=== PATIENT | female | born 1945 | race African-American/Black ===

== ENCOUNTER 2017-06-17 14:48 | Inpatient (IN) | payer MEDICARE, MEDICAID ==
[2017-06-17] VITALS (8 sets, daily range): BP systolic 71–127; BP diastolic 34–54
[~2017-06-17] VITALS: Ht 162.6 cm; Wt 93.9 kg
[2017-06-17] MEDS ORDERED: Cefepime HCl 1 GM in NS 55 ML IV STA (14:53)
[2017-06-17] MEDS ORDERED: Vancomycin 1 GM in NS 275 ML IV ONE (15:00)
[2017-06-17] MEDS ORDERED: Acetaminophen 650 MG SUPP RECTAL ONE (15:00)
--- NOTE | 2017-06-17 15:04 | Emergency Room Report ---
History of Present Illness General Chief Complaint: General Complaint Source: Patient, EMS Present Illness HPI The patient presents with altered level of consciousness and hypotension. Also paramedics felt that her skin was hot. Her blood pressure was 66 systolic in the field and they gave her 250 NS in the field and then a second to bolus at my request here. Her mentation started to improve with the fluids. The patient states that she's very thirsty. History is limited. According to the history in the computer she has muscle wasting, cancer the colon and some obstructive uropathy. Colostomy. She is on Eliquis. She has a h/o DVT. 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 Nursing Documentation: PMH: Agreed; PSxH: Agreed Nursing Documentation-PMH Hx Cerebrovascular Accident: Yes Review of Systems All Other Systems: limited Physical Exam Vital Signs Date Time Temp Pulse Resp B/P (MAP) Pulse Ox O2 Delivery O2 Flow Rate FiO2 06/17/17 14:45 101.3 105 24 70/43 97 Room Air 101.3 Sp02 EP Interpretation: reviewed, normal General Appearance: alert, mild distress, lethargic - but answering questions slowly, obese, Chronically Ill Head: normocephalic Eyes: bilateral eye normal inspection, bilateral eye PERRL ENT: dry mucus membranes Neck: full range of motion Respiratory: lungs clear, normal breath sounds Cardiovascular #1: tachycardia Cardiovascular #2: 2+ radial (R) Gastrointestinal: non-distended, no guarding, no rebound, tenderness - minimal around colostomy site, other - colostomy, no tender Rectal: other - colostomy stool is brown Musculoskeletal: back normal, gait/station normal, normal range of motion Neurologic: alert, motor weakness - bilat LE but moves both, oriented - x2 Psychiatric: depressed affect Skin: normal color, other - hot, abrasion R knee Procedures Critical Care Time Critical Care Time Total Critical Care Time: 90 min bedside evaluation and treatment excludes procedures (EKG, CVP). Reason for critical care: severe sepsis, fluid resuscitation, anemia Possible complications: hypotension, hypertension, DE, shock, arrhythmias, metabolic acidosis, end organ damage, respiratory failure. Interventions: fluid resuscitation, antibiotics, pressors, blood, discussion with admitting MDs Course: Patient presented with fever and hypotension. Immediate fluid resuscitation initiated. Patient improved however still hypotensive. CVP begun. Levophed started. Discussed with daughter and patient. Discussed with admitting MD. Anemia significant, blood transfusion ordered. I discussed this with the patient and she was in agreement. Consultations: nursing staff, EMS, family, admitting MD Performed by: Dr. Cruz Tolerated well condition = critical, but improving Central Line Central Line : Consent: Verbal Central Line Lumen: triple Maximal Sterile Barrier Tech: yes cap, yes mask, yes sterile gown, yes sterile gloves, yes large sterile sheet, yes hand hygiene, yes chlorhexidine prep Central Line Postion: internal jugular (R), femoral (R) Anesthesia: Lidocaine cc's of anesthesia: 10 Complications: none Central Line Post Position: sutured, good blood return, position confirmed w / CXR Attempts: Other - 2 Patient Tolerated: Well Complications: None Progress Unable to get good blood return R femoral. R low IJ with ultrasound. EBL 7 ml. Medical Decision Making Diagnostic Impression: Primary Impression: Severe sepsis Additional Impressions: UTI (urinary tract infection) Qualified Codes: N39.0 - Urinary tract infection, site not specified Colon cancer Qualified Codes: C18.9 - Malignant neoplasm of colon, unspecified Renal insufficiency Anemia Qualified Codes: D64.89 - Other specified anemias Anticoagulation on Eliquis H/O deep venous thrombosis ER Course Patient presents with fever-with hypotension. The patient is septic. The differential of the source includes pneumonia, intra-abdominal source, urinary tract infection amongst others. There is no evidence of infection skin or meningitis. The patient will be evaluated with EKG, chest x-ray, and labs including lactate and blood cultures. A Cheung catheter will be placed. She'll be given initial fluid bolus and reassessed after that. If she still hypotensive we need to start a central line and started on pressors. She's very dry at this time and therefore of aggressive fluid hydration is the first step. She'll be given Tylenol and initial broad-spectrum antibiotics covering urine and abdominal sources have been ordered. Patient clinically improved with fluids. Still hypotensive. EKG without injury. CXR no infiltrate. Labs with leukocytosis, anemia, elevated lactate, mild renal insufficiency. Marked pyuria. Sepsis re-evaluation after repeat bolus given. Still hypotensive but more alert , skin warm with fair perfusion, no still tachycardic, no dyspnea. CVP started and levaquin started. BP responding. (When asked about the abrasion on her R knee, she states she fell a few days ago.) Giving morphine for abdominal pain. Still not surgical exam. With + urine, I doubt abdomen/cancer is source of sepsis. Discussed with Dr. Orozco and Dr. Lee. H/H low. BP much better on levophed. I had discussed transfusing blood with the patient and she understands. Transfusions ordered. Laboratory Tests Test 06/17/17 14:30 06/17/17 15:00 Urine Color Lanie Urine Appearance Slightly cloudy Urine pH 8 (4.5-8.0) Urine Specific [place] 1.010 (1.005-1.035) Urine Protein 3+ (NEGATIVE) H Urine Glucose (UA) Negative (NEGATIVE) Urine Ketones Negative (NEGATIVE) Urine Occult Blood 4+ (NEGATIVE) H Urine Nitrite Negative (NEGATIVE) Urine Bilirubin Negative (NEGATIVE) Urine Ictotest Negative Urine Urobilinogen Normal MG/DL (0.0-1.0) Urine Leukocyte Esterase 3+ (NEGATIVE) H Urine RBC 10-15 /HPF (0 - 2) H Urine WBC Tntc /HPF (0 - 2) H Urine Squamous Epithelial Cells Moderate /LPF (NONE/OCC) H Urine Amorphous Sediment Many /LPF (NONE) H Urine Bacteria Many /HPF (NONE) H White Blood Count 32.8 K/UL (4.8-10.8) *H Red Blood Count 2.63 M/UL (4.20-5.40) L Hemoglobin 6.7 G/DL (12.0-16.0) *L Hematocrit 21.8 % (37.0-47.0) L Mean Corpuscular Volume 83 FL (80-99) Mean Corpuscular Hemoglobin 25.5 PG (27.0-31.0) L Mean Corpuscular Hemoglobin Concent 30.8 G/DL (32.0-36.0) L Red Cell Distribution Width 15.9 % (11.6-14.8) H Platelet Count 553 K/UL (150-450) H Mean Platelet Volume 4.9 FL (6.5-10.1) L Neutrophils (%) (Auto) % (45.0-75.0) Lymphocytes (%) (Auto) % (20.0-45.0) Monocytes (%) (Auto) % (1.0-10.0) Eosinophils (%) (Auto) % (0.0-3.0) Basophils (%) (Auto) % (0.0-2.0) Differential Total Cells Counted 100 Neutrophils % (Manual) 90 % (45-75) H Lymphocytes % (Manual) 3 % (20-45) L Monocytes % (Manual) 2 % (1-10) Eosinophils % (Manual) 0 % (0-3) Basophils % (Manual) 0 % (0-2) Band Neutrophils 5 % (0-8) Platelet Estimate Increased H Platelet Morphology Giant Platelets Occasional Hypochromasia 2+ Anisocytosis 1+ Prothrombin Time 13.9 SEC (9.30-11.50) H Prothrombin Time INR 1.3 (0.9-1.1) H PTT 39 SEC (23-33) H Sodium Level 139 MMOL/L (136-145) Potassium Level 3.9 MMOL/L (3.5-5.1) Chloride Level 105 MMOL/L (98-107) Carbon Dioxide Level 20 MMOL/L (21-32) L Anion Gap 14 mmol/L (5-15) Blood Urea Nitrogen 26 mg/dL (7-18) H Creatinine 1.9 MG/DL (0.55-1.30) H Estimate Glomerular Filtration Rate mL/min (>60) Glucose Level 86 MG/DL (74-106) Lactic Acid Level 5.00 mmol/L (0.66-2.22) H Calcium Level 8.3 MG/DL (8.5-10.1) L Magnesium Level 1.5 MG/DL (1.5-2.4) Total Bilirubin 0.4 MG/DL (0.2-1.0) Aspartate Amino Transferase (AST) 28 U/L (15-37) Alanine Aminotransferase (ALT) 14 U/L (12-78) Alkaline Phosphatase 122 U/L (46-116) H Total Creatine Kinase 110 U/L (26-308) Troponin I 0.014 ng/mL (0.000-0.056) Pro-B-Type Natriuretic Peptide 54396 pg/mL (0-125) H Total Protein 5.9 G/DL (6.4-8.2) L Albumin 1.4 G/DL (3.4-5.0) L Globulin 4.5 g/dL Albumin/Globulin Ratio 0.3 (1.0-2.7) L Lipase 31 U/L (73-393) L EKG Diagnostic Results Rate: tachycardiac Rhythm: other ST Segments: no acute changes Rhythm Strip Diag. Results EP Interpretation: yes Rhythm: no PVC's, no ectopy, other - ST 101 Chest X-Ray Diagnostic Results Chest X-Ray Diagnostic Results #1: Chest X-Ray Ordered: Yes # of Views/Limited/Complete: 1 View Indication: Other EP Interpretation: Yes Interpretation: no pneumothorax, other - effusion L and pacer Impression: Other Electronically Signed by: Electronically signed by Jean-Claude Cruz MD Chest X-Ray Diagnostic Results #2: Chest X-Ray Ordered: Yes # of Views/Limited/Complete: 1 View Indication: Other EP Interpretation: Yes Interpretation: no consolidation, no pneumothorax, other - CVP IVC Impression: Other Electronically Signed by: Electronically signed by Jean-Claude Cruz MD Last Vital Signs Date Time Temp Pulse Resp B/P (MAP) Pulse Ox O2 Delivery O2 Flow Rate FiO2 06/17/17 23:45 126/53 06/17/17 23:15 98.3 91 22 100 Room Air 98.3 Status: improved Disposition: ADMITTED INPATIENT Condition: Critical Jean-Claude Cruz M.D. Jun 17, 2017 15:04
[2017-06-17 15:16] LABS: HEMATOCRIT 21.8 % (37.0-47.0); MEAN CORPUSCULAR VOLUME 83 FL (80-99); PLATELET COUNT 553 K/UL (150-450); RED BLOOD COUNT 2.63 M/UL (4.20-5.40); RED CELL DISTRIBUTION WIDTH 15.9 % (11.6-14.8)
[2017-06-17 15:32] LABS: INR 1.3 (0.9-1.1)
[2017-06-17 15:35] LABS: ANION GAP 14 mmol/L (5-15); BLOOD UREA NITROGEN 26 mg/dL (7-18); CALCIUM 8.3 MG/DL (8.5-10.1); CARBON DIOXIDE 20 MMOL/L (21-32); CHLORIDE 105 MMOL/L (98-107); CREATININE 1.9 MG/DL (0.55-1.30); POTASSIUM 3.9 MMOL/L (3.5-5.1); SODIUM 139 MMOL/L (136-145)
[2017-06-17 15:36] LABS: HEMOGLOBIN 6.7 G/DL (12.0-16.0); WHITE BLOOD COUNT 32.8 K/UL (4.8-10.8)
[2017-06-17] MEDS ORDERED: MULTIVITAMINS1 EAC8 ORAL (15:43)
[2017-06-17] MEDS ORDERED: VESICARE10 MG ORAL (15:43)
[2017-06-17] MEDS ORDERED: LIDODERM700 M1 TOPIC (15:43)
[2017-06-17] MEDS ORDERED: OMEPRAZOLE20 M2 ORAL (15:43)
[2017-06-17] MEDS ORDERED: GABAPENTIN300 MG ORAL (15:43)
[2017-06-17] MEDS ORDERED: SENNA8.6 M2 PO (15:43)
[2017-06-17] MEDS ORDERED: NAPROXEN500 M2 ORAL ×2 (15:43→18:34)
[2017-06-17] MEDS ORDERED: ELIQUIS2.5 MG PO (15:43)
[2017-06-17] MEDS ORDERED: METHADONE HCL5 MG PO (15:43)
[2017-06-17] MEDS ORDERED: MEGACE40 MG PO (15:43)
[2017-06-17] MEDS ORDERED: SERTRALINE HCL50 MG ORAL (15:43)
[2017-06-17] MEDS ORDERED: DILAUDID2 MG ORAL ×2 (15:43→18:31)
[2017-06-17] MEDS ORDERED: LACTULOSE10 GM/154 PO (15:43)
[2017-06-17] MEDS ORDERED: ACETAMINOPHEN325 M1 ORAL (15:43)
[2017-06-17 15:45] LABS: ALANINE AMINOTRANSFERASE 14 U/L (12-78); ALBUMIN 1.4 G/DL (3.4-5.0); ALBUMIN/GLOBULIN RATIO 0.3 (1.0-2.7); ALKALINE PHOSPHATASE 122 U/L (46-116); ASPARTATE AMINO TRANSFERASE 28 U/L (15-37); BILIRUBIN,TOTAL 0.4 MG/DL (0.2-1.0); CREATINE KINASE 110 U/L (26-308)
[2017-06-17 15:51] LABS: APPEARANCE,URINE SLIGHTLY CLOUDY; BILIRUBIN, URINE NEGATIVE (NEGATIVE); COLOR,URINE AMBER; GLUCOSE, URINE (UA) NEGATIVE (NEGATIVE); KETONES,URINE NEGATIVE (NEGATIVE); LEUKOCYTE ESTERASE ,URINE 3+ (NEGATIVE); NITRITE,URINE NEGATIVE (NEGATIVE); PH,URINE 8 (4.5-8.0); PROTEIN,URINE 3+ (NEGATIVE); UROBILINOGEN,URINE NORMAL MG/DL (0.0-1.0)
[2017-06-17] MEDS ORDERED: Lidocaine 1% Plain 30 ml INJ ONE (17:30)
[2017-06-17] MEDS ORDERED: Morphine Sulfate 2mg/ml Inj IVP ONE (20:15)
[2017-06-17] MEDS ORDERED: Morphine Sulfate 4mg/ml Inj IVP ONE (20:30)
[2017-06-18] VITALS (35 sets, daily range): BP systolic 93–131; BP diastolic 40–99
[2017-06-18 02:19] LABS: HEMATOCRIT 20.7 % (37.0-47.0); MEAN CORPUSCULAR VOLUME 83 FL (80-99); PLATELET COUNT 538 K/UL (150-450); RED BLOOD COUNT 2.49 M/UL (4.20-5.40); RED CELL DISTRIBUTION WIDTH 16.2 % (11.6-14.8)
[2017-06-18 02:23] LABS: HEMOGLOBIN 6.6 G/DL (12.0-16.0); WHITE BLOOD COUNT 34.5 K/UL (4.8-10.8)
--- NOTE | 2017-06-18 10:40 | Consultation ---
History of Present Illness General Date patient seen: Jun 18, 2017 Chief Complaint: General Complaint Reason for Consultation: shock Present Illness HPI 72 year old female with hx of colon cancer, s/p resection and colostomy with recurrent cancer, DVT, on Eliquis, in [place] [facility]. was brought in by paramedics with CC of ALOC and hypotension. Pt had systolic BP of 60's in ER and was severely anemic. He as admitted to ICU. Pt is currently more awake and comfortable and doesn't have any acute complains. Allergies: Coded Allergies: PENICILLINS (Verified Allergy, Unknown, 06/17/17) Medication History Scheduled Apixaban (Eliquis), 2.5 MG PO BID, (Reported) Gabapentin* (Gabapentin*), 300 MG ORAL BEDTIME, (Reported) Lidocaine (Lidoderm), 1 PATCH TOPIC DAILY, (Reported) Megestrol Acetate (Megestrol Acetate), 800 MG PO DAILY, (Reported) Methadone Hcl* (Methadone*), 5 MG PO DAILY, (Reported) Multivitamin With Minerals (Multivitamins With Minerals*), 1 TAB ORAL DAILY, ( Reported) Omeprazole (Omeprazole), 20 MG ORAL DAILY, (Reported) Sennosides (Senna), 8.6 MG PO BEDTIME, (Reported) Sertraline Hcl* (Zoloft*), 50 MG ORAL DAILY, (Reported) Solifenacin Succinate (Vesicare*), 10 MG ORAL DAILY, (Reported) Scheduled PRN Acetaminophen* (Acetaminophen 325MG Tablet*), 650 MG ORAL Q4H PRN for Fever/ Headache/Mild Pain, (Reported) Hydromorphone HCl (Dilaudid), 6 MG ORAL Q6HR PRN for For Pain, (Reported) Lactulose (Lactulose), 20 GM PO DAILY PRN for Constipation, (Reported) Naproxen* (Naproxen*), 500 MG ORAL TWICE A DAY PRN for Hip Pain, (Reported) Patient History Healthcare decision maker Resuscitation status Advanced Directive on File Past Medical/Surgical History Past Medical/Surgical History: (1) Colon cancer (2) H/O deep venous thrombosis Review of Systems Constitutional: Reports: malaise, weakness Physical Exam General Appearance: WD/WN Lines, tubes and drains: peripheral, central line HEENT: normocephalic Neck: non-tender, normal alignment Respiratory/Chest: chest wall non-tender, lungs clear Cardiovascular/Chest: normal peripheral pulses, regular rhythm Abdomen: normal bowel sounds, non tender Genitourinary/Rectal: normal genital exam Extremities: normal range of motion, non-tender Last 24 Hour Vital Signs Date Time Temp Pulse Resp B/P (MAP) Pulse Ox O2 Delivery O2 Flow Rate FiO2 06/18/17 08:39 98.2 92 18 98.2 06/18/17 08:00 97.8 90 20 120/44 99 Room Air 97.8 06/18/17 07:45 97.8 90 20 118/62 99 Room Air 97.8 06/18/17 07:30 97.8 90 20 120/48 99 Room Air 97.8 06/18/17 07:19 97.8 90 20 121/50 99 Room Air 97.8 06/18/17 07:00 129/52 06/18/17 06:30 119/38 06/18/17 06:00 97.8 90 20 109/79 99 Room Air 97.8 06/18/17 06:00 109/79 06/18/17 05:30 122/45 06/18/17 05:00 98.2 95 12 119/49 99 Room Air 98.2 06/18/17 05:00 119/49 06/18/17 04:55 116/45 06/18/17 04:50 117/48 06/18/17 04:45 124/47 06/18/17 04:30 123/48 06/18/17 04:00 98.2 95 12 121/45 98 Room Air 98.2 06/18/17 04:00 121/45 06/18/17 03:30 114/49 06/18/17 03:00 98.2 94 12 94/99 98 Room Air 98.2 06/18/17 03:00 94/99 06/18/17 02:32 113/45 06/18/17 02:15 98.2 95 12 102/51 100 Room Air 98.2 06/18/17 02:15 102/51 06/18/17 01:45 104/38 06/18/17 01:15 98.2 93 12 111/40 100 Room Air 98.2 06/18/17 01:15 111/40 06/18/17 00:45 112/40 06/18/17 00:15 114/42 06/18/17 00:15 98.3 91 22 114/42 100 Room Air 98.3 06/17/17 23:45 126/53 06/17/17 23:15 98.3 91 22 127/54 100 Room Air 98.3 06/17/17 23:15 127/54 06/17/17 22:45 123/52 06/17/17 22:15 98.3 92 22 116/43 100 Room Air 98.3 06/17/17 22:15 116/43 06/17/17 21:45 110/43 06/17/17 21:15 100/39 06/17/17 21:15 98.3 95 26 100/39 100 Room Air 98.3 06/17/17 20:45 107/55 06/17/17 20:40 103/54 06/17/17 20:35 83/53 06/17/17 20:23 98.3 06/17/17 20:20 99/39 06/17/17 20:20 98.3 94 26 99/39 100 Room Air 98.3 06/17/17 19:50 94/47 06/17/17 19:20 95/39 06/17/17 19:15 96/40 06/17/17 19:10 98.3 96 26 92/37 100 Room Air 98.3 06/17/17 19:10 92/37 06/17/17 19:05 77/36 06/17/17 19:00 77/37 06/17/17 18:55 69/40 06/17/17 18:00 92 21 78/34 100 Room Air 06/17/17 17:00 90 21 80/34 98 Room Air 06/17/17 15:41 100.2 06/17/17 15:26 100.2 105 21 71/37 100 Room Air 100.2 06/17/17 14:45 101.3 105 24 70/43 97 Room Air 101.3 Intake and Output 06/17/17 06/18/17 19:00 07:00 Intake Total 1055 ml 1275 ml Output Total 500 ml Balance 1055 ml 775 ml Intake IV Total 1055 ml 1275 ml Output Urine Total 500 ml Laboratory Tests Test 06/17/17 14:30 06/17/17 15:00 06/18/17 01:22 06/18/17 04:00 Urine Color Lanie Urine Appearance Slightly cloudy Urine pH 8 (4.5-8.0) Urine Specific [place] 1.010 (1.005-1.035) Urine Protein 3+ (NEGATIVE) H Urine Glucose (UA) Negative (NEGATIVE) Urine Ketones Negative (NEGATIVE) Urine Occult Blood 4+ (NEGATIVE) H Urine Nitrite Negative (NEGATIVE) Urine Bilirubin Negative (NEGATIVE) Urine Ictotest Negative Urine Urobilinogen Normal MG/DL (0.0-1.0) Urine Leukocyte Esterase 3+ (NEGATIVE) H Urine RBC 10-15 /HPF (0 - 2) H Urine WBC Tntc /HPF (0 - 2) H Urine Squamous Epithelial Cells Moderate /LPF (NONE/OCC) H Urine Amorphous Sediment Many /LPF (NONE) H Urine Bacteria Many /HPF (NONE) H White Blood Count 32.8 K/UL (4.8-10.8) *H 34.5 K/UL (4.8-10.8) *H Red Blood Count 2.63 M/UL (4.20-5.40) L 2.49 M/UL (4.20-5.40) L Hemoglobin 6.7 G/DL (12.0-16.0) *L 6.6 G/DL (12.0-16.0) *L Hematocrit 21.8 % (37.0-47.0) L 20.7 % (37.0-47.0) L Mean Corpuscular Volume 83 FL (80-99) 83 FL (80-99) Mean Corpuscular Hemoglobin 25.5 PG (27.0-31.0) L 26.3 PG (27.0-31.0) L Mean Corpuscular Hemoglobin Concent 30.8 G/DL (32.0-36.0) L 31.7 G/DL (32.0-36.0) L Red Cell Distribution Width 15.9 % (11.6-14.8) H 16.2 % (11.6-14.8) H Platelet Count 553 K/UL (150-450) H 538 K/UL (150-450) H Mean Platelet Volume 4.9 FL (6.5-10.1) L 4.8 FL (6.5-10.1) L Neutrophils (%) (Auto) % (45.0-75.0) % (45.0-75.0) Lymphocytes (%) (Auto) % (20.0-45.0) % (20.0-45.0) Monocytes (%) (Auto) % (1.0-10.0) % (1.0-10.0) Eosinophils (%) (Auto) % (0.0-3.0) % (0.0-3.0) Basophils (%) (Auto) % (0.0-2.0) % (0.0-2.0) Differential Total Cells Counted 100 Neutrophils % (Manual) 90 % (45-75) H Lymphocytes % (Manual) 3 % (20-45) L Monocytes % (Manual) 2 % (1-10) Eosinophils % (Manual) 0 % (0-3) Basophils % (Manual) 0 % (0-2) Band Neutrophils 5 % (0-8) Platelet Estimate Increased H Platelet Morphology Giant Platelets Occasional Hypochromasia 2+ Anisocytosis 1+ Prothrombin Time 13.9 SEC (9.30-11.50) H Prothromb Time International Ratio 1.3 (0.9-1.1) H Activated Partial Thromboplast Time 39 SEC (23-33) H Sodium Level 139 MMOL/L (136-145) Potassium Level 3.9 MMOL/L (3.5-5.1) Chloride Level 105 MMOL/L (98-107) Carbon Dioxide Level 20 MMOL/L (21-32) L Anion Gap 14 mmol/L (5-15) Blood Urea Nitrogen 26 mg/dL (7-18) H Creatinine 1.9 MG/DL (0.55-1.30) H Estimat Glomerular Filtration Rate mL/min (>60) Glucose Level 86 MG/DL (74-106) Lactic Acid Level 5.00 mmol/L (0.66-2.22) H 1.00 mmol/L (0.66-2.22) Calcium Level 8.3 MG/DL (8.5-10.1) L Magnesium Level 1.5 MG/DL (1.5-2.4) Total Bilirubin 0.4 MG/DL (0.2-1.0) Aspartate Amino Transf (AST/SGOT) 28 U/L (15-37) Alanine Aminotransferase (ALT/SGPT) 14 U/L (12-78) Alkaline Phosphatase 122 U/L (46-116) H Total Creatine Kinase 110 U/L (26-308) Troponin I 0.014 ng/mL (0.000-0.056) Pro-B-Type Natriuretic Peptide 00453 pg/mL (0-125) H Total Protein 5.9 G/DL (6.4-8.2) L Albumin 1.4 G/DL (3.4-5.0) L Globulin 4.5 g/dL Albumin/Globulin Ratio 0.3 (1.0-2.7) L Lipase 31 U/L (73-393) L Test 06/18/17 09:30 Sodium Level Pending Potassium Level Pending Chloride Level Pending Carbon Dioxide Level Pending Blood Urea Nitrogen Pending Creatinine Pending Estimat Glomerular Filtration Rate Pending Glucose Level Pending Calcium Level Pending Phosphorus Level Pending Magnesium Level Pending Total Bilirubin Pending Aspartate Amino Transf (AST/SGOT) Pending Alanine Aminotransferase (ALT/SGPT) Pending Alkaline Phosphatase Pending Total Protein Pending Albumin Pending Globulin Pending Microbiology Date/Time Source Procedure Growth Status 06/17/17 14:30 Urine,Clean Catch Urine Culture - Preliminary NO GROWTH Resulted Height (Feet): 5 Height (Inches): 4.00 Weight (Pounds): 200 Medications Current Medications Medications (Trade) Dose Ordered Sig/Naman Route PRN Reason Start Time Stop Time Status Last Admin Dose Admin Norepinephrine Bitartrate 4 mg/ Dextrose 250 ml @ 0 mls/hr Q24H IV 06/18/17 10:00 07/17/17 09:59 Sodium Chloride 1,000 ml @ 300 mls/hr Q3H20M IV 06/18/17 09:30 07/17/17 14:59 06/18/17 09:43 Assessment/Plan Problem List: (1) Severe sepsis ICD Codes: A41.9 - Sepsis, unspecified organism; R65.20 - Severe sepsis without septic shock SNOMED: 81953924 (2) Acute encephalopathy ICD Codes: G93.40 - Encephalopathy, unspecified SNOMED: 23660423, 002386259 (3) Anemia ICD Codes: D64.9 - Anemia, unspecified SNOMED: 673341477 Qualifiers: Qualified Codes: D64.89 - Other specified anemias (4) H/O deep venous thrombosis ICD Codes: Z86.718 - Personal history of other venous thrombosis and embolism SNOMED: 542866183 (5) Colon cancer ICD Codes: C18.9 - Malignant neoplasm of colon, unspecified SNOMED: 771085836 Qualifiers: Qualified Codes: C18.9 - Malignant neoplasm of colon, unspecified (6) Colostomy in place ICD Codes: Z93.3 - Colostomy status SNOMED: 276260976, 810498383 Assessment/Plan iv fluids iv levophed to keep mbp at 60 PRBC prn check electroltyes venous doppler of legs Blood cultures broad spectrum antibiotics ID evaluation f/u electroltyes get records from [facility] Andres Reynolds MD Jun 18, 2017 10:40
[2017-06-18 10:41] LABS: ALANINE AMINOTRANSFERASE 15 U/L (12-78); ALBUMIN 1.3 G/DL (3.4-5.0); ALBUMIN/GLOBULIN RATIO 0.3 (1.0-2.7); ALKALINE PHOSPHATASE 145 U/L (46-116); ANION GAP 13 mmol/L (5-15); ASPARTATE AMINO TRANSFERASE 50 U/L (15-37); BILIRUBIN,TOTAL 0.5 MG/DL (0.2-1.0); BLOOD UREA NITROGEN 25 mg/dL (7-18); CALCIUM 7.5 MG/DL (8.5-10.1); CARBON DIOXIDE 18 MMOL/L (21-32); CHLORIDE 109 MMOL/L (98-107); CREATININE 1.1 MG/DL (0.55-1.30); PHOSPHORUS 3.3 MG/DL (2.5-4.9); POTASSIUM 3.2 MMOL/L (3.5-5.1); SODIUM 140 MMOL/L (136-145)
[2017-06-18] MEDS ORDERED: Miralax 17gm pkt ORAL PRN (10:45)
[2017-06-18] MEDS ORDERED: Morphine Sulfate 4mg/ml Inj IVP PRN ×2 (10:45→11:30)
[2017-06-18] MEDS ORDERED: Albuterol/Ipratropium 3ml neb HHN PRN (10:45)
[2017-06-18] MEDS ORDERED: Amikacin Rx to dose MISC PRN (11:15)
--- NOTE | 2017-06-18 11:15 | Diagnostic Imaging Report ---
Indication: Central line placement consolidation Technique: XRAY Chest 1v Comparison: 06/08/2018, 16:07 Findings/impression: Interval placement of a right transjugular central venous catheter. Catheter tip in the region of the right atrium. Slight retraction recommended. There is no definite pneumothorax. Additional findings unchanged. This corresponds with the interpretation of the treating ER clinician, as documented in the electronic medical record.
--- NOTE | 2017-06-18 11:17 | Diagnostic Imaging Report ---
Indication: Chest pain Technique: XRAY Chest 1v Comparison: None Findings: Patient rotated to the left. The heart is enlarged. Atherosclerotic calcifications noted in the aortic arch. There is mild central pulmonary vascular congestion. There is a patchy retrocardiac opacity. No pleural effusion. No pneumothorax. There are degenerative changes of the spine and shoulders. No acute osseous abnormality seen. Impression: Cardiomegaly and pulmonary vascular congestion. Patchy retrocardiac opacity. Pneumonia not excluded. Clinical correlation and follow-up exam recommended.
--- NOTE | 2017-06-18 11:25 | GI Initial Consult Note ---
[place] Edwin [place] 06/18/17 1125: History of Present Illness General Date patient seen: Jun 18, 2017 Time patient seen: 11:20 Reason for Hospitalization: General Complaint Referring physician: CARISSA SALGUERO Reason for Consultation: ANEMIA Present Illness HPI The patient presents with altered level of consciousness and hypotension. Also paramedics felt that her skin was hot. Her blood pressure was 66 systolic in the field and they gave her 250 NS in the field and then a second to bolus at my request here. Her mentation started to improve with the fluids. The patient states that she's very thirsty. History is limited. According to the history in the computer she has muscle wasting, cancer the colon and some obstructive uropathy. Colostomy. She is on Eliquis. She has a h/o DVT. GI consulted for anemia. Pt seen, awake A&Ox 4 NAD feeling weak at this time. Hx of colon CA with resection s/p colostomy. Presents today with severe anemia requiring blood transfusion, leukocytosis, electrolyte imbalance, hypoalbuminemia and severe hypotension. Unknown endoscopy history at this time. Home Meds Reported Medications Naproxen* (NAPROXEN*) 500 Mg Tablet, 500 MG ORAL TWICE A DAY PRN for Hip Pain 06/17/17 Hydromorphone HCl (Dilaudid) 2 Mg Tablet, 6 MG ORAL Q6HR PRN for For Pain 06/17/17 Solifenacin Succinate (VESICARE*) 10 Mg Tablet, 10 MG ORAL DAILY, TAB 06/17/17 Sertraline Hcl* (ZOLOFT*) 50 Mg Tablet, 50 MG ORAL DAILY, TAB 06/17/17 Sennosides (SENNA) 8.6 Mg Tablet, 8.6 MG PO BEDTIME, TAB 06/17/17 Omeprazole (OMEPRAZOLE) 20 Mg Capsule.dr, 20 MG ORAL DAILY, CAP 06/17/17 Multivitamin With Minerals (MULTIVITAMINS WITH MINERALS*) 1 Each Tablet, 1 TAB ORAL DAILY, TAB 06/17/17 Methadone Hcl* (METHADONE*) 5 Mg Tablet, 5 MG PO DAILY, #10 TAB 0 Refills 06/17/17 Megestrol Acetate (Megestrol Acetate) 40 Mg Tablet, 800 MG PO DAILY, #10 TAB 0 Refills 06/17/17 Lidocaine (Lidoderm) 1 Each Adh..patch, 1 PATCH TOPIC DAILY, #7 PATCH 0 Refills Patch(es) may remain in place for up to 12 hours in any 24-hour period. 06/17/17 Lactulose (LACTULOSE) 10 Gm/15 Ml Solution, 20 GM PO DAILY PRN for Constipation 06/17/17 Gabapentin* (GABAPENTIN*) 300 Mg Capsule, 300 MG ORAL BEDTIME, CAP 06/17/17 Apixaban (ELIQUIS) 2.5 Mg Tablet, 2.5 MG PO BID, TAB 06/17/17 Acetaminophen* (ACETAMINOPHEN 325MG TABLET*) 325 Mg Tablet, 650 MG ORAL Q4H PRN for Fever/Headache/Mild Pain, TAB 06/17/17 Med list reviewed/reconciled: Yes Allergies: Coded Allergies: PENICILLINS (Verified Allergy, Unknown, 06/18/17) Swelling Patient History History Provided By: Patient, Medical Record PMH Narrative Limited by: medical condition Past Medical History: see triage record, old chart reviewed Past Surgical History: pacemaker, other - colostomy Social History: Denies: smoking, alcohol use 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 Nursing Documentation: PMH: Agreed; PSxH: Agreed Nursing Documentation-PMH Hx Cerebrovascular Accident: Yes Social History: Denies: smoking, alcohol use, drug use, other Review of Systems All Other Systems: negative except mentioned in HPI Physical Exam Vital Signs Date Time Temp Pulse Resp B/P (MAP) Pulse Ox O2 Delivery O2 Flow Rate FiO2 06/17/17 14:45 101.3 105 24 70/43 97 Room Air 101.3 Sp02 EP Interpretation: reviewed, normal Labs Laboratory Tests Test 06/17/17 14:30 06/17/17 15:00 06/18/17 01:22 06/18/17 04:00 Urine Color Lanie Urine Appearance Slightly cloudy Urine pH 8 (4.5-8.0) Urine Specific [place] 1.010 (1.005-1.035) Urine Protein 3+ (NEGATIVE) H Urine Glucose (UA) Negative (NEGATIVE) Urine Ketones Negative (NEGATIVE) Urine Occult Blood 4+ (NEGATIVE) H Urine Nitrite Negative (NEGATIVE) Urine Bilirubin Negative (NEGATIVE) Urine Ictotest Negative Urine Urobilinogen Normal MG/DL (0.0-1.0) Urine Leukocyte Esterase 3+ (NEGATIVE) H Urine RBC 10-15 /HPF (0 - 2) H Urine WBC Tntc /HPF (0 - 2) H Urine Squamous Epithelial Cells Moderate /LPF (NONE/OCC) H Urine Amorphous Sediment Many /LPF (NONE) H Urine Bacteria Many /HPF (NONE) H White Blood Count 32.8 K/UL (4.8-10.8) *H 34.5 K/UL (4.8-10.8) *H Red Blood Count 2.63 M/UL (4.20-5.40) L 2.49 M/UL (4.20-5.40) L Hemoglobin 6.7 G/DL (12.0-16.0) *L 6.6 G/DL (12.0-16.0) *L Hematocrit 21.8 % (37.0-47.0) L 20.7 % (37.0-47.0) L Mean Corpuscular Volume 83 FL (80-99) 83 FL (80-99) Mean Corpuscular Hemoglobin 25.5 PG (27.0-31.0) L 26.3 PG (27.0-31.0) L Mean Corpuscular Hemoglobin Concent 30.8 G/DL (32.0-36.0) L 31.7 G/DL (32.0-36.0) L Red Cell Distribution Width 15.9 % (11.6-14.8) H 16.2 % (11.6-14.8) H Platelet Count 553 K/UL (150-450) H 538 K/UL (150-450) H Mean Platelet Volume 4.9 FL (6.5-10.1) L 4.8 FL (6.5-10.1) L Neutrophils (%) (Auto) % (45.0-75.0) % (45.0-75.0) Lymphocytes (%) (Auto) % (20.0-45.0) % (20.0-45.0) Monocytes (%) (Auto) % (1.0-10.0) % (1.0-10.0) Eosinophils (%) (Auto) % (0.0-3.0) % (0.0-3.0) Basophils (%) (Auto) % (0.0-2.0) % (0.0-2.0) Differential Total Cells Counted 100 Neutrophils % (Manual) 90 % (45-75) H Lymphocytes % (Manual) 3 % (20-45) L Monocytes % (Manual) 2 % (1-10) Eosinophils % (Manual) 0 % (0-3) Basophils % (Manual) 0 % (0-2) Band Neutrophils 5 % (0-8) Platelet Estimate Increased H Platelet Morphology Giant Platelets Occasional Hypochromasia 2+ Anisocytosis 1+ Prothrombin Time 13.9 SEC (9.30-11.50) H Prothromb Time International Ratio 1.3 (0.9-1.1) H Activated Partial Thromboplast Time 39 SEC (23-33) H Sodium Level 139 MMOL/L (136-145) Potassium Level 3.9 MMOL/L (3.5-5.1) Chloride Level 105 MMOL/L (98-107) Carbon Dioxide Level 20 MMOL/L (21-32) L Anion Gap 14 mmol/L (5-15) Blood Urea Nitrogen 26 mg/dL (7-18) H Creatinine 1.9 MG/DL (0.55-1.30) H Estimat Glomerular Filtration Rate mL/min (>60) Glucose Level 86 MG/DL (74-106) Lactic Acid Level 5.00 mmol/L (0.66-2.22) H 1.00 mmol/L (0.66-2.22) Calcium Level 8.3 MG/DL (8.5-10.1) L Magnesium Level 1.5 MG/DL (1.5-2.4) Total Bilirubin 0.4 MG/DL (0.2-1.0) Aspartate Amino Transf (AST/SGOT) 28 U/L (15-37) Alanine Aminotransferase (ALT/SGPT) 14 U/L (12-78) Alkaline Phosphatase 122 U/L (46-116) H Total Creatine Kinase 110 U/L (26-308) Troponin I 0.014 ng/mL (0.000-0.056) Pro-B-Type Natriuretic Peptide 95701 pg/mL (0-125) H Total Protein 5.9 G/DL (6.4-8.2) L Albumin 1.4 G/DL (3.4-5.0) L Globulin 4.5 g/dL Albumin/Globulin Ratio 0.3 (1.0-2.7) L Lipase 31 U/L (73-393) L Test 4/30/18 09:30 Sodium Level 140 MMOL/L (136-145) Potassium Level 3.2 MMOL/L (3.5-5.1) L Chloride Level 109 MMOL/L (98-107) H Carbon Dioxide Level 18 MMOL/L (21-32) L Anion Gap 13 mmol/L (5-15) Blood Urea Nitrogen 25 mg/dL (7-18) H Creatinine 1.1 MG/DL (0.55-1.30) Estimat Glomerular Filtration Rate mL/min (>60) Glucose Level 121 MG/DL (74-106) H Calcium Level 7.5 MG/DL (8.5-10.1) L Phosphorus Level 3.3 MG/DL (2.5-4.9) Magnesium Level 1.4 MG/DL (1.8-2.4) L Total Bilirubin 0.5 MG/DL (0.2-1.0) Aspartate Amino Transf (AST/SGOT) 50 U/L (15-37) H Alanine Aminotransferase (ALT/SGPT) 15 U/L (12-78) Alkaline Phosphatase 145 U/L (46-116) H Total Protein 6.1 G/DL (6.4-8.2) L Albumin 1.3 G/DL (3.4-5.0) L Globulin 4.8 g/dL Albumin/Globulin Ratio 0.3 (1.0-2.7) L Random Vancomycin Level 7.2 ug/mL General Appearance: well appearing, no apparent distress, alert Head: normocephalic EENT: PERRL/EOMI, normal ENT inspection Neck: supple Respiratory: normal breath sounds, no respiratory distress Cardiovascular: normal rate Gastrointestinal: normal inspection, non tender, soft, normal bowel sounds, non -distended, other - colostomy Rectal: deferred Genitourinary: no CVA tenderness Musculoskeletal: normal inspection, back normal Neurologic: alert, responsive Psychiatric: normal inspection, judgement/insight normal, memory normal Skin: normal inspection, normal color, no rash, warm/dry, palpation normal, well hydrated Lymphatic: normal inspection, no adenopathy Current Medications Current Medications Medications (Trade) Dose Ordered Sig/Naman Route PRN Reason Start Time Stop Time Status Last Admin Dose Admin Acetaminophen (Tylenol) 650 mg Q4H PRN ORAL fever 06/18/17 10:45 07/18/17 10:44 Albuterol/ Ipratropium (Albuterol/ Ipratropium) 3 ml EVERY 4 HOURS PRN HHN Shortness of Breath 06/18/17 10:45 06/23/17 10:44 Amikacin Protocol (Amikacin pharmacy to dose) 1 ea DAILY PRN MISC RX TO DOSE 06/18/17 11:15 07/18/17 11:14 Amikacin Sulfate / Sodium Chloride 110 ml @ 110 mls/hr Q24H IV 06/18/17 23:45 06/25/17 23:44 UNV Heparin Sodium (Porcine) (Heparin 5000 units/ml) 5,000 units EVERY 12 HOURS SUBQ 06/18/17 21:00 07/18/17 20:59 Magnesium Sulfate 100 ml @ 100 mls/hr Q1H IVPB 06/18/17 11:00 06/18/17 12:59 Morphine Sulfate (Morphine Sulfate) 2 mg EVERY 4 HOURS PRN IVP Severe Pain (Pain Scale 7-10) 06/18/17 10:45 06/25/17 10:44 Norepinephrine Bitartrate 4 mg/ Dextrose 254 ml @ 0 mls/hr Q24H IV 06/18/17 10:45 07/18/17 10:44 06/18/17 10:46 Ondansetron HCl (Zofran) 4 mg Q6H PRN IVP Nausea & Vomiting 06/18/17 10:45 07/18/17 10:44 Pantoprazole (Protonix) 40 mg DAILY IVP 06/19/17 09:00 07/19/17 08:59 Polyethylene Glycol (Miralax) 17 gm DAILYPRN PRN ORAL Constipation 06/18/17 10:45 07/18/17 10:44 Sodium Chloride 1,000 ml @ 100 mls/hr Q10H IVLG 06/18/17 10:33 07/18/17 10:32 06/18/17 10:42 Vancomycin HCl (Vanco rx to dose) 1 ea DAILY PRN MISC RX TO DOSE 06/18/17 11:00 07/18/17 10:59 Vancomycin HCl 1 gm/Dextrose 275 ml @ 183.3 mls/ hr Q24H IV 06/18/17 23:45 06/23/17 23:44 UNV GI: Plan Problems: (1) Anemia (2) Colostomy in place (3) Dehydration (4) Electrolyte imbalance (5) Severe sepsis (6) Acute encephalopathy (7) Colon cancer Plan defer GI procedures at this time, will consider endoscopy when stable >> fu on cardiology recs anemia work up OB stool r/o GI bleed monitor H&H, prn transfusions bowel regime ppi electrolyte replacement fu labs patient on Plavix Discussed with Dr. Rosa. Thank you for this patient referral, we will follow. ARLENE ROSA 06/19/17 0659: History of Present Illness General Reason for Hospitalization: General Complaint Present Illness Home Meds Reported Medications Naproxen* (NAPROXEN*) 500 Mg Tablet, 500 MG ORAL TWICE A DAY PRN for Hip Pain 06/17/17 Hydromorphone HCl (Dilaudid) 2 Mg Tablet, 6 MG ORAL Q6HR PRN for For Pain 06/17/17 Solifenacin Succinate (VESICARE*) 10 Mg Tablet, 10 MG ORAL DAILY, TAB 06/17/17 Sertraline Hcl* (ZOLOFT*) 50 Mg Tablet, 50 MG ORAL DAILY, TAB 06/17/17 Sennosides (SENNA) 8.6 Mg Tablet, 8.6 MG PO BEDTIME, TAB 06/17/17 Omeprazole (OMEPRAZOLE) 20 Mg Capsule.dr, 20 MG ORAL DAILY, CAP 06/17/17 Multivitamin With Minerals (MULTIVITAMINS WITH MINERALS*) 1 Each Tablet, 1 TAB ORAL DAILY, TAB 06/17/17 Methadone Hcl* (METHADONE*) 5 Mg Tablet, 5 MG PO DAILY, #10 TAB 0 Refills 06/17/17 Megestrol Acetate (Megestrol Acetate) 40 Mg Tablet, 800 MG PO DAILY, #10 TAB 0 Refills 06/17/17 Lidocaine (Lidoderm) 1 Each Adh..patch, 1 PATCH TOPIC DAILY, #7 PATCH 0 Refills Patch(es) may remain in place for up to 12 hours in any 24-hour period. 06/17/17 Lactulose (LACTULOSE) 10 Gm/15 Ml Solution, 20 GM PO DAILY PRN for Constipation 06/17/17 Gabapentin* (GABAPENTIN*) 300 Mg Capsule, 300 MG ORAL BEDTIME, CAP 06/17/17 Apixaban (ELIQUIS) 2.5 Mg Tablet, 2.5 MG PO BID, TAB 06/17/17 Acetaminophen* (ACETAMINOPHEN 325MG TABLET*) 325 Mg Tablet, 650 MG ORAL Q4H PRN for Fever/Headache/Mild Pain, TAB 06/17/17 Allergies: Coded Allergies: PENICILLINS (Verified Allergy, Unknown, 06/18/17) Swelling GI: Plan Plan The patient was seen and examined at bedside and all new and available data was reviewed in the patients chart. I agree with the above findings, impression and plan. (Patient seen earlier today. Signature stamp does not reflect patient encounter time.). - MD Valentina Osborne Anh Edwin Blanton Jun 18, 2017 11:25 ARLENE ROSA June 19, 2017 06:59
[2017-06-18] MEDS ORDERED: Vancomycin 1250mg/D5W 250ml IVPB SCH (13:00)
[2017-06-18] MEDS ORDERED: Potassium Phosphate 30 MM in NS 275 ML IV SCH (13:00)
--- NOTE | 2017-06-18 13:02 | History & Physical ---
History and Physical History & Physicial Dictated for Int Med-Dr Orozco no. [id number]. HOMER RICO Jun 18, 2017 13:02
[2017-06-18] MEDS ORDERED: Amikacin 1,000 MG in NS 275 ML IV SCH (14:00)
--- NOTE | 2017-06-18 15:01 | Consultation ---
History of Present Illness General Date patient seen: Jun 18, 2017 Time patient seen: 14:44 Chief Complaint: General Complaint Referring physician: CARISSA SALGUERO Reason for Consultation: ANEMIA Present Illness HPI 72 y/o F with hx of Colon CA s/p resection and colostomy w/ recurrent Cancer, obstructive uropathy, s/p PPM, DVT on Eliquis, [facility] resident presents to ED on 06/17 with ALOC and hypotension (SBP 60s). Admitted to ICU and started on pressors. Tm 100.2,a febrile in ~14hrs. High WBC 30s. At RA. CARLOS. no dysuria but urinary frequency, urgency and lower abd pain, also vomitng and nausea Allergies: Coded Allergies: PENICILLINS (Verified Allergy, Unknown, 06/17/17) Medication History Scheduled Apixaban (Eliquis), 2.5 MG PO BID, (Reported) Gabapentin* (Gabapentin*), 300 MG ORAL BEDTIME, (Reported) Lidocaine (Lidoderm), 1 PATCH TOPIC DAILY, (Reported) Megestrol Acetate (Megestrol Acetate), 800 MG PO DAILY, (Reported) Methadone Hcl* (Methadone*), 5 MG PO DAILY, (Reported) Multivitamin With Minerals (Multivitamins With Minerals*), 1 TAB ORAL DAILY, ( Reported) Omeprazole (Omeprazole), 20 MG ORAL DAILY, (Reported) Sennosides (Senna), 8.6 MG PO BEDTIME, (Reported) Sertraline Hcl* (Zoloft*), 50 MG ORAL DAILY, (Reported) Solifenacin Succinate (Vesicare*), 10 MG ORAL DAILY, (Reported) Scheduled PRN Acetaminophen* (Acetaminophen 325MG Tablet*), 650 MG ORAL Q4H PRN for Fever/ Headache/Mild Pain, (Reported) Hydromorphone HCl (Dilaudid), 6 MG ORAL Q6HR PRN for For Pain, (Reported) Lactulose (Lactulose), 20 GM PO DAILY PRN for Constipation, (Reported) Naproxen* (Naproxen*), 500 MG ORAL TWICE A DAY PRN for Hip Pain, (Reported) Patient History Healthcare decision maker Resuscitation status Full Code Advanced Directive on File Patient History Narrative Pmhx: as above Shx:Denies: smoking, alcohol use, drug use, other Fhx: non contributory Review of Systems All Other Systems: negative except mentioned in HPI Physical Exam Physical Exam Narrative General Appearance: well appearing, no apparent distress, alert Head: normocephalic EENT: PERRL/EOMI, normal ENT inspection Neck: supple Respiratory: normal breath sounds, no respiratory distress Cardiovascular: normal rate Gastrointestinal: normal inspection, non tender, soft, normal bowel sounds, non -distended Rectal: deferred Genitourinary: no CVA tenderness Musculoskeletal: normal inspection, back normal Neurologic: normal inspection, alert, oriented x3, responsive Psychiatric: normal inspection, judgement/insight normal, memory normal Skin: normal inspection, normal color, no rash, warm/dry, palpation normal, well hydrated Lymphatic: normal inspection, no adenopathy Last 24 Hour Vital Signs Date Time Temp Pulse Resp B/P (MAP) Pulse Ox O2 Delivery O2 Flow Rate FiO2 06/18/17 14:30 94 18 106/51 100 Room Air 06/18/17 14:00 89 19 101/50 98 Room Air 06/18/17 13:30 93 19 100/49 98 Room Air 06/18/17 13:00 93 20 97/50 98 Room Air 06/18/17 12:30 92 20 106/54 100 Room Air 06/18/17 12:00 89 06/18/17 12:00 98.2 90 18 114/54 99 Room Air 98.2 06/18/17 11:30 88 23 113/50 100 Room Air 06/18/17 11:00 88 23 104/48 100 Room Air 06/18/17 10:46 109/53 06/18/17 10:30 87 23 107/48 100 Room Air 06/18/17 10:00 109/48 06/18/17 10:00 85 22 106/45 100 Room Air 06/18/17 09:30 87 18 116/47 100 Room Air 06/18/17 09:00 98.3 90 20 131/49 100 Room Air 98.3 06/18/17 08:39 98.2 92 18 98.2 06/18/17 08:00 97.8 90 20 120/44 99 Room Air 97.8 06/18/17 07:45 97.8 90 20 118/62 99 Room Air 97.8 06/18/17 07:30 97.8 90 20 120/48 99 Room Air 97.8 06/18/17 07:19 97.8 90 20 121/50 99 Room Air 97.8 06/18/17 07:00 129/52 06/18/17 06:30 119/38 06/18/17 06:00 97.8 90 20 109/79 99 Room Air 97.8 06/18/17 06:00 109/79 06/18/17 05:30 122/45 06/18/17 05:00 98.2 95 12 119/49 99 Room Air 98.2 06/18/17 05:00 119/49 06/18/17 04:55 116/45 06/18/17 04:50 117/48 06/18/17 04:45 124/47 06/18/17 04:30 123/48 06/18/17 04:00 98.2 95 12 121/45 98 Room Air 98.2 06/18/17 04:00 121/45 06/18/17 03:30 114/49 06/18/17 03:00 98.2 94 12 94/99 98 Room Air 98.2 06/18/17 03:00 94/99 06/18/17 02:32 113/45 06/18/17 02:15 98.2 95 12 102/51 100 Room Air 98.2 06/18/17 02:15 102/51 06/18/17 01:45 104/38 06/18/17 01:15 98.2 93 12 111/40 100 Room Air 98.2 06/18/17 01:15 111/40 06/18/17 00:45 112/40 06/18/17 00:15 114/42 06/18/17 00:15 98.3 91 22 114/42 100 Room Air 98.3 06/17/17 23:45 126/53 06/17/17 23:15 98.3 91 22 127/54 100 Room Air 98.3 06/17/17 23:15 127/54 06/17/17 22:45 123/52 06/17/17 22:15 98.3 92 22 116/43 100 Room Air 98.3 06/17/17 22:15 116/43 06/17/17 21:45 110/43 06/17/17 21:15 100/39 06/17/17 21:15 98.3 95 26 100/39 100 Room Air 98.3 06/17/17 20:45 107/55 06/17/17 20:40 103/54 06/17/17 20:35 83/53 06/17/17 20:23 98.3 06/17/17 20:20 99/39 06/17/17 20:20 98.3 94 26 99/39 100 Room Air 98.3 06/17/17 19:50 94/47 06/17/17 19:20 95/39 06/17/17 19:15 96/40 06/17/17 19:10 98.3 96 26 92/37 100 Room Air 98.3 06/17/17 19:10 92/37 06/17/17 19:05 77/36 06/17/17 19:00 77/37 06/17/17 18:55 69/40 06/17/17 18:00 92 21 78/34 100 Room Air 06/17/17 17:00 90 21 80/34 98 Room Air 06/17/17 15:41 100.2 06/17/17 15:26 100.2 105 21 71/37 100 Room Air 100.2 06/17/17 14:45 101.3 105 24 70/43 97 Room Air 101.3 Intake and Output 06/17/17 06/18/17 19:00 07:00 Intake Total 1055 ml 1275 ml Output Total 500 ml Balance 1055 ml 775 ml IV Total 1055 ml 1275 ml Output Urine Total 500 ml Laboratory Tests Test 06/17/17 15:00 06/18/17 01:22 06/18/17 04:00 06/18/17 09:30 White Blood Count 32.8 K/UL (4.8-10.8) *H 34.5 K/UL (4.8-10.8) *H Red Blood Count 2.63 M/UL (4.20-5.40) L 2.49 M/UL (4.20-5.40) L Hemoglobin 6.7 G/DL (12.0-16.0) *L 6.6 G/DL (12.0-16.0) *L Hematocrit 21.8 % (37.0-47.0) L 20.7 % (37.0-47.0) L Mean Corpuscular Volume 83 FL (80-99) 83 FL (80-99) Mean Corpuscular Hemoglobin 25.5 PG (27.0-31.0) L 26.3 PG (27.0-31.0) L Mean Corpuscular Hemoglobin Concent 30.8 G/DL (32.0-36.0) L 31.7 G/DL (32.0-36.0) L Red Cell Distribution Width 15.9 % (11.6-14.8) H 16.2 % (11.6-14.8) H Platelet Count 553 K/UL (150-450) H 538 K/UL (150-450) H Mean Platelet Volume 4.9 FL (6.5-10.1) L 4.8 FL (6.5-10.1) L Neutrophils (%) (Auto) % (45.0-75.0) % (45.0-75.0) Lymphocytes (%) (Auto) % (20.0-45.0) % (20.0-45.0) Monocytes (%) (Auto) % (1.0-10.0) % (1.0-10.0) Eosinophils (%) (Auto) % (0.0-3.0) % (0.0-3.0) Basophils (%) (Auto) % (0.0-2.0) % (0.0-2.0) Differential Total Cells Counted 100 Neutrophils % (Manual) 90 % (45-75) H Lymphocytes % (Manual) 3 % (20-45) L Monocytes % (Manual) 2 % (1-10) Eosinophils % (Manual) 0 % (0-3) Basophils % (Manual) 0 % (0-2) Band Neutrophils 5 % (0-8) Platelet Estimate Increased H Platelet Morphology Giant Platelets Occasional Hypochromasia 2+ Anisocytosis 1+ Prothrombin Time 13.9 SEC (9.30-11.50) H Prothromb Time International Ratio 1.3 (0.9-1.1) H Activated Partial Thromboplast Time 39 SEC (23-33) H Sodium Level 139 MMOL/L (136-145) 140 MMOL/L (136-145) Potassium Level 3.9 MMOL/L (3.5-5.1) 3.2 MMOL/L (3.5-5.1) L Chloride Level 105 MMOL/L (98-107) 109 MMOL/L (98-107) H Carbon Dioxide Level 20 MMOL/L (21-32) L 18 MMOL/L (21-32) L Anion Gap 14 mmol/L (5-15) 13 mmol/L (5-15) Blood Urea Nitrogen 26 mg/dL (7-18) H 25 mg/dL (7-18) H Creatinine 1.9 MG/DL (0.55-1.30) H 1.1 MG/DL (0.55-1.30) Estimat Glomerular Filtration Rate mL/min (>60) mL/min (>60) Glucose Level 86 MG/DL (74-106) 121 MG/DL (74-106) H Lactic Acid Level 5.00 mmol/L (0.66-2.22) H 1.00 mmol/L (0.66-2.22) Calcium Level 8.3 MG/DL (8.5-10.1) L 7.5 MG/DL (8.5-10.1) L Magnesium Level 1.5 MG/DL (1.5-2.4) 1.4 MG/DL (1.8-2.4) L Total Bilirubin 0.4 MG/DL (0.2-1.0) 0.5 MG/DL (0.2-1.0) Aspartate Amino Transf (AST/SGOT) 28 U/L (15-37) 50 U/L (15-37) H Alanine Aminotransferase (ALT/SGPT) 14 U/L (12-78) 15 U/L (12-78) Alkaline Phosphatase 122 U/L (46-116) H 145 U/L (46-116) H Total Creatine Kinase 110 U/L (26-308) Troponin I 0.014 ng/mL (0.000-0.056) Pro-B-Type Natriuretic Peptide 78456 pg/mL (0-125) H Total Protein 5.9 G/DL (6.4-8.2) L 6.1 G/DL (6.4-8.2) L Albumin 1.4 G/DL (3.4-5.0) L 1.3 G/DL (3.4-5.0) L Globulin 4.5 g/dL 4.8 g/dL Albumin/Globulin Ratio 0.3 (1.0-2.7) L 0.3 (1.0-2.7) L Lipase 31 U/L (73-393) L Phosphorus Level 3.3 MG/DL (2.5-4.9) Random Vancomycin Level 7.2 ug/mL Height (Feet): 5 Height (Inches): 4.00 Weight (Pounds): 200 Medications Current Medications Medications (Trade) Dose Ordered Sig/Naman Route PRN Reason Start Time Stop Time Status Last Admin Dose Admin Acetaminophen (Tylenol) 650 mg Q4H PRN ORAL fever 06/18/17 10:45 07/18/17 10:44 Albuterol/ Ipratropium (Albuterol/ Ipratropium) 3 ml EVERY 4 HOURS PRN HHN Shortness of Breath 06/18/17 10:45 06/23/17 10:44 Amikacin Protocol (Amikacin pharmacy to dose) 1 ea DAILY PRN MISC RX TO DOSE 06/18/17 11:15 07/18/17 11:14 Amikacin Sulfate 1000 mg/Sodium Chloride 279 ml @ 279 mls/hr Q36H IV 06/18/17 14:00 06/25/17 23:59 Heparin Sodium (Porcine) (Heparin 5000 units/ml) 5,000 units EVERY 12 HOURS SUBQ 06/18/17 21:00 07/18/17 20:59 Morphine Sulfate (Morphine Sulfate) 1 mg Q4H PRN IVP for Pain 3-6 06/18/17 11:30 06/25/17 11:29 06/18/17 12:48 Morphine Sulfate (Morphine Sulfate) 2 mg EVERY 4 HOURS PRN IVP Severe Pain (Pain Scale 7-10) 06/18/17 10:45 06/25/17 10:44 Norepinephrine Bitartrate 4 mg/ Dextrose 254 ml @ 0 mls/hr Q24H IV 06/18/17 10:45 07/18/17 10:44 06/18/17 10:46 Ondansetron HCl (Zofran) 4 mg Q6H PRN IVP Nausea & Vomiting 06/18/17 10:45 07/18/17 10:44 Pantoprazole (Protonix) 40 mg DAILY IVP 06/19/17 09:00 07/19/17 08:59 Polyethylene Glycol (Miralax) 17 gm DAILYPRN PRN ORAL Constipation 06/18/17 10:45 07/18/17 10:44 Potassium Phosphate 30 mm/ Sodium Chloride 285 ml @ 47.5 mls/hr ONCE@1300 IV 06/18/17 13:00 06/18/17 23:59 06/18/17 13:46 Sodium Chloride 1,000 ml @ 100 mls/hr Q10H IVLG 06/18/17 10:33 07/18/17 10:32 06/18/17 10:42 Vancomycin HCl (Vanco rx to dose) 1 ea DAILY PRN MISC RX TO DOSE 06/18/17 11:00 07/18/17 10:59 Vancomycin HCl/ Dextrose 250 ml @ 166.667 mls/hr Q24H IVPB 06/18/17 13:00 06/23/17 23:59 Assessment/Plan Assessment/Plan Abx: Ertapenem x1 06/18 Amikacin 06/18- IV Vancomycin 06/18- Cefepime x1 06/17 Flagyl x1 06/17 Assessment: Septic Shock- suspect 2ry to UTI/pyelo (+frequency/urgency, n/v, lower abd pain ) r/o bacteremia, r.o intrabdominal -CXR: Cardiomegaly and pulmonary vascular congestion. Patchy retrocardiac opacity. Pneumonia not excluded. Clinical correlation and follow-up exam recommended; doubt PNA- no cough -u/a wbc tntc, nit neg, leuk +3, sq cells moderate; ucx NTD -Bcx p Fever, leukocytosis Lactic acidosis, resolved Anemia CARLOS, improving Colon CA s/p resection and colostomy w/ recurrent Cancer obstructive uropathy s/p PPM DVT on [facility] resident PNC allergy Plan: -Continue empiric IV Vancomycin #1 pending cultures -Switch Amikacin and Ertapenem to Meropenem -low threshold for CT abd/p if persistent/worsening fevers, leukocytosis -f/u cx -Monitor CBC/BMP, temperatures -Cdiff if diarrhea -If T>100.4, repeat 2 sets of Bcx -aspiration precautions Thank you for this consultation. Will continue to follow along with you. Discussed with Cheryl Cesar M.D. Jun 18, 2017 15:01
[2017-06-18] MEDS: Meropenem 1 GM in NS 55 ML IVPB SCH (16:23)
[2017-06-18 17:18] LABS: HEMATOCRIT 27.8 % (37.0-47.0); HEMOGLOBIN 9.4 G/DL (12.0-16.0); MEAN CORPUSCULAR VOLUME 84 FL (80-99); PLATELET COUNT 369 K/UL (150-450); RED BLOOD COUNT 3.32 M/UL (4.20-5.40); RED CELL DISTRIBUTION WIDTH 14.5 % (11.6-14.8)
[2017-06-18 17:24] LABS: WHITE BLOOD COUNT 26.6 K/UL (4.8-10.8)
[2017-06-18 17:34] LABS: ALANINE AMINOTRANSFERASE 16 U/L (12-78); ALBUMIN 1.3 G/DL (3.4-5.0); ALBUMIN/GLOBULIN RATIO 0.3 (1.0-2.7); ALKALINE PHOSPHATASE 139 U/L (46-116); ANION GAP 13 mmol/L (5-15); ASPARTATE AMINO TRANSFERASE 41 U/L (15-37); BILIRUBIN,TOTAL 1.7 MG/DL (0.2-1.0); BLOOD UREA NITROGEN 26 mg/dL (7-18); CALCIUM 7.3 MG/DL (8.5-10.1); CARBON DIOXIDE 18 MMOL/L (21-32); CHLORIDE 110 MMOL/L (98-107); POTASSIUM 3.4 MMOL/L (3.5-5.1); SODIUM 141 MMOL/L (136-145)
[2017-06-18 17:35] LABS: BILIRUBIN,DIRECT 0.4 MG/DL (0.0-0.3)
--- NOTE | 2017-06-18 18:30 | History and Physical Report ---
DATE OF ADMISSION: 06/17/2017 CHIEF COMPLAINT: The patient is a 72-year-old -Chinese female, who presents with chief complaint of altered mental status and generalized weakness. HISTORY OF PRESENT ILLNESS: The patient has a history of colon cancer. The patient is status post colectomy and colostomy placement. The patient is a resident of [facility]. According to staff, the patient began to experience abdominal ache for the past week. The patient has also been falling. The patient has generalized weakness. EMS was called yesterday, 06/17/2017. The patient was found to be hypotensive. The patient was transferred to [facility]. The patient was admitted for anemia to rule out gastrointestinal hemorrhage. REVIEW OF SYSTEMS: CONSTITUTIONAL: The patient denies weight loss or weight gain. The patient denies fever or chills. HEENT: The patient denies ear or throat pain. The patient denies headache. CARDIOVASCULAR: The patient denies palpitations or chest pain. CHEST: The patient denies wheeze or shortness of breath. ABDOMEN: The patient complains of bilateral lower quadrant abdominal pain. The patient denies nausea, vomiting, diarrhea, or constipation. GENITOURINARY: The patient denies dysuria or increased frequency of urination. NEUROMUSCULAR: The patient denies seizures. The patient has generalized weakness as above. PAST MEDICAL HISTORY: Significant for colon cancer, status post resection in January 2014. PAST SURGICAL HISTORY: Significant for colectomy/colostomy in January 2014 and total abdominal hysterectomy. CURRENT MEDICATIONS: 1. Tylenol 650 mg one tablet p.o. q.4 hours p.r.n. 2. Apixaban 2.5 mg p.o. twice daily. 3. Dilaudid 2 mg p.o. 3 tablets p.o. q.6 hours p.r.n. 4. Gabapentin 300 mg p.o. at bedtime. 5. Lactulose 30 mL p.o. daily. 6. Lidoderm patch p.r.n. 7. Megace 800 mg p.o. daily. 8. Methadone 5 mg p.o. daily. 9. Multivitamin p.o. daily. 10. Naprosyn 500 mg p.o. twice daily. 11. Omeprazole 20 mg p.o. daily. 12. Zoloft 50 mg p.o. daily. ALLERGIES: Penicillin. SOCIAL HISTORY: The patient is single. The patient admits to tobacco use. The patient states she occasionally smokes now, however, smoked heavily in the past. The patient denies alcohol use. PHYSICAL EXAMINATION: VITAL SIGNS: Temperature 98.2 degrees, respirations 18, pulse 90, blood pressure 114/54. GENERAL: The patient is well developed and well nourished, slightly obese, -Chinese female, in no apparent distress. HEENT: Pupils are equal and responsive to light and accommodation. Extraocular movements are intact. NECK: Supple without lymphadenopathy. CHEST: Lungs are clear to auscultation bilaterally without wheezes or rales. CARDIOVASCULAR: Regular rhythm and rate. S1 and S2 normal without murmurs, rubs, or gallops. ABDOMEN: Soft, nontender, and nondistended with positive bowel sounds. No evidence of hepatosplenomegaly. Currently, . There is a colostomy bag in place. RECTAL/GENITAL: Refused. NEUROLOGICAL: Cranial nerves II through XII are grossly intact without focal deficits. Motor strength is 5/5 bilaterally. Deep tendon reflexes are 2+ plantar. LABORATORY STUDIES: WBC 32.8, hemoglobin 6.7, hematocrit 21.8, platelets 553,000. Sodium 140, potassium 3.2, chloride 109, CO2 18, BUN 25, creatinine 1.1, glucose 121. Liver function tests were mildly elevated with alkaline phosphatase of 145 and AST of 50. ASSESSMENT: This is a 72-year-old -Chinese female: 1. Anemia. 2. Altered mental status. 3. Hypotension. 4. History of colon cancer. 5. Deep venous thrombosis. 6. Cerebrovascular disease. 7. Obstructive uropathy. TREATMENT: 1. Altered mental status/hypotension/anemia. This is probably secondary to gastrointestinal hemorrhage secondary to colon cancer as above. A Gastroenterology consultation has been obtained with Dr. Yung Fonseca. The patient may require repeat colonoscopy to rule out recurrence of colon cancer. 2. Deep venous thrombosis. Apixaban will be held until gastrointestinal bleeding can be ruled out. 3. Cerebrovascular disease. 4. Obstructive uropathy. Jonathan Reza M.D. DR: HERBERT JOB#: [id number] CC:
[2017-06-18] MEDS ORDERED: Potassium Phosphate 20 MM in NS 275 ML IV ONE (19:30)
[2017-06-18 20:40] LABS: APPEARANCE,URINE CLOUDY; BILIRUBIN, URINE NEGATIVE (NEGATIVE); GLUCOSE, URINE (UA) NEGATIVE (NEGATIVE); KETONES,URINE NEGATIVE (NEGATIVE); LEUKOCYTE ESTERASE ,URINE 3+ (NEGATIVE); NITRITE,URINE NEGATIVE (NEGATIVE); PH,URINE 6 (4.5-8.0); PROTEIN,URINE 3+ (NEGATIVE); UROBILINOGEN,URINE NORMAL MG/DL (0.0-1.0)
[2017-06-18 20:42] LABS: COLOR,URINE YELLOW
[2017-06-18] MEDS: Heparin 5000 units/ml inj SUBQ SCH (21:03)
[2017-06-18] MEDS ORDERED: Vancomycin 1 GM in D5W 275 ML IV SCH (23:45)
[2017-06-18] MEDS ORDERED: Ertapenem 1 GM in NS 55 ML IV SCH (23:45)
[2017-06-18] MEDS ORDERED: Amikacin 0 MG in NS 110 ML IV SCH (23:45)
[2017-06-19] VITALS (17 sets, daily range): BP systolic 101–146; BP diastolic 53–89
[2017-06-19] MEDS: Meropenem 1 GM in NS 55 ML IVPB SCH ×3 (00:30→16:24)
[2017-06-19 05:23] LABS: HEMATOCRIT 27.8 % (37.0-47.0); HEMOGLOBIN 9.5 G/DL (12.0-16.0); MEAN CORPUSCULAR VOLUME 84 FL (80-99); PLATELET COUNT 287 K/UL (150-450); RED BLOOD COUNT 3.31 M/UL (4.20-5.40); RED CELL DISTRIBUTION WIDTH 14.9 % (11.6-14.8)
[2017-06-19 05:30] LABS: INR 1.1 (0.9-1.1)
[2017-06-19 05:33] LABS: % IRON SATURATION 27 % (15-50); IRON 13 ug/dL (50-175); TOTAL IRON BINDING CAPACITY 48 ug/dL (250-450)
[2017-06-19 05:43] LABS: WHITE BLOOD COUNT 22.4 K/UL (4.8-10.8)
[2017-06-19 06:00] LABS: ALANINE AMINOTRANSFERASE 17 U/L (12-78); ALBUMIN 1.4 G/DL (3.4-5.0); ALKALINE PHOSPHATASE 140 U/L (46-116); ASPARTATE AMINO TRANSFERASE 38 U/L (15-37); BILIRUBIN,DIRECT 0.2 MG/DL (0.0-0.3); BILIRUBIN,TOTAL 0.7 MG/DL (0.2-1.0); FERRITIN > 2000 NG/ML (8-388)
[2017-06-19 06:56] LABS: ALANINE AMINOTRANSFERASE 18 U/L (12-78); ALBUMIN 1.4 G/DL (3.4-5.0); ALBUMIN/GLOBULIN RATIO 0.3 (1.0-2.7); ALKALINE PHOSPHATASE 145 U/L (46-116); ANION GAP 15 mmol/L (5-15); ASPARTATE AMINO TRANSFERASE 43 U/L (15-37); BILIRUBIN,TOTAL 0.6 MG/DL (0.2-1.0); BLOOD UREA NITROGEN 25 mg/dL (7-18); CALCIUM 7.7 MG/DL (8.5-10.1); CARBON DIOXIDE 15 MMOL/L (21-32); CHLORIDE 111 MMOL/L (98-107); PHOSPHORUS 3.3 MG/DL (2.5-4.9); POTASSIUM 3.5 MMOL/L (3.5-5.1); SODIUM 141 MMOL/L (136-145)
[2017-06-19] MEDS: Heparin 5000 units/ml inj SUBQ SCH ×2 (08:54→21:15)
[2017-06-19] MEDS ORDERED: Pantoprazole Inj IVP SCH (09:00)
--- NOTE | 2017-06-19 09:28 | Cardiology Report ---
APPROVED REPORT EXAM: Two-dimensional and M-mode echocardiogram with Doppler and color Doppler. INDICATION LV FUNCTION M-Mode DIMENSIONS IVSd1.2 (0.7-1.1cm)Left Atrium (MM)4.0 (1.6-4.0cm) LVDd4.6 (3.5-5.6cm)Aortic Root3.8 (2.0-3.7cm) PWd1.2 (0.7-1.1cm)Aortic Cusp Exc.1.9 (1.5-2.0cm) IVSs1.7 cm LVDs2.8 (2.5-4.0cm) PWs1.9 cm Normal left ventricular chamber size, systolic function and wall motion . Left ventricular ejection fraction estimated to be 60-65%. No evidence of left ventricular hypertrophy . Trace posterior pericardial effusion. Mild left atrial enlargements . Right cardiac chamber sizes are within normal limits. Focal aortic valve sclerosis with adequate cusp excursion. Mildly Thickened mitral valve leaflets with normal excursion. Mildly Mitral annulus and aortic root calcification. Normal pulmonic valve structure. Normal tricuspid valve structure. IVC at normal size with physiologic collapse. A color flow and spectral Doppler study was performed and revealed: Mild aortic regurgitation. Trace mitral regurgitation. Mitral diastolic velocities suggest reduced left ventricular relaxation c/w mild LV diastolic dysfunction (Grade I ). Mild tricuspid regurgitation. Tricuspid systolic velocities suggests peak right ventricular systolic pressure of mmHg consistent with mild, moderate, severe pulmonary hypertension. No Pulmonic regurgitation present.
--- NOTE | 2017-06-19 09:54 | Pulmonolgy Critical Care Note ---
Critical Care - Asmt/Plan Problems: (1) Severe sepsis (2) Acute encephalopathy (3) Colostomy in place (4) Anemia Respiratory: monitor respiratory rate, adjust FIO2 Cardiac: continue to monitor HR/BP Renal: F/U I&O, decrease IV fluid, check electrolytes Infectious Disease: check cultures, continue antibiotics Gastrointestinal: continue feedings/current rate Hematologic: monitor H/H Neurologic: PRN Ativan Affect: PRN ativan Prophylaxis: Heparin Time Spent (Minutes): 40 Notes Reviewed: terminal operator, ID Critical Care - Objective Last 24 Hour Vital Signs Date Time Temp Pulse Resp B/P (MAP) Pulse Ox O2 Delivery O2 Flow Rate FiO2 06/19/17 09:00 89 25 120/59 99 Room Air 06/19/17 08:00 98.3 88 22 117/56 100 Room Air 98.3 06/19/17 07:00 93 18 135/65 99 Room Air 06/19/17 06:00 90 21 125/57 99 Room Air 06/19/17 05:00 89 21 138/73 99 Room Air 06/19/17 04:09 94 06/19/17 04:04 98.8 94 23 127/63 99 Room Air 98.8 06/19/17 03:00 88 16 131/63 100 Room Air 06/19/17 02:00 93 16 125/66 99 Room Air 06/19/17 01:00 93 16 101/53 98 Room Air 06/19/17 00:00 94 06/19/17 00:00 99.0 93 18 117/53 99 Room Air 99.0 06/18/17 23:00 96 16 110/48 99 Room Air 06/18/17 22:00 98 19 114/51 100 Room Air 06/18/17 21:00 99 19 115/54 100 Room Air 06/18/17 20:00 96 06/18/17 20:00 98.4 94 16 101/56 98 Room Air 98.4 06/18/17 19:00 91 19 105/52 100 Room Air 06/18/17 18:00 90 19 105/50 100 Room Air 06/18/17 17:30 92 19 93/45 100 Room Air 06/18/17 17:00 91 19 106/48 100 Room Air 06/18/17 16:30 98.6 90 20 104/53 100 Room Air 98.6 06/18/17 16:00 94 06/18/17 16:00 92 19 105/52 100 Room Air 06/18/17 15:30 94 18 101/50 100 Room Air 06/18/17 15:00 92 18 103/49 100 Room Air 06/18/17 14:30 94 18 106/51 100 Room Air 06/18/17 14:00 89 19 101/50 98 Room Air 06/18/17 13:30 93 19 100/49 98 Room Air 06/18/17 13:00 93 20 97/50 98 Room Air 06/18/17 12:30 92 20 106/54 100 Room Air 06/18/17 12:00 89 06/18/17 12:00 98.2 90 18 114/54 99 Room Air 98.2 06/18/17 11:30 88 23 113/50 100 Room Air 06/18/17 11:00 88 23 104/48 100 Room Air 06/18/17 10:46 109/53 06/18/17 10:30 87 23 107/48 100 Room Air 06/18/17 10:00 109/48 06/18/17 10:00 85 22 106/45 100 Room Air Status: awake Condition: critical, improving HEENT: atraumatic Neck: full ROM Lungs: chest wall tender Heart: HR/BP stable, regular Abdomen: soft, non-tender Extremities: no C/C/E, edema Decubiti: location Micro: Microbiology Date/Time Source Procedure Growth Status 06/17/17 15:00 Blood Blood Culture - Preliminary NO GROWTH AFTER 24 HOURS Resulted 06/17/17 14:50 Blood Blood Culture - Preliminary NO GROWTH AFTER 24 HOURS Resulted 06/18/17 19:00 Urine,Clean Catch Urine Culture - Preliminary NO GROWTH Resulted 06/17/17 14:30 Urine,Clean Catch Urine Culture - Preliminary Mixed Gram Positive Organism Resulted Critical Care - Subjective ROS Limited/Unobtainable: No ICU Day: 2 Condition: critical, improving Fluids: NS 100 cc/hour Drips: off levophed I&O: Intake and Output 06/18/17 06/19/17 19:00 07:00 Intake Total 1634.554 ml 1350.0 ml Output Total 350 ml 620 ml Balance 1284.554 ml 730.0 ml Intake Oral 0 ml 0 ml IV Total 1634.554 ml 1350.0 ml Output Urine Total 350 ml 620 ml # Bowel Movements 2 CXR: clear Labs: Laboratory Tests Test 06/18/17 15:30 06/18/17 19:00 06/18/17 19:14 06/19/17 04:30 White Blood Count 26.6 K/UL (4.8-10.8) *H 22.4 K/UL (4.8-10.8) *H Red Blood Count 3.32 M/UL (4.20-5.40) L 3.31 M/UL (4.20-5.40) L Hemoglobin 9.4 G/DL (12.0-16.0) #L 9.5 G/DL (12.0-16.0) L Hematocrit 27.8 % (37.0-47.0) #L 27.8 % (37.0-47.0) L Mean Corpuscular Volume 84 FL (80-99) 84 FL (80-99) Mean Corpuscular Hemoglobin 28.3 PG (27.0-31.0) 28.7 PG (27.0-31.0) Mean Corpuscular Hemoglobin Concent 33.8 G/DL (32.0-36.0) 34.2 G/DL (32.0-36.0) Red Cell Distribution Width 14.5 % (11.6-14.8) 14.9 % (11.6-14.8) H Platelet Count 369 K/UL (150-450) 287 K/UL (150-450) Mean Platelet Volume 4.9 FL (6.5-10.1) L 5.4 FL (6.5-10.1) L Neutrophils (%) (Auto) % (45.0-75.0) % (45.0-75.0) Lymphocytes (%) (Auto) % (20.0-45.0) % (20.0-45.0) Monocytes (%) (Auto) % (1.0-10.0) % (1.0-10.0) Eosinophils (%) (Auto) % (0.0-3.0) % (0.0-3.0) Basophils (%) (Auto) % (0.0-2.0) % (0.0-2.0) Differential Total Cells Counted 100 100 Neutrophils % (Manual) 91 % (45-75) H 97 % (45-75) H Lymphocytes % (Manual) 3 % (20-45) L 2 % (20-45) L Monocytes % (Manual) 2 % (1-10) 1 % (1-10) Eosinophils % (Manual) 0 % (0-3) 0 % (0-3) Basophils % (Manual) 0 % (0-2) 0 % (0-2) Band Neutrophils 4 % (0-8) 0 % (0-8) Platelet Estimate Adequate Adequate Platelet Morphology Normal Normal Hypochromasia 2+ 1+ Anisocytosis 2+ 1+ Sodium Level 141 MMOL/L (136-145) 141 MMOL/L (136-145) Potassium Level 3.4 MMOL/L (3.5-5.1) L 3.5 MMOL/L (3.5-5.1) Chloride Level 110 MMOL/L (98-107) H 111 MMOL/L (98-107) H Carbon Dioxide Level 18 MMOL/L (21-32) L 15 MMOL/L (21-32) L Anion Gap 13 mmol/L (5-15) 15 mmol/L (5-15) Blood Urea Nitrogen 26 mg/dL (7-18) H 25 mg/dL (7-18) H Creatinine 1.0 MG/DL (0.55-1.30) 1.0 MG/DL (0.55-1.30) Estimat Glomerular Filtration Rate mL/min (>60) mL/min (>60) Glucose Level 133 MG/DL (74-106) H 93 MG/DL (74-106) Calcium Level 7.3 MG/DL (8.5-10.1) L 7.7 MG/DL (8.5-10.1) L Total Bilirubin 1.7 MG/DL (0.2-1.0) H 0.7 MG/DL (0.2-1.0) Direct Bilirubin 0.4 MG/DL (0.0-0.3) H 0.2 MG/DL (0.0-0.3) Aspartate Amino Transf (AST/SGOT) 41 U/L (15-37) H 38 U/L (15-37) H Alanine Aminotransferase (ALT/SGPT) 16 U/L (12-78) 17 U/L (12-78) Alkaline Phosphatase 139 U/L (46-116) H 140 U/L (46-116) H Total Protein 5.9 G/DL (6.4-8.2) L 6.1 G/DL (6.4-8.2) L Albumin 1.3 G/DL (3.4-5.0) L 1.4 G/DL (3.4-5.0) L Globulin 4.6 g/dL 4.9 g/dL Albumin/Globulin Ratio 0.3 (1.0-2.7) L 0.3 (1.0-2.7) L Urine Color Yellow Urine Appearance Cloudy Urine pH 6 (4.5-8.0) Urine Specific [place] 1.020 (1.005-1.035) Urine Protein 3+ (NEGATIVE) H Urine Glucose (UA) Negative (NEGATIVE) Urine Ketones Negative (NEGATIVE) Urine Occult Blood 4+ (NEGATIVE) H Urine Nitrite Negative (NEGATIVE) Urine Bilirubin Negative (NEGATIVE) Urine Urobilinogen Normal MG/DL (0.0-1.0) Urine Leukocyte Esterase 3+ (NEGATIVE) H Urine RBC 15-20 /HPF (0 - 2) H Urine WBC 40-60 /HPF (0 - 2) H Urine Squamous Epithelial Cells Few /LPF (NONE/OCC) Urine Amorphous Sediment Few /LPF (NONE) H Urine Bacteria Many /HPF (NONE) H Stool Occult Blood Pending Erythrocyte Sedimentation Rate 112 MM/HR (0-30) H Reticulocyte Count 0.7 % (0.0-2.0) Prothrombin Time 11.6 SEC (9.30-11.50) H Prothromb Time International Ratio 1.1 (0.9-1.1) Activated Partial Thromboplast Time 39 SEC (23-33) H Phosphorus Level 3.3 MG/DL (2.5-4.9) Magnesium Level 1.9 MG/DL (1.8-2.4) Iron Level 13 ug/dL (50-175) L Total Iron Binding Capacity 48 ug/dL (250-450) L Percent Iron Saturation 27 % (15-50) Unsaturated Iron Binding 35 ug/dL (112-346) L Ferritin > 2000 NG/ML (8-388) H C-Reactive Protein, Quantitative 36.8 mg/dL (0.00-0.90) H Vitamin B12 Level 405 PG/ML (193-986) Folate 1.4 NG/ML (8.6-58.9) L Thyroid Stimulating Hormone (TSH) 0.947 uiU/mL (0.358-3.740) Free Thyroxine 1.44 NG/DL (0.76-1.46) Andres Reynolds MD June 19, 2017 09:54
--- NOTE | 2017-06-19 12:14 | Infectious Diseases Prog Note ---
Assessment/Plan Assessment/Plan Assessment: Septic Shock- suspect 2ry to UTI/pyelo (+frequency/urgency, n/v, lower abd pain ) r/o bacteremia, r.o intrabdominal -CXR: Cardiomegaly and pulmonary vascular congestion. Patchy retrocardiac opacity. Pneumonia not excluded. Clinical correlation and follow-up exam recommended; doubt PNA- no cough -u/a wbc tntc, nit neg, leuk +3, sq cells moderate; ucx 20-30k mixed gram positive growth; repeat u/a WBC 40-60,nit neg, leuk +2, sq cells few; ucx NTD -Bcx NTD Fever, leukocytosis- improving Lactic acidosis, resolved Anemia CARLOS, improving Colon CA s/p resection and colostomy w/ recurrent Cancer obstructive uropathy s/p PPM DVT on [facility] resident PNC allergy Plan: -d/c empiric IV Vancomycin #2 -Continue Meropenem #2 for now pending cultures -06/17 CEfepime and Flagyl x1 -low threshold for CT abd/p if persistent/worsening fevers, leukocytosis -f/u cx -Monitor CBC/BMP, temperatures -Cdiff if diarrhea -If T>100.4, repeat 2 sets of Bcx -aspiration precautions Thank you for this consultation. Will continue to follow along with you. Discussed with RN Subjective Allergies: Coded Allergies: PENICILLINS (Verified Allergy, Unknown, 06/18/17) Swelling Subjective afebrile in 36hrs leukocytosis improving Bcx NTD off pressors since yesterday Objective Vital Signs Last 24 Hour Vital Signs Date Time Temp Pulse Resp B/P (MAP) Pulse Ox O2 Delivery O2 Flow Rate FiO2 06/19/17 10:00 89 23 121/57 100 Room Air 06/19/17 09:00 89 25 120/59 99 Room Air 06/19/17 08:00 92 06/19/17 08:00 98.3 88 22 117/56 100 Room Air 98.3 06/19/17 07:00 93 18 135/65 99 Room Air 06/19/17 06:00 90 21 125/57 99 Room Air 06/19/17 05:00 89 21 138/73 99 Room Air 06/19/17 04:09 94 06/19/17 04:04 98.8 94 23 127/63 99 Room Air 98.8 06/19/17 03:00 88 16 131/63 100 Room Air 06/19/17 02:00 93 16 125/66 99 Room Air 06/19/17 01:00 93 16 101/53 98 Room Air 06/19/17 00:00 94 06/19/17 00:00 99.0 93 18 117/53 99 Room Air 99.0 06/18/17 23:00 96 16 110/48 99 Room Air 06/18/17 22:00 98 19 114/51 100 Room Air 06/18/17 21:00 99 19 115/54 100 Room Air 06/18/17 20:00 96 06/18/17 20:00 98.4 94 16 101/56 98 Room Air 98.4 06/18/17 19:00 91 19 105/52 100 Room Air 06/18/17 18:00 90 19 105/50 100 Room Air 06/18/17 17:30 92 19 93/45 100 Room Air 06/18/17 17:00 91 19 106/48 100 Room Air 06/18/17 16:30 98.6 90 20 104/53 100 Room Air 98.6 06/18/17 16:00 94 06/18/17 16:00 92 19 105/52 100 Room Air 06/18/17 15:30 94 18 101/50 100 Room Air 06/18/17 15:00 92 18 103/49 100 Room Air 06/18/17 14:30 94 18 106/51 100 Room Air 06/18/17 14:00 89 19 101/50 98 Room Air 06/18/17 13:30 93 19 100/49 98 Room Air 06/18/17 13:00 93 20 97/50 98 Room Air 06/18/17 12:30 92 20 106/54 100 Room Air Height (Feet): 5 Height (Inches): 4.00 Weight (Pounds): 171 Objective General Appearance: well appearing, no apparent distress, alert Head: normocephalic EENT: PERRL/EOMI, normal ENT inspection Neck: supple Respiratory: normal breath sounds, no respiratory distress Cardiovascular: normal rate Gastrointestinal: normal inspection, non tender, soft, normal bowel sounds, non -distended Genitourinary: no CVA tenderness Musculoskeletal: normal inspection, back normal Skin: normal inspection, normal color, no rash, warm/dry, palpation normal, well hydrated Microbiology Date/Time Source Procedure Growth Status 06/17/17 15:00 Blood Blood Culture - Preliminary NO GROWTH AFTER 24 HOURS Resulted 06/17/17 14:50 Blood Blood Culture - Preliminary NO GROWTH AFTER 24 HOURS Resulted 06/18/17 19:00 Urine,Clean Catch Urine Culture - Preliminary NO GROWTH Resulted 06/17/17 14:30 Urine,Clean Catch Urine Culture - Preliminary Mixed Gram Positive Organism Resulted Laboratory Tests Test 06/18/17 15:30 06/18/17 19:00 06/18/17 19:14 06/19/17 04:30 White Blood Count 26.6 K/UL (4.8-10.8) *H 22.4 K/UL (4.8-10.8) *H Red Blood Count 3.32 M/UL (4.20-5.40) L 3.31 M/UL (4.20-5.40) L Hemoglobin 9.4 G/DL (12.0-16.0) #L 9.5 G/DL (12.0-16.0) L Hematocrit 27.8 % (37.0-47.0) #L 27.8 % (37.0-47.0) L Mean Corpuscular Volume 84 FL (80-99) 84 FL (80-99) Mean Corpuscular Hemoglobin 28.3 PG (27.0-31.0) 28.7 PG (27.0-31.0) Mean Corpuscular Hemoglobin Concent 33.8 G/DL (32.0-36.0) 34.2 G/DL (32.0-36.0) Red Cell Distribution Width 14.5 % (11.6-14.8) 14.9 % (11.6-14.8) H Platelet Count 369 K/UL (150-450) 287 K/UL (150-450) Mean Platelet Volume 4.9 FL (6.5-10.1) L 5.4 FL (6.5-10.1) L Neutrophils (%) (Auto) % (45.0-75.0) % (45.0-75.0) Lymphocytes (%) (Auto) % (20.0-45.0) % (20.0-45.0) Monocytes (%) (Auto) % (1.0-10.0) % (1.0-10.0) Eosinophils (%) (Auto) % (0.0-3.0) % (0.0-3.0) Basophils (%) (Auto) % (0.0-2.0) % (0.0-2.0) Differential Total Cells Counted 100 100 Neutrophils % (Manual) 91 % (45-75) H 97 % (45-75) H Lymphocytes % (Manual) 3 % (20-45) L 2 % (20-45) L Monocytes % (Manual) 2 % (1-10) 1 % (1-10) Eosinophils % (Manual) 0 % (0-3) 0 % (0-3) Basophils % (Manual) 0 % (0-2) 0 % (0-2) Band Neutrophils 4 % (0-8) 0 % (0-8) Platelet Estimate Adequate Adequate Platelet Morphology Normal Normal Hypochromasia 2+ 1+ Anisocytosis 2+ 1+ Sodium Level 141 MMOL/L (136-145) 141 MMOL/L (136-145) Potassium Level 3.4 MMOL/L (3.5-5.1) L 3.5 MMOL/L (3.5-5.1) Chloride Level 110 MMOL/L (98-107) H 111 MMOL/L (98-107) H Carbon Dioxide Level 18 MMOL/L (21-32) L 15 MMOL/L (21-32) L Anion Gap 13 mmol/L (5-15) 15 mmol/L (5-15) Blood Urea Nitrogen 26 mg/dL (7-18) H 25 mg/dL (7-18) H Creatinine 1.0 MG/DL (0.55-1.30) 1.0 MG/DL (0.55-1.30) Estimat Glomerular Filtration Rate mL/min (>60) mL/min (>60) Glucose Level 133 MG/DL (74-106) H 93 MG/DL (74-106) Calcium Level 7.3 MG/DL (8.5-10.1) L 7.7 MG/DL (8.5-10.1) L Total Bilirubin 1.7 MG/DL (0.2-1.0) H 0.7 MG/DL (0.2-1.0) Direct Bilirubin 0.4 MG/DL (0.0-0.3) H 0.2 MG/DL (0.0-0.3) Aspartate Amino Transf (AST/SGOT) 41 U/L (15-37) H 38 U/L (15-37) H Alanine Aminotransferase (ALT/SGPT) 16 U/L (12-78) 17 U/L (12-78) Alkaline Phosphatase 139 U/L (46-116) H 140 U/L (46-116) H Total Protein 5.9 G/DL (6.4-8.2) L 6.1 G/DL (6.4-8.2) L Albumin 1.3 G/DL (3.4-5.0) L 1.4 G/DL (3.4-5.0) L Globulin 4.6 g/dL 4.9 g/dL Albumin/Globulin Ratio 0.3 (1.0-2.7) L 0.3 (1.0-2.7) L Urine Color Yellow Urine Appearance Cloudy Urine pH 6 (4.5-8.0) Urine Specific [place] 1.020 (1.005-1.035) Urine Protein 3+ (NEGATIVE) H Urine Glucose (UA) Negative (NEGATIVE) Urine Ketones Negative (NEGATIVE) Urine Occult Blood 4+ (NEGATIVE) H Urine Nitrite Negative (NEGATIVE) Urine Bilirubin Negative (NEGATIVE) Urine Urobilinogen Normal MG/DL (0.0-1.0) Urine Leukocyte Esterase 3+ (NEGATIVE) H Urine RBC 15-20 /HPF (0 - 2) H Urine WBC 40-60 /HPF (0 - 2) H Urine Squamous Epithelial Cells Few /LPF (NONE/OCC) Urine Amorphous Sediment Few /LPF (NONE) H Urine Bacteria Many /HPF (NONE) H Stool Occult Blood Negative (NEGATIVE) Erythrocyte Sedimentation Rate 112 MM/HR (0-30) H Reticulocyte Count 0.7 % (0.0-2.0) Prothrombin Time 11.6 SEC (9.30-11.50) H Prothromb Time International Ratio 1.1 (0.9-1.1) Activated Partial Thromboplast Time 39 SEC (23-33) H Phosphorus Level 3.3 MG/DL (2.5-4.9) Magnesium Level 1.9 MG/DL (1.8-2.4) Iron Level 13 ug/dL (50-175) L Total Iron Binding Capacity 48 ug/dL (250-450) L Percent Iron Saturation 27 % (15-50) Unsaturated Iron Binding 35 ug/dL (112-346) L Ferritin > 2000 NG/ML (8-388) H C-Reactive Protein, Quantitative 36.8 mg/dL (0.00-0.90) H Vitamin B12 Level 405 PG/ML (193-986) Folate 1.4 NG/ML (8.6-58.9) L Thyroid Stimulating Hormone (TSH) 0.947 uiU/mL (0.358-3.740) Free Thyroxine 1.44 NG/DL (0.76-1.46) Current Medications Medications (Trade) Dose Ordered Sig/Naman Route PRN Reason Start Time Stop Time Status Last Admin Dose Admin Acetaminophen (Tylenol) 650 mg Q4H PRN ORAL fever 06/18/17 10:45 07/18/17 10:44 Albuterol/ Ipratropium (Albuterol/ Ipratropium) 3 ml EVERY 4 HOURS PRN HHN Shortness of Breath 06/18/17 10:45 06/23/17 10:44 Chlorhexidine Gluconate (Tawanna-Hex 2%) 1 applic DAILY@2000 TOPIC 06/19/17 20:00 07/19/17 19:59 Folic Acid (Folate) 1 mg DAILY ORAL 06/20/17 09:00 07/20/17 08:59 Heparin Sodium (Porcine) (Heparin 5000 units/ml) 5,000 units EVERY 12 HOURS SUBQ 06/18/17 21:00 07/18/17 20:59 06/19/17 08:54 Iron Sucrose 100 mg/Sodium Chloride 60 ml @ 240 mls/hr BEDTIME IV 06/19/17 21:00 06/23/17 21:14 Meropenem 1 gm/ Sodium Chloride 55 ml @ 110 mls/hr Q8HR@0000,0800,1600 IVPB 06/18/17 16:00 06/23/17 15:59 06/19/17 08:07 Morphine Sulfate (Morphine Sulfate) 1 mg Q4H PRN IVP for Pain 3-6 06/18/17 11:30 06/25/17 11:29 06/18/17 12:48 Morphine Sulfate (Morphine Sulfate) 2 mg EVERY 4 HOURS PRN IVP Severe Pain (Pain Scale 7-10) 06/18/17 10:45 06/25/17 10:44 Norepinephrine Bitartrate 4 mg/ Dextrose 254 ml @ 0 mls/hr Q24H IV 06/18/17 10:45 07/18/17 10:44 06/18/17 10:46 Ondansetron HCl (Zofran) 4 mg Q6H PRN IVP Nausea & Vomiting 06/18/17 10:45 07/18/17 10:44 Pantoprazole (Protonix) 40 mg DAILY IVP 06/19/17 09:00 07/19/17 08:59 06/19/17 08:52 Polyethylene Glycol (Miralax) 17 gm DAILYPRN PRN ORAL Constipation 06/18/17 10:45 07/18/17 10:44 Sodium Chloride 1,000 ml @ 50 mls/hr Q20H IVLG 06/19/17 10:33 07/18/17 10:32 06/19/17 10:56 Vancomycin HCl (Vanco rx to dose) 1 ea DAILY PRN MISC RX TO DOSE 06/18/17 11:00 07/18/17 10:59 Vancomycin HCl/ Dextrose 250 ml @ 166.667 mls/hr Q24H IVPB 06/18/17 13:00 06/23/17 23:59 06/18/17 14:48 Cheryl Ramos M.D. June 19, 2017 12:14
[2017-06-19] MEDS ORDERED: Morphine Sulfate 4mg/ml Inj IVP PRN (14:23)
[2017-06-19] MEDS ORDERED: Miralax 17gm pkt ORAL PRN (14:24)
--- NOTE | 2017-06-19 15:30 | GI Progress Note ---
Assessment/Plan Problems: (1) Severe sepsis ICD Codes: A41.9 - Sepsis, unspecified organism; R65.20 - Severe sepsis without septic shock SNOMED: 61273608 (2) Electrolyte imbalance ICD Codes: E87.8 - Other disorders of electrolyte and fluid balance, not elsewhere classified SNOMED: 851715037 (3) Dehydration ICD Codes: E86.0 - Dehydration SNOMED: 07213822 (4) Colostomy in place ICD Codes: Z93.3 - Colostomy status SNOMED: 951335619, 147660663 (5) Colon cancer ICD Codes: C18.9 - Malignant neoplasm of colon, unspecified SNOMED: 604353589 Qualifiers: Qualified Codes: C18.9 - Malignant neoplasm of colon, unspecified (6) Anemia ICD Codes: D64.9 - Anemia, unspecified SNOMED: 554410806 Qualifiers: Qualified Codes: D64.89 - Other specified anemias Status: stable Status Narrative Discussed with Dr. Fonseca. Assessment/Plan defer GI procedures at this time, will consider endoscopy when stable >> fu on cardiology recs anemia work up reviewed >> folate deficiency OB stool r/o GI bleed >> negative monitor H&H, prn transfusions bowel regime ppi electrolyte replacement fu labs patient on Plavix The patient was seen and examined at bedside and all new and available data was reviewed in the patients chart. I agree with the above findings, impression and plan. (Patient seen earlier today. Signature stamp does not reflect patient encounter time.). - Dimple Fonseca MD Subjective Gastrointestinal/Abdominal: Reports: no symptoms Objective Last 24 Hour Vital Signs Date Time Temp Pulse Resp B/P (MAP) Pulse Ox O2 Delivery O2 Flow Rate FiO2 06/19/17 13:23 98.4 92 20 112/61 100 Room Air 98.4 06/19/17 12:00 98.4 88 22 120/57 97 Room Air 98.4 06/19/17 11:00 89 20 128/89 100 Room Air 06/19/17 10:00 89 23 121/57 100 Room Air 06/19/17 09:00 89 25 120/59 99 Room Air 06/19/17 08:00 92 06/19/17 08:00 98.3 88 22 117/56 100 Room Air 98.3 06/19/17 07:00 93 18 135/65 99 Room Air 06/19/17 06:00 90 21 125/57 99 Room Air 06/19/17 05:00 89 21 138/73 99 Room Air 06/19/17 04:09 94 06/19/17 04:04 98.8 94 23 127/63 99 Room Air 98.8 06/19/17 03:00 88 16 131/63 100 Room Air 06/19/17 02:00 93 16 125/66 99 Room Air 06/19/17 01:00 93 16 101/53 98 Room Air 06/19/17 00:00 94 06/19/17 00:00 99.0 93 18 117/53 99 Room Air 99.0 06/18/17 23:00 96 16 110/48 99 Room Air 06/18/17 22:00 98 19 114/51 100 Room Air 06/18/17 21:00 99 19 115/54 100 Room Air 06/18/17 20:00 96 06/18/17 20:00 98.4 94 16 101/56 98 Room Air 98.4 06/18/17 19:00 91 19 105/52 100 Room Air 06/18/17 18:00 90 19 105/50 100 Room Air 06/18/17 17:30 92 19 93/45 100 Room Air 06/18/17 17:00 91 19 106/48 100 Room Air 06/18/17 16:30 98.6 90 20 104/53 100 Room Air 98.6 06/18/17 16:00 94 06/18/17 16:00 92 19 105/52 100 Room Air 06/18/17 15:30 94 18 101/50 100 Room Air Intake and Output 06/18/17 06/19/17 19:00 07:00 Intake Total 1634.554 ml 1350.0 ml Output Total 350 ml 620 ml Balance 1284.554 ml 730.0 ml Intake Oral 0 ml 0 ml IV Total 1634.554 ml 1350.0 ml Output Urine Total 350 ml 620 ml # Bowel Movements 2 Laboratory Tests Test 06/18/17 15:30 06/18/17 19:00 06/18/17 19:14 06/19/17 04:30 White Blood Count 26.6 K/UL (4.8-10.8) *H 22.4 K/UL (4.8-10.8) *H Red Blood Count 3.32 M/UL (4.20-5.40) L 3.31 M/UL (4.20-5.40) L Hemoglobin 9.4 G/DL (12.0-16.0) #L 9.5 G/DL (12.0-16.0) L Hematocrit 27.8 % (37.0-47.0) #L 27.8 % (37.0-47.0) L Mean Corpuscular Volume 84 FL (80-99) 84 FL (80-99) Mean Corpuscular Hemoglobin 28.3 PG (27.0-31.0) 28.7 PG (27.0-31.0) Mean Corpuscular Hemoglobin Concent 33.8 G/DL (32.0-36.0) 34.2 G/DL (32.0-36.0) Red Cell Distribution Width 14.5 % (11.6-14.8) 14.9 % (11.6-14.8) H Platelet Count 369 K/UL (150-450) 287 K/UL (150-450) Mean Platelet Volume 4.9 FL (6.5-10.1) L 5.4 FL (6.5-10.1) L Neutrophils (%) (Auto) % (45.0-75.0) % (45.0-75.0) Lymphocytes (%) (Auto) % (20.0-45.0) % (20.0-45.0) Monocytes (%) (Auto) % (1.0-10.0) % (1.0-10.0) Eosinophils (%) (Auto) % (0.0-3.0) % (0.0-3.0) Basophils (%) (Auto) % (0.0-2.0) % (0.0-2.0) Differential Total Cells Counted 100 100 Neutrophils % (Manual) 91 % (45-75) H 97 % (45-75) H Lymphocytes % (Manual) 3 % (20-45) L 2 % (20-45) L Monocytes % (Manual) 2 % (1-10) 1 % (1-10) Eosinophils % (Manual) 0 % (0-3) 0 % (0-3) Basophils % (Manual) 0 % (0-2) 0 % (0-2) Band Neutrophils 4 % (0-8) 0 % (0-8) Platelet Estimate Adequate Adequate Platelet Morphology Normal Normal Hypochromasia 2+ 1+ Anisocytosis 2+ 1+ Sodium Level 141 MMOL/L (136-145) 141 MMOL/L (136-145) Potassium Level 3.4 MMOL/L (3.5-5.1) L 3.5 MMOL/L (3.5-5.1) Chloride Level 110 MMOL/L (98-107) H 111 MMOL/L (98-107) H Carbon Dioxide Level 18 MMOL/L (21-32) L 15 MMOL/L (21-32) L Anion Gap 13 mmol/L (5-15) 15 mmol/L (5-15) Blood Urea Nitrogen 26 mg/dL (7-18) H 25 mg/dL (7-18) H Creatinine 1.0 MG/DL (0.55-1.30) 1.0 MG/DL (0.55-1.30) Estimat Glomerular Filtration Rate mL/min (>60) mL/min (>60) Glucose Level 133 MG/DL (74-106) H 93 MG/DL (74-106) Calcium Level 7.3 MG/DL (8.5-10.1) L 7.7 MG/DL (8.5-10.1) L Total Bilirubin 1.7 MG/DL (0.2-1.0) H 0.7 MG/DL (0.2-1.0) Direct Bilirubin 0.4 MG/DL (0.0-0.3) H 0.2 MG/DL (0.0-0.3) Aspartate Amino Transf (AST/SGOT) 41 U/L (15-37) H 38 U/L (15-37) H Alanine Aminotransferase (ALT/SGPT) 16 U/L (12-78) 17 U/L (12-78) Alkaline Phosphatase 139 U/L (46-116) H 140 U/L (46-116) H Total Protein 5.9 G/DL (6.4-8.2) L 6.1 G/DL (6.4-8.2) L Albumin 1.3 G/DL (3.4-5.0) L 1.4 G/DL (3.4-5.0) L Globulin 4.6 g/dL 4.9 g/dL Albumin/Globulin Ratio 0.3 (1.0-2.7) L 0.3 (1.0-2.7) L Urine Color Yellow Urine Appearance Cloudy Urine pH 6 (4.5-8.0) Urine Specific [place] 1.020 (1.005-1.035) Urine Protein 3+ (NEGATIVE) H Urine Glucose (UA) Negative (NEGATIVE) Urine Ketones Negative (NEGATIVE) Urine Occult Blood 4+ (NEGATIVE) H Urine Nitrite Negative (NEGATIVE) Urine Bilirubin Negative (NEGATIVE) Urine Urobilinogen Normal MG/DL (0.0-1.0) Urine Leukocyte Esterase 3+ (NEGATIVE) H Urine RBC 15-20 /HPF (0 - 2) H Urine WBC 40-60 /HPF (0 - 2) H Urine Squamous Epithelial Cells Few /LPF (NONE/OCC) Urine Amorphous Sediment Few /LPF (NONE) H Urine Bacteria Many /HPF (NONE) H Stool Occult Blood Negative (NEGATIVE) Erythrocyte Sedimentation Rate 112 MM/HR (0-30) H Reticulocyte Count 0.7 % (0.0-2.0) Prothrombin Time 11.6 SEC (9.30-11.50) H Prothromb Time International Ratio 1.1 (0.9-1.1) Activated Partial Thromboplast Time 39 SEC (23-33) H Phosphorus Level 3.3 MG/DL (2.5-4.9) Magnesium Level 1.9 MG/DL (1.8-2.4) Iron Level 13 ug/dL (50-175) L Total Iron Binding Capacity 48 ug/dL (250-450) L Percent Iron Saturation 27 % (15-50) Unsaturated Iron Binding 35 ug/dL (112-346) L Ferritin > 2000 NG/ML (8-388) H C-Reactive Protein, Quantitative 36.8 mg/dL (0.00-0.90) H Vitamin B12 Level 405 PG/ML (193-986) Folate 1.4 NG/ML (8.6-58.9) L Thyroid Stimulating Hormone (TSH) 0.947 uiU/mL (0.358-3.740) Free Thyroxine 1.44 NG/DL (0.76-1.46) Microbiology Date/Time Source Procedure Growth Status 06/18/17 19:00 Urine,Clean Catch Urine Culture - Preliminary NO GROWTH Resulted Height (Feet): 5 Height (Inches): 4.00 Weight (Pounds): 171 General Appearance: WD/WN, no apparent distress, alert Cardiovascular: normal rate Respiratory/Chest: normal breath sounds, no respiratory distress Abdominal Exam: normal bowel sounds, non tender, soft, other - colostomy Extremities: non-tender Sharon Montgomery N.P. June 19, 2017 15:30 ARLENE FONSECA June 22, 2017 07:36
[2017-06-19] MEDS ORDERED: Albuterol/Ipratropium 3ml neb HHN PRN (17:00)
--- NOTE | 2017-06-19 17:00 | Internal Med Progress Note ---
Subjective Date of Service: June 19, 2017 Physician Name Homer Rico Attending Physician Bharat Orozco MD Current Medications Medications (Trade) Dose Ordered Sig/Naman Route PRN Reason Start Time Stop Time Status Last Admin Dose Admin Acetaminophen (Tylenol) 650 mg Q4H PRN ORAL fever 06/19/17 14:45 07/18/17 10:44 Albuterol/ Ipratropium (Albuterol/ Ipratropium) 3 ml EVERY 4 HOURS PRN HHN Shortness of Breath 06/19/17 17:00 06/23/17 10:44 Chlorhexidine Gluconate (Tawanna-Hex 2%) 1 applic DAILY@2000 TOPIC 06/19/17 20:00 07/19/17 19:59 Folic Acid (Folate) 1 mg DAILY ORAL 06/20/17 09:00 07/20/17 08:59 Folic Acid (Folate) 1 mg DAILY ORAL 06/20/17 09:00 07/20/17 08:59 Heparin Sodium (Porcine) (Heparin 5000 units/ml) 5,000 units EVERY 12 HOURS SUBQ 06/19/17 21:00 07/18/17 20:59 Iron Sucrose 100 mg/Sodium Chloride 60 ml @ 240 mls/hr BEDTIME IV 06/19/17 21:00 06/23/17 21:14 Meropenem 1 gm/ Sodium Chloride 55 ml @ 110 mls/hr Q8HR@0000,0800,1600 IVPB 06/19/17 16:00 06/23/17 23:59 06/19/17 16:24 Morphine Sulfate (Morphine Sulfate) 1 mg Q4H PRN IVP for Pain 3-6 06/19/17 14:23 06/25/17 14:22 Morphine Sulfate (Morphine Sulfate) 2 mg EVERY 4 HOURS PRN IVP Severe Pain (Pain Scale 7-10) 06/19/17 14:23 06/25/17 14:22 Ondansetron HCl (Zofran) 4 mg Q6H PRN IVP Nausea & Vomiting 06/19/17 14:24 07/18/17 14:23 Pantoprazole (Protonix) 40 mg DAILY IVP 06/20/17 09:00 07/19/17 08:59 Polyethylene Glycol (Miralax) 17 gm DAILYPRN PRN ORAL Constipation 06/19/17 14:24 07/19/17 14:23 Sodium Chloride 1,000 ml @ 50 mls/hr Q20H IVLG 06/19/17 14:30 07/18/17 10:32 06/19/17 16:24 Allergies: Coded Allergies: PENICILLINS (Verified Allergy, Unknown, 06/18/17) Swelling ROS Limited/Unobtainable: No Constitutional: Reports: no symptoms HEENT: Reports: no symptoms Cardiovascular: Reports: no symptoms Respiratory: Reports: no symptoms Gastrointestinal/Abdominal: Reports: no symptoms Genitourinary: Reports: no symptoms Neurologic/Psychiatric: Reports: no symptoms Subjective 72 YO F admitted with hypotension and anemia. Now GI bleed. Cover for Int Sourav- Dr Orozco Objective Last Vital Signs Date Time Temp Pulse Resp B/P (MAP) Pulse Ox O2 Delivery O2 Flow Rate FiO2 06/19/17 16:00 98.2 88 20 130/68 99 Room Air 98.2 General Appearance: WD/WN, no apparent distress, alert EENT: PERRL/EOMI, normal ENT inspection Neck: non-tender, normal alignment, supple Cardiovascular: normal peripheral pulses, normal rate, regular rhythm, no gallop/murmur, no JVD Respiratory/Chest: chest wall non-tender, lungs clear, normal breath sounds, no respiratory distress, no accessory muscle use Abdomen: normal bowel sounds, non tender, soft, no organomegaly, no mass Extremities: normal inspection 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 II-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 grossly normal, no motor/sensory deficits Skin: normal pigmentation, warm/dry Laboratory Tests Test 06/18/17 19:00 06/18/17 19:14 06/19/17 04:30 Urine Color Yellow Urine Appearance Cloudy Urine pH 6 (4.5-8.0) Urine Specific [place] 1.020 (1.005-1.035) Urine Protein 3+ (NEGATIVE) H Urine Glucose (UA) Negative (NEGATIVE) Urine Ketones Negative (NEGATIVE) Urine Occult Blood 4+ (NEGATIVE) H Urine Nitrite Negative (NEGATIVE) Urine Bilirubin Negative (NEGATIVE) Urine Urobilinogen Normal MG/DL (0.0-1.0) Urine Leukocyte Esterase 3+ (NEGATIVE) H Urine RBC 15-20 /HPF (0 - 2) H Urine WBC 40-60 /HPF (0 - 2) H Urine Squamous Epithelial Cells Few /LPF (NONE/OCC) Urine Amorphous Sediment Few /LPF (NONE) H Urine Bacteria Many /HPF (NONE) H Stool Occult Blood Negative (NEGATIVE) White Blood Count 22.4 K/UL (4.8-10.8) *H Red Blood Count 3.31 M/UL (4.20-5.40) L Hemoglobin 9.5 G/DL (12.0-16.0) L Hematocrit 27.8 % (37.0-47.0) L Mean Corpuscular Volume 84 FL (80-99) Mean Corpuscular Hemoglobin 28.7 PG (27.0-31.0) Mean Corpuscular Hemoglobin Concent 34.2 G/DL (32.0-36.0) Red Cell Distribution Width 14.9 % (11.6-14.8) H Platelet Count 287 K/UL (150-450) Mean Platelet Volume 5.4 FL (6.5-10.1) L Neutrophils (%) (Auto) % (45.0-75.0) Lymphocytes (%) (Auto) % (20.0-45.0) Monocytes (%) (Auto) % (1.0-10.0) Eosinophils (%) (Auto) % (0.0-3.0) Basophils (%) (Auto) % (0.0-2.0) Differential Total Cells Counted 100 Neutrophils % (Manual) 97 % (45-75) H Lymphocytes % (Manual) 2 % (20-45) L Monocytes % (Manual) 1 % (1-10) Eosinophils % (Manual) 0 % (0-3) Basophils % (Manual) 0 % (0-2) Band Neutrophils 0 % (0-8) Platelet Estimate Adequate Platelet Morphology Normal Hypochromasia 1+ Anisocytosis 1+ Erythrocyte Sedimentation Rate 112 MM/HR (0-30) H Reticulocyte Count 0.7 % (0.0-2.0) Prothrombin Time 11.6 SEC (9.30-11.50) H Prothromb Time International Ratio 1.1 (0.9-1.1) Activated Partial Thromboplast Time 39 SEC (23-33) H Sodium Level 141 MMOL/L (136-145) Potassium Level 3.5 MMOL/L (3.5-5.1) Chloride Level 111 MMOL/L (98-107) H Carbon Dioxide Level 15 MMOL/L (21-32) L Anion Gap 15 mmol/L (5-15) Blood Urea Nitrogen 25 mg/dL (7-18) H Creatinine 1.0 MG/DL (0.55-1.30) Estimat Glomerular Filtration Rate mL/min (>60) Glucose Level 93 MG/DL (74-106) Calcium Level 7.7 MG/DL (8.5-10.1) L Phosphorus Level 3.3 MG/DL (2.5-4.9) Magnesium Level 1.9 MG/DL (1.8-2.4) Iron Level 13 ug/dL (50-175) L Total Iron Binding Capacity 48 ug/dL (250-450) L Percent Iron Saturation 27 % (15-50) Unsaturated Iron Binding 35 ug/dL (112-346) L Ferritin > 2000 NG/ML (8-388) H Total Bilirubin 0.7 MG/DL (0.2-1.0) Direct Bilirubin 0.2 MG/DL (0.0-0.3) Aspartate Amino Transf (AST/SGOT) 38 U/L (15-37) H Alanine Aminotransferase (ALT/SGPT) 17 U/L (12-78) Alkaline Phosphatase 140 U/L (46-116) H C-Reactive Protein, Quantitative 36.8 mg/dL (0.00-0.90) H Total Protein 6.1 G/DL (6.4-8.2) L Albumin 1.4 G/DL (3.4-5.0) L Globulin 4.9 g/dL Albumin/Globulin Ratio 0.3 (1.0-2.7) L Vitamin B12 Level 405 PG/ML (193-986) Folate 1.4 NG/ML (8.6-58.9) L Thyroid Stimulating Hormone (TSH) 0.947 uiU/mL (0.358-3.740) Free Thyroxine 1.44 NG/DL (0.76-1.46) Microbiology Date/Time Source Procedure Growth Status 06/17/17 15:00 Blood Blood Culture - Preliminary NO GROWTH AFTER 24 HOURS Resulted 06/17/17 14:50 Blood Blood Culture - Preliminary NO GROWTH AFTER 24 HOURS Resulted 06/18/17 19:00 Urine,Clean Catch Urine Culture - Preliminary NO GROWTH Resulted 06/17/17 14:30 Urine,Clean Catch Urine Culture - Preliminary Mixed Gram Positive Organism Resulted Intake and Output 06/18/17 06/19/17 19:00 07:00 Intake Total 1634.554 ml 1350.0 ml Output Total 350 ml 620 ml Balance 1284.554 ml 730.0 ml Intake Oral 0 ml 0 ml IV Total 1634.554 ml 1350.0 ml Output Urine Total 350 ml 620 ml # Bowel Movements 2 Assessment/Plan Problem List: (1) Cerebral vascular disease (2) Obstructive uropathy (3) Deep venous thrombosis of left femoral vein Assessment & Plan: Acute. Previously on eliquis. Questionable GI bleed-Await heme consult (4) Altered mental status (5) Hypotension (6) Colon cancer (7) Anemia Assessment & Plan: S/P transfusion 2 units PRBC on 06/18/17. Hemoglobin stable. GI procedures on hold-see GI note. Status: unchanged HOMER RICO June 19, 2017 17:00
[2017-06-19] MEDS ORDERED: Dyna-Hex 2% Top Sol 2oz TOPIC SCH (20:00)
[2017-06-19] MEDS ORDERED: Iron Sucrose 100 MG in NS 55 ML IV SCH (21:00)
[2017-06-19] MEDS: Dyna-Hex 2% Top Sol 2oz TOPIC SCH (21:07)
[2017-06-19] MEDS: Iron Sucrose 100 MG in NS 55 ML IV SCH (21:07)
[2017-06-20] VITALS: BP 145/84
[2017-06-20 04:00] VITALS: BP 131/67
[2017-06-20 06:51] LABS: HEMATOCRIT 29.4 % (37.0-47.0); HEMOGLOBIN 10.1 G/DL (12.0-16.0); MEAN CORPUSCULAR VOLUME 83 FL (80-99); PLATELET COUNT 211 K/UL (150-450); RED BLOOD COUNT 3.55 M/UL (4.20-5.40); RED CELL DISTRIBUTION WIDTH 14.8 % (11.6-14.8)
[2017-06-20 07:11] LABS: ALANINE AMINOTRANSFERASE 17 U/L (12-78); ALBUMIN 1.4 G/DL (3.4-5.0); ALBUMIN/GLOBULIN RATIO 0.3 (1.0-2.7); ALKALINE PHOSPHATASE 132 U/L (46-116); ANION GAP 13 mmol/L (5-15); ASPARTATE AMINO TRANSFERASE 26 U/L (15-37); BILIRUBIN,TOTAL 0.7 MG/DL (0.2-1.0); BLOOD UREA NITROGEN 20 mg/dL (7-18); CALCIUM 8.1 MG/DL (8.5-10.1); CARBON DIOXIDE 19 MMOL/L (21-32); CHLORIDE 111 MMOL/L (98-107); CREATININE 0.8 MG/DL (0.55-1.30); POTASSIUM 2.8 MMOL/L (3.5-5.1); SODIUM 142 MMOL/L (136-145)
[2017-06-20 08:00] VITALS: BP 137/50
[2017-06-20] MEDS: Meropenem 1 GM in NS 55 ML IVPB SCH ×5 (10:17→23:39)
[2017-06-20] MEDS: Pantoprazole Inj IVP SCH (10:21)
[2017-06-20] MEDS: Heparin 5000 units/ml inj SUBQ SCH (10:26)
[2017-06-20] MEDS ORDERED: Potassium Phosphate 30 MM in NS 275 ML IV ONE (11:00)
--- NOTE | 2017-06-20 11:04 | Internal Med Progress Note ---
Subjective Date of Service: June 20, 2017 Physician Name Homer Rico Attending Physician Bharat Orozco MD Current Medications Medications (Trade) Dose Ordered Sig/Naman Route PRN Reason Start Time Stop Time Status Last Admin Dose Admin Acetaminophen (Tylenol) 650 mg Q4H PRN ORAL fever 06/19/17 14:45 07/18/17 10:44 Albuterol/ Ipratropium (Albuterol/ Ipratropium) 3 ml EVERY 4 HOURS PRN HHN Shortness of Breath 06/19/17 17:00 06/23/17 10:44 Chlorhexidine Gluconate (Tawanna-Hex 2%) 1 applic DAILY@2000 TOPIC 06/19/17 20:00 07/19/17 19:59 06/19/17 21:07 Folic Acid (Folate) 1 mg DAILY ORAL 06/20/17 09:00 07/20/17 08:59 06/20/17 10:22 Folic Acid (Folate) 1 mg DAILY ORAL 06/20/17 09:00 07/20/17 08:59 Heparin Sodium (Porcine) (Heparin 5000 units/ml) 5,000 units EVERY 12 HOURS SUBQ 06/19/17 21:00 07/18/17 20:59 06/20/17 10:26 Iron Sucrose 100 mg/Sodium Chloride 60 ml @ 240 mls/hr BEDTIME IV 06/19/17 21:00 06/23/17 21:14 06/19/17 21:07 Magnesium Sulfate 100 ml @ 100 mls/hr Q1H IVPB 06/20/17 09:30 06/20/17 11:29 06/20/17 10:22 Meropenem 1 gm/ Sodium Chloride 55 ml @ 110 mls/hr Q8HR@0000,0800,1600 IVPB 06/19/17 16:00 06/23/17 23:59 06/20/17 10:17 Morphine Sulfate (Morphine Sulfate) 1 mg Q4H PRN IVP for Pain 3-6 06/19/17 14:23 06/25/17 14:22 Morphine Sulfate (Morphine Sulfate) 2 mg EVERY 4 HOURS PRN IVP Severe Pain (Pain Scale 7-10) 06/19/17 14:23 06/25/17 14:22 Ondansetron HCl (Zofran) 4 mg Q6H PRN IVP Nausea & Vomiting 06/19/17 14:24 07/18/17 14:23 Pantoprazole (Protonix) 40 mg DAILY IVP 06/20/17 09:00 07/19/17 08:59 06/20/17 10:21 Polyethylene Glycol (Miralax) 17 gm DAILYPRN PRN ORAL Constipation 06/19/17 14:24 07/19/17 14:23 Potassium Phosphate 30 mm/ Sodium Chloride 285 ml @ 47.5 mls/hr ONCE ONCE IV 06/20/17 11:00 06/20/17 16:59 Sodium Chloride 1,000 ml @ 50 mls/hr Q20H IVLG 06/19/17 14:30 07/18/17 10:32 06/19/17 22:59 Allergies: Coded Allergies: PENICILLINS (Verified Allergy, Unknown, 06/18/17) Swelling ROS Limited/Unobtainable: Yes Subjective 72 YO F admitted with hypotension and anemia. Now GI bleed. Cover for Int Sourav- Dr Orozco Objective Last Vital Signs Date Time Temp Pulse Resp B/P (MAP) Pulse Ox O2 Delivery O2 Flow Rate FiO2 06/20/17 08:10 76 16 Room Air 21 06/20/17 08:00 98.3 137/50 99 98.3 Laboratory Tests Test 06/20/17 06:10 White Blood Count 23.0 K/UL (4.8-10.8) *H Red Blood Count 3.55 M/UL (4.20-5.40) L Hemoglobin 10.1 G/DL (12.0-16.0) L Hematocrit 29.4 % (37.0-47.0) L Mean Corpuscular Volume 83 FL (80-99) Mean Corpuscular Hemoglobin 28.6 PG (27.0-31.0) Mean Corpuscular Hemoglobin Concent 34.4 G/DL (32.0-36.0) Red Cell Distribution Width 14.8 % (11.6-14.8) Platelet Count 211 K/UL (150-450) Mean Platelet Volume 5.9 FL (6.5-10.1) L Neutrophils (%) (Auto) % (45.0-75.0) Lymphocytes (%) (Auto) % (20.0-45.0) Monocytes (%) (Auto) % (1.0-10.0) Eosinophils (%) (Auto) % (0.0-3.0) Basophils (%) (Auto) % (0.0-2.0) Neutrophils % (Manual) Pending Lymphocytes % (Manual) Pending Platelet Estimate Pending Platelet Morphology Pending Sodium Level 142 MMOL/L (136-145) Potassium Level 2.8 MMOL/L (3.5-5.1) L Chloride Level 111 MMOL/L (98-107) H Carbon Dioxide Level 19 MMOL/L (21-32) L Anion Gap 13 mmol/L (5-15) Blood Urea Nitrogen 20 mg/dL (7-18) H Creatinine 0.8 MG/DL (0.55-1.30) Estimat Glomerular Filtration Rate mL/min (>60) Glucose Level 101 MG/DL (74-106) Calcium Level 8.1 MG/DL (8.5-10.1) L Phosphorus Level 2.0 MG/DL (2.5-4.9) L Magnesium Level 1.7 MG/DL (1.8-2.4) L Total Bilirubin 0.7 MG/DL (0.2-1.0) Aspartate Amino Transf (AST/SGOT) 26 U/L (15-37) Alanine Aminotransferase (ALT/SGPT) 17 U/L (12-78) Alkaline Phosphatase 132 U/L (46-116) H Total Protein 6.0 G/DL (6.4-8.2) L Albumin 1.4 G/DL (3.4-5.0) L Globulin 4.6 g/dL Albumin/Globulin Ratio 0.3 (1.0-2.7) L Microbiology Date/Time Source Procedure Growth Status 06/18/17 15:30 Blood Blood Culture - Preliminary NO GROWTH AFTER 24 HOURS Resulted 06/18/17 15:30 Blood Blood Culture - Preliminary NO GROWTH AFTER 24 HOURS Resulted 06/17/17 15:00 Blood Blood Culture - Preliminary Resulted 06/17/17 14:50 Blood Blood Culture - Preliminary NO GROWTH AFTER 48 HOURS Resulted 06/17/17 15:19 Nasal Nares MRSA Culture - Final Staphylococcus Aureus - Mrsa Complete 06/18/17 19:00 Urine,Clean Catch Urine Culture - Preliminary NO GROWTH AFTER 24 HOURS Resulted 06/17/17 14:30 Urine,Clean Catch Urine Culture - Preliminary Mixed Gram Positive Organism Resulted 06/17/17 15:19 Rectum VRE Culture - Final NO VANCOMYCIN RESISTANT ENTEROCOCCUS ... Complete Intake and Output 06/19/17 06/20/17 19:00 07:00 Intake Total 395 ml 1060 ml Output Total 420 ml 400 ml Balance -25 ml 660 ml Intake Oral 240 ml 220 ml IV Total 155 ml 840 ml Output Urine Total 420 ml 400 ml Objective General Appearance: WD/WN, no apparent distress, alert EENT: PERRL/EOMI, normal ENT inspection Neck: non-tender, normal alignment, supple Cardiovascular: normal peripheral pulses, normal rate, regular rhythm, no gallop/murmur, no JVD Respiratory/Chest: chest wall non-tender, lungs clear, normal breath sounds, no respiratory distress, no accessory muscle use Abdomen: normal bowel sounds, non tender, soft, no organomegaly, no mass Extremities: normal inspection Neurologic: medical laboratory technicians II-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 Previously on eliquis. Questionable GI bleed-Await heme consult. GI procedures on hold (4) Altered mental status (5) Hypotension (6) Colon cancer (7) Anemia Assessment & Plan: S/P transfusion 2 units PRBC on 06/18/17. Hemoglobin stable. GI procedures on hold-see GI note. (8) Hypokalemia Assessment & Plan: replace K+ (9) Hypomagnesemia Assessment & Plan: replace magnesium Status: not improved HOMER RICO June 20, 2017 11:04
--- NOTE | 2017-06-20 11:46 | GI Progress Note ---
Assessment/Plan Problems: (1) Severe sepsis ICD Codes: A41.9 - Sepsis, unspecified organism; R65.20 - Severe sepsis without septic shock SNOMED: 88163267 (2) Electrolyte imbalance ICD Codes: E87.8 - Other disorders of electrolyte and fluid balance, not elsewhere classified SNOMED: 189747632 (3) Dehydration ICD Codes: E86.0 - Dehydration SNOMED: 74879801 (4) Colostomy in place ICD Codes: Z93.3 - Colostomy status SNOMED: 153123799, 454295823 (5) Colon cancer ICD Codes: C18.9 - Malignant neoplasm of colon, unspecified SNOMED: 010727469 Qualifiers: Qualified Codes: C18.9 - Malignant neoplasm of colon, unspecified (6) Anemia ICD Codes: D64.9 - Anemia, unspecified SNOMED: 261097922 Qualifiers: Qualified Codes: D64.89 - Other specified anemias Status: progressing Status Narrative Discussed with Dr. Fonseca. Assessment/Plan defer GI procedures at this time >> fu on cardiology recs anemia work up reviewed >> folate deficiency OB stool r/o GI bleed >> negative monitor H&H, prn transfusions bowel regime ppi electrolyte replacement fu labs patient on Plavix outpatient GI procedures Subjective Subjective denies abdominal pain Objective Last 24 Hour Vital Signs Date Time Temp Pulse Resp B/P (MAP) Pulse Ox O2 Delivery O2 Flow Rate FiO2 06/20/17 08:10 76 16 Room Air 21 06/20/17 08:00 98.3 98 18 137/50 99 98.3 06/20/17 04:00 97.6 103 19 131/67 100 97.6 06/20/17 00:00 97.9 98 20 145/84 98 97.9 06/19/17 20:00 97.4 90 19 146/81 98 97.4 06/19/17 16:00 98.2 88 20 130/68 99 Room Air 98.2 06/19/17 13:23 98.4 92 20 112/61 100 Room Air 98.4 06/19/17 12:00 98.4 88 22 120/57 97 Room Air 98.4 Intake and Output 06/19/17 06/20/17 19:00 07:00 Intake Total 395 ml 1060 ml Output Total 420 ml 400 ml Balance -25 ml 660 ml Intake Oral 240 ml 220 ml IV Total 155 ml 840 ml Output Urine Total 420 ml 400 ml Laboratory Tests Test 06/20/17 06:10 White Blood Count 23.0 K/UL (4.8-10.8) *H Red Blood Count 3.55 M/UL (4.20-5.40) L Hemoglobin 10.1 G/DL (12.0-16.0) L Hematocrit 29.4 % (37.0-47.0) L Mean Corpuscular Volume 83 FL (80-99) Mean Corpuscular Hemoglobin 28.6 PG (27.0-31.0) Mean Corpuscular Hemoglobin Concent 34.4 G/DL (32.0-36.0) Red Cell Distribution Width 14.8 % (11.6-14.8) Platelet Count 211 K/UL (150-450) Mean Platelet Volume 5.9 FL (6.5-10.1) L Neutrophils (%) (Auto) % (45.0-75.0) Lymphocytes (%) (Auto) % (20.0-45.0) Monocytes (%) (Auto) % (1.0-10.0) Eosinophils (%) (Auto) % (0.0-3.0) Basophils (%) (Auto) % (0.0-2.0) Differential Total Cells Counted 100 Neutrophils % (Manual) 95 % (45-75) H Lymphocytes % (Manual) 3 % (20-45) L Monocytes % (Manual) 0 % (1-10) L Eosinophils % (Manual) 0 % (0-3) Basophils % (Manual) 0 % (0-2) Band Neutrophils 2 % (0-8) Platelet Estimate Adequate Platelet Morphology Normal Sodium Level 142 MMOL/L (136-145) Potassium Level 2.8 MMOL/L (3.5-5.1) L Chloride Level 111 MMOL/L (98-107) H Carbon Dioxide Level 19 MMOL/L (21-32) L Anion Gap 13 mmol/L (5-15) Blood Urea Nitrogen 20 mg/dL (7-18) H Creatinine 0.8 MG/DL (0.55-1.30) Estimat Glomerular Filtration Rate mL/min (>60) Glucose Level 101 MG/DL (74-106) Calcium Level 8.1 MG/DL (8.5-10.1) L Phosphorus Level 2.0 MG/DL (2.5-4.9) L Magnesium Level 1.7 MG/DL (1.8-2.4) L Total Bilirubin 0.7 MG/DL (0.2-1.0) Aspartate Amino Transf (AST/SGOT) 26 U/L (15-37) Alanine Aminotransferase (ALT/SGPT) 17 U/L (12-78) Alkaline Phosphatase 132 U/L (46-116) H Total Protein 6.0 G/DL (6.4-8.2) L Albumin 1.4 G/DL (3.4-5.0) L Globulin 4.6 g/dL Albumin/Globulin Ratio 0.3 (1.0-2.7) L Height (Feet): 5 Height (Inches): 4.00 Weight (Pounds): 191 General Appearance: WD/WN, no apparent distress, alert Cardiovascular: normal rate Respiratory/Chest: normal breath sounds, no respiratory distress Abdominal Exam: normal bowel sounds, non tender, soft, other - colostomy Extremities: normal range of motion, non-tender Sharon Montgomery N.P. June 20, 2017 11:46
[2017-06-20 12:00] VITALS: BP 131/57
--- NOTE | 2017-06-20 13:28 | General Progress Note ---
Assessment/Plan Assessment/Plan # DVT of the left leg - given stable h/h and no e/o gi bleed, restart eliquis # Anemia of chornic disease, evaluate with gi --> hgb goal is above 7 --> anemia w/u has been reviewed --> appreciate gi recs, does not need gi procedure given ob negative # Anemia of folic acid deficiency --> started on FA 1mg daily # Hypokalemia - repleted with K # Hypomagnesemia - repleted with mag # Weakness and fatigue is likely related to anemia Subjective Constitutional: Denies: no symptoms, chills, diaphoresis, fever, malaise, weakness, other HEENT: Denies: no symptoms, eye pain, blurred vision, tearing, double vision, ear pain, ear discharge, nose pain, nose congestion, throat pain, throat swelling, mouth pain, mouth swelling, other Cardiovascular: Denies: no symptoms, chest pain, edema, irregular heart rate, lightheadedness, palpitations, syncope, other Respiratory: Denies: no symptoms, cough, orthopnea, shortness of breath, SOB with excertion, SOB at rest, sputum, stridor, wheezing, other Gastrointestinal/Abdominal: Denies: no symptoms, abdomen distended, abdominal pain, black stools, tarry stools, blood in stool, constipated, diarrhea, difficulty swallowing, nausea, poor appetite, poor fluid intake, rectal bleeding , vomiting, other Genitourinary: Denies: no symptoms, burning, discharge, frequency, flank pain, hematuria, incontinence, pain, urgency, other Neurologic/Psychiatric: Denies: no symptoms, anxiety, depressed, emotional problems, headache, numbness, paresthesia, pre-existing deficit, seizure, tingling, tremors, weakness, other Endocrine: Denies: no symptoms, excessive sweating, flushing, intolerance to cold, intolerance to heat, increased hunger, increased thirst, increased urine, unexplained weight gain, unexplained weight loss, other Hematologic/Lymphatic: Denies: no symptoms, anemia, easy bleeding, easy bruising, other Allergies: Coded Allergies: PENICILLINS (Verified Allergy, Unknown, 06/18/17) Swelling Subjective no fevers, chills, night sweats Objective Last 24 Hour Vital Signs Date Time Temp Pulse Resp B/P (MAP) Pulse Ox O2 Delivery O2 Flow Rate FiO2 06/20/17 12:00 98.3 98 18 131/57 94 98.3 06/20/17 08:10 76 16 Room Air 21 06/20/17 08:00 98.3 98 18 137/50 99 98.3 06/20/17 04:00 97.6 103 19 131/67 100 97.6 06/20/17 00:00 97.9 98 20 145/84 98 97.9 06/19/17 20:00 97.4 90 19 146/81 98 97.4 06/19/17 16:00 98.2 88 20 130/68 99 Room Air 98.2 Intake and Output 06/19/17 06/20/17 19:00 07:00 Intake Total 395 ml 1060 ml Output Total 420 ml 400 ml Balance -25 ml 660 ml Intake Oral 240 ml 220 ml IV Total 155 ml 840 ml Output Urine Total 420 ml 400 ml Laboratory Tests 06/20/17 06:10: White Blood Count 23.0*H, Red Blood Count 3.55L, Hemoglobin 10.1L, Hematocrit 29.4L, Mean Corpuscular Volume 83, Mean Corpuscular Hemoglobin 28.6, Mean Corpuscular Hemoglobin Concent 34.4, Red Cell Distribution Width 14.8, Platelet Count 211, Mean Platelet Volume 5.9L, Neutrophils (%) (Auto) , Lymphocytes (%) ( Auto) , Monocytes (%) (Auto) , Eosinophils (%) (Auto) , Basophils (%) (Auto) , Differential Total Cells Counted 100, Neutrophils % (Manual) 95H, Lymphocytes % (Manual) 3L, Monocytes % (Manual) 0L, Eosinophils % (Manual) 0, Basophils % ( Manual) 0, Band Neutrophils 2, Platelet Estimate Adequate, Platelet Morphology Normal, Sodium Level 142, Potassium Level 2.8L, Chloride Level 111H, Carbon Dioxide Level 19L, Anion Gap 13, Blood Urea Nitrogen 20H, Creatinine 0.8, Estimat Glomerular Filtration Rate , Glucose Level 101, Calcium Level 8.1L, Phosphorus Level 2.0L, Magnesium Level 1.7L, Total Bilirubin 0.7, Aspartate Amino Transf (AST/SGOT) 26, Alanine Aminotransferase (ALT/SGPT) 17, Alkaline Phosphatase 132H, Total Protein 6.0L, Albumin 1.4L, Globulin 4.6, Albumin/ Globulin Ratio 0.3L Height (Feet): 5 Height (Inches): 4.00 Weight (Pounds): 191 General Appearance: no apparent distress EENT: normal ENT inspection Neck: supple Cardiovascular: regular rhythm Respiratory/Chest: chest wall non-tender Abdomen: normal bowel sounds Extremities: non-tender Edema: no edema noted Leg (L), no edema noted Leg (R) Neurologic: alert Skin: warm/dry Chay Ross MD June 20, 2017 13:28
[2017-06-20] MEDS: Morphine Sulfate 4mg/ml Inj IVP PRN (13:55)
[2017-06-20] MEDS: Eliquis 2.5mg tablet ORAL SCH ×2 (14:15→21:01)
--- NOTE | 2017-06-20 14:26 | Pulmonology Progress Note ---
Assessment/Plan Problems: (1) Severe sepsis (2) Acute encephalopathy (3) Anemia (4) H/O deep venous thrombosis (5) Colon cancer (6) Colostomy in place Assessment/Plan BC showing Gram variable Rods, continue abx check sensitivity anemia w/u check electrolytes Subjective ROS Limited/Unobtainable: No Constitutional: Reports: no symptoms HEENT: Repors: no symptoms Respiratory: Reports: no symptoms Allergies: Coded Allergies: PENICILLINS (Verified Allergy, Unknown, 06/18/17) Swelling Objective Last 24 Hour Vital Signs Date Time Temp Pulse Resp B/P (MAP) Pulse Ox O2 Delivery O2 Flow Rate FiO2 06/20/17 12:00 98.3 98 18 131/57 94 98.3 06/20/17 08:10 76 16 Room Air 21 06/20/17 08:00 98.3 98 18 137/50 99 98.3 06/20/17 04:00 97.6 103 19 131/67 100 97.6 06/20/17 00:00 97.9 98 20 145/84 98 97.9 06/19/17 20:00 97.4 90 19 146/81 98 97.4 06/19/17 16:00 98.2 88 20 130/68 99 Room Air 98.2 Intake and Output 06/19/17 06/20/17 19:00 07:00 Intake Total 395 ml 1060 ml Output Total 420 ml 400 ml Balance -25 ml 660 ml Intake Oral 240 ml 220 ml IV Total 155 ml 840 ml Output Urine Total 420 ml 400 ml General Appearance: WD/WN HEENT: normocephalic, atraumatic Respiratory/Chest: chest wall non-tender, lungs clear Cardiovascular: normal peripheral pulses, normal rate Abdomen: normal bowel sounds, soft, non tender Genitourinary: normal external genitalia Extremities: no cyanosis Skin: no rash 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 Microbiology Date/Time Source Procedure Growth Status 06/18/17 15:30 Blood Blood Culture - Preliminary NO GROWTH AFTER 24 HOURS Resulted 06/18/17 15:30 Blood Blood Culture - Preliminary Resulted 06/17/17 15:00 Blood Blood Culture - Preliminary Resulted 06/17/17 14:50 Blood Blood Culture - Preliminary NO GROWTH AFTER 48 HOURS Resulted 06/17/17 15:19 Nasal Nares MRSA Culture - Final Staphylococcus Aureus - Mrsa Complete 06/18/17 19:00 Urine,Clean Catch Urine Culture - Preliminary NO GROWTH AFTER 24 HOURS Resulted 06/17/17 14:30 Urine,Clean Catch Urine Culture - Preliminary Mixed Gram Positive Organism Resulted 06/17/17 15:19 Rectum VRE Culture - Final NO VANCOMYCIN RESISTANT ENTEROCOCCUS ... Complete Laboratory Tests 06/20/17 06:10: White Blood Count 23.0*H, Red Blood Count 3.55L, Hemoglobin 10.1L, Hematocrit 29.4L, Mean Corpuscular Volume 83, Mean Corpuscular Hemoglobin 28.6, Mean Corpuscular Hemoglobin Concent 34.4, Red Cell Distribution Width 14.8, Platelet Count 211, Mean Platelet Volume 5.9L, Neutrophils (%) (Auto) , Lymphocytes (%) ( Auto) , Monocytes (%) (Auto) , Eosinophils (%) (Auto) , Basophils (%) (Auto) , Differential Total Cells Counted 100, Neutrophils % (Manual) 95H, Lymphocytes % (Manual) 3L, Monocytes % (Manual) 0L, Eosinophils % (Manual) 0, Basophils % ( Manual) 0, Band Neutrophils 2, Platelet Estimate Adequate, Platelet Morphology Normal, Sodium Level 142, Potassium Level 2.8L, Chloride Level 111H, Carbon Dioxide Level 19L, Anion Gap 13, Blood Urea Nitrogen 20H, Creatinine 0.8, Estimat Glomerular Filtration Rate , Glucose Level 101, Calcium Level 8.1L, Phosphorus Level 2.0L, Magnesium Level 1.7L, Total Bilirubin 0.7, Aspartate Amino Transf (AST/SGOT) 26, Alanine Aminotransferase (ALT/SGPT) 17, Alkaline Phosphatase 132H, Total Protein 6.0L, Albumin 1.4L, Globulin 4.6, Albumin/ Globulin Ratio 0.3L Current Medications Medications (Trade) Dose Ordered Sig/Naman Route PRN Reason Start Time Stop Time Status Last Admin Dose Admin Acetaminophen (Tylenol) 650 mg Q4H PRN ORAL fever 06/19/17 14:45 07/18/17 10:44 Albuterol/ Ipratropium (Albuterol/ Ipratropium) 3 ml EVERY 4 HOURS PRN HHN Shortness of Breath 06/19/17 17:00 06/23/17 10:44 Apixaban (Eliquis) 5 mg BID ORAL 06/20/17 14:00 07/20/17 13:59 06/20/17 14:15 Chlorhexidine Gluconate (Tawanna-Hex 2%) 1 applic DAILY@2000 TOPIC 06/19/17 20:00 07/19/17 19:59 06/19/17 21:07 Folic Acid (Folate) 1 mg DAILY ORAL 06/20/17 09:00 07/20/17 08:59 06/20/17 10:22 Iron Sucrose 100 mg/Sodium Chloride 60 ml @ 240 mls/hr BEDTIME IV 06/19/17 21:00 06/23/17 21:14 06/19/17 21:07 Meropenem 1 gm/ Sodium Chloride 55 ml @ 110 mls/hr Q8HR@0000,0800,1600 IVPB 06/19/17 16:00 06/23/17 23:59 06/20/17 10:17 Morphine Sulfate (Morphine Sulfate) 1 mg Q4H PRN IVP for Pain 3-6 06/19/17 14:23 06/25/17 14:22 06/20/17 13:55 Morphine Sulfate (Morphine Sulfate) 2 mg EVERY 4 HOURS PRN IVP Severe Pain (Pain Scale 7-10) 06/19/17 14:23 06/25/17 14:22 Ondansetron HCl (Zofran) 4 mg Q6H PRN IVP Nausea & Vomiting 06/19/17 14:24 07/18/17 14:23 Pantoprazole (Protonix) 40 mg DAILY IVP 06/20/17 09:00 07/19/17 08:59 06/20/17 10:21 Polyethylene Glycol (Miralax) 17 gm DAILYPRN PRN ORAL Constipation 06/19/17 14:24 07/19/17 14:23 Potassium Phosphate 30 mm/ Sodium Chloride 285 ml @ 47.5 mls/hr ONCE ONCE IV 06/20/17 11:00 06/20/17 16:59 06/20/17 12:05 Sodium Chloride 1,000 ml @ 50 mls/hr Q20H IVLG 06/19/17 14:30 07/18/17 10:32 06/19/17 22:59 Andres Reynolds MD June 20, 2017 14:25
[2017-06-20 16:00] VITALS: BP 140/70
[2017-06-20] MEDS ORDERED: Isovue-300 100ml vial INJ PRN (16:00)
[2017-06-20] MEDS ORDERED: Gastrograffin 30ml ORAL PRN (16:00)
--- NOTE | 2017-06-20 16:00 | Infectious Diseases Prog Note ---
Assessment/Plan Assessment/Plan Assessment: Septic Shock, SP - Possibly multifactorial- originally suspected UTI but Ucx with no significant growth (she did had UTI and pyelo symptoms: +frequency/ urgency, n/v, lower abd pain). No is bacteremic- r/o intrabdominal source -CXR: Cardiomegaly and pulmonary vascular congestion. Patchy retrocardiac opacity. Pneumonia not excluded. Clinical correlation and follow-up exam recommended; doubt PNA- no cough -u/a wbc tntc, nit neg, leuk +3, sq cells moderate; ucx 20-30k mixed gram positive growth; repeat u/a WBC 40-60,nit neg, leuk +2, sq cells few; ucx NTD -Bcx 06/17 NTD; 06/18 1/4 gram variable rods Fever, leukocytosis- fever resolved, leukocytosis improvbed but persistent int he mid 20s Lactic acidosis, resolved L DVT Anemia CARLOS, resolved Colon CA s/p resection and colostomy w/ recurrent Cancer obstructive uropathy s/p PPM DVT on [facility] resident PNC allergy Plan: -Continue Meropenem #3 for now pending ID and sensi Bcx -06/19 SP IV Vancomycin #2 -06/17 CEfepime and Flagyl x1 -CT abd/p w/ IV and PO contras to evaluate for intraabdominal source of infection -repeat 2 sets of Bcx -f/u cx -Monitor CBC/BMP, temperatures -check cdiff -aspiration precautions Thank you for this consultation. Will continue to follow along with you. Discussed with RN Subjective Allergies: Coded Allergies: PENICILLINS (Verified Allergy, Unknown, 06/18/17) Swelling Subjective afebrile in 72 hrs leukocytosis persistent but overall improved Bactermic 1/4 gram variable rods Objective Vital Signs Last 24 Hour Vital Signs Date Time Temp Pulse Resp B/P (MAP) Pulse Ox O2 Delivery O2 Flow Rate FiO2 06/20/17 12:00 98.3 98 18 131/57 94 98.3 06/20/17 08:10 76 16 Room Air 21 06/20/17 08:00 98.3 98 18 137/50 99 98.3 06/20/17 04:00 97.6 103 19 131/67 100 97.6 06/20/17 00:00 97.9 98 20 145/84 98 97.9 06/19/17 20:00 97.4 90 19 146/81 98 97.4 06/19/17 16:00 98.2 88 20 130/68 99 Room Air 98.2 Height (Feet): 5 Height (Inches): 4.00 Weight (Pounds): 191 Objective General Appearance: well appearing, no apparent distress, alert Head: normocephalic EENT: PERRL/EOMI, normal ENT inspection Neck: supple Respiratory: normal breath sounds, no respiratory distress Cardiovascular: normal rate Gastrointestinal: normal inspection, non tender, soft, normal bowel sounds, non -distended Genitourinary: no CVA tenderness Musculoskeletal: normal inspection, back normal Skin: normal inspection, normal color, no rash, warm/dry, palpation normal, well hydrated Microbiology Date/Time Source Procedure Growth Status 06/18/17 15:30 Blood Blood Culture - Preliminary NO GROWTH AFTER 24 HOURS Resulted 06/18/17 15:30 Blood Blood Culture - Preliminary Resulted 06/18/17 19:00 Urine,Clean Catch Urine Culture - Preliminary NO GROWTH AFTER 24 HOURS Resulted Laboratory Tests Test 06/20/17 06:10 White Blood Count 23.0 K/UL (4.8-10.8) *H Red Blood Count 3.55 M/UL (4.20-5.40) L Hemoglobin 10.1 G/DL (12.0-16.0) L Hematocrit 29.4 % (37.0-47.0) L Mean Corpuscular Volume 83 FL (80-99) Mean Corpuscular Hemoglobin 28.6 PG (27.0-31.0) Mean Corpuscular Hemoglobin Concent 34.4 G/DL (32.0-36.0) Red Cell Distribution Width 14.8 % (11.6-14.8) Platelet Count 211 K/UL (150-450) Mean Platelet Volume 5.9 FL (6.5-10.1) L Neutrophils (%) (Auto) % (45.0-75.0) Lymphocytes (%) (Auto) % (20.0-45.0) Monocytes (%) (Auto) % (1.0-10.0) Eosinophils (%) (Auto) % (0.0-3.0) Basophils (%) (Auto) % (0.0-2.0) Differential Total Cells Counted 100 Neutrophils % (Manual) 95 % (45-75) H Lymphocytes % (Manual) 3 % (20-45) L Monocytes % (Manual) 0 % (1-10) L Eosinophils % (Manual) 0 % (0-3) Basophils % (Manual) 0 % (0-2) Band Neutrophils 2 % (0-8) Platelet Estimate Adequate Platelet Morphology Normal Sodium Level 142 MMOL/L (136-145) Potassium Level 2.8 MMOL/L (3.5-5.1) L Chloride Level 111 MMOL/L (98-107) H Carbon Dioxide Level 19 MMOL/L (21-32) L Anion Gap 13 mmol/L (5-15) Blood Urea Nitrogen 20 mg/dL (7-18) H Creatinine 0.8 MG/DL (0.55-1.30) Estimat Glomerular Filtration Rate mL/min (>60) Glucose Level 101 MG/DL (74-106) Calcium Level 8.1 MG/DL (8.5-10.1) L Phosphorus Level 2.0 MG/DL (2.5-4.9) L Magnesium Level 1.7 MG/DL (1.8-2.4) L Total Bilirubin 0.7 MG/DL (0.2-1.0) Aspartate Amino Transf (AST/SGOT) 26 U/L (15-37) Alanine Aminotransferase (ALT/SGPT) 17 U/L (12-78) Alkaline Phosphatase 132 U/L (46-116) H Total Protein 6.0 G/DL (6.4-8.2) L Albumin 1.4 G/DL (3.4-5.0) L Globulin 4.6 g/dL Albumin/Globulin Ratio 0.3 (1.0-2.7) L Current Medications Medications (Trade) Dose Ordered Sig/Naman Route PRN Reason Start Time Stop Time Status Last Admin Dose Admin Acetaminophen (Tylenol) 650 mg Q4H PRN ORAL fever 06/19/17 14:45 07/18/17 10:44 Albuterol/ Ipratropium (Albuterol/ Ipratropium) 3 ml EVERY 4 HOURS PRN HHN Shortness of Breath 06/19/17 17:00 06/23/17 10:44 Apixaban (Eliquis) 5 mg BID ORAL 06/20/17 14:00 6/1/18 13:59 06/20/17 14:15 Chlorhexidine Gluconate (Tawanna-Hex 2%) 1 applic DAILY@2000 TOPIC 06/19/17 20:00 07/19/17 19:59 06/19/17 21:07 Folic Acid (Folate) 1 mg DAILY ORAL 06/20/17 09:00 07/20/17 08:59 06/20/17 10:22 Iron Sucrose 100 mg/Sodium Chloride 60 ml @ 240 mls/hr BEDTIME IV 06/19/17 21:00 06/23/17 21:14 06/19/17 21:07 Meropenem 1 gm/ Sodium Chloride 55 ml @ 110 mls/hr Q8HR@0000,0800,1600 IVPB 06/19/17 16:00 06/23/17 23:59 06/20/17 10:17 Morphine Sulfate (Morphine Sulfate) 1 mg Q4H PRN IVP for Pain 3-6 06/19/17 14:23 06/25/17 14:22 06/20/17 13:55 Morphine Sulfate (Morphine Sulfate) 2 mg EVERY 4 HOURS PRN IVP Severe Pain (Pain Scale 7-10) 06/19/17 14:23 06/25/17 14:22 Ondansetron HCl (Zofran) 4 mg Q6H PRN IVP Nausea & Vomiting 06/19/17 14:24 07/18/17 14:23 Pantoprazole (Protonix) 40 mg DAILY IVP 06/20/17 09:00 07/19/17 08:59 06/20/17 10:21 Polyethylene Glycol (Miralax) 17 gm DAILYPRN PRN ORAL Constipation 06/19/17 14:24 07/19/17 14:23 Potassium Phosphate 30 mm/ Sodium Chloride 285 ml @ 47.5 mls/hr ONCE ONCE IV 06/20/17 11:00 06/20/17 16:59 06/20/17 12:05 Sodium Chloride 1,000 ml @ 50 mls/hr Q20H IVLG 06/19/17 14:30 07/18/17 10:32 06/19/17 22:59 Cheryl Ramos M.D. June 20, 2017 16:00
[2017-06-20 20:13] VITALS: BP 136/69
[2017-06-20] MEDS: Iron Sucrose 100 MG in NS 55 ML IV SCH (21:00)
[2017-06-20] MEDS: Dyna-Hex 2% Top Sol 2oz TOPIC SCH (21:00)
[2017-06-21] VITALS: BP 129/70
[2017-06-21 06:49] LABS: HEMATOCRIT 30.1 % (37.0-47.0); HEMOGLOBIN 10.3 G/DL (12.0-16.0); MEAN CORPUSCULAR VOLUME 83 FL (80-99); PLATELET COUNT 153 K/UL (150-450); RED BLOOD COUNT 3.64 M/UL (4.20-5.40); RED CELL DISTRIBUTION WIDTH 15.6 % (11.6-14.8)
[2017-06-21 07:35] LABS: WHITE BLOOD COUNT 24.5 K/UL (4.8-10.8)
[2017-06-21 07:44] LABS: ALANINE AMINOTRANSFERASE 15 U/L (12-78); ALBUMIN 1.3 G/DL (3.4-5.0); ALBUMIN/GLOBULIN RATIO 0.3 (1.0-2.7); ALKALINE PHOSPHATASE 123 U/L (46-116); ANION GAP 11 mmol/L (5-15); ASPARTATE AMINO TRANSFERASE 18 U/L (15-37); BILIRUBIN,TOTAL 0.8 MG/DL (0.2-1.0); BLOOD UREA NITROGEN 19 mg/dL (7-18); CALCIUM 8.2 MG/DL (8.5-10.1); CARBON DIOXIDE 19 MMOL/L (21-32); CHLORIDE 113 MMOL/L (98-107); CREATININE 0.7 MG/DL (0.55-1.30); POTASSIUM 3.7 MMOL/L (3.5-5.1); SODIUM 143 MMOL/L (136-145)
[2017-06-21 08:00] VITALS: BP 141/84
[2017-06-21] MEDS: Meropenem 1 GM in NS 55 ML IVPB SCH ×2 (08:01→15:54)
[2017-06-21] MEDS: Eliquis 2.5mg tablet ORAL SCH ×2 (08:40→17:59)
[2017-06-21] MEDS: Pantoprazole Inj IVP SCH (08:40)
--- NOTE | 2017-06-21 08:45 | Consultation ---
DATE OF CONSULTATION: 06/19/2017 NOTE: POOR AUDIO HEMATOLOGY/ONCOLOGY CONSULTATION CONSULTING PHYSICIAN: Chay Ross M.D. REQUESTING PHYSICIAN: Jonathan Reza M.D. REASON FOR CONSULTATION: Evaluation of anemia, history of colon cancer, and history of DVT as well. IDENTIFYING DATA: Dear Dr. Reza, The patient is a pleasant 72-year-old female with past medical history significant for DVT, history of colon cancer, history of anemia, at this time presents with altered mental status from [facility]. Per the staff, the patient had increased abdominal pain and experiencing abdominal ache over the past several weeks, has been falling, generalized weakness. Hematology and Oncology Services consulted for further evaluation and treatment. Admitted for anemia with GI bleed. At this time, apixaban is being held and GI Service to evaluate the patient further. PAST MEDICAL HISTORY: History of DVT, history of , history of anemia. MEDICATIONS: Dilaudid, , multivitamin, Megace, lidocaine, lactulose, Neurontin, . PAST SURGICAL HISTORY: None noted. ALLERGIES: No known drug allergies. REVIEW OF SYSTEMS: CONSTITUTIONAL: No fever, chills, or night sweats. SKIN: No rashes, bumps, or itching. HEENT: No headache, hearing or vision changes. BREASTS: No lumps, pain, or discharge. PULMONARY: No cough, sputum, or shortness of breath. GASTROINTESTINAL: No nausea, vomiting, or diarrhea. GENITOURINARY: No dysuria, frequency, or urgency. MUSCULOSKELETAL: No joint swelling, muscle pain, or trauma. PHYSICAL EXAMINATION: VITAL SIGNS: Reviewed. GENERAL: No distress. PULMONARY: Decreased breath sounds. CARDIOVASCULAR: Regular rate. No S3 or S4. ABDOMEN: Soft, nontender, and nondistended. EXTREMITIES: No cyanosis, swelling, or edema. LABORATORY DATA: WBC 22,000, hemoglobin 9.5, hematocrit 28, and platelet count 187,000. INR 1.1, improved. Ferritin of greater than 2000, percent saturation 27, vitamin B12 245, and folic acid of 1.4. Medications currently have been reviewed, heparin subcutaneous, albuterol, and Zofran. ASSESSMENT AND RECOMMENDATIONS: 1. Deep venous thrombosis history. The patient has had a duplex of lower extremities, which has been ordered including the right lower extremity as well as the left lower extremity for evaluation of blood clot. Eliquis will be held. 2. Anemia due to underlying chronic disease. Continue to closely monitor for improvement. 3. Thrombocytopenia, probably secondary to possible anemia. 4. Leukocytosis with elevated neutrophil count 91%. Continue to closely for improvement. 5. Coagulopathy with INR of 1.3. 6. secondary to decreased p.o. intake. Monitor for improvement. 7. Anemia due to folic acid deficiency. Continue to close monitor. Begin the patient on 1 mg of folic acid. I appreciate the consultation from Dr. Reza. Chay Ross M.D. DR: ARNIE JOB#: [id number] CC:
--- NOTE | 2017-06-21 11:01 | Diagnostic Imaging Report ---
Indication: Abdominal pain. History of colon CA. Altered mental status Technique: Continuous helical transaxial imaging of the abdomen and pelvis was obtained from the lung bases to the pubic symphysis during intravenous contrast administration. Coronal 2-D reformats were also obtained. Study obtained in a Siemens sensation [address] Automatic Exposure Control was utilized. Total Dose length Product (DLP): 953.[address] Dose Index Volume (CTDIvol): 18.6 mGy Comparison: None Findings: The visualized part of the lung bases show multiple pulmonary nodules within the right lung suspicious for metastatic disease. There is a small left pleural effusion and a trace right pleural effusion. There is left posterior basal atelectasis and volume loss. Large partially enhancing centrally low attenuation mass demonstrated within the area of the rectum measuring about 6 to 7 cm suspicious for recurrent malignant neoplasm. There is also evidence of tumor in the left iliac fossa measuring 6 to 7 cm. There is bulky lymphadenopathy within the retroperitoneum with large area of tumor in the left side measuring area of about 6 x 8 cm indicative of metastatic lymphadenopathy. Other smaller retroperitoneal and pelvic nodes are present. The bulky tumor and adenopathy are associated with obstruction of the left kidney as there is mild to moderate hydronephrosis and delayed enhancement of the left kidney. There is a left lower quadrant colostomy noted. The rectum and sigmoid are not visualized and presumably have been resected or may be collapsed on this study. The liver and spleen are unremarkable. Cholecystectomy is noted. Adrenal glands are unremarkable. There is breathing motion limits limits evaluation. The aorta is moderately calcified. There is a Cheung catheter within the urinary bladder. Diffuse expansion and soft tissue stranding of the subcutaneous fat consistent with anasarca. The L5 vertebra and the left aspect of the sacrum show lytic abnormalities consistent metastatic disease. These are adjacent to the aforementioned bulky tumor within the pelvis. IMPRESSION: Evidence of recurrent colon carcinoma with extensive bulky tumor and adenopathy within the pelvis and retroperitoneum. This results in mild to moderate left hydronephrosis. Localized adjacent lytic destruction of the anterior L5 vertebra and part of the upper sacrum. Evidence of more remote metastatic neoplasm with multiple pulmonary nodules. The CT scanner at [facility] is accredited by the [employer] and the scans are performed using dose optimization techniques as appropriate to a performed exam including Automatic Exposure control.
[2017-06-21 12:00] VITALS: BP 132/72
--- NOTE | 2017-06-21 12:38 | GI Progress Note ---
Assessment/Plan Problems: (1) Severe sepsis ICD Codes: A41.9 - Sepsis, unspecified organism; R65.20 - Severe sepsis without septic shock SNOMED: 26930059 (2) Electrolyte imbalance ICD Codes: E87.8 - Other disorders of electrolyte and fluid balance, not elsewhere classified SNOMED: 337832277 (3) Dehydration ICD Codes: E86.0 - Dehydration SNOMED: 95706799 (4) Colostomy in place ICD Codes: Z93.3 - Colostomy status SNOMED: 213236696, 322844129 (5) Colon cancer ICD Codes: C18.9 - Malignant neoplasm of colon, unspecified SNOMED: 080102553 Qualifiers: Qualified Codes: C18.9 - Malignant neoplasm of colon, unspecified (6) Anemia ICD Codes: D64.9 - Anemia, unspecified SNOMED: 822917714 Qualifiers: Qualified Codes: D64.89 - Other specified anemias Status: unchanged Status Narrative Discussed with Dr. Fonseca. Assessment/Plan defer GI procedures at this time anemia work up reviewed >> folate deficiency OB stool r/o GI bleed >> negative CT AP reviewed >> fu oncology recs monitor H&H, prn transfusions bowel regime ppi electrolyte replacement fu labs patient on Plavix Subjective Subjective denies abdominal pain Objective Last 24 Hour Vital Signs Date Time Temp Pulse Resp B/P (MAP) Pulse Ox O2 Delivery O2 Flow Rate FiO2 06/21/17 12:00 98.8 96 17 132/72 96 98.8 06/21/17 08:00 97.9 93 18 141/84 100 97.9 06/21/17 00:00 98.0 99 18 129/70 98.0 06/20/17 20:13 98.4 101 18 136/69 96 98.4 06/20/17 20:00 97 18 Room Air 21 06/20/17 16:00 98.0 98 19 140/70 99 98.0 Intake and Output 06/20/17 06/21/17 19:00 07:00 Intake Total 1052.5 ml 1020 ml Output Total 350 ml Balance 1052.5 ml 670 ml IV Total 1052.5 ml 820 ml Other 200 ml Output Urine Total 350 ml # Voids 4 # Bowel Movements 2 Laboratory Tests Test 06/21/17 06:20 White Blood Count 24.5 K/UL (4.8-10.8) *H Red Blood Count 3.64 M/UL (4.20-5.40) L Hemoglobin 10.3 G/DL (12.0-16.0) L Hematocrit 30.1 % (37.0-47.0) L Mean Corpuscular Volume 83 FL (80-99) Mean Corpuscular Hemoglobin 28.3 PG (27.0-31.0) Mean Corpuscular Hemoglobin Concent 34.3 G/DL (32.0-36.0) Red Cell Distribution Width 15.6 % (11.6-14.8) H Platelet Count 153 K/UL (150-450) Mean Platelet Volume 6.5 FL (6.5-10.1) Neutrophils (%) (Auto) % (45.0-75.0) Lymphocytes (%) (Auto) % (20.0-45.0) Monocytes (%) (Auto) % (1.0-10.0) Eosinophils (%) (Auto) % (0.0-3.0) Basophils (%) (Auto) % (0.0-2.0) Differential Total Cells Counted 100 Neutrophils % (Manual) 95 % (45-75) H Lymphocytes % (Manual) 3 % (20-45) L Monocytes % (Manual) 2 % (1-10) Eosinophils % (Manual) 0 % (0-3) Basophils % (Manual) 0 % (0-2) Band Neutrophils 0 % (0-8) Platelet Estimate Adequate Platelet Morphology Normal Hypochromasia 1+ Anisocytosis 1+ Sodium Level 143 MMOL/L (136-145) Potassium Level 3.7 MMOL/L (3.5-5.1) Chloride Level 113 MMOL/L (98-107) H Carbon Dioxide Level 19 MMOL/L (21-32) L Anion Gap 11 mmol/L (5-15) Blood Urea Nitrogen 19 mg/dL (7-18) H Creatinine 0.7 MG/DL (0.55-1.30) Estimat Glomerular Filtration Rate mL/min (>60) Glucose Level 95 MG/DL (74-106) Calcium Level 8.2 MG/DL (8.5-10.1) L Total Bilirubin 0.8 MG/DL (0.2-1.0) Aspartate Amino Transf (AST/SGOT) 18 U/L (15-37) Alanine Aminotransferase (ALT/SGPT) 15 U/L (12-78) Alkaline Phosphatase 123 U/L (46-116) H Total Protein 5.8 G/DL (6.4-8.2) L Albumin 1.3 G/DL (3.4-5.0) L Globulin 4.5 g/dL Albumin/Globulin Ratio 0.3 (1.0-2.7) L Height (Feet): 5 Height (Inches): 4.00 Weight (Pounds): 192 Sharon Montgomery N.P. June 21, 2017 12:38
--- NOTE | 2017-06-21 14:34 | Pulmonology Progress Note ---
Assessment/Plan Problems: (1) Severe sepsis (2) Acute encephalopathy (3) Anemia (4) H/O deep venous thrombosis (5) Colon cancer (6) Colostomy in place Assessment/Plan CT abdomen reviewed, extensive metastasis BC showing Gram variable Rods, continue abx, on Meropenem check sensitivity anemia w/u check electrolytes Subjective ROS Limited/Unobtainable: No Interval Events: no new complains, looks comfortable Constitutional: Reports: no symptoms HEENT: Repors: no symptoms Allergies: Coded Allergies: PENICILLINS (Verified Allergy, Unknown, 06/18/17) Swelling Objective Last 24 Hour Vital Signs Date Time Temp Pulse Resp B/P (MAP) Pulse Ox O2 Delivery O2 Flow Rate FiO2 06/21/17 12:00 98.8 96 17 132/72 96 98.8 06/21/17 08:00 97.9 93 18 141/84 100 97.9 06/21/17 00:00 98.0 99 18 129/70 98.0 06/20/17 20:13 98.4 101 18 136/69 96 98.4 06/20/17 20:00 97 18 Room Air 21 06/20/17 16:00 98.0 98 19 140/70 99 98.0 Intake and Output 06/20/17 06/21/17 19:00 07:00 Intake Total 1052.5 ml 1020 ml Output Total 350 ml Balance 1052.5 ml 670 ml IV Total 1052.5 ml 820 ml Other 200 ml Output Urine Total 350 ml # Voids 4 # Bowel Movements 2 General Appearance: WD/WN HEENT: normocephalic, atraumatic Respiratory/Chest: chest wall non-tender, lungs clear Breasts: no masses Cardiovascular: normal peripheral pulses Abdomen: normal bowel sounds, soft, non tender Genitourinary: normal external genitalia Extremities: no cyanosis Skin: no rash Lymphatic: no neck adenopathy Microbiology Date/Time Source Procedure Growth Status 06/18/17 15:30 Blood Blood Culture - Preliminary NO GROWTH AFTER 48 HOURS Resulted 06/18/17 15:30 Blood Blood Culture - Preliminary Resulted 06/18/17 19:00 Urine,Clean Catch Urine Culture - Final NO GROWTH AFTER 48 HOURS Complete Laboratory Tests 06/21/17 06:20: White Blood Count 24.5*H, Red Blood Count 3.64L, Hemoglobin 10.3L, Hematocrit 30.1L, Mean Corpuscular Volume 83, Mean Corpuscular Hemoglobin 28.3, Mean Corpuscular Hemoglobin Concent 34.3, Red Cell Distribution Width 15.6H, Platelet Count 153, Mean Platelet Volume 6.5, Neutrophils (%) (Auto) , Lymphocytes (%) (Auto) , Monocytes (%) (Auto) , Eosinophils (%) (Auto) , Basophils (%) (Auto) , Differential Total Cells Counted 100, Neutrophils % ( Manual) 95H, Lymphocytes % (Manual) 3L, Monocytes % (Manual) 2, Eosinophils % ( Manual) 0, Basophils % (Manual) 0, Band Neutrophils 0, Platelet Estimate Adequate, Platelet Morphology Normal, Hypochromasia 1+, Anisocytosis 1+, Sodium Level 143, Potassium Level 3.7, Chloride Level 113H, Carbon Dioxide Level 19L, Anion Gap 11, Blood Urea Nitrogen 19H, Creatinine 0.7, Estimat Glomerular Filtration Rate , Glucose Level 95, Calcium Level 8.2L, Total Bilirubin 0.8, Aspartate Amino Transf (AST/SGOT) 18, Alanine Aminotransferase (ALT/SGPT) 15, Alkaline Phosphatase 123H, Total Protein 5.8L, Albumin 1.3L, Globulin 4.5, Albumin/Globulin Ratio 0.3L Current Medications Medications (Trade) Dose Ordered Sig/Naman Route PRN Reason Start Time Stop Time Status Last Admin Dose Admin Acetaminophen (Tylenol) 650 mg Q4H PRN ORAL fever 06/19/17 14:45 07/18/17 10:44 Albuterol/ Ipratropium (Albuterol/ Ipratropium) 3 ml EVERY 4 HOURS PRN HHN Shortness of Breath 06/19/17 17:00 06/23/17 10:44 Apixaban (Eliquis) 5 mg BID ORAL 06/20/17 14:00 07/20/17 13:59 06/21/17 08:40 Chlorhexidine Gluconate (Tawanna-Hex 2%) 1 applic DAILY@1999 TOPIC 06/19/17 20:00 07/19/17 19:59 06/20/17 21:00 Diatrizoate Meglum/ Diatrizoate Sod (Gastrografin) 30 ml NOW PRN ORAL Radiology Procedure 06/20/17 16:00 06/21/17 23:59 Folic Acid (Folate) 1 mg DAILY ORAL 06/20/17 09:00 07/20/17 08:59 06/21/17 08:40 Iopamidol (Isovue-300 100ml) 100 ml NOW PRN INJ Radiology Procedure 06/20/17 16:00 06/21/17 23:59 Iron Sucrose 100 mg/Sodium Chloride 60 ml @ 240 mls/hr BEDTIME IV 06/19/17 21:00 06/23/17 21:14 06/20/17 21:00 Meropenem 1 gm/ Sodium Chloride 55 ml @ 110 mls/hr Q8HR@0000,0800,1600 IVPB 06/19/17 16:00 06/23/17 23:59 06/21/17 08:01 Morphine Sulfate (Morphine Sulfate) 1 mg Q4H PRN IVP for Pain 3-6 06/19/17 14:23 06/25/17 14:22 06/20/17 13:55 Morphine Sulfate (Morphine Sulfate) 2 mg EVERY 4 HOURS PRN IVP Severe Pain (Pain Scale 7-10) 06/19/17 14:23 06/25/17 14:22 Ondansetron HCl (Zofran) 4 mg Q6H PRN IVP Nausea & Vomiting 06/19/17 14:24 07/18/17 14:23 Pantoprazole (Protonix) 40 mg DAILY IVP 06/20/17 09:00 07/19/17 08:59 06/21/17 08:40 Polyethylene Glycol (Miralax) 17 gm DAILYPRN PRN ORAL Constipation 06/19/17 14:24 07/19/17 14:23 Sodium Chloride 1,000 ml @ 50 mls/hr Q20H IVLG 06/19/17 14:30 07/18/17 10:32 06/20/17 18:00 Andres Reynolds MD June 21, 2017 14:34
--- NOTE | 2017-06-21 15:15 | Infectious Diseases Prog Note ---
Assessment/Plan Assessment/Plan Assessment: Septic Shock, SP - Possibly multifactorial- originally suspected UTI but Ucx with no significant growth (she did had UTI and pyelo symptoms: +frequency/ urgency, n/v, lower abd pain). No is bacteremic- r/o intrabdominal source -CXR: Cardiomegaly and pulmonary vascular congestion. Patchy retrocardiac opacity. Pneumonia not excluded. Clinical correlation and follow-up exam recommended; doubt PNA- no cough -u/a wbc tntc, nit neg, leuk +3, sq cells moderate; ucx 20-30k mixed gram positive growth; repeat u/a WBC 40-60,nit neg, leuk +2, sq cells few; ucx NTD -Bcx 06/17 1/4 gram variable rods; 06/18 1/4 gram variable rods; 06/20 Bcx p Fever, leukocytosis- fever resolved, leukocytosis improvbed but persistent int he mid 20s- ? due to metastatic diseaase, r/o Cdiff -CT abd/p w/: Evidence of recurrent colon carcinoma with extensive bulky tumor and adenopathy within the pelvis and retroperitoneum. This results in mild to moderate left hydronephrosis. Localized adjacent lytic destruction of the anterior L5 vertebra and part of the upper sacrum. Evidence of more remote metastatic neoplasm with multiple pulmonary nodules. Lactic acidosis, resolved L DVT Anemia CARLOS, resolved Colon CA s/p resection and colostomy w/ recurrent Cancer obstructive uropathy s/p PPM DVT on [facility] resident PNC allergy Plan: -Continue Meropenem #4 for now pending ID and sensi Bcx -06/19 SP IV Vancomycin #2 -06/17 CEfepime and Flagyl x1 -f/u repeat 2 sets of Bcx, cdiff -f/u cx -Monitor CBC/BMP, temperatures -aspiration precautions -heme onc f/u -wound care/prevention per hospital protocol Thank you for this consultation. Will continue to follow along with you. Discussed with RN Subjective Allergies: Coded Allergies: PENICILLINS (Verified Allergy, Unknown, 06/18/17) Swelling Subjective afebrile wbc [address] abd/p w/ extensive metastasis Objective Vital Signs Last 24 Hour Vital Signs Date Time Temp Pulse Resp B/P (MAP) Pulse Ox O2 Delivery O2 Flow Rate FiO2 06/21/17 12:00 98.8 96 17 132/72 96 98.8 06/21/17 08:00 97.9 93 18 141/84 100 97.9 06/21/17 00:00 98.0 99 18 129/70 98.0 06/20/17 20:13 98.4 101 18 136/69 96 98.4 06/20/17 20:00 97 18 Room Air 21 06/20/17 16:00 98.0 98 19 140/70 99 98.0 Height (Feet): 5 Height (Inches): 4.00 Weight (Pounds): 192 Objective General Appearance: well appearing, no apparent distress, alert Head: normocephalic EENT: PERRL/EOMI, normal ENT inspection Neck: supple Respiratory: normal breath sounds, no respiratory distress Cardiovascular: normal rate Gastrointestinal: normal inspection, non tender, soft, normal bowel sounds, non -distended Genitourinary: no CVA tenderness Musculoskeletal: normal inspection, back normal Skin: normal inspection, normal color, no rash, warm/dry, palpation normal, well hydrated Microbiology Date/Time Source Procedure Growth Status 06/18/17 15:30 Blood Blood Culture - Preliminary NO GROWTH AFTER 48 HOURS Resulted 06/18/17 15:30 Blood Blood Culture - Preliminary Resulted 06/18/17 19:00 Urine,Clean Catch Urine Culture - Final NO GROWTH AFTER 48 HOURS Complete Laboratory Tests Test 06/21/17 06:20 White Blood Count 24.5 K/UL (4.8-10.8) *H Red Blood Count 3.64 M/UL (4.20-5.40) L Hemoglobin 10.3 G/DL (12.0-16.0) L Hematocrit 30.1 % (37.0-47.0) L Mean Corpuscular Volume 83 FL (80-99) Mean Corpuscular Hemoglobin 28.3 PG (27.0-31.0) Mean Corpuscular Hemoglobin Concent 34.3 G/DL (32.0-36.0) Red Cell Distribution Width 15.6 % (11.6-14.8) H Platelet Count 153 K/UL (150-450) Mean Platelet Volume 6.5 FL (6.5-10.1) Neutrophils (%) (Auto) % (45.0-75.0) Lymphocytes (%) (Auto) % (20.0-45.0) Monocytes (%) (Auto) % (1.0-10.0) Eosinophils (%) (Auto) % (0.0-3.0) Basophils (%) (Auto) % (0.0-2.0) Differential Total Cells Counted 100 Neutrophils % (Manual) 95 % (45-75) H Lymphocytes % (Manual) 3 % (20-45) L Monocytes % (Manual) 2 % (1-10) Eosinophils % (Manual) 0 % (0-3) Basophils % (Manual) 0 % (0-2) Band Neutrophils 0 % (0-8) Platelet Estimate Adequate Platelet Morphology Normal Hypochromasia 1+ Anisocytosis 1+ Sodium Level 143 MMOL/L (136-145) Potassium Level 3.7 MMOL/L (3.5-5.1) Chloride Level 113 MMOL/L (98-107) H Carbon Dioxide Level 19 MMOL/L (21-32) L Anion Gap 11 mmol/L (5-15) Blood Urea Nitrogen 19 mg/dL (7-18) H Creatinine 0.7 MG/DL (0.55-1.30) Estimat Glomerular Filtration Rate mL/min (>60) Glucose Level 95 MG/DL (74-106) Calcium Level 8.2 MG/DL (8.5-10.1) L Total Bilirubin 0.8 MG/DL (0.2-1.0) Aspartate Amino Transf (AST/SGOT) 18 U/L (15-37) Alanine Aminotransferase (ALT/SGPT) 15 U/L (12-78) Alkaline Phosphatase 123 U/L (46-116) H Total Protein 5.8 G/DL (6.4-8.2) L Albumin 1.3 G/DL (3.4-5.0) L Globulin 4.5 g/dL Albumin/Globulin Ratio 0.3 (1.0-2.7) L Current Medications Medications (Trade) Dose Ordered Sig/Naman Route PRN Reason Start Time Stop Time Status Last Admin Dose Admin Acetaminophen (Tylenol) 650 mg Q4H PRN ORAL fever 06/19/17 14:45 07/18/17 10:44 Albuterol/ Ipratropium (Albuterol/ Ipratropium) 3 ml EVERY 4 HOURS PRN HHN Shortness of Breath 06/19/17 17:00 06/23/17 10:44 Apixaban (Eliquis) 5 mg BID ORAL 06/20/17 14:00 07/20/17 13:59 06/21/17 08:40 Chlorhexidine Gluconate (Tawanna-Hex 2%) 1 applic DAILY@2000 TOPIC 06/19/17 20:00 07/19/17 19:59 06/20/17 21:00 Diatrizoate Meglum/ Diatrizoate Sod (Gastrografin) 30 ml NOW PRN ORAL Radiology Procedure 06/20/17 16:00 06/21/17 23:59 Folic Acid (Folate) 1 mg DAILY ORAL 06/20/17 09:00 07/20/17 08:59 06/21/17 08:40 Iopamidol (Isovue-300 100ml) 100 ml NOW PRN INJ Radiology Procedure 06/20/17 16:00 06/21/17 23:59 Iron Sucrose 100 mg/Sodium Chloride 60 ml @ 240 mls/hr BEDTIME IV 06/19/17 21:00 06/23/17 21:14 06/20/17 21:00 Meropenem 1 gm/ Sodium Chloride 55 ml @ 110 mls/hr Q8HR@0000,0800,1600 IVPB 06/19/17 16:00 06/23/17 23:59 06/21/17 08:01 Morphine Sulfate (Morphine Sulfate) 1 mg Q4H PRN IVP for Pain 3-6 06/19/17 14:23 06/25/17 14:22 06/20/17 13:55 Morphine Sulfate (Morphine Sulfate) 2 mg EVERY 4 HOURS PRN IVP Severe Pain (Pain Scale 7-10) 06/19/17 14:23 06/25/17 14:22 Ondansetron HCl (Zofran) 4 mg Q6H PRN IVP Nausea & Vomiting 06/19/17 14:24 07/18/17 14:23 Pantoprazole (Protonix) 40 mg DAILY IVP 06/20/17 09:00 07/19/17 08:59 06/21/17 08:40 Polyethylene Glycol (Miralax) 17 gm DAILYPRN PRN ORAL Constipation 06/19/17 14:24 07/19/17 14:23 Sodium Chloride 1,000 ml @ 50 mls/hr Q20H IVLG 06/19/17 14:30 07/18/17 10:32 06/20/17 18:00 Cheryl Ramos M.D. June 21, 2017 15:15
[2017-06-21 16:00] VITALS: BP 156/79
--- NOTE | 2017-06-21 16:59 | GI Progress Note ---
Assessment/Plan Problems: (1) Severe sepsis ICD Codes: A41.9 - Sepsis, unspecified organism; R65.20 - Severe sepsis without septic shock SNOMED: 03857987 (2) Electrolyte imbalance ICD Codes: E87.8 - Other disorders of electrolyte and fluid balance, not elsewhere classified SNOMED: 670887679 (3) Dehydration ICD Codes: E86.0 - Dehydration SNOMED: 19383087 (4) Colostomy in place ICD Codes: Z93.3 - Colostomy status SNOMED: 635216777, 507033111 (5) Colon cancer ICD Codes: C18.9 - Malignant neoplasm of colon, unspecified SNOMED: 519502517 Qualifiers: Qualified Codes: C18.9 - Malignant neoplasm of colon, unspecified (6) Anemia ICD Codes: D64.9 - Anemia, unspecified SNOMED: 598047487 Qualifiers: Qualified Codes: D64.89 - Other specified anemias Status: stable Status Narrative Discussed with Dr. Fonseca. Assessment/Plan may need colonoscopy for staging, possible sunday anemia work up reviewed >> folate deficiency OB stool r/o GI bleed >> negative CT AP reviewed >> fu oncology recs monitor H&H, prn transfusions bowel regime ppi electrolyte replacement fu labs patient on Plavix The patient was seen and examined at bedside and all new and available data was reviewed in the patients chart. I agree with the above findings, impression and plan. (Patient seen earlier today. Signature stamp does not reflect patient encounter time.). - Dimple Fonseca MD Subjective Subjective denies abdominal pain Objective Last 24 Hour Vital Signs Date Time Temp Pulse Resp B/P (MAP) Pulse Ox O2 Delivery O2 Flow Rate FiO2 06/21/17 16:00 97.1 97 22 156/79 97 97.1 06/21/17 12:00 98.8 96 17 132/72 96 98.8 06/21/17 08:00 97.9 93 18 141/84 100 97.9 06/21/17 00:00 98.0 99 18 129/70 98.0 06/20/17 20:13 98.4 101 18 136/69 96 98.4 06/20/17 20:00 97 18 Room Air 21 Intake and Output 06/20/17 06/21/17 19:00 07:00 Intake Total 1052.5 ml 1020 ml Output Total 350 ml Balance 1052.5 ml 670 ml IV Total 1052.5 ml 820 ml Other 200 ml Output Urine Total 350 ml # Voids 4 # Bowel Movements 2 Laboratory Tests Test 06/21/17 06:20 White Blood Count 24.5 K/UL (4.8-10.8) *H Red Blood Count 3.64 M/UL (4.20-5.40) L Hemoglobin 10.3 G/DL (12.0-16.0) L Hematocrit 30.1 % (37.0-47.0) L Mean Corpuscular Volume 83 FL (80-99) Mean Corpuscular Hemoglobin 28.3 PG (27.0-31.0) Mean Corpuscular Hemoglobin Concent 34.3 G/DL (32.0-36.0) Red Cell Distribution Width 15.6 % (11.6-14.8) H Platelet Count 153 K/UL (150-450) Mean Platelet Volume 6.5 FL (6.5-10.1) Neutrophils (%) (Auto) % (45.0-75.0) Lymphocytes (%) (Auto) % (20.0-45.0) Monocytes (%) (Auto) % (1.0-10.0) Eosinophils (%) (Auto) % (0.0-3.0) Basophils (%) (Auto) % (0.0-2.0) Differential Total Cells Counted 100 Neutrophils % (Manual) 95 % (45-75) H Lymphocytes % (Manual) 3 % (20-45) L Monocytes % (Manual) 2 % (1-10) Eosinophils % (Manual) 0 % (0-3) Basophils % (Manual) 0 % (0-2) Band Neutrophils 0 % (0-8) Platelet Estimate Adequate Platelet Morphology Normal Hypochromasia 1+ Anisocytosis 1+ Sodium Level 143 MMOL/L (136-145) Potassium Level 3.7 MMOL/L (3.5-5.1) Chloride Level 113 MMOL/L (98-107) H Carbon Dioxide Level 19 MMOL/L (21-32) L Anion Gap 11 mmol/L (5-15) Blood Urea Nitrogen 19 mg/dL (7-18) H Creatinine 0.7 MG/DL (0.55-1.30) Estimat Glomerular Filtration Rate mL/min (>60) Glucose Level 95 MG/DL (74-106) Calcium Level 8.2 MG/DL (8.5-10.1) L Total Bilirubin 0.8 MG/DL (0.2-1.0) Aspartate Amino Transf (AST/SGOT) 18 U/L (15-37) Alanine Aminotransferase (ALT/SGPT) 15 U/L (12-78) Alkaline Phosphatase 123 U/L (46-116) H Total Protein 5.8 G/DL (6.4-8.2) L Albumin 1.3 G/DL (3.4-5.0) L Globulin 4.5 g/dL Albumin/Globulin Ratio 0.3 (1.0-2.7) L Height (Feet): 5 Height (Inches): 4.00 Weight (Pounds): 192 General Appearance: WD/WN, no apparent distress, alert Cardiovascular: normal rate Respiratory/Chest: normal breath sounds, no respiratory distress Abdominal Exam: normal bowel sounds, non tender, soft, other - colostomy Extremities: normal range of motion, non-tender Sharon Montgomery N.PDallas June 21, 2017 16:59 ARLENE FONSECA June 26, 2017 12:57
--- NOTE | 2017-06-21 17:42 | Internal Med Progress Note ---
Subjective Date of Service: June 21, 2017 Physician Name Homer Rico Attending Physician Bharat Orozco MD Current Medications Medications (Trade) Dose Ordered Sig/Naman Route PRN Reason Start Time Stop Time Status Last Admin Dose Admin Acetaminophen (Tylenol) 650 mg Q4H PRN ORAL fever 06/19/17 14:45 07/18/17 10:44 Albuterol/ Ipratropium (Albuterol/ Ipratropium) 3 ml EVERY 4 HOURS PRN HHN Shortness of Breath 06/19/17 17:00 06/23/17 10:44 Apixaban (Eliquis) 5 mg BID ORAL 06/20/17 14:00 07/20/17 13:59 06/21/17 08:40 Chlorhexidine Gluconate (Tawanna-Hex 2%) 1 applic DAILY@2000 TOPIC 06/19/17 20:00 07/19/17 19:59 06/20/17 21:00 Diatrizoate Meglum/ Diatrizoate Sod (Gastrografin) 30 ml NOW PRN ORAL Radiology Procedure 06/20/17 16:00 06/21/17 23:59 Folic Acid (Folate) 1 mg DAILY ORAL 06/20/17 09:00 07/20/17 08:59 06/21/17 08:40 Iopamidol (Isovue-300 100ml) 100 ml NOW PRN INJ Radiology Procedure 06/20/17 16:00 06/21/17 23:59 Iron Sucrose 100 mg/Sodium Chloride 60 ml @ 240 mls/hr BEDTIME IV 06/19/17 21:00 06/23/17 21:14 06/20/17 21:00 Meropenem 1 gm/ Sodium Chloride 55 ml @ 110 mls/hr Q8HR@0000,0800,1600 IVPB 06/19/17 16:00 06/23/17 23:59 06/21/17 15:54 Morphine Sulfate (Morphine Sulfate) 1 mg Q4H PRN IVP for Pain 3-6 06/19/17 14:23 06/25/17 14:22 06/20/17 13:55 Morphine Sulfate (Morphine Sulfate) 2 mg EVERY 4 HOURS PRN IVP Severe Pain (Pain Scale 7-10) 06/19/17 14:23 06/25/17 14:22 Ondansetron HCl (Zofran) 4 mg Q6H PRN IVP Nausea & Vomiting 06/19/17 14:24 07/18/17 14:23 Pantoprazole (Protonix) 40 mg DAILY IVP 06/20/17 09:00 07/19/17 08:59 06/21/17 08:40 Polyethylene Glycol (Miralax) 17 gm DAILYPRN PRN ORAL Constipation 06/19/17 14:24 07/19/17 14:23 Sodium Chloride 1,000 ml @ 50 mls/hr Q20H IVLG 06/19/17 14:30 07/18/17 10:32 06/21/17 15:54 Allergies: Coded Allergies: PENICILLINS (Verified Allergy, Unknown, 06/18/17) Swelling ROS Limited/Unobtainable: No Constitutional: Reports: no symptoms HEENT: Reports: no symptoms Cardiovascular: Reports: no symptoms Respiratory: Reports: no symptoms Gastrointestinal/Abdominal: Reports: no symptoms Genitourinary: Reports: no symptoms Neurologic/Psychiatric: Reports: no symptoms Subjective 72 YO F admitted with hypotension and anemia. Now GI bleed. Cover for Int Med- Dr Orozco Objective Last Vital Signs Date Time Temp Pulse Resp B/P (MAP) Pulse Ox O2 Delivery O2 Flow Rate FiO2 06/21/17 16:00 97.1 97 22 156/79 97 97.1 06/20/17 20:00 Room Air 21 Laboratory Tests Test 06/21/17 06:20 White Blood Count 24.5 K/UL (4.8-10.8) *H Red Blood Count 3.64 M/UL (4.20-5.40) L Hemoglobin 10.3 G/DL (12.0-16.0) L Hematocrit 30.1 % (37.0-47.0) L Mean Corpuscular Volume 83 FL (80-99) Mean Corpuscular Hemoglobin 28.3 PG (27.0-31.0) Mean Corpuscular Hemoglobin Concent 34.3 G/DL (32.0-36.0) Red Cell Distribution Width 15.6 % (11.6-14.8) H Platelet Count 153 K/UL (150-450) Mean Platelet Volume 6.5 FL (6.5-10.1) Neutrophils (%) (Auto) % (45.0-75.0) Lymphocytes (%) (Auto) % (20.0-45.0) Monocytes (%) (Auto) % (1.0-10.0) Eosinophils (%) (Auto) % (0.0-3.0) Basophils (%) (Auto) % (0.0-2.0) Differential Total Cells Counted 100 Neutrophils % (Manual) 95 % (45-75) H Lymphocytes % (Manual) 3 % (20-45) L Monocytes % (Manual) 2 % (1-10) Eosinophils % (Manual) 0 % (0-3) Basophils % (Manual) 0 % (0-2) Band Neutrophils 0 % (0-8) Platelet Estimate Adequate Platelet Morphology Normal Hypochromasia 1+ Anisocytosis 1+ Sodium Level 143 MMOL/L (136-145) Potassium Level 3.7 MMOL/L (3.5-5.1) Chloride Level 113 MMOL/L (98-107) H Carbon Dioxide Level 19 MMOL/L (21-32) L Anion Gap 11 mmol/L (5-15) Blood Urea Nitrogen 19 mg/dL (7-18) H Creatinine 0.7 MG/DL (0.55-1.30) Estimat Glomerular Filtration Rate mL/min (>60) Glucose Level 95 MG/DL (74-106) Calcium Level 8.2 MG/DL (8.5-10.1) L Total Bilirubin 0.8 MG/DL (0.2-1.0) Aspartate Amino Transf (AST/SGOT) 18 U/L (15-37) Alanine Aminotransferase (ALT/SGPT) 15 U/L (12-78) Alkaline Phosphatase 123 U/L (46-116) H Total Protein 5.8 G/DL (6.4-8.2) L Albumin 1.3 G/DL (3.4-5.0) L Globulin 4.5 g/dL Albumin/Globulin Ratio 0.3 (1.0-2.7) L Microbiology Date/Time Source Procedure Growth Status 06/18/17 19:00 Urine,Clean Catch Urine Culture - Final NO GROWTH AFTER 48 HOURS Complete Intake and Output 06/20/17 06/21/17 19:00 07:00 Intake Total 1052.5 ml 1020 ml Output Total 350 ml Balance 1052.5 ml 670 ml IV Total 1052.5 ml 820 ml Other 200 ml Output Urine Total 350 ml # Voids 4 # Bowel Movements 2 Objective General Appearance: WD/WN, no apparent distress, alert EENT: PERRL/EOMI, normal ENT inspection Neck: non-tender, normal alignment, supple Cardiovascular: normal peripheral pulses, normal rate, regular rhythm, no gallop/murmur, no JVD Respiratory/Chest: chest wall non-tender, lungs clear, normal breath sounds, no respiratory distress, no accessory muscle use Abdomen: normal bowel sounds, non tender, soft, no organomegaly, no mass Extremities: normal inspection 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 Previously on eliquis. Questionable GI bleed-Await heme consult. GI procedures on hold (4) Altered mental status (5) Hypotension (6) Colon cancer Assessment & Plan: Recurrence - see onc note. (7) Anemia Assessment & Plan: S/P transfusion 2 units PRBC on 06/18/17. Hemoglobin stable. GI procedures on hold-see GI note. (8) Hypokalemia Assessment & Plan: replace K+ (9) Hypomagnesemia Assessment & Plan: replace magnesium Status: not improved HOMER RICO June 21, 2017 17:42
--- NOTE | 2017-06-21 18:05 | General Progress Note ---
Assessment/Plan Assessment/Plan # Recurrent colon carcinoma with extensive bulky tumor and adenopathy within the pelvis and retroperitoneum. This results in mild to moderate left hydronephrosis. Localized adjacent lytic destruction of the anterior L5 vertebra and part of the upper sacrum. Evidence of more remote metastatic neoplasm with multiple pulmonary nodules. --> given poor performance status, appear patient is bed-bound and recommend hospice care evaluation # DVT of the left leg - given stable h/h and no e/o gi bleed --> continue eliquis x 3 months total # Anemia of chornic disease, evaluate with gi --> hgb goal is above 7 --> anemia w/u has been reviewed --> appreciate gi recs, does not need gi procedure given ob negative # Anemia of folic acid deficiency --> started on FA 1mg daily # Hypokalemia - repleted with K # Hypomagnesemia - repleted with mag # Weakness and fatigue is likely related to anemia Subjective Constitutional: Denies: no symptoms, chills, diaphoresis, fever, malaise, weakness, other HEENT: Denies: no symptoms, eye pain, blurred vision, tearing, double vision, ear pain, ear discharge, nose pain, nose congestion, throat pain, throat swelling, mouth pain, mouth swelling, other Cardiovascular: Denies: no symptoms, chest pain, edema, irregular heart rate, lightheadedness, palpitations, syncope, other Respiratory: Denies: no symptoms, cough, orthopnea, shortness of breath, SOB with excertion, SOB at rest, sputum, stridor, wheezing, other Genitourinary: Denies: no symptoms, burning, discharge, frequency, flank pain, hematuria, incontinence, pain, urgency, other Neurologic/Psychiatric: Denies: no symptoms, anxiety, depressed, emotional problems, headache, numbness, paresthesia, pre-existing deficit, seizure, tingling, tremors, weakness, other Endocrine: Denies: no symptoms, excessive sweating, flushing, intolerance to cold, intolerance to heat, increased hunger, increased thirst, increased urine, unexplained weight gain, unexplained weight loss, other Hematologic/Lymphatic: Denies: no symptoms, anemia, easy bleeding, easy bruising, other Allergies: Coded Allergies: PENICILLINS (Verified Allergy, Unknown, 06/18/17) Swelling Subjective no fevers, chills, night sweats, extensive mets noted on ct today Objective Last 24 Hour Vital Signs Date Time Temp Pulse Resp B/P (MAP) Pulse Ox O2 Delivery O2 Flow Rate FiO2 06/21/17 16:00 97.1 97 22 156/79 97 97.1 06/21/17 12:00 98.8 96 17 132/72 96 98.8 06/21/17 08:00 97.9 93 18 141/84 100 97.9 06/21/17 00:00 98.0 99 18 129/70 98.0 06/20/17 20:13 98.4 101 18 136/69 96 98.4 06/20/17 20:00 97 18 Room Air 21 Intake and Output 06/20/17 06/21/17 19:00 07:00 Intake Total 1052.5 ml 1020 ml Output Total 350 ml Balance 1052.5 ml 670 ml IV Total 1052.5 ml 820 ml Other 200 ml Output Urine Total 350 ml # Voids 4 # Bowel Movements 2 Laboratory Tests 06/21/17 06:20: White Blood Count 24.5*H, Red Blood Count 3.64L, Hemoglobin 10.3L, Hematocrit 30.1L, Mean Corpuscular Volume 83, Mean Corpuscular Hemoglobin 28.3, Mean Corpuscular Hemoglobin Concent 34.3, Red Cell Distribution Width 15.6H, Platelet Count 153, Mean Platelet Volume 6.5, Neutrophils (%) (Auto) , Lymphocytes (%) (Auto) , Monocytes (%) (Auto) , Eosinophils (%) (Auto) , Basophils (%) (Auto) , Differential Total Cells Counted 100, Neutrophils % ( Manual) 95H, Lymphocytes % (Manual) 3L, Monocytes % (Manual) 2, Eosinophils % ( Manual) 0, Basophils % (Manual) 0, Band Neutrophils 0, Platelet Estimate Adequate, Platelet Morphology Normal, Hypochromasia 1+, Anisocytosis 1+, Sodium Level 143, Potassium Level 3.7, Chloride Level 113H, Carbon Dioxide Level 19L, Anion Gap 11, Blood Urea Nitrogen 19H, Creatinine 0.7, Estimat Glomerular Filtration Rate , Glucose Level 95, Calcium Level 8.2L, Total Bilirubin 0.8, Aspartate Amino Transf (AST/SGOT) 18, Alanine Aminotransferase (ALT/SGPT) 15, Alkaline Phosphatase 123H, Total Protein 5.8L, Albumin 1.3L, Globulin 4.5, Albumin/Globulin Ratio 0.3L Height (Feet): 5 Height (Inches): 4.00 Weight (Pounds): 192 General Appearance: no apparent distress EENT: normal ENT inspection Neck: supple Cardiovascular: normal rate Respiratory/Chest: lungs clear Abdomen: non tender Extremities: normal inspection Neurologic: alert Skin: warm/dry Chay Ross MD June 21, 2017 18:05
[2017-06-21 20:00] VITALS: BP 155/77
[2017-06-21] MEDS: Dyna-Hex 2% Top Sol 2oz TOPIC SCH (21:53)
[2017-06-21] MEDS: Iron Sucrose 100 MG in NS 55 ML IV SCH (21:53)
[2017-06-22] VITALS: BP 135/79
[2017-06-22 04:00] VITALS: BP 144/75
[2017-06-22 07:09] LABS: ALANINE AMINOTRANSFERASE 14 U/L (12-78); ALBUMIN 1.3 G/DL (3.4-5.0); ALBUMIN/GLOBULIN RATIO 0.3 (1.0-2.7); ALKALINE PHOSPHATASE 111 U/L (46-116); ANION GAP 12 mmol/L (5-15); ASPARTATE AMINO TRANSFERASE 17 U/L (15-37); BILIRUBIN,TOTAL 0.9 MG/DL (0.2-1.0); BLOOD UREA NITROGEN 16 mg/dL (7-18); CALCIUM 8.5 MG/DL (8.5-10.1); CARBON DIOXIDE 18 MMOL/L (21-32); CHLORIDE 110 MMOL/L (98-107); CREATININE 0.6 MG/DL (0.55-1.30); PHOSPHORUS 2.6 MG/DL (2.5-4.9); POTASSIUM 3.3 MMOL/L (3.5-5.1); SODIUM 140 MMOL/L (136-145)
[2017-06-22 07:16] LABS: HEMATOCRIT 28.6 % (37.0-47.0); HEMOGLOBIN 9.6 G/DL (12.0-16.0); MEAN CORPUSCULAR VOLUME 84 FL (80-99); PLATELET COUNT 141 K/UL (150-450); RED BLOOD COUNT 3.41 M/UL (4.20-5.40); RED CELL DISTRIBUTION WIDTH 15.7 % (11.6-14.8); WHITE BLOOD COUNT 19.2 K/UL (4.8-10.8)
[2017-06-22 07:32] LABS: INR 1.1 (0.9-1.1)
[2017-06-22 08:00] VITALS: BP 134/71
[2017-06-22] MEDS: Meropenem 1 GM in NS 55 ML IVPB SCH ×5 (09:05→23:30)
[2017-06-22] MEDS: Eliquis 2.5mg tablet ORAL SCH ×2 (09:05→17:40)
[2017-06-22] MEDS: Pantoprazole Inj IVP SCH (09:05)
--- NOTE | 2017-06-22 10:39 | GI Progress Note ---
Assessment/Plan Problems: (1) Severe sepsis ICD Codes: A41.9 - Sepsis, unspecified organism; R65.20 - Severe sepsis without septic shock SNOMED: 07978206 (2) Electrolyte imbalance ICD Codes: E87.8 - Other disorders of electrolyte and fluid balance, not elsewhere classified SNOMED: 802051631 (3) Dehydration ICD Codes: E86.0 - Dehydration SNOMED: 89961976 (4) Colostomy in place ICD Codes: Z93.3 - Colostomy status SNOMED: 472180806, 902458597 (5) Colon cancer ICD Codes: C18.9 - Malignant neoplasm of colon, unspecified SNOMED: 791329509 Qualifiers: Qualified Codes: C18.9 - Malignant neoplasm of colon, unspecified (6) Anemia ICD Codes: D64.9 - Anemia, unspecified SNOMED: 532484257 Qualifiers: Qualified Codes: D64.89 - Other specified anemias Status: progressing Status Narrative Discussed with Dr. Fonseca. Assessment/Plan may need colonoscopy for staging, pending CEA results >> will defer if elevated anemia work up reviewed >> folate deficiency OB stool r/o GI bleed >> negative CT AP reviewed >> fu oncology recs monitor H&H, prn transfusions bowel regime ppi electrolyte replacement fu labs patient on Plavix Subjective Subjective denies abdominal pain Objective Last 24 Hour Vital Signs Date Time Temp Pulse Resp B/P (MAP) Pulse Ox O2 Delivery O2 Flow Rate FiO2 06/22/17 08:00 98.1 97 22 134/71 96 98.1 06/22/17 04:00 97.9 107 22 144/75 96 97.9 06/22/17 00:00 98.1 100 20 135/79 100 98.1 06/21/17 20:45 101 18 Room Air 21 06/21/17 20:00 98.6 101 23 155/77 99 98.6 06/21/17 16:00 97.1 97 22 156/79 97 97.1 06/21/17 12:00 98.8 96 17 132/72 96 98.8 Intake and Output 06/21/17 06/22/17 19:00 07:00 Intake Total 1560 ml 890 ml Output Total 700 ml 400 ml Balance 860 ml 490 ml Intake Oral 240 ml IV Total 720 ml 890 ml Other 600 ml Output Urine Total 700 ml 400 ml Laboratory Tests Test 06/22/17 06:10 White Blood Count 19.2 K/UL (4.8-10.8) H Red Blood Count 3.41 M/UL (4.20-5.40) L Hemoglobin 9.6 G/DL (12.0-16.0) L Hematocrit 28.6 % (37.0-47.0) L Mean Corpuscular Volume 84 FL (80-99) Mean Corpuscular Hemoglobin 28.2 PG (27.0-31.0) Mean Corpuscular Hemoglobin Concent 33.7 G/DL (32.0-36.0) Red Cell Distribution Width 15.7 % (11.6-14.8) H Platelet Count 141 K/UL (150-450) L Mean Platelet Volume 7.8 FL (6.5-10.1) Neutrophils (%) (Auto) % (45.0-75.0) Lymphocytes (%) (Auto) % (20.0-45.0) Monocytes (%) (Auto) % (1.0-10.0) Eosinophils (%) (Auto) % (0.0-3.0) Basophils (%) (Auto) % (0.0-2.0) Differential Total Cells Counted 100 Neutrophils % (Manual) 91 % (45-75) H Lymphocytes % (Manual) 6 % (20-45) L Monocytes % (Manual) 2 % (1-10) Eosinophils % (Manual) 1 % (0-3) Basophils % (Manual) 0 % (0-2) Band Neutrophils 0 % (0-8) Platelet Estimate Adequate Platelet Morphology Normal Hypochromasia 1+ Anisocytosis 1+ Prothrombin Time 11.5 SEC (9.30-11.50) Prothromb Time International Ratio 1.1 (0.9-1.1) Activated Partial Thromboplast Time 42 SEC (23-33) H Sodium Level 140 MMOL/L (136-145) Potassium Level 3.3 MMOL/L (3.5-5.1) L Chloride Level 110 MMOL/L (98-107) H Carbon Dioxide Level 18 MMOL/L (21-32) L Anion Gap 12 mmol/L (5-15) Blood Urea Nitrogen 16 mg/dL (7-18) Creatinine 0.6 MG/DL (0.55-1.30) Estimat Glomerular Filtration Rate mL/min (>60) Glucose Level 75 MG/DL (74-106) Calcium Level 8.5 MG/DL (8.5-10.1) Phosphorus Level 2.6 MG/DL (2.5-4.9) Magnesium Level 1.8 MG/DL (1.8-2.4) Total Bilirubin 0.9 MG/DL (0.2-1.0) Aspartate Amino Transf (AST/SGOT) 17 U/L (15-37) Alanine Aminotransferase (ALT/SGPT) 14 U/L (12-78) Alkaline Phosphatase 111 U/L (46-116) Total Protein 5.7 G/DL (6.4-8.2) L Albumin 1.3 G/DL (3.4-5.0) L Globulin 4.4 g/dL Albumin/Globulin Ratio 0.3 (1.0-2.7) L Microbiology Date/Time Source Procedure Growth Status 06/21/17 14:00 Stool Clostridium difficile Toxin Assay - Final Complete Height (Feet): 5 Height (Inches): 4.00 Weight (Pounds): 197 General Appearance: WD/WN, no apparent distress, alert, obese Cardiovascular: normal rate Respiratory/Chest: normal breath sounds, no respiratory distress Abdominal Exam: normal bowel sounds, non tender, soft, other - colostomy working Extremities: non-tender Sharon Montgomery N.P. June 22, 2017 10:39
--- NOTE | 2017-06-22 14:56 | Infectious Diseases Prog Note ---
Assessment/Plan Assessment/Plan Assessment: Septic Shock, SP - Possibly multifactorial- originally suspected UTI but Ucx with no significant growth (she did had UTI and pyelo symptoms: +frequency/ urgency, n/v, lower abd pain). Now is bacteremic, likely GI translocation for either bleeding or cancer burden -CXR: Cardiomegaly and pulmonary vascular congestion. Patchy retrocardiac opacity. Pneumonia not excluded. Clinical correlation and follow-up exam recommended; doubt PNA- no cough -u/a wbc tntc, nit neg, leuk +3, sq cells moderate; ucx 20-30k mixed gram positive growth; repeat u/a WBC 40-60,nit neg, leuk +2, sq cells few; ucx Neg -Bcx 06/17 03/25 gram variable rods; 06/18 1 B. fragilis; 06/20 Bcx NTD x4 Fever, leukocytosis- fever resolved, leukocytosis improving- ? due to metastatic diseaase and bacteremia -CT abd/p w/: Evidence of recurrent colon carcinoma with extensive bulky tumor and adenopathy within the pelvis and retroperitoneum. This results in mild to moderate left hydronephrosis. Localized adjacent lytic destruction of the anterior L5 vertebra and part of the upper sacrum. Evidence of more remote metastatic neoplasm with multiple pulmonary nodules. -CDiff Lactic acidosis, resolved L DVT Anemia CARLOS, resolved Colon CA s/p resection and colostomy w/ recurrent Cancer obstructive uropathy s/p PPM DVT on Eliquis retirement resident PNC allergy Plan: -Continue Meropenem #07/02 for now pending ID and sensi Bcx 06/17- may switch to Ceftriaxone and Flagyl if only isolation is B.fragilis -06/19 SP IV Vancomycin #2 -06/17 CEfepime and Flagyl x1 -f/u repeat 2 sets of Bcx -f/u cx -Monitor CBC/BMP, temperatures -aspiration precautions -heme onc f/u -wound care/prevention per hospital protocol Thank you for this consultation. Will continue to follow along with you. Discussed with RN Subjective Allergies: Coded Allergies: PENICILLINS (Verified Allergy, Unknown, 06/18/17) Swelling Subjective afebrile leukocytosis improving repeat Bcx NTD Objective Vital Signs Last 24 Hour Vital Signs Date Time Temp Pulse Resp B/P (MAP) Pulse Ox O2 Delivery O2 Flow Rate FiO2 06/22/17 08:22 56 16 Room Air 21 06/22/17 08:00 98.1 97 22 134/71 96 98.1 06/22/17 04:00 97.9 107 22 144/75 96 97.9 06/22/17 00:00 98.1 100 20 135/79 100 98.1 06/21/17 20:45 101 18 Room Air 21 06/21/17 20:00 98.6 101 23 155/77 99 98.6 06/21/17 16:00 97.1 97 22 156/79 97 97.1 Height (Feet): 5 Height (Inches): 4.00 Weight (Pounds): 197 Objective General Appearance: well appearing, no apparent distress, alert Head: normocephalic EENT: PERRL/EOMI, normal ENT inspection Neck: supple Respiratory: normal breath sounds, no respiratory distress Cardiovascular: normal rate Gastrointestinal: normal inspection, non tender, soft, normal bowel sounds, non -distended Genitourinary: no CVA tenderness Musculoskeletal: normal inspection, back normal Skin: normal inspection, normal color, no rash, warm/dry, palpation normal, well hydrated Microbiology Date/Time Source Procedure Growth Status 06/20/17 13:50 Blood Blood Culture - Preliminary NO GROWTH AFTER 24 HOURS Resulted 06/20/17 13:45 Blood Blood Culture - Preliminary NO GROWTH AFTER 24 HOURS Resulted 06/21/17 14:00 Stool Clostridium difficile Toxin Assay - Final Complete Laboratory Tests Test 06/22/17 06:10 White Blood Count 19.2 K/UL (4.8-10.8) H Red Blood Count 3.41 M/UL (4.20-5.40) L Hemoglobin 9.6 G/DL (12.0-16.0) L Hematocrit 28.6 % (37.0-47.0) L Mean Corpuscular Volume 84 FL (80-99) Mean Corpuscular Hemoglobin 28.2 PG (27.0-31.0) Mean Corpuscular Hemoglobin Concent 33.7 G/DL (32.0-36.0) Red Cell Distribution Width 15.7 % (11.6-14.8) H Platelet Count 141 K/UL (150-450) L Mean Platelet Volume 7.8 FL (6.5-10.1) Neutrophils (%) (Auto) % (45.0-75.0) Lymphocytes (%) (Auto) % (20.0-45.0) Monocytes (%) (Auto) % (1.0-10.0) Eosinophils (%) (Auto) % (0.0-3.0) Basophils (%) (Auto) % (0.0-2.0) Differential Total Cells Counted 100 Neutrophils % (Manual) 91 % (45-75) H Lymphocytes % (Manual) 6 % (20-45) L Monocytes % (Manual) 2 % (1-10) Eosinophils % (Manual) 1 % (0-3) Basophils % (Manual) 0 % (0-2) Band Neutrophils 0 % (0-8) Platelet Estimate Adequate Platelet Morphology Normal Hypochromasia 1+ Anisocytosis 1+ Prothrombin Time 11.5 SEC (9.30-11.50) Prothromb Time International Ratio 1.1 (0.9-1.1) Activated Partial Thromboplast Time 42 SEC (23-33) H Sodium Level 140 MMOL/L (136-145) Potassium Level 3.3 MMOL/L (3.5-5.1) L Chloride Level 110 MMOL/L (98-107) H Carbon Dioxide Level 18 MMOL/L (21-32) L Anion Gap 12 mmol/L (5-15) Blood Urea Nitrogen 16 mg/dL (7-18) Creatinine 0.6 MG/DL (0.55-1.30) Estimat Glomerular Filtration Rate mL/min (>60) Glucose Level 75 MG/DL (74-106) Calcium Level 8.5 MG/DL (8.5-10.1) Phosphorus Level 2.6 MG/DL (2.5-4.9) Magnesium Level 1.8 MG/DL (1.8-2.4) Total Bilirubin 0.9 MG/DL (0.2-1.0) Aspartate Amino Transf (AST/SGOT) 17 U/L (15-37) Alanine Aminotransferase (ALT/SGPT) 14 U/L (12-78) Alkaline Phosphatase 111 U/L (46-116) Total Protein 5.7 G/DL (6.4-8.2) L Albumin 1.3 G/DL (3.4-5.0) L Globulin 4.4 g/dL Albumin/Globulin Ratio 0.3 (1.0-2.7) L Current Medications Medications (Trade) Dose Ordered Sig/Naman Route PRN Reason Start Time Stop Time Status Last Admin Dose Admin Acetaminophen (Tylenol) 650 mg Q4H PRN ORAL fever 06/19/17 14:45 07/18/17 10:44 Albuterol/ Ipratropium (Albuterol/ Ipratropium) 3 ml EVERY 4 HOURS PRN HHN Shortness of Breath 06/19/17 17:00 06/23/17 10:44 Apixaban (Eliquis) 5 mg BID ORAL 06/20/17 14:00 07/20/17 13:59 06/22/17 09:05 Chlorhexidine Gluconate (Tawanna-Hex 2%) 1 applic DAILY@2000 TOPIC 06/19/17 20:00 07/19/17 19:59 06/21/17 21:53 Folic Acid (Folate) 1 mg DAILY ORAL 06/20/17 09:00 07/20/17 08:59 06/22/17 09:05 Iron Sucrose 100 mg/Sodium Chloride 60 ml @ 240 mls/hr BEDTIME IV 06/19/17 21:00 06/23/17 21:14 06/21/17 21:53 Meropenem 1 gm/ Sodium Chloride 55 ml @ 110 mls/hr Q8HR@0000,0800,1600 IVPB 06/19/17 16:00 06/23/17 23:59 06/22/17 09:05 Morphine Sulfate (Morphine Sulfate) 1 mg Q4H PRN IVP for Pain 3-6 06/19/17 14:23 06/25/17 14:22 06/20/17 13:55 Morphine Sulfate (Morphine Sulfate) 2 mg EVERY 4 HOURS PRN IVP Severe Pain (Pain Scale 7-10) 06/19/17 14:23 06/25/17 14:22 Ondansetron HCl (Zofran) 4 mg Q6H PRN IVP Nausea & Vomiting 06/19/17 14:24 07/18/17 14:23 Pantoprazole (Protonix) 40 mg DAILY IVP 06/20/17 09:00 07/19/17 08:59 06/22/17 09:05 Polyethylene Glycol (Miralax) 17 gm DAILYPRN PRN ORAL Constipation 06/19/17 14:24 07/19/17 14:23 Sodium Chloride 1,000 ml @ 50 mls/hr Q20H IVLG 06/19/17 14:30 07/18/17 10:32 06/21/17 15:54 Cheryl Ramos M.D. June 22, 2017 14:56
--- NOTE | 2017-06-22 15:36 | Pulmonology Progress Note ---
Assessment/Plan Problems: (1) Severe sepsis (2) Acute encephalopathy (3) Anemia (4) H/O deep venous thrombosis (5) Colon cancer (6) Colostomy in place Assessment/Plan CT abdomen reviewed, extensive metastasis oncology note appreciated wbc lower BC showing Gram variable Rods, continue abx, on Meropenem check sensitivity anemia w/u check electrolytes Subjective ROS Limited/Unobtainable: No Constitutional: Reports: no symptoms HEENT: Repors: no symptoms Respiratory: Reports: no symptoms Allergies: Coded Allergies: PENICILLINS (Verified Allergy, Unknown, 06/18/17) Swelling Objective Last 24 Hour Vital Signs Date Time Temp Pulse Resp B/P (MAP) Pulse Ox O2 Delivery O2 Flow Rate FiO2 06/22/17 08:22 56 16 Room Air 21 06/22/17 08:00 98.1 97 22 134/71 96 98.1 06/22/17 04:00 97.9 107 22 144/75 96 97.9 06/22/17 00:00 98.1 100 20 135/79 100 98.1 06/21/17 20:45 101 18 Room Air 21 06/21/17 20:00 98.6 101 23 155/77 99 98.6 06/21/17 16:00 97.1 97 22 156/79 97 97.1 Intake and Output 06/21/17 06/22/17 19:00 07:00 Intake Total 1560 ml 890 ml Output Total 700 ml 400 ml Balance 860 ml 490 ml Intake Oral 240 ml IV Total 720 ml 890 ml Other 600 ml Output Urine Total 700 ml 400 ml General Appearance: cachetic HEENT: normocephalic, atraumatic Respiratory/Chest: chest wall non-tender, lungs clear, normal breath sounds Breasts: no masses Cardiovascular: normal peripheral pulses Abdomen: normal bowel sounds, soft, non tender 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 Microbiology Date/Time Source Procedure Growth Status 06/20/17 13:50 Blood Blood Culture - Preliminary NO GROWTH AFTER 24 HOURS Resulted 06/20/17 13:45 Blood Blood Culture - Preliminary NO GROWTH AFTER 24 HOURS Resulted 06/21/17 14:00 Stool Clostridium difficile Toxin Assay - Final Complete Laboratory Tests 06/22/17 06:10: White Blood Count 19.2H, Red Blood Count 3.41L, Hemoglobin 9.6L, Hematocrit 28.6L, Mean Corpuscular Volume 84, Mean Corpuscular Hemoglobin 28.2, Mean Corpuscular Hemoglobin Concent 33.7, Red Cell Distribution Width 15.7H, Platelet Count 141L, Mean Platelet Volume 7.8, Neutrophils (%) (Auto) , Lymphocytes (%) (Auto) , Monocytes (%) (Auto) , Eosinophils (%) (Auto) , Basophils (%) (Auto) , Differential Total Cells Counted 100, Neutrophils % ( Manual) 91H, Lymphocytes % (Manual) 6L, Monocytes % (Manual) 2, Eosinophils % ( Manual) 1, Basophils % (Manual) 0, Band Neutrophils 0, Platelet Estimate Adequate, Platelet Morphology Normal, Hypochromasia 1+, Anisocytosis 1+, Prothrombin Time 11.5, Prothromb Time International Ratio 1.1, Activated Partial Thromboplast Time 42H, Sodium Level 140, Potassium Level 3.3L, Chloride Level 110H, Carbon Dioxide Level 18L, Anion Gap 12, Blood Urea Nitrogen 16, Creatinine 0.6, Estimat Glomerular Filtration Rate , Glucose Level 75, Calcium Level 8.5, Phosphorus Level 2.6, Magnesium Level 1.8, Total Bilirubin 0.9, Aspartate Amino Transf (AST/SGOT) 17, Alanine Aminotransferase (ALT/SGPT) 14, Alkaline Phosphatase 111, Total Protein 5.7L, Albumin 1.3L, Globulin 4.4, Albumin/Globulin Ratio 0.3L Current Medications Medications (Trade) Dose Ordered Sig/Naman Route PRN Reason Start Time Stop Time Status Last Admin Dose Admin Acetaminophen (Tylenol) 650 mg Q4H PRN ORAL fever 06/19/17 14:45 07/18/17 10:44 Albuterol/ Ipratropium (Albuterol/ Ipratropium) 3 ml EVERY 4 HOURS PRN HHN Shortness of Breath 06/19/17 17:00 06/23/17 10:44 Apixaban (Eliquis) 5 mg BID ORAL 06/20/17 14:00 07/20/17 13:59 06/22/17 09:05 Chlorhexidine Gluconate (Tawanna-Hex 2%) 1 applic DAILY@2000 TOPIC 06/19/17 20:00 07/19/17 19:59 06/21/17 21:53 Folic Acid (Folate) 1 mg DAILY ORAL 06/20/17 09:00 07/20/17 08:59 06/22/17 09:05 Iron Sucrose 100 mg/Sodium Chloride 60 ml @ 240 mls/hr BEDTIME IV 06/19/17 21:00 06/23/17 21:14 06/21/17 21:53 Meropenem 1 gm/ Sodium Chloride 55 ml @ 110 mls/hr Q8HR@0000,0800,1600 IVPB 06/19/17 16:00 06/23/17 23:59 06/22/17 09:05 Morphine Sulfate (Morphine Sulfate) 1 mg Q4H PRN IVP for Pain 3-6 06/19/17 14:23 06/25/17 14:22 06/20/17 13:55 Morphine Sulfate (Morphine Sulfate) 2 mg EVERY 4 HOURS PRN IVP Severe Pain (Pain Scale 7-10) 06/19/17 14:23 06/25/17 14:22 Ondansetron HCl (Zofran) 4 mg Q6H PRN IVP Nausea & Vomiting 06/19/17 14:24 07/18/17 14:23 Pantoprazole (Protonix) 40 mg DAILY IVP 06/20/17 09:00 07/19/17 08:59 06/22/17 09:05 Polyethylene Glycol (Miralax) 17 gm DAILYPRN PRN ORAL Constipation 06/19/17 14:24 07/19/17 14:23 Sodium Chloride 1,000 ml @ 50 mls/hr Q20H IVLG 06/19/17 14:30 07/18/17 10:32 06/21/17 15:54 Andres Reynolds MD June 22, 2017 15:36
--- NOTE | 2017-06-22 15:47 | Internal Med Progress Note ---
Subjective Date of Service: June 22, 2017 Physician Name Homer Rico Attending Physician Bharat Orozco MD Current Medications Medications (Trade) Dose Ordered Sig/Naman Route PRN Reason Start Time Stop Time Status Last Admin Dose Admin Acetaminophen (Tylenol) 650 mg Q4H PRN ORAL fever 06/19/17 14:45 07/18/17 10:44 Albuterol/ Ipratropium (Albuterol/ Ipratropium) 3 ml EVERY 4 HOURS PRN HHN Shortness of Breath 06/19/17 17:00 06/23/17 10:44 Apixaban (Eliquis) 5 mg BID ORAL 06/20/17 14:00 07/20/17 13:59 06/22/17 09:05 Chlorhexidine Gluconate (Tawanna-Hex 2%) 1 applic DAILY@2000 TOPIC 06/19/17 20:00 07/19/17 19:59 06/21/17 21:53 Folic Acid (Folate) 1 mg DAILY ORAL 06/20/17 09:00 07/20/17 08:59 06/22/17 09:05 Iron Sucrose 100 mg/Sodium Chloride 60 ml @ 240 mls/hr BEDTIME IV 06/19/17 21:00 06/23/17 21:14 06/21/17 21:53 Meropenem 1 gm/ Sodium Chloride 55 ml @ 110 mls/hr Q8HR@0000,0800,1600 IVPB 06/19/17 16:00 06/23/17 23:59 06/22/17 09:05 Morphine Sulfate (Morphine Sulfate) 1 mg Q4H PRN IVP for Pain 3-6 06/19/17 14:23 06/25/17 14:22 06/20/17 13:55 Morphine Sulfate (Morphine Sulfate) 2 mg EVERY 4 HOURS PRN IVP Severe Pain (Pain Scale 7-10) 06/19/17 14:23 06/25/17 14:22 Ondansetron HCl (Zofran) 4 mg Q6H PRN IVP Nausea & Vomiting 06/19/17 14:24 07/18/17 14:23 Pantoprazole (Protonix) 40 mg DAILY IVP 06/20/17 09:00 07/19/17 08:59 06/22/17 09:05 Polyethylene Glycol (Miralax) 17 gm DAILYPRN PRN ORAL Constipation 06/19/17 14:24 07/19/17 14:23 Sodium Chloride 1,000 ml @ 50 mls/hr Q20H IVLG 06/19/17 14:30 07/18/17 10:32 06/21/17 15:54 Allergies: Coded Allergies: PENICILLINS (Verified Allergy, Unknown, 06/18/17) Swelling ROS Limited/Unobtainable: No Constitutional: Reports: no symptoms HEENT: Reports: no symptoms Cardiovascular: Reports: no symptoms Respiratory: Reports: no symptoms Gastrointestinal/Abdominal: Reports: no symptoms Genitourinary: Reports: no symptoms Neurologic/Psychiatric: Reports: no symptoms Subjective 72 YO F admitted with hypotension and anemia. Now GI bleed. Cover for Int Med- Dr Orozco Objective Last Vital Signs Date Time Temp Pulse Resp B/P (MAP) Pulse Ox O2 Delivery O2 Flow Rate FiO2 06/22/17 08:22 56 16 Room Air 21 06/22/17 08:00 98.1 134/71 96 98.1 Laboratory Tests Test 06/22/17 06:10 White Blood Count 19.2 K/UL (4.8-10.8) H Red Blood Count 3.41 M/UL (4.20-5.40) L Hemoglobin 9.6 G/DL (12.0-16.0) L Hematocrit 28.6 % (37.0-47.0) L Mean Corpuscular Volume 84 FL (80-99) Mean Corpuscular Hemoglobin 28.2 PG (27.0-31.0) Mean Corpuscular Hemoglobin Concent 33.7 G/DL (32.0-36.0) Red Cell Distribution Width 15.7 % (11.6-14.8) H Platelet Count 141 K/UL (150-450) L Mean Platelet Volume 7.8 FL (6.5-10.1) Neutrophils (%) (Auto) % (45.0-75.0) Lymphocytes (%) (Auto) % (20.0-45.0) Monocytes (%) (Auto) % (1.0-10.0) Eosinophils (%) (Auto) % (0.0-3.0) Basophils (%) (Auto) % (0.0-2.0) Differential Total Cells Counted 100 Neutrophils % (Manual) 91 % (45-75) H Lymphocytes % (Manual) 6 % (20-45) L Monocytes % (Manual) 2 % (1-10) Eosinophils % (Manual) 1 % (0-3) Basophils % (Manual) 0 % (0-2) Band Neutrophils 0 % (0-8) Platelet Estimate Adequate Platelet Morphology Normal Hypochromasia 1+ Anisocytosis 1+ Prothrombin Time 11.5 SEC (9.30-11.50) Prothromb Time International Ratio 1.1 (0.9-1.1) Activated Partial Thromboplast Time 42 SEC (23-33) H Sodium Level 140 MMOL/L (136-145) Potassium Level 3.3 MMOL/L (3.5-5.1) L Chloride Level 110 MMOL/L (98-107) H Carbon Dioxide Level 18 MMOL/L (21-32) L Anion Gap 12 mmol/L (5-15) Blood Urea Nitrogen 16 mg/dL (7-18) Creatinine 0.6 MG/DL (0.55-1.30) Estimat Glomerular Filtration Rate mL/min (>60) Glucose Level 75 MG/DL (74-106) Calcium Level 8.5 MG/DL (8.5-10.1) Phosphorus Level 2.6 MG/DL (2.5-4.9) Magnesium Level 1.8 MG/DL (1.8-2.4) Total Bilirubin 0.9 MG/DL (0.2-1.0) Aspartate Amino Transf (AST/SGOT) 17 U/L (15-37) Alanine Aminotransferase (ALT/SGPT) 14 U/L (12-78) Alkaline Phosphatase 111 U/L (46-116) Total Protein 5.7 G/DL (6.4-8.2) L Albumin 1.3 G/DL (3.4-5.0) L Globulin 4.4 g/dL Albumin/Globulin Ratio 0.3 (1.0-2.7) L Microbiology Date/Time Source Procedure Growth Status 06/20/17 13:50 Blood Blood Culture - Preliminary NO GROWTH AFTER 24 HOURS Resulted 06/20/17 13:45 Blood Blood Culture - Preliminary NO GROWTH AFTER 24 HOURS Resulted 06/21/17 14:00 Stool Clostridium difficile Toxin Assay - Final Complete Intake and Output 06/21/17 06/22/17 19:00 07:00 Intake Total 1560 ml 890 ml Output Total 700 ml 400 ml Balance 860 ml 490 ml Intake Oral 240 ml IV Total 720 ml 890 ml Other 600 ml Output Urine Total 700 ml 400 ml Objective General Appearance: WD/WN, no apparent distress, alert EENT: PERRL/EOMI, normal ENT inspection Neck: non-tender, normal alignment, supple Cardiovascular: normal peripheral pulses, normal rate, regular rhythm, no gallop/murmur, no JVD Respiratory/Chest: chest wall non-tender, lungs clear, normal breath sounds, no respiratory distress, no accessory muscle use Abdomen: normal bowel sounds, non tender, soft, no organomegaly, no mass Extremities: normal inspection 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 Previously on eliquis. Questionable GI bleed-Await heme consult. GI procedures on hold (4) Altered mental status (5) Hypotension (6) Colon cancer Assessment & Plan: Recurrence - see onc note. (7) Anemia Assessment & Plan: S/P transfusion 2 units PRBC on 06/18/17. Hemoglobin stable. GI procedures on hold-see GI note. (8) Hypokalemia Assessment & Plan: replace K+ (9) Hypomagnesemia Assessment & Plan: replace magnesium Status: stable HOMER RICO June 22, 2017 15:47
[2017-06-22 16:06] VITALS: BP 150/85
[2017-06-22 20:00] VITALS: BP 141/78
[2017-06-22] MEDS: Dyna-Hex 2% Top Sol 2oz TOPIC SCH (20:54)
[2017-06-22] MEDS: Iron Sucrose 100 MG in NS 55 ML IV SCH (20:55)
[2017-06-23] VITALS: BP 144/77
[2017-06-23 04:00] VITALS: BP 131/97
[2017-06-23 06:57] LABS: HEMATOCRIT 28.9 % (37.0-47.0); HEMOGLOBIN 9.9 G/DL (12.0-16.0); MEAN CORPUSCULAR VOLUME 83 FL (80-99); PLATELET COUNT 182 K/UL (150-450); RED BLOOD COUNT 3.48 M/UL (4.20-5.40); RED CELL DISTRIBUTION WIDTH 15.7 % (11.6-14.8); WHITE BLOOD COUNT 17.7 K/UL (4.8-10.8)
[2017-06-23 07:03] LABS: ANION GAP 10 mmol/L (5-15); BLOOD UREA NITROGEN 16 mg/dL (7-18); CALCIUM 8.8 MG/DL (8.5-10.1); CARBON DIOXIDE 18 MMOL/L (21-32); CHLORIDE 108 MMOL/L (98-107); CREATININE 0.6 MG/DL (0.55-1.30); POTASSIUM 3.3 MMOL/L (3.5-5.1); SODIUM 136 MMOL/L (136-145)
[2017-06-23 08:00] VITALS: BP 137/69
[2017-06-23] MEDS: Pantoprazole Inj IVP SCH (09:29)
[2017-06-23] MEDS: Eliquis 2.5mg tablet ORAL SCH ×2 (09:29→17:59)
[2017-06-23] MEDS: Meropenem 1 GM in NS 55 ML IVPB SCH (09:29)
[2017-06-23 12:00] VITALS: BP 146/73
--- NOTE | 2017-06-23 12:05 | Infectious Diseases Prog Note ---
Assessment/Plan Assessment/Plan Assessment: Septic Shock, SP - Possibly multifactorial- originally suspected UTI but Ucx with no significant growth (she did had UTI and pyelo symptoms: +frequency/ urgency, n/v, lower abd pain). Now is bacteremic, likely GI translocation for either bleeding or cancer burden -CXR: Cardiomegaly and pulmonary vascular congestion. Patchy retrocardiac opacity. Pneumonia not excluded. Clinical correlation and follow-up exam recommended; doubt PNA- no cough -u/a wbc tntc, nit neg, leuk +3, sq cells moderate; ucx 20-30k mixed gram positive growth; repeat u/a WBC 40-60,nit neg, leuk +2, sq cells few; ucx Neg -Bcx 06/17 03/25 B. fragilis; 06/18 1 B. fragilis; 06/20 Bcx NTD x4 Fever, leukocytosis- fever resolved, leukocytosis improving- ? due to metastatic diseaase and bacteremia -CT abd/p w/: Evidence of recurrent colon carcinoma with extensive bulky tumor and adenopathy within the pelvis and retroperitoneum. This results in mild to moderate left hydronephrosis. Localized adjacent lytic destruction of the anterior L5 vertebra and part of the upper sacrum. Evidence of more remote metastatic neoplasm with multiple pulmonary nodules. -CDiff Lactic acidosis, resolved L DVT Anemia CARLOS, resolved Colon CA s/p resection and colostomy w/ recurrent Cancer obstructive uropathy s/p PPM DVT on Eliquis group home resident PNC allergy Plan: -Switch Meropenem #08/02 to Ceftriaxone and Flagyl to complete course for B. fragilis bacteremic (also assuming possible translocation of other gram negative organisms) -06/19 SP IV Vancomycin #2 -06/17 CEfepime and Flagyl x1 -f/u repeat 2 sets of Bcx -f/u cx -Monitor CBC/BMP, temperatures -aspiration precautions -heme onc f/u -wound care/prevention per hospital protocol Thank you for this consultation. Will continue to follow along with you. Discussed with RN Subjective Allergies: Coded Allergies: PENICILLINS (Verified Allergy, Unknown, 06/18/17) Swelling Subjective afebrile leukocytosis improving repeat Bcx NTD Objective Vital Signs Last 24 Hour Vital Signs Date Time Temp Pulse Resp B/P (MAP) Pulse Ox O2 Delivery O2 Flow Rate FiO2 06/23/17 08:09 74 18 Room Air 21 06/23/17 08:00 97.7 101 20 137/69 98 Room Air 97.7 06/23/17 04:00 97.4 106 22 131/97 97 Room Air 97.4 06/23/17 00:00 98.3 102 22 144/77 99 Room Air 98.3 06/22/17 20:08 88 16 Room Air 21 06/22/17 20:00 97.6 100 22 141/78 100 Room Air 97.6 06/22/17 16:06 97.6 103 21 150/85 99 Room Air 97.6 Height (Feet): 5 Height (Inches): 4.00 Weight (Pounds): 202 Objective General Appearance: well appearing, no apparent distress, alert Head: normocephalic EENT: PERRL/EOMI, normal ENT inspection Neck: supple Respiratory: normal breath sounds, no respiratory distress Cardiovascular: normal rate Gastrointestinal: normal inspection, non tender, soft, normal bowel sounds, non -distended Genitourinary: no CVA tenderness Musculoskeletal: normal inspection, back normal Skin: normal inspection, normal color, no rash, warm/dry, palpation normal, well hydrated Microbiology Date/Time Source Procedure Growth Status 06/20/17 13:50 Blood Blood Culture - Preliminary NO GROWTH AFTER 48 HOURS Resulted 06/20/17 13:45 Blood Blood Culture - Preliminary NO GROWTH AFTER 48 HOURS Resulted 06/21/17 14:00 Stool Clostridium difficile Toxin Assay - Final Complete Laboratory Tests Test 06/23/17 06:20 White Blood Count 17.7 K/UL (4.8-10.8) H Red Blood Count 3.48 M/UL (4.20-5.40) L Hemoglobin 9.9 G/DL (12.0-16.0) L Hematocrit 28.9 % (37.0-47.0) L Mean Corpuscular Volume 83 FL (80-99) Mean Corpuscular Hemoglobin 28.3 PG (27.0-31.0) Mean Corpuscular Hemoglobin Concent 34.1 G/DL (32.0-36.0) Red Cell Distribution Width 15.7 % (11.6-14.8) H Platelet Count 182 K/UL (150-450) Mean Platelet Volume 7.6 FL (6.5-10.1) Neutrophils (%) (Auto) % (45.0-75.0) Lymphocytes (%) (Auto) % (20.0-45.0) Monocytes (%) (Auto) % (1.0-10.0) Eosinophils (%) (Auto) % (0.0-3.0) Basophils (%) (Auto) % (0.0-2.0) Differential Total Cells Counted 100 Neutrophils % (Manual) 87 % (45-75) H Lymphocytes % (Manual) 11 % (20-45) L Monocytes % (Manual) 2 % (1-10) Eosinophils % (Manual) 0 % (0-3) Basophils % (Manual) 0 % (0-2) Band Neutrophils 0 % (0-8) Platelet Estimate Adequate Platelet Morphology Normal Hypochromasia 1+ Anisocytosis 1+ Sodium Level 136 MMOL/L (136-145) Potassium Level 3.3 MMOL/L (3.5-5.1) L Chloride Level 108 MMOL/L (98-107) H Carbon Dioxide Level 18 MMOL/L (21-32) L Anion Gap 10 mmol/L (5-15) Blood Urea Nitrogen 16 mg/dL (7-18) Creatinine 0.6 MG/DL (0.55-1.30) Estimat Glomerular Filtration Rate mL/min (>60) Glucose Level 66 MG/DL (74-106) L Calcium Level 8.8 MG/DL (8.5-10.1) Current Medications Medications (Trade) Dose Ordered Sig/Naman Route PRN Reason Start Time Stop Time Status Last Admin Dose Admin Acetaminophen (Tylenol) 650 mg Q4H PRN ORAL fever 06/19/17 14:45 07/18/17 10:44 Apixaban (Eliquis) 5 mg BID ORAL 06/20/17 14:00 07/20/17 13:59 06/23/17 09:29 Chlorhexidine Gluconate (Tawanna-Hex 2%) 1 applic DAILY@2000 TOPIC 06/19/17 20:00 07/19/17 19:59 06/22/17 20:54 Folic Acid (Folate) 1 mg DAILY ORAL 06/20/17 09:00 07/20/17 08:59 06/23/17 09:29 Iron Sucrose 100 mg/Sodium Chloride 60 ml @ 240 mls/hr BEDTIME IV 06/19/17 21:00 06/23/17 21:14 06/22/17 20:55 Meropenem 1 gm/ Sodium Chloride 55 ml @ 110 mls/hr Q8HR@0000,0800,1600 IVPB 06/19/17 16:00 06/23/17 23:59 06/23/17 09:29 Morphine Sulfate (Morphine Sulfate) 1 mg Q4H PRN IVP for Pain 3-6 06/19/17 14:23 06/25/17 14:22 06/20/17 13:55 Morphine Sulfate (Morphine Sulfate) 2 mg EVERY 4 HOURS PRN IVP Severe Pain (Pain Scale 7-10) 06/19/17 14:23 06/25/17 14:22 Ondansetron HCl (Zofran) 4 mg Q6H PRN IVP Nausea & Vomiting 06/19/17 14:24 07/18/17 14:23 Pantoprazole (Protonix) 40 mg DAILY IVP 06/20/17 09:00 07/19/17 08:59 06/23/17 09:29 Polyethylene Glycol (Miralax) 17 gm DAILYPRN PRN ORAL Constipation 06/19/17 14:24 07/19/17 14:23 Sodium Chloride 1,000 ml @ 50 mls/hr Q20H IVLG 06/19/17 14:30 07/18/17 10:32 06/22/17 22:40 Cheryl Ramos M.D. June 23, 2017 12:05
--- NOTE | 2017-06-23 12:26 | Pulmonology Progress Note ---
Assessment/Plan Assessment/Plan ASSESSMENT septic shock, resolved, multifactorial Sepsis with bacteremia Acute encephalopathy- resolved Metastatic recurrent colon carcinoma with multiple pulmonary nodules( status post resection and colostomy, with recurrence) Moderate left hydronephrosis Acute DVT left lower extremity common femoral vein to superficial femoral vein Anemia of chronic disease Dehydration Folic acid deficiency Electrolyte imbalance( hypokalemia, hypomagnesemia) Colostomy Acute kidney injury, resolved Severe protein calorie malnutrition PLAN OF CARE Med Surg floor CT abdomen/pelvis with evidence of recurrent colon carcinoma with extensive bulky tumor and adenopathy within the pelvis and retroperitoneum, resulting in mild to moderate left hydronephrosis. Localized adjacent lytic destruction of the anterior L5 vertebra and part of the upper sacrum. Evidence of more remote metastatic neoplasm with multiple pulmonary nodules. antibiotic ID follows urine culture negative, blood culture initially positive for Bacteroides, repeated blood culture negative stool for C. 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 for total of 3 months Anemia workup consistent with anemia of chronic disease and folate deficiency started on folic acid monitor hemoglobin and hematocrit with goal to keep hemoglobin above 7 stool for occult blood negative GI follows; no need for GI procedure electrolytes closely monitored and replaced as needed IVF renal parameters down to normal acute kidney injury rewsolved supplemental oxygen and pulmonary toilet as needed GI prophylaxis bowel regimen nutritional recommendations implemented in plan of care pain management coleotomy care overall prognosis poor oncologist recommended hospice care case discussed and evaluated by supervising physician Subjective Allergies: Coded Allergies: PENICILLINS (Verified Allergy, Unknown, 06/18/17) Swelling Subjective denies abdominal pain, poor appetite leukocytosis trending down,afebrile Objective Last 24 Hour Vital Signs Date Time Temp Pulse Resp B/P (MAP) Pulse Ox O2 Delivery O2 Flow Rate FiO2 06/23/17 08:09 74 18 Room Air 21 06/23/17 08:00 97.7 101 20 137/69 98 Room Air 97.7 06/23/17 04:00 97.4 106 22 131/97 97 Room Air 97.4 06/23/17 00:00 98.3 102 22 144/77 99 Room Air 98.3 06/22/17 20:08 88 16 Room Air 21 06/22/17 20:00 97.6 100 22 141/78 100 Room Air 97.6 06/22/17 16:06 97.6 103 21 150/85 99 Room Air 97.6 Intake and Output 06/22/17 06/23/17 19:00 07:00 Intake Total 290 ml 960 ml Output Total 900 ml Balance 290 ml 60 ml Intake Oral 240 ml 60 ml IV Total 50 ml 900 ml Output Urine Total 900 ml General Appearance: no acute distress, other - obese AA female HEENT: normocephalic, atraumatic, anicteric Respiratory/Chest: lungs clear, no respiratory distress, no accessory muscle use Cardiovascular: normal peripheral pulses, normal rate, other - CL R jugular triple lumen, intact Abdomen: normal bowel sounds, soft, non tender, other - colostomy Extremities: no edema Neurologic/Psychiatric: alert, oriented x 3, responsive Musculoskeletal: normal muscle bulk Microbiology Date/Time Source Procedure Growth Status 06/20/17 13:50 Blood Blood Culture - Preliminary NO GROWTH AFTER 48 HOURS Resulted 06/20/17 13:45 Blood Blood Culture - Preliminary NO GROWTH AFTER 48 HOURS Resulted 06/21/17 14:00 Stool Clostridium difficile Toxin Assay - Final Complete Laboratory Tests 06/23/17 06:20: White Blood Count 17.7H, Red Blood Count 3.48L, Hemoglobin 9.9L, Hematocrit 28.9L, Mean Corpuscular Volume 83, Mean Corpuscular Hemoglobin 28.3, Mean Corpuscular Hemoglobin Concent 34.1, Red Cell Distribution Width 15.7H, Platelet Count 182, Mean Platelet Volume 7.6, Neutrophils (%) (Auto) , Lymphocytes (%) (Auto) , Monocytes (%) (Auto) , Eosinophils (%) (Auto) , Basophils (%) (Auto) , Differential Total Cells Counted 100, Neutrophils % ( Manual) 87H, Lymphocytes % (Manual) 11L, Monocytes % (Manual) 2, Eosinophils % ( Manual) 0, Basophils % (Manual) 0, Band Neutrophils 0, Platelet Estimate Adequate, Platelet Morphology Normal, Hypochromasia 1+, Anisocytosis 1+, Sodium Level 136, Potassium Level 3.3L, Chloride Level 108H, Carbon Dioxide Level 18L, Anion Gap 10, Blood Urea Nitrogen 16, Creatinine 0.6, Estimat Glomerular Filtration Rate , Glucose Level 66L, Calcium Level 8.8 Current Medications Medications (Trade) Dose Ordered Sig/Naman Route PRN Reason Start Time Stop Time Status Last Admin Dose Admin Acetaminophen (Tylenol) 650 mg Q4H PRN ORAL fever 06/19/17 14:45 07/18/17 10:44 Apixaban (Eliquis) 5 mg BID ORAL 06/20/17 14:00 07/20/17 13:59 06/23/17 09:29 Ceftriaxone Sodium (Rocephin) 2 gm DAILY IM 06/23/17 18:00 06/30/17 17:59 UNV Chlorhexidine Gluconate (Tawanna-Hex 2%) 1 applic DAILY@2000 TOPIC 06/19/17 20:00 07/19/17 19:59 06/22/17 20:54 Folic Acid (Folate) 1 mg DAILY ORAL 06/20/17 09:00 07/20/17 08:59 06/23/17 09:29 Iron Sucrose 100 mg/Sodium Chloride 60 ml @ 240 mls/hr BEDTIME IV 06/19/17 21:00 06/23/17 21:14 06/22/17 20:55 Metronidazole (Flagyl) 250 mg Q8HR ORAL 06/23/17 14:00 06/30/17 13:59 UNV Morphine Sulfate (Morphine Sulfate) 1 mg Q4H PRN IVP for Pain 3-6 06/19/17 14:23 06/25/17 14:22 06/20/17 13:55 Morphine Sulfate (Morphine Sulfate) 2 mg EVERY 4 HOURS PRN IVP Severe Pain (Pain Scale 7-10) 06/19/17 14:23 06/25/17 14:22 Ondansetron HCl (Zofran) 4 mg Q6H PRN IVP Nausea & Vomiting 06/19/17 14:24 07/18/17 14:23 Pantoprazole (Protonix) 40 mg DAILY IVP 06/20/17 09:00 07/19/17 08:59 06/23/17 09:29 Polyethylene Glycol (Miralax) 17 gm DAILYPRN PRN ORAL Constipation 06/19/17 14:24 07/19/17 14:23 Sodium Chloride 1,000 ml @ 50 mls/hr Q20H IVLG 06/19/17 14:30 07/18/17 10:32 06/22/17 22:40 Lawanda Hunt (Vanchtein) EYE SURGEON June 23, 2017 12:26
--- NOTE | 2017-06-23 13:44 | Internal Med Progress Note ---
Subjective Date of Service: June 23, 2017 Physician Name Rico,Homer Attending Physician Bharat Orozco MD Current Medications Medications (Trade) Dose Ordered Sig/Naman Route PRN Reason Start Time Stop Time Status Last Admin Dose Admin Acetaminophen (Tylenol) 650 mg Q4H PRN ORAL fever 06/19/17 14:45 07/18/17 10:44 Apixaban (Eliquis) 5 mg BID ORAL 06/20/17 14:00 07/20/17 13:59 06/23/17 09:29 Ceftriaxone Sodium 2 gm/ Dextrose 110 ml @ 220 mls/hr Q24H IVPB 06/23/17 15:00 06/30/17 14:59 Chlorhexidine Gluconate (Tawanna-Hex 2%) 1 applic DAILY@2000 TOPIC 06/19/17 20:00 07/19/17 19:59 06/22/17 20:54 Folic Acid (Folate) 1 mg DAILY ORAL 06/20/17 09:00 07/20/17 08:59 06/23/17 09:29 Iron Sucrose 100 mg/Sodium Chloride 60 ml @ 240 mls/hr BEDTIME IV 06/19/17 21:00 06/23/17 21:14 06/22/17 20:55 Metronidazole (Flagyl) 250 mg Q8HR ORAL 06/23/17 14:00 06/30/17 13:59 Morphine Sulfate (Morphine Sulfate) 1 mg Q4H PRN IVP for Pain 3-6 06/19/17 14:23 06/25/17 14:22 06/20/17 13:55 Morphine Sulfate (Morphine Sulfate) 2 mg EVERY 4 HOURS PRN IVP Severe Pain (Pain Scale 7-10) 06/19/17 14:23 06/25/17 14:22 Ondansetron HCl (Zofran) 4 mg Q6H PRN IVP Nausea & Vomiting 06/19/17 14:24 07/18/17 14:23 Pantoprazole (Protonix) 40 mg DAILY IVP 06/20/17 09:00 07/19/17 08:59 06/23/17 09:29 Polyethylene Glycol (Miralax) 17 gm DAILYPRN PRN ORAL Constipation 06/19/17 14:24 07/19/17 14:23 Potassium Chloride (K-Dur) 40 meq ONCE NG 06/23/17 13:30 06/23/17 15:30 Sodium Chloride 1,000 ml @ 50 mls/hr Q20H IVLG 06/19/17 14:30 07/18/17 10:32 06/22/17 22:40 Allergies: Coded Allergies: PENICILLINS (Verified Allergy, Unknown, 06/18/17) Swelling ROS Limited/Unobtainable: No Constitutional: Reports: no symptoms HEENT: Reports: no symptoms Cardiovascular: Reports: no symptoms Respiratory: Reports: no symptoms Gastrointestinal/Abdominal: Reports: no symptoms Genitourinary: Reports: no symptoms Neurologic/Psychiatric: Reports: no symptoms Subjective 72 YO F admitted with hypotension and anemia. Now GI bleed and bacteremia. Cover for Int Sourav-Dr Orozco Objective Last Vital Signs Date Time Temp Pulse Resp B/P (MAP) Pulse Ox O2 Delivery O2 Flow Rate FiO2 06/23/17 12:00 97.3 104 20 146/73 97 Room Air 97.3 06/23/17 08:09 21 Laboratory Tests Test 06/23/17 06:20 White Blood Count 17.7 K/UL (4.8-10.8) H Red Blood Count 3.48 M/UL (4.20-5.40) L Hemoglobin 9.9 G/DL (12.0-16.0) L Hematocrit 28.9 % (37.0-47.0) L Mean Corpuscular Volume 83 FL (80-99) Mean Corpuscular Hemoglobin 28.3 PG (27.0-31.0) Mean Corpuscular Hemoglobin Concent 34.1 G/DL (32.0-36.0) Red Cell Distribution Width 15.7 % (11.6-14.8) H Platelet Count 182 K/UL (150-450) Mean Platelet Volume 7.6 FL (6.5-10.1) Neutrophils (%) (Auto) % (45.0-75.0) Lymphocytes (%) (Auto) % (20.0-45.0) Monocytes (%) (Auto) % (1.0-10.0) Eosinophils (%) (Auto) % (0.0-3.0) Basophils (%) (Auto) % (0.0-2.0) Differential Total Cells Counted 100 Neutrophils % (Manual) 87 % (45-75) H Lymphocytes % (Manual) 11 % (20-45) L Monocytes % (Manual) 2 % (1-10) Eosinophils % (Manual) 0 % (0-3) Basophils % (Manual) 0 % (0-2) Band Neutrophils 0 % (0-8) Platelet Estimate Adequate Platelet Morphology Normal Hypochromasia 1+ Anisocytosis 1+ Sodium Level 136 MMOL/L (136-145) Potassium Level 3.3 MMOL/L (3.5-5.1) L Chloride Level 108 MMOL/L (98-107) H Carbon Dioxide Level 18 MMOL/L (21-32) L Anion Gap 10 mmol/L (5-15) Blood Urea Nitrogen 16 mg/dL (7-18) Creatinine 0.6 MG/DL (0.55-1.30) Estimat Glomerular Filtration Rate mL/min (>60) Glucose Level 66 MG/DL (74-106) L Calcium Level 8.8 MG/DL (8.5-10.1) Microbiology Date/Time Source Procedure Growth Status 06/20/17 13:50 Blood Blood Culture - Preliminary NO GROWTH AFTER 48 HOURS Resulted 06/20/17 13:45 Blood Blood Culture - Preliminary NO GROWTH AFTER 48 HOURS Resulted 06/21/17 14:00 Stool Clostridium difficile Toxin Assay - Final Complete Intake and Output 06/22/17 06/23/17 19:00 07:00 Intake Total 290 ml 960 ml Output Total 900 ml Balance 290 ml 60 ml Intake Oral 240 ml 60 ml IV Total 50 ml 900 ml Output Urine Total 900 ml Objective General Appearance: WD/WN, no apparent distress, alert EENT: PERRL/EOMI, normal ENT inspection Neck: non-tender, normal alignment, supple Cardiovascular: normal peripheral pulses, normal rate, regular rhythm, no gallop/murmur, no JVD Respiratory/Chest: chest wall non-tender, lungs clear, normal breath sounds, no respiratory distress, no accessory muscle use Abdomen: normal bowel sounds, non tender, soft, no organomegaly, no mass Extremities: normal inspection Neurologic: drier helper II-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 Previously on eliquis. Questionable GI bleed-see heme consult. GI procedures on hold (4) Altered mental status (5) Hypotension (6) Colon cancer Assessment & Plan: Recurrence - see onc note. (7) Anemia Assessment & Plan: S/P transfusion 2 units PRBC on 06/18/17. Hemoglobin stable. GI procedures on hold-see GI note. (8) Hypokalemia Assessment & Plan: resolved (9) Hypomagnesemia Assessment & Plan: replace magnesium (10) Severe sepsis Assessment & Plan: Bacteroides fragilis. Continue ceftriaxone and flagyl per ID Status: not improved HOMER RICO June 23, 2017 13:44
[2017-06-23] MEDS: metroNIDAZOLE 250mg tab ORAL SCH ×2 (14:16→21:39)
[2017-06-23] MEDS: Morphine Sulfate 4mg/ml Inj IVP PRN (14:24)
[2017-06-23 16:00] VITALS: BP_SYST 149; BP_DIAS 6; BP_DIAS 68
[2017-06-23] MEDS: cefTRIAXone 2 GM in D5W 110 ML IVPB SCH (16:20)
[2017-06-23 20:00] VITALS: BP 135/71
[2017-06-23] MEDS: Dyna-Hex 2% Top Sol 2oz TOPIC SCH (20:40)
[2017-06-23] MEDS: Iron Sucrose 100 MG in NS 55 ML IV SCH (20:40)
[2017-06-24] VITALS: BP 129/66
[2017-06-24 04:00] VITALS: BP 141/65
[2017-06-24] MEDS: metroNIDAZOLE 250mg tab ORAL SCH ×3 (05:32→21:52)
[2017-06-24 07:31] LABS: HEMATOCRIT 27.5 % (37.0-47.0); HEMOGLOBIN 9.2 G/DL (12.0-16.0); MEAN CORPUSCULAR VOLUME 84 FL (80-99); PLATELET COUNT 201 K/UL (150-450); RED BLOOD COUNT 3.27 M/UL (4.20-5.40); WHITE BLOOD COUNT 20.3 K/UL (4.8-10.8)
[2017-06-24 07:48] LABS: ANION GAP 13 mmol/L (5-15); BLOOD UREA NITROGEN 12 mg/dL (7-18); CALCIUM 8.8 MG/DL (8.5-10.1); CARBON DIOXIDE 18 MMOL/L (21-32); CHLORIDE 107 MMOL/L (98-107); CREATININE 0.6 MG/DL (0.55-1.30); POTASSIUM 3.5 MMOL/L (3.5-5.1); SODIUM 138 MMOL/L (136-145)
[2017-06-24 08:00] VITALS: BP 148/76
[2017-06-24] MEDS: Pantoprazole Inj IVP SCH (08:32)
[2017-06-24] MEDS: Eliquis 2.5mg tablet ORAL SCH ×2 (08:32→17:23)
[2017-06-24] MEDS ORDERED: Tubing IV Secondary IV ONE (09:19)
--- NOTE | 2017-06-24 09:39 | General Progress Note ---
Assessment/Plan Status: stable Assessment/Plan # Recurrent colon carcinoma with extensive bulky tumor and adenopathy within the pelvis and retroperitoneum. This results in mild to moderate left hydronephrosis. Localized adjacent lytic destruction of the anterior L5 vertebra and part of the upper sacrum. Evidence of more remote metastatic neoplasm with multiple pulmonary nodules. --> given poor performance status, appear patient is bed-bound and recommend hospice care evaluation # DVT of the left leg - given stable h/h and no e/o gi bleed --> continue eliquis x 3 months total # Anemia of chornic disease, evaluate with gi --> hgb goal is above 7 --> anemia w/u has been reviewed --> appreciate gi recs, does not need gi procedure given ob negative # Anemia of folic acid deficiency --> started on FA 1mg daily # Hypokalemia - repleted with K # Hypomagnesemia - repleted with mag # Weakness and fatigue is likely related to anemia Subjective Date patient seen: June 22, 2017 Allergies: Coded Allergies: PENICILLINS (Verified Allergy, Unknown, 06/18/17) Swelling Subjective Patient is awake and verbally responsive. Lying in bed with no SOB/resp. distress noted. Denies any pain. Objective Last 24 Hour Vital Signs Date Time Temp Pulse Resp B/P (MAP) Pulse Ox O2 Delivery O2 Flow Rate FiO2 06/24/17 08:00 97.7 99 20 148/76 100 97.7 06/24/17 04:00 97.6 98 19 141/65 100 97.6 06/24/17 00:00 97.7 107 20 129/66 98 97.7 06/23/17 20:24 105 21 Room Air 21 06/23/17 20:00 98.2 112 20 135/71 97 98.2 06/23/17 16:00 98.2 105 21 149/68 100 Room Air 98.2 06/23/17 12:00 97.3 104 20 146/73 97 Room Air 97.3 Intake and Output 06/23/17 06/24/17 19:00 07:00 Intake Total 885 ml 600 ml Output Total 700 ml 500 ml Balance 185 ml 100 ml Intake Oral 120 ml IV Total 765 ml 600 ml Output Urine Total 700 ml 500 ml Stool Total 0 ml Laboratory Tests 06/24/17 06:20: White Blood Count 20.3H, Red Blood Count 3.27L, Hemoglobin 9.2L, Hematocrit 27.5L, Mean Corpuscular Volume 84, Mean Corpuscular Hemoglobin 28.0, Mean Corpuscular Hemoglobin Concent 33.3, Red Cell Distribution Width 16.0H, Platelet Count 201, Mean Platelet Volume 6.6, Neutrophils (%) (Auto) , Lymphocytes (%) (Auto) , Monocytes (%) (Auto) , Eosinophils (%) (Auto) , Basophils (%) (Auto) , Differential Total Cells Counted 100, Neutrophils % ( Manual) 93H, Lymphocytes % (Manual) 5L, Monocytes % (Manual) 2, Eosinophils % ( Manual) 0, Basophils % (Manual) 0, Band Neutrophils 0, Platelet Estimate Adequate, Platelet Morphology Normal, Hypochromasia 1+, Anisocytosis 1+, Sodium Level 138, Potassium Level 3.5, Chloride Level 107, Carbon Dioxide Level 18L, Anion Gap 13, Blood Urea Nitrogen 12, Creatinine 0.6, Estimat Glomerular Filtration Rate , Glucose Level 69L, Calcium Level 8.8, Magnesium Level 1.9 Height (Feet): 5 Height (Inches): 4.00 Weight (Pounds): 199 Chay Ross MD June 24, 2017 09:39
--- NOTE | 2017-06-24 09:42 | General Progress Note ---
Assessment/Plan Assessment/Plan # Recurrent colon carcinoma with extensive bulky tumor and adenopathy within the pelvis and retroperitoneum. This results in mild to moderate left hydronephrosis. Localized adjacent lytic destruction of the anterior L5 vertebra and part of the upper sacrum. Evidence of more remote metastatic neoplasm with multiple pulmonary nodules. --> given poor performance status, appear patient is bed-bound and recommend hospice care evaluation # DVT of the left leg - given stable h/h and no e/o gi bleed --> continue eliquis x 3 months total # Anemia of chornic disease, evaluate with gi --> hgb goal is above 7 --> anemia w/u has been reviewed --> appreciate gi recs, does not need gi procedure given ob negative # Anemia of folic acid deficiency --> started on FA 1mg daily # Hypokalemia - repleted with K # Hypomagnesemia - repleted with mag # Weakness and fatigue is likely related to anemia Subjective Date patient seen: June 23, 2017 Allergies: Coded Allergies: PENICILLINS (Verified Allergy, Unknown, 06/18/17) Swelling Subjective Patient in no apparent distress. Alert and verbally responsive with confusion. Cheung draining well by gravity, yellow urine noted. Objective Last 24 Hour Vital Signs Date Time Temp Pulse Resp B/P (MAP) Pulse Ox O2 Delivery O2 Flow Rate FiO2 06/24/17 08:00 97.7 99 20 148/76 100 97.7 06/24/17 04:00 97.6 98 19 141/65 100 97.6 06/24/17 00:00 97.7 107 20 129/66 98 97.7 06/23/17 20:24 105 21 Room Air 21 06/23/17 20:00 98.2 112 20 135/71 97 98.2 06/23/17 16:00 98.2 105 21 149/68 100 Room Air 98.2 06/23/17 12:00 97.3 104 20 146/73 97 Room Air 97.3 Intake and Output 06/23/17 06/24/17 19:00 07:00 Intake Total 885 ml 600 ml Output Total 700 ml 500 ml Balance 185 ml 100 ml Intake Oral 120 ml IV Total 765 ml 600 ml Output Urine Total 700 ml 500 ml Stool Total 0 ml Laboratory Tests 06/24/17 06:20: White Blood Count 20.3H, Red Blood Count 3.27L, Hemoglobin 9.2L, Hematocrit 27.5L, Mean Corpuscular Volume 84, Mean Corpuscular Hemoglobin 28.0, Mean Corpuscular Hemoglobin Concent 33.3, Red Cell Distribution Width 16.0H, Platelet Count 201, Mean Platelet Volume 6.6, Neutrophils (%) (Auto) , Lymphocytes (%) (Auto) , Monocytes (%) (Auto) , Eosinophils (%) (Auto) , Basophils (%) (Auto) , Differential Total Cells Counted 100, Neutrophils % ( Manual) 93H, Lymphocytes % (Manual) 5L, Monocytes % (Manual) 2, Eosinophils % ( Manual) 0, Basophils % (Manual) 0, Band Neutrophils 0, Platelet Estimate Adequate, Platelet Morphology Normal, Hypochromasia 1+, Anisocytosis 1+, Sodium Level 138, Potassium Level 3.5, Chloride Level 107, Carbon Dioxide Level 18L, Anion Gap 13, Blood Urea Nitrogen 12, Creatinine 0.6, Estimat Glomerular Filtration Rate , Glucose Level 69L, Calcium Level 8.8, Magnesium Level 1.9 Height (Feet): 5 Height (Inches): 4.00 Weight (Pounds): 199 General Appearance: no apparent distress Extremities: normal capillary refill Skin: normal pigmentation Chay Ross MD June 24, 2017 09:42
--- NOTE | 2017-06-24 10:54 | Pulmonology Progress Note ---
Assessment/Plan Assessment/Plan ASSESSMENT septic shock, resolved, multifactorial Sepsis with bacteremia Acute encephalopathy- resolved Metastatic recurrent colon carcinoma with multiple pulmonary nodules( status post resection and colostomy, with recurrence) Moderate left hydronephrosis Acute DVT left lower extremity common femoral vein to superficial femoral vein Anemia of chronic disease Dehydration Folic acid deficiency Electrolyte imbalance( hypokalemia, hypomagnesemia) Colostomy Acute kidney injury, resolved Severe protein calorie malnutrition PLAN OF CARE Med Surg floor CT abdomen/pelvis with evidence of recurrent colon carcinoma with extensive bulky tumor and adenopathy within the pelvis and retroperitoneum, resulting in mild to moderate left hydronephrosis. Localized adjacent lytic destruction of the anterior L5 vertebra and part of the upper sacrum. Evidence of more remote metastatic neoplasm with multiple pulmonary nodules. antibiotic ID follows urine culture negative, blood culture initially positive for Bacteroides, repeated blood culture negative per ID likely GI translocation for either bleeding or cancer burden stool for C. 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 follows anticoagulation with Eliquis for total of 3 months Anemia workup consistent with anemia of chronic disease and folate deficiency started on folic acid monitor hemoglobin and hematocrit with goal to keep hemoglobin above 7 stool for occult blood negative GI follows; no need for GI procedure electrolytes closely monitored and replaced as needed IVF renal parameters down to normal acute kidney injury rewsolved supplemental oxygen and pulmonary toilet as needed GI prophylaxis bowel regimen nutritional recommendations implemented in plan of care pain management coleotomy care overall prognosis poor oncologist recommended hospice care case discussed and evaluated by supervising physician Subjective Allergies: Coded Allergies: PENICILLINS (Verified Allergy, Unknown, 06/18/17) Swelling Subjective denies abdominal pain, poor appetite leukocytosis trending up, afebrile Objective Last 24 Hour Vital Signs Date Time Temp Pulse Resp B/P (MAP) Pulse Ox O2 Delivery O2 Flow Rate FiO2 06/24/17 08:00 97.7 99 20 148/76 100 97.7 06/24/17 04:00 97.6 98 19 141/65 100 97.6 06/24/17 00:00 97.7 107 20 129/66 98 97.7 06/23/17 20:24 105 21 Room Air 21 06/23/17 20:00 98.2 112 20 135/71 97 98.2 5/5/18 16:00 98.2 105 21 149/68 100 Room Air 98.2 06/23/17 12:00 97.3 104 20 146/73 97 Room Air 97.3 Intake and Output 06/23/17 06/24/17 19:00 07:00 Intake Total 885 ml 600 ml Output Total 700 ml 500 ml Balance 185 ml 100 ml Intake Oral 120 ml IV Total 765 ml 600 ml Output Urine Total 700 ml 500 ml Stool Total 0 ml Objective General Appearance: no acute distress, obese AA female HEENT: normocephalic, atraumatic, anicteric Respiratory/Chest: lungs clear, no respiratory distress, no accessory muscle use Cardiovascular: normal peripheral pulses, normal rate, CL R jugular triple lumen, intact Abdomen: normal bowel sounds, soft, non tender, colostomy Extremities: no edema Neurologic/Psychiatric: alert, oriented x 3, responsive Musculoskeletal: normal muscle bulk Microbiology Date/Time Source Procedure Growth Status 06/21/17 14:00 Stool Clostridium difficile Toxin Assay - Final Complete Laboratory Tests 06/24/17 06:20: White Blood Count 20.3H, Red Blood Count 3.27L, Hemoglobin 9.2L, Hematocrit 27.5L, Mean Corpuscular Volume 84, Mean Corpuscular Hemoglobin 28.0, Mean Corpuscular Hemoglobin Concent 33.3, Red Cell Distribution Width 16.0H, Platelet Count 201, Mean Platelet Volume 6.6, Neutrophils (%) (Auto) , Lymphocytes (%) (Auto) , Monocytes (%) (Auto) , Eosinophils (%) (Auto) , Basophils (%) (Auto) , Differential Total Cells Counted 100, Neutrophils % ( Manual) 93H, Lymphocytes % (Manual) 5L, Monocytes % (Manual) 2, Eosinophils % ( Manual) 0, Basophils % (Manual) 0, Band Neutrophils 0, Platelet Estimate Adequate, Platelet Morphology Normal, Hypochromasia 1+, Anisocytosis 1+, Sodium Level 138, Potassium Level 3.5, Chloride Level 107, Carbon Dioxide Level 18L, Anion Gap 13, Blood Urea Nitrogen 12, Creatinine 0.6, Estimat Glomerular Filtration Rate , Glucose Level 69L, Calcium Level 8.8, Magnesium Level 1.9 Current Medications Medications (Trade) Dose Ordered Sig/Naman Route PRN Reason Start Time Stop Time Status Last Admin Dose Admin Acetaminophen (Tylenol) 650 mg Q4H PRN ORAL fever 06/19/17 14:45 07/18/17 10:44 Apixaban (Eliquis) 5 mg BID ORAL 06/20/17 14:00 07/20/17 13:59 06/24/17 08:32 Ceftriaxone Sodium 2 gm/ Dextrose 110 ml @ 220 mls/hr Q24H IVPB 06/23/17 15:00 06/30/17 14:59 06/23/17 16:20 Chlorhexidine Gluconate (Tawanna-Hex 2%) 1 applic DAILY@2000 TOPIC 06/19/17 20:00 07/19/17 19:59 06/23/17 20:40 Folic Acid (Folate) 1 mg DAILY ORAL 06/20/17 09:00 07/20/17 08:59 06/24/17 08:32 Metronidazole (Flagyl) 250 mg Q8HR ORAL 06/23/17 14:00 06/30/17 13:59 06/24/17 05:32 Morphine Sulfate (Morphine Sulfate) 1 mg Q4H PRN IVP for Pain 3-6 06/19/17 14:23 06/25/17 14:22 06/23/17 14:24 Morphine Sulfate (Morphine Sulfate) 2 mg EVERY 4 HOURS PRN IVP Severe Pain (Pain Scale 7-10) 06/19/17 14:23 06/25/17 14:22 Ondansetron HCl (Zofran) 4 mg Q6H PRN IVP Nausea & Vomiting 06/19/17 14:24 07/18/17 14:23 Pantoprazole (Protonix) 40 mg DAILY IVP 06/20/17 09:00 07/19/17 08:59 06/24/17 08:32 Polyethylene Glycol (Miralax) 17 gm DAILYPRN PRN ORAL Constipation 06/19/17 14:24 07/19/17 14:23 Sodium Chloride 1,000 ml @ 50 mls/hr Q20H IVLG 06/19/17 14:30 07/18/17 10:32 06/23/17 17:58 Gilbert FuentesLawanda sanders NP June 24, 2017 10:54
[2017-06-24] MEDS ORDERED: Morphine Sulfate 4mg/ml Inj IVP PRN (11:00)
--- NOTE | 2017-06-24 13:46 | Internal Med Progress Note ---
Subjective Date of Service: June 24, 2017 Physician Name Rico,Homer Attending Physician Bharat Orozco MD Current Medications Medications (Trade) Dose Ordered Sig/Naman Route PRN Reason Start Time Stop Time Status Last Admin Dose Admin Acetaminophen (Tylenol) 650 mg Q4H PRN ORAL fever 06/19/17 14:45 07/18/17 10:44 Apixaban (Eliquis) 5 mg BID ORAL 06/20/17 14:00 07/20/17 13:59 06/24/17 08:32 Ceftriaxone Sodium 2 gm/ Dextrose 110 ml @ 220 mls/hr Q24H IVPB 06/23/17 15:00 06/30/17 14:59 06/23/17 16:20 Chlorhexidine Gluconate (Tawanna-Hex 2%) 1 applic DAILY@2000 TOPIC 06/19/17 20:00 07/19/17 19:59 06/23/17 20:40 Folic Acid (Folate) 1 mg DAILY ORAL 06/20/17 09:00 07/20/17 08:59 06/24/17 08:32 Metronidazole (Flagyl) 250 mg Q8HR ORAL 06/23/17 14:00 06/30/17 13:59 06/24/17 13:36 Morphine Sulfate (Morphine Sulfate) 1 mg Q4H PRN IVP for Pain 3-6 06/24/17 11:00 07/01/17 10:59 Morphine Sulfate (Morphine Sulfate) 2 mg Q4H PRN IVP Severe Pain (Pain Scale 7-10) 06/24/17 11:00 07/01/17 10:59 Ondansetron HCl (Zofran) 4 mg Q6H PRN IVP Nausea & Vomiting 06/19/17 14:24 07/18/17 14:23 Pantoprazole (Protonix) 40 mg DAILY IVP 06/20/17 09:00 07/19/17 08:59 06/24/17 08:32 Polyethylene Glycol (Miralax) 17 gm DAILYPRN PRN ORAL Constipation 06/19/17 14:24 07/19/17 14:23 Sodium Chloride 1,000 ml @ 50 mls/hr Q20H IVLG 06/19/17 14:30 07/18/17 10:32 06/24/17 13:36 Allergies: Coded Allergies: PENICILLINS (Verified Allergy, Unknown, 06/18/17) Swelling ROS Limited/Unobtainable: No Constitutional: Reports: no symptoms HEENT: Reports: no symptoms Cardiovascular: Reports: no symptoms Respiratory: Reports: no symptoms Gastrointestinal/Abdominal: Reports: no symptoms Genitourinary: Reports: no symptoms Neurologic/Psychiatric: Reports: no symptoms Subjective 72 YO F admitted with hypotension and anemia. Now GI bleed and bacteremia. Cover for Int Sourav-Dr Orozco. Decreased appetite. Objective Last Vital Signs Date Time Temp Pulse Resp B/P (MAP) Pulse Ox O2 Delivery O2 Flow Rate FiO2 06/24/17 08:00 97.7 99 20 148/76 100 97.7 06/23/17 20:24 Room Air 21 Laboratory Tests Test 06/24/17 06:20 White Blood Count 20.3 K/UL (4.8-10.8) H Red Blood Count 3.27 M/UL (4.20-5.40) L Hemoglobin 9.2 G/DL (12.0-16.0) L Hematocrit 27.5 % (37.0-47.0) L Mean Corpuscular Volume 84 FL (80-99) Mean Corpuscular Hemoglobin 28.0 PG (27.0-31.0) Mean Corpuscular Hemoglobin Concent 33.3 G/DL (32.0-36.0) Red Cell Distribution Width 16.0 % (11.6-14.8) H Platelet Count 201 K/UL (150-450) Mean Platelet Volume 6.6 FL (6.5-10.1) Neutrophils (%) (Auto) % (45.0-75.0) Lymphocytes (%) (Auto) % (20.0-45.0) Monocytes (%) (Auto) % (1.0-10.0) Eosinophils (%) (Auto) % (0.0-3.0) Basophils (%) (Auto) % (0.0-2.0) Differential Total Cells Counted 100 Neutrophils % (Manual) 93 % (45-75) H Lymphocytes % (Manual) 5 % (20-45) L Monocytes % (Manual) 2 % (1-10) Eosinophils % (Manual) 0 % (0-3) Basophils % (Manual) 0 % (0-2) Band Neutrophils 0 % (0-8) Platelet Estimate Adequate Platelet Morphology Normal Hypochromasia 1+ Anisocytosis 1+ Sodium Level 138 MMOL/L (136-145) Potassium Level 3.5 MMOL/L (3.5-5.1) Chloride Level 107 MMOL/L (98-107) Carbon Dioxide Level 18 MMOL/L (21-32) L Anion Gap 13 mmol/L (5-15) Blood Urea Nitrogen 12 mg/dL (7-18) Creatinine 0.6 MG/DL (0.55-1.30) Estimat Glomerular Filtration Rate mL/min (>60) Glucose Level 69 MG/DL (74-106) L Calcium Level 8.8 MG/DL (8.5-10.1) Magnesium Level 1.9 MG/DL (1.8-2.4) Microbiology Date/Time Source Procedure Growth Status 06/21/17 14:00 Stool Clostridium difficile Toxin Assay - Final Complete Intake and Output 06/23/17 06/24/17 19:00 07:00 Intake Total 885 ml 600 ml Output Total 700 ml 500 ml Balance 185 ml 100 ml Intake Oral 120 ml IV Total 765 ml 600 ml Output Urine Total 700 ml 500 ml Stool Total 0 ml Objective General Appearance: WD/WN, no apparent distress, alert EENT: PERRL/EOMI, normal ENT inspection Neck: non-tender, normal alignment, supple Cardiovascular: normal peripheral pulses, normal rate, regular rhythm, no gallop/murmur, no JVD Respiratory/Chest: chest wall non-tender, lungs clear, normal breath sounds, no respiratory distress, no accessory muscle use Abdomen: normal bowel sounds, non tender, soft, no organomegaly, no mass Extremities: normal inspection Neurologic: human resources trainee II-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 Previously on eliquis. Questionable GI bleed-see heme consult. GI procedures on hold (4) Altered mental status (5) Hypotension (6) Colon cancer Assessment & Plan: Recurrence - see onc note. (7) Anemia Assessment & Plan: S/P transfusion 2 units PRBC on 06/18/17. Hemoglobin stable. GI procedures on hold-see GI note. (8) Hypokalemia Assessment & Plan: resolved (9) Hypomagnesemia Assessment & Plan: replace magnesium (10) Severe sepsis Assessment & Plan: Bacteroides fragilis. Continue ceftriaxone and flagyl per ID (11) Decrease in appetite Assessment & Plan: Calorie count. Megace Status: not improved HOMER RICO June 24, 2017 13:46
[2017-06-24] MEDS: cefTRIAXone 2 GM in D5W 110 ML IVPB SCH (14:39)
[2017-06-24] MEDS: Morphine Sulfate 4mg/ml Inj IVP PRN (15:15)
[2017-06-24 16:00] VITALS: BP 138/70
[2017-06-24] MEDS: Megace 400mg/10ml Susp ORAL SCH (17:23)
--- NOTE | 2017-06-24 19:06 | General Progress Note ---
Assessment/Plan Assessment/Plan #. Leukocytosis. --> worsened from yesterday. Monitor and trend cbc # Recurrent colon carcinoma with extensive bulky tumor and adenopathy within the pelvis and retroperitoneum. --> This results in mild to moderate left hydronephrosis. Localized adjacent lytic destruction of the anterior L5 vertebra and part of the upper sacrum. --> Evidence of more remote metastatic neoplasm with multiple pulmonary nodules. --> given poor performance status, appear patient is bed-bound and recommend hospice care evaluation # DVT of the left leg - given stable h/h and no e/o gi bleed --> continue eliquis x 3 months total # Anemia of chornic disease, evaluate with gi --> hgb goal is above 7 --> anemia w/u has been reviewed --> appreciate gi recs, does not need gi procedure given ob negative # Anemia of folic acid deficiency --> started on FA 1mg daily # Hypokalemia - repleted with K # Hypomagnesemia - repleted with mag # Weakness and fatigue is likely related to anemia Subjective Date patient seen: June 24, 2017 Constitutional: Denies: no symptoms, chills, diaphoresis, fever, malaise, weakness, other HEENT: Denies: no symptoms, eye pain, blurred vision, tearing, double vision, ear pain, ear discharge, nose pain, nose congestion, throat pain, throat swelling, mouth pain, mouth swelling, other Cardiovascular: Denies: no symptoms, chest pain, edema, irregular heart rate, lightheadedness, palpitations, syncope, other Respiratory: Denies: no symptoms, cough, orthopnea, shortness of breath, SOB with excertion, SOB at rest, sputum, stridor, wheezing, other Gastrointestinal/Abdominal: Denies: no symptoms, abdomen distended, abdominal pain, black stools, tarry stools, blood in stool, constipated, diarrhea, difficulty swallowing, nausea, poor appetite, poor fluid intake, rectal bleeding , vomiting, other Genitourinary: Denies: no symptoms, burning, discharge, frequency, flank pain, hematuria, incontinence, pain, urgency, other Neurologic/Psychiatric: Denies: no symptoms, anxiety, depressed, emotional problems, headache, numbness, paresthesia, pre-existing deficit, seizure, tingling, tremors, weakness, other Hematologic/Lymphatic: Reports: anemia Allergies: Coded Allergies: PENICILLINS (Verified Allergy, Unknown, 06/18/17) Swelling Subjective Patient in no apparent distress. Confused. Leukocytosis. Objective Last 24 Hour Vital Signs Date Time Temp Pulse Resp B/P (MAP) Pulse Ox O2 Delivery O2 Flow Rate FiO2 06/24/17 16:00 97.0 100 19 138/70 95 97.0 06/24/17 08:00 97.7 99 20 148/76 100 97.7 06/24/17 04:00 97.6 98 19 141/65 100 97.6 06/24/17 00:00 97.7 107 20 129/66 98 97.7 06/23/17 20:24 105 21 Room Air 21 06/23/17 20:00 98.2 112 20 135/71 97 98.2 Intake and Output 06/23/17 06/24/17 19:00 07:00 Intake Total 885 ml 600 ml Output Total 700 ml 500 ml Balance 185 ml 100 ml Intake Oral 120 ml IV Total 765 ml 600 ml Output Urine Total 700 ml 500 ml Stool Total 0 ml Laboratory Tests 06/24/17 06:20: White Blood Count 20.3H, Red Blood Count 3.27L, Hemoglobin 9.2L, Hematocrit 27.5L, Mean Corpuscular Volume 84, Mean Corpuscular Hemoglobin 28.0, Mean Corpuscular Hemoglobin Concent 33.3, Red Cell Distribution Width 16.0H, Platelet Count 201, Mean Platelet Volume 6.6, Neutrophils (%) (Auto) , Lymphocytes (%) (Auto) , Monocytes (%) (Auto) , Eosinophils (%) (Auto) , Basophils (%) (Auto) , Differential Total Cells Counted 100, Neutrophils % ( Manual) 93H, Lymphocytes % (Manual) 5L, Monocytes % (Manual) 2, Eosinophils % ( Manual) 0, Basophils % (Manual) 0, Band Neutrophils 0, Platelet Estimate Adequate, Platelet Morphology Normal, Hypochromasia 1+, Anisocytosis 1+, Sodium Level 138, Potassium Level 3.5, Chloride Level 107, Carbon Dioxide Level 18L, Anion Gap 13, Blood Urea Nitrogen 12, Creatinine 0.6, Estimat Glomerular Filtration Rate , Glucose Level 69L, Calcium Level 8.8, Magnesium Level 1.9 Height (Feet): 5 Height (Inches): 4.00 Weight (Pounds): 199 General Appearance: no apparent distress, obese Neck: normal alignment Cardiovascular: tachycardia Abdomen: normal bowel sounds, non tender Chay Ross MD June 24, 2017 19:06
[2017-06-24 19:58] VITALS: BP 142/80
[2017-06-24] MEDS: Dyna-Hex 2% Top Sol 2oz TOPIC SCH (20:28)
[2017-06-25] VITALS: BP 147/76
[2017-06-25 04:00] VITALS: BP 143/82
[2017-06-25] MEDS: metroNIDAZOLE 250mg tab ORAL SCH (05:31)
[2017-06-25 08:29] LABS: HEMATOCRIT 27.4 % (37.0-47.0); HEMOGLOBIN 9.3 G/DL (12.0-16.0); MEAN CORPUSCULAR VOLUME 84 FL (80-99); PLATELET COUNT 242 K/UL (150-450); RED BLOOD COUNT 3.25 M/UL (4.20-5.40); RED CELL DISTRIBUTION WIDTH 15.8 % (11.6-14.8)
[2017-06-25 08:46] LABS: ANION GAP 11 mmol/L (5-15); BLOOD UREA NITROGEN 10 mg/dL (7-18); CARBON DIOXIDE 21 MMOL/L (21-32); CHLORIDE 106 MMOL/L (98-107); CREATININE 0.5 MG/DL (0.55-1.30); POTASSIUM 3.1 MMOL/L (3.5-5.1); SODIUM 138 MMOL/L (136-145)
[2017-06-25 08:47] LABS: CALCIUM 8.8 MG/DL (8.5-10.1)
[2017-06-25 09:00] VITALS: BP_SYST 128; BP_SYST 149; BP_DIAS 58; BP_DIAS 71
[2017-06-25 09:25] LABS: WHITE BLOOD COUNT 23.4 K/UL (4.8-10.8)
[2017-06-25] MEDS: Pantoprazole Inj IVP SCH (09:28)
[2017-06-25] MEDS: Megace 400mg/10ml Susp ORAL SCH ×2 (09:28→18:23)
[2017-06-25] MEDS: Eliquis 2.5mg tablet ORAL SCH ×2 (09:28→18:24)
--- NOTE | 2017-06-25 10:10 | Diagnostic Imaging Report ---
APPROVED REPORT CPT Code: 78821 Present Symptoms Comments: R/O DVT RIGHT LEG: Venous imaging reveals a patent deep venous system. There is no evidence of thrombus within the femoral, popliteal or tibial segments. The greater saphenous vein is also within normal limits. Doppler indicates normal spontaneous flow within these segments. LEFT LEG: Venous imaging reveals acute thrombus in the common femoral to distal superficial femoral veins. Remainder of the deep venous system within normal limits. No evidence of thrombus in the popliteal vein and calf veins. Greater saphenous vein also within normal limits. MOOK amaya was notified of abnormal results at 1340 hours.
--- NOTE | 2017-06-25 10:45 | GI Progress Note ---
Assessment/Plan Problems: (1) Severe sepsis ICD Codes: A41.9 - Sepsis, unspecified organism; R65.20 - Severe sepsis without septic shock SNOMED: 62719904 (2) Electrolyte imbalance ICD Codes: E87.8 - Other disorders of electrolyte and fluid balance, not elsewhere classified SNOMED: 468027661 (3) Dehydration ICD Codes: E86.0 - Dehydration SNOMED: 24060500 (4) Colostomy in place ICD Codes: Z93.3 - Colostomy status SNOMED: 429029658, 723546106 (5) Colon cancer ICD Codes: C18.9 - Malignant neoplasm of colon, unspecified SNOMED: 055211446 Qualifiers: Qualified Codes: C18.9 - Malignant neoplasm of colon, unspecified (6) Anemia ICD Codes: D64.9 - Anemia, unspecified SNOMED: 246197955 Qualifiers: Qualified Codes: D64.89 - Other specified anemias Status: stable Status Narrative Discussed with Dr. Fonseca. Assessment/Plan may need colonoscopy for staging, pending CEA results >> will defer if elevated anemia work up reviewed >> folate deficiency OB stool r/o GI bleed >> negative cdiff negative CT AP reviewed >> fu oncology recs monitor H&H, prn transfusions bowel regime ppi electrolyte replacement fu labs patient on Plavix Subjective Subjective denies abdominal pain Objective Last 24 Hour Vital Signs Date Time Temp Pulse Resp B/P (MAP) Pulse Ox O2 Delivery O2 Flow Rate FiO2 06/25/17 09:00 97.8 98 23 149/71 99 97.8 06/25/17 04:00 98.0 98 19 143/82 100 98.0 06/25/17 00:00 97.9 97 19 147/76 98 97.9 06/24/17 19:58 97.9 105 20 142/80 98 97.9 06/24/17 16:00 97.0 100 19 138/70 95 97.0 Intake and Output 06/24/17 06/25/17 19:00 07:00 Intake Total 660 ml 600 ml Output Total 525 ml 450 ml Balance 135 ml 150 ml IV Total 660 ml 600 ml Output Urine Total 450 ml 450 ml Stool Total 75 ml Laboratory Tests Test 06/25/17 06:24 White Blood Count 23.4 K/UL (4.8-10.8) *H Red Blood Count 3.25 M/UL (4.20-5.40) L Hemoglobin 9.3 G/DL (12.0-16.0) L Hematocrit 27.4 % (37.0-47.0) L Mean Corpuscular Volume 84 FL (80-99) Mean Corpuscular Hemoglobin 28.5 PG (27.0-31.0) Mean Corpuscular Hemoglobin Concent 33.8 G/DL (32.0-36.0) Red Cell Distribution Width 15.8 % (11.6-14.8) H Platelet Count 242 K/UL (150-450) Mean Platelet Volume 6.5 FL (6.5-10.1) Neutrophils (%) (Auto) % (45.0-75.0) Lymphocytes (%) (Auto) % (20.0-45.0) Monocytes (%) (Auto) % (1.0-10.0) Eosinophils (%) (Auto) % (0.0-3.0) Basophils (%) (Auto) % (0.0-2.0) Differential Total Cells Counted 100 Neutrophils % (Manual) 96 % (45-75) H Lymphocytes % (Manual) 0 % (20-45) L Monocytes % (Manual) 4 % (1-10) Eosinophils % (Manual) 0 % (0-3) Basophils % (Manual) 0 % (0-2) Band Neutrophils 0 % (0-8) Platelet Estimate Adequate Platelet Morphology Normal Hypochromasia 1+ Target Cells 1+ Sodium Level 138 MMOL/L (136-145) Potassium Level 3.1 MMOL/L (3.5-5.1) L Chloride Level 106 MMOL/L (98-107) Carbon Dioxide Level 21 MMOL/L (21-32) Anion Gap 11 mmol/L (5-15) Blood Urea Nitrogen 10 mg/dL (7-18) Creatinine 0.5 MG/DL (0.55-1.30) L Estimat Glomerular Filtration Rate mL/min (>60) Glucose Level 80 MG/DL (74-106) Calcium Level 8.8 MG/DL (8.5-10.1) Height (Feet): 5 Height (Inches): 4.00 Weight (Pounds): 202 General Appearance: alert Cardiovascular: normal rate Respiratory/Chest: normal breath sounds, no respiratory distress Abdominal Exam: normal bowel sounds, non tender, soft Extremities: normal range of motion, non-tender, normal inspection Sharon Montgomery N.P. June 25, 2017 10:45
--- NOTE | 2017-06-25 11:43 | Internal Med Progress Note ---
Subjective Date of Service: June 25, 2017 Physician Name Rico,Homer Attending Physician Bharat Orozco MD Current Medications Medications (Trade) Dose Ordered Sig/Naman Route PRN Reason Start Time Stop Time Status Last Admin Dose Admin Acetaminophen (Tylenol) 650 mg Q4H PRN ORAL fever 06/19/17 14:45 07/18/17 10:44 Apixaban (Eliquis) 5 mg BID ORAL 06/20/17 14:00 07/20/17 13:59 06/25/17 09:28 Ceftriaxone Sodium 2 gm/ Dextrose 110 ml @ 220 mls/hr Q24H IVPB 06/23/17 15:00 06/30/17 14:59 06/24/17 14:39 Chlorhexidine Gluconate (Tawanna-Hex 2%) 1 applic DAILY@2000 TOPIC 06/19/17 20:00 07/19/17 19:59 06/24/17 20:28 Folic Acid (Folate) 1 mg DAILY ORAL 06/20/17 09:00 07/20/17 08:59 06/25/17 09:28 Megestrol Acetate (Megace) 400 mg TWICE A DAY ORAL 06/24/17 18:00 07/24/17 17:59 06/25/17 09:28 Metronidazole (Flagyl) 250 mg Q8HR ORAL 06/23/17 14:00 06/30/17 13:59 06/25/17 05:31 Morphine Sulfate (Morphine Sulfate) 1 mg Q4H PRN IVP for Pain 3-6 06/24/17 11:00 07/01/17 10:59 Morphine Sulfate (Morphine Sulfate) 2 mg Q4H PRN IVP Severe Pain (Pain Scale 7-10) 06/24/17 11:00 07/01/17 10:59 06/24/17 15:15 Ondansetron HCl (Zofran) 4 mg Q6H PRN IVP Nausea & Vomiting 06/19/17 14:24 07/18/17 14:23 Pantoprazole (Protonix) 40 mg DAILY IVP 06/20/17 09:00 07/19/17 08:59 06/25/17 09:28 Polyethylene Glycol (Miralax) 17 gm DAILYPRN PRN ORAL Constipation 06/19/17 14:24 07/19/17 14:23 Potassium Chloride (K-Dur) 40 meq ONCE ORAL 06/25/17 10:00 06/25/17 12:00 06/25/17 10:29 Sodium Chloride 1,000 ml @ 50 mls/hr Q20H IVLG 06/19/17 14:30 07/18/17 10:32 06/25/17 09:29 Allergies: Coded Allergies: PENICILLINS (Verified Allergy, Unknown, 06/18/17) Swelling ROS Limited/Unobtainable: No Constitutional: Reports: no symptoms HEENT: Reports: no symptoms Cardiovascular: Reports: no symptoms Respiratory: Reports: no symptoms Gastrointestinal/Abdominal: Reports: no symptoms Genitourinary: Reports: no symptoms Neurologic/Psychiatric: Reports: no symptoms Subjective 72 YO F admitted with hypotension and anemia. Now GI bleed and bacteremia. Cover for Int Med-Dr Orozco. Decreased appetite. Objective Last Vital Signs Date Time Temp Pulse Resp B/P (MAP) Pulse Ox O2 Delivery O2 Flow Rate FiO2 06/25/17 09:00 97.8 98 23 149/71 99 97.8 06/23/17 20:24 Room Air 21 Laboratory Tests Test 06/25/17 06:24 White Blood Count 23.4 K/UL (4.8-10.8) *H Red Blood Count 3.25 M/UL (4.20-5.40) L Hemoglobin 9.3 G/DL (12.0-16.0) L Hematocrit 27.4 % (37.0-47.0) L Mean Corpuscular Volume 84 FL (80-99) Mean Corpuscular Hemoglobin 28.5 PG (27.0-31.0) Mean Corpuscular Hemoglobin Concent 33.8 G/DL (32.0-36.0) Red Cell Distribution Width 15.8 % (11.6-14.8) H Platelet Count 242 K/UL (150-450) Mean Platelet Volume 6.5 FL (6.5-10.1) Neutrophils (%) (Auto) % (45.0-75.0) Lymphocytes (%) (Auto) % (20.0-45.0) Monocytes (%) (Auto) % (1.0-10.0) Eosinophils (%) (Auto) % (0.0-3.0) Basophils (%) (Auto) % (0.0-2.0) Differential Total Cells Counted 100 Neutrophils % (Manual) 96 % (45-75) H Lymphocytes % (Manual) 0 % (20-45) L Monocytes % (Manual) 4 % (1-10) Eosinophils % (Manual) 0 % (0-3) Basophils % (Manual) 0 % (0-2) Band Neutrophils 0 % (0-8) Platelet Estimate Adequate Platelet Morphology Normal Hypochromasia 1+ Target Cells 1+ Sodium Level 138 MMOL/L (136-145) Potassium Level 3.1 MMOL/L (3.5-5.1) L Chloride Level 106 MMOL/L (98-107) Carbon Dioxide Level 21 MMOL/L (21-32) Anion Gap 11 mmol/L (5-15) Blood Urea Nitrogen 10 mg/dL (7-18) Creatinine 0.5 MG/DL (0.55-1.30) L Estimat Glomerular Filtration Rate mL/min (>60) Glucose Level 80 MG/DL (74-106) Calcium Level 8.8 MG/DL (8.5-10.1) Intake and Output 06/24/17 06/25/17 19:00 07:00 Intake Total 660 ml 600 ml Output Total 525 ml 450 ml Balance 135 ml 150 ml IV Total 660 ml 600 ml Output Urine Total 450 ml 450 ml Stool Total 75 ml Objective General Appearance: WD/WN, no apparent distress, alert EENT: PERRL/EOMI, normal ENT inspection Neck: non-tender, normal alignment, supple Cardiovascular: normal peripheral pulses, normal rate, regular rhythm, no gallop/murmur, no JVD Respiratory/Chest: chest wall non-tender, lungs clear, normal breath sounds, no respiratory distress, no accessory muscle use Abdomen: normal bowel sounds, non tender, soft, no organomegaly, no mass Extremities: normal inspection 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 Previously on eliquis. Questionable GI bleed-see heme consult. GI procedures on hold (4) Altered mental status (5) Hypotension (6) Colon cancer Assessment & Plan: Recurrence - see onc note. (7) Anemia Assessment & Plan: S/P transfusion 2 units PRBC on 06/18/17. Hemoglobin stable. GI procedures on hold-see GI note. (8) Hypokalemia Assessment & Plan: replace K+ (9) Hypomagnesemia Assessment & Plan: resolved (10) Severe sepsis Assessment & Plan: Bacteroides fragilis. Continue ceftriaxone and flagyl per ID (11) Decrease in appetite Assessment & Plan: Calorie count. Megace Status: progressing Assessment/Plan Discharge planning HOMER RICO June 25, 2017 11:43
[2017-06-25 12:00] VITALS: BP 137/72
--- NOTE | 2017-06-25 12:06 | Infectious Diseases Prog Note ---
Assessment/Plan Assessment/Plan Assessment: Septic Shock, SP - Possibly multifactorial- originally suspected UTI but Ucx with no significant growth (she did had UTI and pyelo symptoms: +frequency/ urgency, n/v, lower abd pain). Now is bacteremic, likely GI translocation for either bleeding or cancer burden -CXR: Cardiomegaly and pulmonary vascular congestion. Patchy retrocardiac opacity. Pneumonia not excluded. Clinical correlation and follow-up exam recommended; doubt PNA- no cough -u/a wbc tntc, nit neg, leuk +3, sq cells moderate; ucx 20-30k mixed gram positive growth; repeat u/a WBC 40-60,nit neg, leuk +2, sq cells few; ucx Neg -Bcx 06/17 03/25 B. fragilis; 06/18 02/22 B. fragilis; 06/20 Bcx NTD x4 Fever, leukocytosis- fever resolved, leukocytosis improving- ? due to metastatic diseaase and bacteremia -CT abd/p w/: Evidence of recurrent colon carcinoma with extensive bulky tumor and adenopathy within the pelvis and retroperitoneum. This results in mild to moderate left hydronephrosis. Localized adjacent lytic destruction of the anterior L5 vertebra and part of the upper sacrum. Evidence of more remote metastatic neoplasm with multiple pulmonary nodules. -CDiff Lactic acidosis, resolved L DVT Anemia CARLOS, resolved Colon CA s/p resection and colostomy w/ recurrent Cancer obstructive uropathy s/p PPM DVT on [facility]NC allergy Plan: -Switch IV Ceftriaxone and PO Flagyl abx d#10/02 to IV Eratpenem given increased in WBC to complete course for B. fragilis bacteremic (also assuming possible translocation of other gram negative organisms) -06/23 SP Meropenem #6 -06/19 SP IV Vancomycin #2 -06/17 CEfepime and Flagyl x1 -f/u repeat 2 sets of Bcx -f/u cx -Monitor CBC/BMP, temperatures -aspiration precautions -heme onc f/u -wound care/prevention per hospital protocol Thank you for this consultation. Will continue to follow along with you. Discussed with RN Subjective Allergies: Coded Allergies: PENICILLINS (Verified Allergy, Unknown, 06/18/17) Swelling Subjective afebrile leukocytosis increasing repeat Bcx NTD Objective Vital Signs Last 24 Hour Vital Signs Date Time Temp Pulse Resp B/P (MAP) Pulse Ox O2 Delivery O2 Flow Rate FiO2 06/25/17 09:00 97.8 98 23 149/71 99 97.8 06/25/17 04:00 98.0 98 19 143/82 100 98.0 06/25/17 00:00 97.9 97 19 147/76 98 97.9 06/24/17 19:58 97.9 105 20 142/80 98 97.9 06/24/17 16:00 97.0 100 19 138/70 95 97.0 Height (Feet): 5 Height (Inches): 4.00 Weight (Pounds): 202 Objective General Appearance: well appearing, no apparent distress, alert Head: normocephalic EENT: PERRL/EOMI, normal ENT inspection Neck: supple Respiratory: normal breath sounds, no respiratory distress Cardiovascular: normal rate Gastrointestinal: normal inspection, non tender, soft, normal bowel sounds, non -distended Genitourinary: no CVA tenderness Musculoskeletal: normal inspection, back normal Skin: normal inspection, normal color, no rash, warm/dry, palpation normal, well hydrated Laboratory Tests Test 06/25/17 06:24 White Blood Count 23.4 K/UL (4.8-10.8) *H Red Blood Count 3.25 M/UL (4.20-5.40) L Hemoglobin 9.3 G/DL (12.0-16.0) L Hematocrit 27.4 % (37.0-47.0) L Mean Corpuscular Volume 84 FL (80-99) Mean Corpuscular Hemoglobin 28.5 PG (27.0-31.0) Mean Corpuscular Hemoglobin Concent 33.8 G/DL (32.0-36.0) Red Cell Distribution Width 15.8 % (11.6-14.8) H Platelet Count 242 K/UL (150-450) Mean Platelet Volume 6.5 FL (6.5-10.1) Neutrophils (%) (Auto) % (45.0-75.0) Lymphocytes (%) (Auto) % (20.0-45.0) Monocytes (%) (Auto) % (1.0-10.0) Eosinophils (%) (Auto) % (0.0-3.0) Basophils (%) (Auto) % (0.0-2.0) Differential Total Cells Counted 100 Neutrophils % (Manual) 96 % (45-75) H Lymphocytes % (Manual) 0 % (20-45) L Monocytes % (Manual) 4 % (1-10) Eosinophils % (Manual) 0 % (0-3) Basophils % (Manual) 0 % (0-2) Band Neutrophils 0 % (0-8) Platelet Estimate Adequate Platelet Morphology Normal Hypochromasia 1+ Target Cells 1+ Sodium Level 138 MMOL/L (136-145) Potassium Level 3.1 MMOL/L (3.5-5.1) L Chloride Level 106 MMOL/L (98-107) Carbon Dioxide Level 21 MMOL/L (21-32) Anion Gap 11 mmol/L (5-15) Blood Urea Nitrogen 10 mg/dL (7-18) Creatinine 0.5 MG/DL (0.55-1.30) L Estimat Glomerular Filtration Rate mL/min (>60) Glucose Level 80 MG/DL (74-106) Calcium Level 8.8 MG/DL (8.5-10.1) Current Medications Medications (Trade) Dose Ordered Sig/Naman Route PRN Reason Start Time Stop Time Status Last Admin Dose Admin Acetaminophen (Tylenol) 650 mg Q4H PRN ORAL fever 06/19/17 14:45 07/18/17 10:44 Apixaban (Eliquis) 5 mg BID ORAL 06/20/17 14:00 07/20/17 13:59 06/25/17 09:28 Ceftriaxone Sodium 2 gm/ Dextrose 110 ml @ 220 mls/hr Q24H IVPB 06/23/17 15:00 06/30/17 14:59 06/24/17 14:39 Chlorhexidine Gluconate (Tawanna-Hex 2%) 1 applic DAILY@2000 TOPIC 06/19/17 20:00 07/19/17 19:59 06/24/17 20:28 Folic Acid (Folate) 1 mg DAILY ORAL 06/20/17 09:00 07/20/17 08:59 06/25/17 09:28 Megestrol Acetate (Megace) 400 mg TWICE A DAY ORAL 06/24/17 18:00 07/24/17 17:59 06/25/17 09:28 Metronidazole (Flagyl) 250 mg Q8HR ORAL 06/23/17 14:00 06/30/17 13:59 06/25/17 05:31 Morphine Sulfate (Morphine Sulfate) 1 mg Q4H PRN IVP for Pain 3-6 06/24/17 11:00 07/01/17 10:59 Morphine Sulfate (Morphine Sulfate) 2 mg Q4H PRN IVP Severe Pain (Pain Scale 7-10) 06/24/17 11:00 07/01/17 10:59 06/24/17 15:15 Ondansetron HCl (Zofran) 4 mg Q6H PRN IVP Nausea & Vomiting 06/19/17 14:24 07/18/17 14:23 Pantoprazole (Protonix) 40 mg DAILY IVP 06/20/17 09:00 07/19/17 08:59 06/25/17 09:28 Polyethylene Glycol (Miralax) 17 gm DAILYPRN PRN ORAL Constipation 06/19/17 14:24 07/19/17 14:23 Sodium Chloride 1,000 ml @ 50 mls/hr Q20H IVLG 06/19/17 14:30 07/18/17 10:32 06/25/17 09:29 Cheryl Ramos M.D. June 25, 2017 12:06
[2017-06-25] MEDS: Ertapenem 1 GM in NS 55 ML IVPB SCH (14:29)
--- NOTE | 2017-06-25 15:13 | Pulmonology Progress Note ---
Assessment/Plan Problems: (1) Severe sepsis (2) Acute encephalopathy (3) Anemia (4) H/O deep venous thrombosis (5) Colon cancer (6) Colostomy in place Assessment/Plan CT abdomen reviewed, extensive metastasis oncology note appreciated wbc higher again, ABX were changed to Ertapenem BC showing B. fragilis anemia w/u check electrolytes leukocytosis might be secondary to Mets and never go down. Pt is a very good candidate for comfort and end of life care. Subjective ROS Limited/Unobtainable: No Constitutional: Reports: no symptoms HEENT: Repors: no symptoms Respiratory: Reports: no symptoms Allergies: Coded Allergies: PENICILLINS (Verified Allergy, Unknown, 06/18/17) Swelling Objective Last 24 Hour Vital Signs Date Time Temp Pulse Resp B/P (MAP) Pulse Ox O2 Delivery O2 Flow Rate FiO2 06/25/17 12:00 98.1 99 20 137/72 99 Room Air 98.1 06/25/17 09:00 97.8 98 23 149/71 99 97.8 06/25/17 04:00 98.0 98 19 143/82 100 98.0 06/25/17 00:00 97.9 97 19 147/76 98 97.9 06/24/17 19:58 97.9 105 20 142/80 98 97.9 06/24/17 16:00 97.0 100 19 138/70 95 97.0 Intake and Output 06/24/17 06/25/17 19:00 07:00 Intake Total 660 ml 600 ml Output Total 525 ml 450 ml Balance 135 ml 150 ml IV Total 660 ml 600 ml Output Urine Total 450 ml 450 ml Stool Total 75 ml General Appearance: WD/WN HEENT: normocephalic, atraumatic Respiratory/Chest: chest wall non-tender, lungs clear Breasts: no masses Cardiovascular: normal peripheral pulses Abdomen: normal bowel sounds, soft, non tender Extremities: no cyanosis Skin: no rash 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 Lymphatic: no neck adenopathy Laboratory Tests 06/25/17 06:24: White Blood Count 23.4*H, Red Blood Count 3.25L, Hemoglobin 9.3L, Hematocrit 27.4L, Mean Corpuscular Volume 84, Mean Corpuscular Hemoglobin 28.5, Mean Corpuscular Hemoglobin Concent 33.8, Red Cell Distribution Width 15.8H, Platelet Count 242, Mean Platelet Volume 6.5, Neutrophils (%) (Auto) , Lymphocytes (%) (Auto) , Monocytes (%) (Auto) , Eosinophils (%) (Auto) , Basophils (%) (Auto) , Differential Total Cells Counted 100, Neutrophils % ( Manual) 96H, Lymphocytes % (Manual) 0L, Monocytes % (Manual) 4, Eosinophils % ( Manual) 0, Basophils % (Manual) 0, Band Neutrophils 0, Platelet Estimate Adequate, Platelet Morphology Normal, Hypochromasia 1+, Target Cells 1+, Sodium Level 138, Potassium Level 3.1L, Chloride Level 106, Carbon Dioxide Level 21, Anion Gap 11, Blood Urea Nitrogen 10, Creatinine 0.5L, Estimat Glomerular Filtration Rate , Glucose Level 80, Calcium Level 8.8 Current Medications Medications (Trade) Dose Ordered Sig/Naman Route PRN Reason Start Time Stop Time Status Last Admin Dose Admin Acetaminophen (Tylenol) 650 mg Q4H PRN ORAL fever 06/19/17 14:45 07/18/17 10:44 Apixaban (Eliquis) 5 mg BID ORAL 06/20/17 14:00 07/20/17 13:59 06/25/17 09:28 Chlorhexidine Gluconate (Tawanna-Hex 2%) 1 applic DAILY@2000 TOPIC 06/19/17 20:00 07/19/17 19:59 06/24/17 20:28 Ertapenem 1 gm/ Sodium Chloride 55 ml @ 110 mls/hr Q24H IVPB 06/25/17 14:30 06/30/17 14:29 06/25/17 14:29 Folic Acid (Folate) 1 mg DAILY ORAL 06/20/17 09:00 07/20/17 08:59 06/25/17 09:28 Megestrol Acetate (Megace) 400 mg TWICE A DAY ORAL 06/24/17 18:00 07/24/17 17:59 06/25/17 09:28 Morphine Sulfate (Morphine Sulfate) 1 mg Q4H PRN IVP for Pain 3-6 06/24/17 11:00 07/01/17 10:59 Morphine Sulfate (Morphine Sulfate) 2 mg Q4H PRN IVP Severe Pain (Pain Scale 7-10) 06/24/17 11:00 07/01/17 10:59 06/24/17 15:15 Ondansetron HCl (Zofran) 4 mg Q6H PRN IVP Nausea & Vomiting 06/19/17 14:24 07/18/17 14:23 Pantoprazole (Protonix) 40 mg DAILY IVP 06/20/17 09:00 07/19/17 08:59 06/25/17 09:28 Polyethylene Glycol (Miralax) 17 gm DAILYPRN PRN ORAL Constipation 06/19/17 14:24 07/19/17 14:23 Sodium Chloride 1,000 ml @ 50 mls/hr Q20H IVLG 06/19/17 14:30 07/18/17 10:32 06/25/17 09:29 Andres Reynolds MD June 25, 2017 15:13
[2017-06-25 20:00] VITALS: BP 146/75
[2017-06-25] MEDS: Dyna-Hex 2% Top Sol 2oz TOPIC SCH (20:07)
[2017-06-26] VITALS: BP 146/78
[2017-06-26 04:00] VITALS: BP 143/71
[2017-06-26 08:00] VITALS: BP 130/69
[2017-06-26 08:15] LABS: HEMATOCRIT 26.6 % (37.0-47.0); HEMOGLOBIN 9.2 G/DL (12.0-16.0); MEAN CORPUSCULAR VOLUME 83 FL (80-99); PLATELET COUNT 239 K/UL (150-450); RED BLOOD COUNT 3.22 M/UL (4.20-5.40)
[2017-06-26 08:17] LABS: WHITE BLOOD COUNT 22.5 K/UL (4.8-10.8)
[2017-06-26 08:19] LABS: INR 1.2 (0.9-1.1)
[2017-06-26 08:51] LABS: ALANINE AMINOTRANSFERASE 10 U/L (12-78); ALBUMIN 1.3 G/DL (3.4-5.0); ALBUMIN/GLOBULIN RATIO 0.3 (1.0-2.7); ALKALINE PHOSPHATASE 95 U/L (46-116); ANION GAP 8 mmol/L (5-15); ASPARTATE AMINO TRANSFERASE 18 U/L (15-37); BILIRUBIN,TOTAL 0.5 MG/DL (0.2-1.0); BLOOD UREA NITROGEN 8 mg/dL (7-18); CALCIUM 8.5 MG/DL (8.5-10.1); CARBON DIOXIDE 22 MMOL/L (21-32); CHLORIDE 106 MMOL/L (98-107); CREATININE 0.5 MG/DL (0.55-1.30); PHOSPHORUS 2.4 MG/DL (2.5-4.9); POTASSIUM 3.4 MMOL/L (3.5-5.1); SODIUM 136 MMOL/L (136-145)
[2017-06-26] MEDS ORDERED: Potassium Phosphate 30 MM in NS 275 ML IV SCH (10:30)
[2017-06-26] MEDS: Pantoprazole Inj IVP SCH (10:38)
[2017-06-26] MEDS: Eliquis 2.5mg tablet ORAL SCH ×2 (10:39→17:25)
[2017-06-26] MEDS: Megace 400mg/10ml Susp ORAL SCH ×2 (10:39→17:25)
--- NOTE | 2017-06-26 10:55 | Infectious Diseases Prog Note ---
Assessment/Plan Assessment/Plan Assessment: Septic Shock, SP - Possibly multifactorial- originally suspected UTI but Ucx with no significant growth (she did had UTI and pyelo symptoms: +frequency/ urgency, n/v, lower abd pain). Now is bacteremic, likely GI translocation for either bleeding or cancer burden -CXR: Cardiomegaly and pulmonary vascular congestion. Patchy retrocardiac opacity. Pneumonia not excluded. Clinical correlation and follow-up exam recommended; doubt PNA- no cough -u/a wbc tntc, nit neg, leuk +3, sq cells moderate; ucx 20-30k mixed gram positive growth; repeat u/a WBC 40-60,nit neg, leuk +2, sq cells few; ucx Neg -Bcx 06/17 03/25 B. fragilis; 06/18 02/22 B. fragilis; 06/20 Bcx Neg x4 Fever, leukocytosis- fever resolved, leukocytosis improving- ? due to metastatic diseaase and bacteremia- r/o RIJ bacteremia- -CT abd/p w/: Evidence of recurrent colon carcinoma with extensive bulky tumor and adenopathy within the pelvis and retroperitoneum. This results in mild to moderate left hydronephrosis. Localized adjacent lytic destruction of the anterior L5 vertebra and part of the upper sacrum. Evidence of more remote metastatic neoplasm with multiple pulmonary nodules. -CDiff Lactic acidosis, resolved L DVT Anemia CARLOS, resolved Colon CA s/p resection and colostomy w/ recurrent Cancer obstructive uropathy s/p PPM DVT on [facility] resident PNC allergy Plan: -Continue IV Ertapenem abx d #11/02 given increased in WBC to complete course for B. fragilis bacteremic (also assuming possible translocation of other gram negative organisms) -06/25 SP Ceftriaxone and Flagyl #3 -06/23 SP Meropenem #6 -06/19 SP IV Vancomycin #2 -06/17 CEfepime and Flagyl x1 -Repeat 2 sets of Bcx (peripheral and from R IJ) -remove R IJ and replace with PICC line -f/u cx -Monitor CBC/BMP, temperatures -aspiration precautions -heme onc f/u -wound care/prevention per hospital protocol Thank you for this consultation. Will continue to follow along with you. Discussed with RN Subjective Allergies: Coded Allergies: PENICILLINS (Verified Allergy, Unknown, 06/18/17) Swelling Subjective afebrile leukocytosis increased, today stable to mildly decreased Bcx 06/20 neg Objective Vital Signs Last 24 Hour Vital Signs Date Time Temp Pulse Resp B/P (MAP) Pulse Ox O2 Delivery O2 Flow Rate FiO2 06/26/17 08:00 97.4 95 16 130/69 100 97.4 06/26/17 04:00 98.0 104 19 143/71 100 98.0 06/26/17 00:00 98.2 104 19 146/78 98 98.2 06/25/17 20:00 98.5 18 146/75 98 98.5 06/25/17 12:00 98.1 99 20 137/72 99 Room Air 98.1 Height (Feet): 5 Height (Inches): 4.00 Weight (Pounds): 202 Objective General Appearance: well appearing, no apparent distress, alert Head: normocephalic EENT: PERRL/EOMI, normal ENT inspection Neck: supple Respiratory: normal breath sounds, no respiratory distress Cardiovascular: normal rate Gastrointestinal: normal inspection, non tender, soft, normal bowel sounds, non -distended Genitourinary: no CVA tenderness Musculoskeletal: normal inspection, back normal Skin: normal inspection, normal color, no rash, warm/dry, palpation normal, well hydrated Laboratory Tests Test 06/26/17 07:50 White Blood Count 22.5 K/UL (4.8-10.8) *H Red Blood Count 3.22 M/UL (4.20-5.40) L Hemoglobin 9.2 G/DL (12.0-16.0) L Hematocrit 26.6 % (37.0-47.0) L Mean Corpuscular Volume 83 FL (80-99) Mean Corpuscular Hemoglobin 28.7 PG (27.0-31.0) Mean Corpuscular Hemoglobin Concent 34.7 G/DL (32.0-36.0) Red Cell Distribution Width 16.0 % (11.6-14.8) H Platelet Count 239 K/UL (150-450) Mean Platelet Volume 6.9 FL (6.5-10.1) Neutrophils (%) (Auto) % (45.0-75.0) Lymphocytes (%) (Auto) % (20.0-45.0) Monocytes (%) (Auto) % (1.0-10.0) Eosinophils (%) (Auto) % (0.0-3.0) Basophils (%) (Auto) % (0.0-2.0) Differential Total Cells Counted 100 Neutrophils % (Manual) 96 % (45-75) H Lymphocytes % (Manual) 2 % (20-45) L Monocytes % (Manual) 1 % (1-10) Eosinophils % (Manual) 0 % (0-3) Basophils % (Manual) 0 % (0-2) Band Neutrophils 1 % (0-8) Platelet Estimate Adequate Platelet Morphology Normal Hypochromasia 1+ Anisocytosis 1+ Prothrombin Time 12.8 SEC (9.30-11.50) H Prothromb Time International Ratio 1.2 (0.9-1.1) H Activated Partial Thromboplast Time 42 SEC (23-33) H Sodium Level 136 MMOL/L (136-145) Potassium Level 3.4 MMOL/L (3.5-5.1) L Chloride Level 106 MMOL/L (98-107) Carbon Dioxide Level 22 MMOL/L (21-32) Anion Gap 8 mmol/L (5-15) Blood Urea Nitrogen 8 mg/dL (7-18) Creatinine 0.5 MG/DL (0.55-1.30) L Estimat Glomerular Filtration Rate mL/min (>60) Glucose Level 100 MG/DL (74-106) Calcium Level 8.5 MG/DL (8.5-10.1) Phosphorus Level 2.4 MG/DL (2.5-4.9) L Magnesium Level 1.6 MG/DL (1.8-2.4) L Total Bilirubin 0.5 MG/DL (0.2-1.0) Aspartate Amino Transf (AST/SGOT) 18 U/L (15-37) Alanine Aminotransferase (ALT/SGPT) 10 U/L (12-78) L Alkaline Phosphatase 95 U/L (46-116) Total Protein 5.6 G/DL (6.4-8.2) L Albumin 1.3 G/DL (3.4-5.0) L Globulin 4.3 g/dL Albumin/Globulin Ratio 0.3 (1.0-2.7) L Current Medications Medications (Trade) Dose Ordered Sig/Naman Route PRN Reason Start Time Stop Time Status Last Admin Dose Admin Acetaminophen (Tylenol) 650 mg Q4H PRN ORAL fever 06/19/17 14:45 07/18/17 10:44 Apixaban (Eliquis) 5 mg BID ORAL 06/20/17 14:00 07/20/17 13:59 06/26/17 10:39 Chlorhexidine Gluconate (Tawanna-Hex 2%) 1 applic DAILY@2000 TOPIC 06/19/17 20:00 07/19/17 19:59 06/25/17 20:07 Ertapenem 1 gm/ Sodium Chloride 55 ml @ 110 mls/hr Q24H IVPB 06/25/17 14:30 06/30/17 14:29 06/25/17 14:29 Folic Acid (Folate) 1 mg DAILY ORAL 06/20/17 09:00 07/20/17 08:59 06/26/17 10:39 Magnesium Sulfate 100 ml @ 100 mls/hr Q1H IVPB 06/26/17 09:30 06/26/17 12:00 06/26/17 10:39 Megestrol Acetate (Megace) 400 mg TWICE A DAY ORAL 06/24/17 18:00 07/24/17 17:59 06/26/17 10:39 Morphine Sulfate (Morphine Sulfate) 1 mg Q4H PRN IVP for Pain 3-6 06/24/17 11:00 07/01/17 10:59 Morphine Sulfate (Morphine Sulfate) 2 mg Q4H PRN IVP Severe Pain (Pain Scale 7-10) 06/24/17 11:00 07/01/17 10:59 06/24/17 15:15 Ondansetron HCl (Zofran) 4 mg Q6H PRN IVP Nausea & Vomiting 06/19/17 14:24 07/18/17 14:23 Pantoprazole (Protonix) 40 mg DAILY IVP 06/20/17 09:00 07/19/17 08:59 06/26/17 10:38 Polyethylene Glycol (Miralax) 17 gm DAILYPRN PRN ORAL Constipation 06/19/17 14:24 07/19/17 14:23 Potassium Phosphate 30 mm/ Sodium Chloride 285 ml @ 47.5 mls/hr ONCE IV 06/26/17 10:30 06/26/17 11:30 06/26/17 10:38 Sodium Chloride 1,000 ml @ 50 mls/hr Q20H IVLG 06/19/17 14:30 07/18/17 10:32 06/26/17 06:00 Cheryl Ramos M.D. June 26, 2017 10:55
[2017-06-26 12:00] VITALS: BP 141/78
--- NOTE | 2017-06-26 12:49 | Pulmonology Progress Note ---
Assessment/Plan Problems: (1) Severe sepsis (2) Acute encephalopathy (3) Anemia (4) H/O deep venous thrombosis (5) Colon cancer (6) Colostomy in place Assessment/Plan CT abdomen reviewed, extensive metastasis oncology note appreciated wbc higher again, ABX were changed to Ertapenem BC showing B. fragilis anemia w/u check electrolytes leukocytosis might be secondary to Mets and never go down. Pt is a very good candidate for comfort and end of life care. Subjective ROS Limited/Unobtainable: No Interval Events: comfortable, depressed Allergies: Coded Allergies: PENICILLINS (Verified Allergy, Unknown, 06/18/17) Swelling Objective Last 24 Hour Vital Signs Date Time Temp Pulse Resp B/P (MAP) Pulse Ox O2 Delivery O2 Flow Rate FiO2 06/26/17 08:00 97.4 95 16 130/69 100 97.4 06/26/17 04:00 98.0 104 19 143/71 100 98.0 06/26/17 00:00 98.2 104 19 146/78 98 98.2 06/25/17 20:00 98.5 18 146/75 98 98.5 Intake and Output 06/25/17 06/26/17 18:59 06:59 Intake Total 660 ml 870 ml Output Total 550 ml Balance 660 ml 320 ml Intake Oral 360 ml 320 ml IV Total 300 ml 550 ml Output Urine Total 500 ml Stool Total 50 ml # Voids 2 General Appearance: WD/WN HEENT: normocephalic, atraumatic Respiratory/Chest: chest wall non-tender, lungs clear, normal breath sounds Cardiovascular: normal peripheral pulses, normal rate, no JVD Abdomen: normal bowel sounds, soft, non tender, no scars Extremities: no cyanosis Neurologic/Psychiatric: ecmo specialist II-XII grossly normal, no motor/sensory deficits Laboratory Tests 06/26/17 07:50: White Blood Count 22.5*H, Red Blood Count 3.22L, Hemoglobin 9.2L, Hematocrit 26.6L, Mean Corpuscular Volume 83, Mean Corpuscular Hemoglobin 28.7, Mean Corpuscular Hemoglobin Concent 34.7, Red Cell Distribution Width 16.0H, Platelet Count 239, Mean Platelet Volume 6.9, Neutrophils (%) (Auto) , Lymphocytes (%) (Auto) , Monocytes (%) (Auto) , Eosinophils (%) (Auto) , Basophils (%) (Auto) , Differential Total Cells Counted 100, Neutrophils % ( Manual) 96H, Lymphocytes % (Manual) 2L, Monocytes % (Manual) 1, Eosinophils % ( Manual) 0, Basophils % (Manual) 0, Band Neutrophils 1, Platelet Estimate Adequate, Platelet Morphology Normal, Hypochromasia 1+, Anisocytosis 1+, Prothrombin Time 12.8H, Prothromb Time International Ratio 1.2H, Activated Partial Thromboplast Time 42H, Sodium Level 136, Potassium Level 3.4L, Chloride Level 106, Carbon Dioxide Level 22, Anion Gap 8, Blood Urea Nitrogen 8, Creatinine 0.5L, Estimat Glomerular Filtration Rate , Glucose Level 100, Calcium Level 8.5, Phosphorus Level 2.4L, Magnesium Level 1.6L, Total Bilirubin 0.5, Aspartate Amino Transf (AST/SGOT) 18, Alanine Aminotransferase (ALT/SGPT) 10L, Alkaline Phosphatase 95, Total Protein 5.6L, Albumin 1.3L, Globulin 4.3, Albumin/Globulin Ratio 0.3L Current Medications Medications (Trade) Dose Ordered Sig/Naman Route PRN Reason Start Time Stop Time Status Last Admin Dose Admin Acetaminophen (Tylenol) 650 mg Q4H PRN ORAL fever 06/19/17 14:45 07/18/17 10:44 Apixaban (Eliquis) 5 mg BID ORAL 06/20/17 14:00 07/20/17 13:59 06/26/17 10:39 Chlorhexidine Gluconate (Tawanna-Hex 2%) 1 applic DAILY@1999 TOPIC 06/19/17 20:00 07/19/17 19:59 06/25/17 20:07 Chlorhexidine Gluconate (Tawanna-Hex 2%) 1 applic DAILY@1999 TOPIC 06/26/17 20:00 07/26/17 19:59 Ertapenem 1 gm/ Sodium Chloride 55 ml @ 110 mls/hr Q24H IVPB 06/25/17 14:30 06/30/17 14:29 06/25/17 14:29 Folic Acid (Folate) 1 mg DAILY ORAL 06/20/17 09:00 07/20/17 08:59 06/26/17 10:39 Megestrol Acetate (Megace) 400 mg TWICE A DAY ORAL 06/24/17 18:00 07/24/17 17:59 06/26/17 10:39 Morphine Sulfate (Morphine Sulfate) 1 mg Q4H PRN IVP for Pain 3-6 06/24/17 11:00 07/01/17 10:59 Morphine Sulfate (Morphine Sulfate) 2 mg Q4H PRN IVP Severe Pain (Pain Scale 7-10) 06/24/17 11:00 07/01/17 10:59 06/24/17 15:15 Ondansetron HCl (Zofran) 4 mg Q6H PRN IVP Nausea & Vomiting 06/19/17 14:24 07/18/17 14:23 Pantoprazole (Protonix) 40 mg DAILY IVP 06/20/17 09:00 07/19/17 08:59 06/26/17 10:38 Polyethylene Glycol (Miralax) 17 gm DAILYPRN PRN ORAL Constipation 06/19/17 14:24 07/19/17 14:23 Sodium Chloride 1,000 ml @ 50 mls/hr Q20H IVLG 06/19/17 14:30 07/18/17 10:32 06/26/17 06:00 Andres Reynolds MD June 26, 2017 12:49
[2017-06-26] MEDS ORDERED: Heparin 2000 units/Ns 1000ml INJ PRN (13:00)
[2017-06-26] MEDS ORDERED: Lidocaine 1% Plain 30 ml INJ PRN (13:00)
--- NOTE | 2017-06-26 13:25 | GI Progress Note ---
Assessment/Plan Problems: (1) Severe sepsis ICD Codes: A41.9 - Sepsis, unspecified organism; R65.20 - Severe sepsis without septic shock SNOMED: 26531160 (2) Electrolyte imbalance ICD Codes: E87.8 - Other disorders of electrolyte and fluid balance, not elsewhere classified SNOMED: 630994538 (3) Dehydration ICD Codes: E86.0 - Dehydration SNOMED: 58938005 (4) Colostomy in place ICD Codes: Z93.3 - Colostomy status SNOMED: 878138661, 554885548 (5) Colon cancer ICD Codes: C18.9 - Malignant neoplasm of colon, unspecified SNOMED: 522258895 Qualifiers: Qualified Codes: C18.9 - Malignant neoplasm of colon, unspecified (6) Anemia ICD Codes: D64.9 - Anemia, unspecified SNOMED: 456314553 Qualifiers: Qualified Codes: D64.89 - Other specified anemias Status: unchanged Status Narrative Discussed with Dr. Fonseca. Assessment/Plan may need colonoscopy for staging, pending CEA results >> will defer if elevated anemia work up reviewed >> folate deficiency OB stool r/o GI bleed >> negative cdiff negative CT AP reviewed >> fu oncology recs monitor H&H, prn transfusions bowel regime ppi electrolyte replacement fu labs patient on Plavix The patient was seen and examined at bedside and all new and available data was reviewed in the patients chart. I agree with the above findings, impression and plan. (Patient seen earlier today. Signature stamp does not reflect patient encounter time.). - Yung Fonseca MD Subjective Subjective denies abdominal pain Objective Last 24 Hour Vital Signs Date Time Temp Pulse Resp B/P (MAP) Pulse Ox O2 Delivery O2 Flow Rate FiO2 06/26/17 12:00 98.3 98 16 141/78 96 98.3 06/26/17 08:00 97.4 95 16 130/69 100 97.4 06/26/17 04:00 98.0 104 19 143/71 100 98.0 06/26/17 00:00 98.2 104 19 146/78 98 98.2 06/25/17 20:00 98.5 18 146/75 98 98.5 Intake and Output 06/25/17 06/26/17 19:00 07:00 Intake Total 660 ml 870 ml Output Total 550 ml Balance 660 ml 320 ml Intake Oral 360 ml 320 ml IV Total 300 ml 550 ml Output Urine Total 500 ml Stool Total 50 ml # Voids 2 Laboratory Tests Test 06/26/17 07:50 White Blood Count 22.5 K/UL (4.8-10.8) *H Red Blood Count 3.22 M/UL (4.20-5.40) L Hemoglobin 9.2 G/DL (12.0-16.0) L Hematocrit 26.6 % (37.0-47.0) L Mean Corpuscular Volume 83 FL (80-99) Mean Corpuscular Hemoglobin 28.7 PG (27.0-31.0) Mean Corpuscular Hemoglobin Concent 34.7 G/DL (32.0-36.0) Red Cell Distribution Width 16.0 % (11.6-14.8) H Platelet Count 239 K/UL (150-450) Mean Platelet Volume 6.9 FL (6.5-10.1) Neutrophils (%) (Auto) % (45.0-75.0) Lymphocytes (%) (Auto) % (20.0-45.0) Monocytes (%) (Auto) % (1.0-10.0) Eosinophils (%) (Auto) % (0.0-3.0) Basophils (%) (Auto) % (0.0-2.0) Differential Total Cells Counted 100 Neutrophils % (Manual) 96 % (45-75) H Lymphocytes % (Manual) 2 % (20-45) L Monocytes % (Manual) 1 % (1-10) Eosinophils % (Manual) 0 % (0-3) Basophils % (Manual) 0 % (0-2) Band Neutrophils 1 % (0-8) Platelet Estimate Adequate Platelet Morphology Normal Hypochromasia 1+ Anisocytosis 1+ Prothrombin Time 12.8 SEC (9.30-11.50) H Prothromb Time International Ratio 1.2 (0.9-1.1) H Activated Partial Thromboplast Time 42 SEC (23-33) H Sodium Level 136 MMOL/L (136-145) Potassium Level 3.4 MMOL/L (3.5-5.1) L Chloride Level 106 MMOL/L (98-107) Carbon Dioxide Level 22 MMOL/L (21-32) Anion Gap 8 mmol/L (5-15) Blood Urea Nitrogen 8 mg/dL (7-18) Creatinine 0.5 MG/DL (0.55-1.30) L Estimat Glomerular Filtration Rate mL/min (>60) Glucose Level 100 MG/DL (74-106) Calcium Level 8.5 MG/DL (8.5-10.1) Phosphorus Level 2.4 MG/DL (2.5-4.9) L Magnesium Level 1.6 MG/DL (1.8-2.4) L Total Bilirubin 0.5 MG/DL (0.2-1.0) Aspartate Amino Transf (AST/SGOT) 18 U/L (15-37) Alanine Aminotransferase (ALT/SGPT) 10 U/L (12-78) L Alkaline Phosphatase 95 U/L (46-116) Total Protein 5.6 G/DL (6.4-8.2) L Albumin 1.3 G/DL (3.4-5.0) L Globulin 4.3 g/dL Albumin/Globulin Ratio 0.3 (1.0-2.7) L Height (Feet): 5 Height (Inches): 4.00 Weight (Pounds): 202 General Appearance: WD/WN, no apparent distress, alert Cardiovascular: normal rate Respiratory/Chest: normal breath sounds, no respiratory distress Abdominal Exam: normal bowel sounds, non tender, soft, other - colostomy with noted output Extremities: normal range of motion, non-tender Sharon Montgomery N.P. June 26, 2017 13:25
[2017-06-26] MEDS: Morphine Sulfate 4mg/ml Inj IVP PRN (13:58)
--- NOTE | 2017-06-26 15:38 | Consultation ---
History of Present Illness General Date patient seen: June 25, 2017 Chief Complaint: General Complaint Referring physician: CARISSA SALGUERO Reason for Consultation: ANEMIA Present Illness HPI 72-year-old -[place] female, who presents with chief complaint of altered mental status and generalized weakness. the pt cont to be depressed Allergies: Coded Allergies: PENICILLINS (Verified Allergy, Unknown, 06/18/17) Swelling Medication History Scheduled Apixaban (Eliquis), 2.5 MG PO BID, (Reported) Gabapentin* (Gabapentin*), 300 MG ORAL BEDTIME, (Reported) Lidocaine (Lidoderm), 1 PATCH TOPIC DAILY, (Reported) Megestrol Acetate (Megestrol Acetate), 800 MG PO DAILY, (Reported) Methadone Hcl* (Methadone*), 5 MG PO DAILY, (Reported) Multivitamin With Minerals (Multivitamins With Minerals*), 1 TAB ORAL DAILY, ( Reported) Omeprazole (Omeprazole), 20 MG ORAL DAILY, (Reported) Sennosides (Senna), 8.6 MG PO BEDTIME, (Reported) Sertraline Hcl* (Zoloft*), 50 MG ORAL DAILY, (Reported) Solifenacin Succinate (Vesicare*), 10 MG ORAL DAILY, (Reported) Scheduled PRN Acetaminophen* (Acetaminophen 325MG Tablet*), 650 MG ORAL Q4H PRN for Fever/ Headache/Mild Pain, (Reported) Hydromorphone HCl (Dilaudid), 6 MG ORAL Q6HR PRN for For Pain, (Reported) Lactulose (Lactulose), 20 GM PO DAILY PRN for Constipation, (Reported) Naproxen* (Naproxen*), 500 MG ORAL TWICE A DAY PRN for Hip Pain, (Reported) Patient History History Provided By: Patient, Medical Record, PMD Healthcare decision maker Resuscitation status Full Code Advanced Directive on File Review of Systems Psychiatric: Reports: prior hx, anxiety, depressed feelings, emotional problems Physical Exam General Appearance: no apparent distress, alert Neurologic: oriented x 3, responsive, depressed affect Last 24 Hour Vital Signs Date Time Temp Pulse Resp B/P (MAP) Pulse Ox O2 Delivery O2 Flow Rate FiO2 06/26/17 12:00 98.3 98 16 141/78 96 98.3 06/26/17 08:00 97.4 95 16 130/69 100 97.4 06/26/17 04:00 98.0 104 19 143/71 100 98.0 06/26/17 00:00 98.2 104 19 146/78 98 98.2 06/25/17 20:00 98.5 18 146/75 98 98.5 Intake and Output 06/25/17 06/26/17 19:00 07:00 Intake Total 660 ml 870 ml Output Total 550 ml Balance 660 ml 320 ml Intake Oral 360 ml 320 ml IV Total 300 ml 550 ml Output Urine Total 500 ml Stool Total 50 ml # Voids 2 Laboratory Tests Test 06/26/17 07:50 White Blood Count 22.5 K/UL (4.8-10.8) *H Red Blood Count 3.22 M/UL (4.20-5.40) L Hemoglobin 9.2 G/DL (12.0-16.0) L Hematocrit 26.6 % (37.0-47.0) L Mean Corpuscular Volume 83 FL (80-99) Mean Corpuscular Hemoglobin 28.7 PG (27.0-31.0) Mean Corpuscular Hemoglobin Concent 34.7 G/DL (32.0-36.0) Red Cell Distribution Width 16.0 % (11.6-14.8) H Platelet Count 239 K/UL (150-450) Mean Platelet Volume 6.9 FL (6.5-10.1) Neutrophils (%) (Auto) % (45.0-75.0) Lymphocytes (%) (Auto) % (20.0-45.0) Monocytes (%) (Auto) % (1.0-10.0) Eosinophils (%) (Auto) % (0.0-3.0) Basophils (%) (Auto) % (0.0-2.0) Differential Total Cells Counted 100 Neutrophils % (Manual) 96 % (45-75) H Lymphocytes % (Manual) 2 % (20-45) L Monocytes % (Manual) 1 % (1-10) Eosinophils % (Manual) 0 % (0-3) Basophils % (Manual) 0 % (0-2) Band Neutrophils 1 % (0-8) Platelet Estimate Adequate Platelet Morphology Normal Hypochromasia 1+ Anisocytosis 1+ Prothrombin Time 12.8 SEC (9.30-11.50) H Prothromb Time International Ratio 1.2 (0.9-1.1) H Activated Partial Thromboplast Time 42 SEC (23-33) H Sodium Level 136 MMOL/L (136-145) Potassium Level 3.4 MMOL/L (3.5-5.1) L Chloride Level 106 MMOL/L (98-107) Carbon Dioxide Level 22 MMOL/L (21-32) Anion Gap 8 mmol/L (5-15) Blood Urea Nitrogen 8 mg/dL (7-18) Creatinine 0.5 MG/DL (0.55-1.30) L Estimat Glomerular Filtration Rate mL/min (>60) Glucose Level 100 MG/DL (74-106) Calcium Level 8.5 MG/DL (8.5-10.1) Phosphorus Level 2.4 MG/DL (2.5-4.9) L Magnesium Level 1.6 MG/DL (1.8-2.4) L Total Bilirubin 0.5 MG/DL (0.2-1.0) Aspartate Amino Transf (AST/SGOT) 18 U/L (15-37) Alanine Aminotransferase (ALT/SGPT) 10 U/L (12-78) L Alkaline Phosphatase 95 U/L (46-116) Total Protein 5.6 G/DL (6.4-8.2) L Albumin 1.3 G/DL (3.4-5.0) L Globulin 4.3 g/dL Albumin/Globulin Ratio 0.3 (1.0-2.7) L Height (Feet): 5 Height (Inches): 4.00 Weight (Pounds): 202 Medications Current Medications Medications (Trade) Dose Ordered Sig/Naman Route PRN Reason Start Time Stop Time Status Last Admin Dose Admin Acetaminophen (Tylenol) 650 mg Q4H PRN ORAL fever 06/19/17 14:45 07/18/17 10:44 Apixaban (Eliquis) 5 mg BID ORAL 06/20/17 14:00 07/20/17 13:59 06/26/17 10:39 Chlorhexidine Gluconate (Tawanna-Hex 2%) 1 applic DAILY@1999 TOPIC 06/19/17 20:00 07/19/17 19:59 06/25/17 20:07 Chlorhexidine Gluconate (Tawanna-Hex 2%) 1 applic DAILY@1999 TOPIC 06/26/17 20:00 07/26/17 19:59 Ertapenem 1 gm/ Sodium Chloride 55 ml @ 110 mls/hr Q24H IVPB 06/25/17 14:30 06/30/17 14:29 06/25/17 14:29 Folic Acid (Folate) 1 mg DAILY ORAL 06/20/17 09:00 07/20/17 08:59 06/26/17 10:39 Heparin Sodium/ Sodium Chloride (Heparin 2000 units/Ns 1000ml premix) 2,000 unit ONCE PRN INJ PICC PLACEMENT 06/26/17 13:00 06/27/17 23:59 Lidocaine HCl (Xylocaine 1% 30ml) 30 ml ONCE PRN INJ PICC PLACEMENT 06/26/17 13:00 06/27/17 23:59 Megestrol Acetate (Megace) 400 mg TWICE A DAY ORAL 06/24/17 18:00 07/24/17 17:59 06/26/17 10:39 Morphine Sulfate (Morphine Sulfate) 1 mg Q4H PRN IVP for Pain 3-6 06/24/17 11:00 07/01/17 10:59 Morphine Sulfate (Morphine Sulfate) 2 mg Q4H PRN IVP Severe Pain (Pain Scale 7-10) 06/24/17 11:00 07/01/17 10:59 06/26/17 13:58 Ondansetron HCl (Zofran) 4 mg Q6H PRN IVP Nausea & Vomiting 06/19/17 14:24 07/18/17 14:23 Pantoprazole (Protonix) 40 mg DAILY IVP 06/20/17 09:00 07/19/17 08:59 06/26/17 10:38 Polyethylene Glycol (Miralax) 17 gm DAILYPRN PRN ORAL Constipation 06/19/17 14:24 07/19/17 14:23 Sodium Chloride 1,000 ml @ 50 mls/hr Q20H IVLG 06/19/17 14:30 07/18/17 10:32 06/26/17 06:00 Assessment/Plan Status: stable, progressing Status Narrative MDD cognitive impairment -cont Maximilian Nolasco M.D. June 26, 2017 15:38
[2017-06-26 16:00] VITALS: BP 142/77
[2017-06-26] MEDS: Ertapenem 1 GM in NS 55 ML IVPB SCH (16:14)
--- NOTE | 2017-06-26 16:16 | General Progress Note ---
Assessment/Plan Assessment/Plan # Recurrent colon carcinoma with extensive bulky tumor and adenopathy within the pelvis and retroperitoneum. --> This results in mild to moderate left hydronephrosis. Localized adjacent lytic destruction of the anterior L5 vertebra and part of the upper sacrum. --> Evidence of more remote metastatic neoplasm with multiple pulmonary nodules. --> given poor performance status, appear patient is bed-bound and recommend hospice care evaluation # DVT of the left leg - given stable h/h and no e/o gi bleed --> continue eliquis x 3 months total #. Leukocytosis, secondary to Mets. --> worsening. Monitor and trend cbc # Anemia of chornic disease, evaluate with gi --> hgb goal is above 7 --> anemia w/u has been reviewed --> appreciate gi recs, does not need gi procedure given ob negative # Anemia of folic acid deficiency --> started on FA 1mg daily # Hypokalemia - repleted with K # Hypomagnesemia - repleted with mag # Weakness and fatigue is likely related to anemia Subjective Date patient seen: June 25, 2017 Constitutional: Denies: no symptoms, chills, diaphoresis, fever, malaise, weakness, other HEENT: Denies: no symptoms, eye pain, blurred vision, tearing, double vision, ear pain, ear discharge, nose pain, nose congestion, throat pain, throat swelling, mouth pain, mouth swelling, other Cardiovascular: Denies: no symptoms, chest pain, edema, irregular heart rate, lightheadedness, palpitations, syncope, other Respiratory: Denies: no symptoms, cough, orthopnea, shortness of breath, SOB with excertion, SOB at rest, sputum, stridor, wheezing, other Gastrointestinal/Abdominal: Denies: no symptoms, abdomen distended, abdominal pain, black stools, tarry stools, blood in stool, constipated, diarrhea, difficulty swallowing, nausea, poor appetite, poor fluid intake, rectal bleeding , vomiting, other Genitourinary: Denies: no symptoms, burning, discharge, frequency, flank pain, hematuria, incontinence, pain, urgency, other Neurologic/Psychiatric: Denies: no symptoms, anxiety, depressed, emotional problems, headache, numbness, paresthesia, pre-existing deficit, seizure, tingling, tremors, weakness, other Hematologic/Lymphatic: Reports: anemia Allergies: Coded Allergies: PENICILLINS (Verified Allergy, Unknown, 06/18/17) Swelling Subjective Leukocytosis worsening. Tachycardia. Poor prognosis. Objective Last 24 Hour Vital Signs Date Time Temp Pulse Resp B/P (MAP) Pulse Ox O2 Delivery O2 Flow Rate FiO2 06/26/17 12:00 98.3 98 16 141/78 96 98.3 06/26/17 08:00 97.4 95 16 130/69 100 97.4 06/26/17 04:00 98.0 104 19 143/71 100 98.0 06/26/17 00:00 98.2 104 19 146/78 98 98.2 06/25/17 20:00 98.5 18 146/75 98 98.5 Intake and Output 06/25/17 06/26/17 19:00 07:00 Intake Total 660 ml 870 ml Output Total 550 ml Balance 660 ml 320 ml Intake Oral 360 ml 320 ml IV Total 300 ml 550 ml Output Urine Total 500 ml Stool Total 50 ml # Voids 2 Laboratory Tests 06/26/17 07:50: White Blood Count 22.5*H, Red Blood Count 3.22L, Hemoglobin 9.2L, Hematocrit 26.6L, Mean Corpuscular Volume 83, Mean Corpuscular Hemoglobin 28.7, Mean Corpuscular Hemoglobin Concent 34.7, Red Cell Distribution Width 16.0H, Platelet Count 239, Mean Platelet Volume 6.9, Neutrophils (%) (Auto) , Lymphocytes (%) (Auto) , Monocytes (%) (Auto) , Eosinophils (%) (Auto) , Basophils (%) (Auto) , Differential Total Cells Counted 100, Neutrophils % ( Manual) 96H, Lymphocytes % (Manual) 2L, Monocytes % (Manual) 1, Eosinophils % ( Manual) 0, Basophils % (Manual) 0, Band Neutrophils 1, Platelet Estimate Adequate, Platelet Morphology Normal, Hypochromasia 1+, Anisocytosis 1+, Prothrombin Time 12.8H, Prothromb Time International Ratio 1.2H, Activated Partial Thromboplast Time 42H, Sodium Level 136, Potassium Level 3.4L, Chloride Level 106, Carbon Dioxide Level 22, Anion Gap 8, Blood Urea Nitrogen 8, Creatinine 0.5L, Estimat Glomerular Filtration Rate , Glucose Level 100, Calcium Level 8.5, Phosphorus Level 2.4L, Magnesium Level 1.6L, Total Bilirubin 0.5, Aspartate Amino Transf (AST/SGOT) 18, Alanine Aminotransferase (ALT/SGPT) 10L, Alkaline Phosphatase 95, Total Protein 5.6L, Albumin 1.3L, Globulin 4.3, Albumin/Globulin Ratio 0.3L Height (Feet): 5 Height (Inches): 4.00 Weight (Pounds): 202 General Appearance: mild distress Cardiovascular: tachycardia Respiratory/Chest: chest wall non-tender, lungs clear Abdomen: normal bowel sounds, non tender Chay Ross MD June 26, 2017 16:16
--- NOTE | 2017-06-26 16:21 | Internal Med Progress Note ---
Subjective Date of Service: June 26, 2017 Physician Name Homer Rico Attending Physician Bharat Orozco MD Current Medications Medications (Trade) Dose Ordered Sig/Naman Route PRN Reason Start Time Stop Time Status Last Admin Dose Admin Acetaminophen (Tylenol) 650 mg Q4H PRN ORAL fever 06/19/17 14:45 07/18/17 10:44 Apixaban (Eliquis) 5 mg BID ORAL 06/20/17 14:00 07/20/17 13:59 06/26/17 10:39 Chlorhexidine Gluconate (Tawanna-Hex 2%) 1 applic DAILY@1999 TOPIC 06/19/17 20:00 07/19/17 19:59 06/25/17 20:07 Chlorhexidine Gluconate (Tawanna-Hex 2%) 1 applic DAILY@1999 TOPIC 06/26/17 20:00 07/26/17 19:59 Ertapenem 1 gm/ Sodium Chloride 55 ml @ 110 mls/hr Q24H IVPB 06/25/17 14:30 06/30/17 14:29 06/26/17 16:14 Folic Acid (Folate) 1 mg DAILY ORAL 06/20/17 09:00 07/20/17 08:59 06/26/17 10:39 Heparin Sodium/ Sodium Chloride (Heparin 2000 units/Ns 1000ml premix) 2,000 unit ONCE PRN INJ PICC PLACEMENT 06/26/17 13:00 06/27/17 23:59 Lidocaine HCl (Xylocaine 1% 30ml) 30 ml ONCE PRN INJ PICC PLACEMENT 06/26/17 13:00 06/27/17 23:59 Megestrol Acetate (Megace) 400 mg TWICE A DAY ORAL 06/24/17 18:00 07/24/17 17:59 06/26/17 10:39 Morphine Sulfate (Morphine Sulfate) 1 mg Q4H PRN IVP for Pain 3-6 06/24/17 11:00 07/01/17 10:59 Morphine Sulfate (Morphine Sulfate) 2 mg Q4H PRN IVP Severe Pain (Pain Scale 7-10) 06/24/17 11:00 07/01/17 10:59 06/26/17 13:58 Ondansetron HCl (Zofran) 4 mg Q6H PRN IVP Nausea & Vomiting 06/19/17 14:24 07/18/17 14:23 Pantoprazole (Protonix) 40 mg DAILY IVP 06/20/17 09:00 07/19/17 08:59 06/26/17 10:38 Polyethylene Glycol (Miralax) 17 gm DAILYPRN PRN ORAL Constipation 06/19/17 14:24 07/19/17 14:23 Sodium Chloride 1,000 ml @ 50 mls/hr Q20H IVLG 06/19/17 14:30 07/18/17 10:32 06/26/17 06:00 Allergies: Coded Allergies: PENICILLINS (Verified Allergy, Unknown, 06/18/17) Swelling ROS Limited/Unobtainable: No Constitutional: Reports: no symptoms HEENT: Reports: no symptoms Cardiovascular: Reports: no symptoms Respiratory: Reports: no symptoms Gastrointestinal/Abdominal: Reports: no symptoms Genitourinary: Reports: no symptoms Neurologic/Psychiatric: Reports: no symptoms Subjective 72 YO F admitted with hypotension and anemia. Now GI bleed and bacteremia. Cover for Int Med-Dr Orozco. Decreased appetite. Objective Last Vital Signs Date Time Temp Pulse Resp B/P (MAP) Pulse Ox O2 Delivery O2 Flow Rate FiO2 06/26/17 12:00 98.3 98 16 141/78 96 98.3 06/25/17 12:00 Room Air 06/23/17 20:24 21 Laboratory Tests Test 06/26/17 07:50 White Blood Count 22.5 K/UL (4.8-10.8) *H Red Blood Count 3.22 M/UL (4.20-5.40) L Hemoglobin 9.2 G/DL (12.0-16.0) L Hematocrit 26.6 % (37.0-47.0) L Mean Corpuscular Volume 83 FL (80-99) Mean Corpuscular Hemoglobin 28.7 PG (27.0-31.0) Mean Corpuscular Hemoglobin Concent 34.7 G/DL (32.0-36.0) Red Cell Distribution Width 16.0 % (11.6-14.8) H Platelet Count 239 K/UL (150-450) Mean Platelet Volume 6.9 FL (6.5-10.1) Neutrophils (%) (Auto) % (45.0-75.0) Lymphocytes (%) (Auto) % (20.0-45.0) Monocytes (%) (Auto) % (1.0-10.0) Eosinophils (%) (Auto) % (0.0-3.0) Basophils (%) (Auto) % (0.0-2.0) Differential Total Cells Counted 100 Neutrophils % (Manual) 96 % (45-75) H Lymphocytes % (Manual) 2 % (20-45) L Monocytes % (Manual) 1 % (1-10) Eosinophils % (Manual) 0 % (0-3) Basophils % (Manual) 0 % (0-2) Band Neutrophils 1 % (0-8) Platelet Estimate Adequate Platelet Morphology Normal Hypochromasia 1+ Anisocytosis 1+ Prothrombin Time 12.8 SEC (9.30-11.50) H Prothromb Time International Ratio 1.2 (0.9-1.1) H Activated Partial Thromboplast Time 42 SEC (23-33) H Sodium Level 136 MMOL/L (136-145) Potassium Level 3.4 MMOL/L (3.5-5.1) L Chloride Level 106 MMOL/L (98-107) Carbon Dioxide Level 22 MMOL/L (21-32) Anion Gap 8 mmol/L (5-15) Blood Urea Nitrogen 8 mg/dL (7-18) Creatinine 0.5 MG/DL (0.55-1.30) L Estimat Glomerular Filtration Rate mL/min (>60) Glucose Level 100 MG/DL (74-106) Calcium Level 8.5 MG/DL (8.5-10.1) Phosphorus Level 2.4 MG/DL (2.5-4.9) L Magnesium Level 1.6 MG/DL (1.8-2.4) L Total Bilirubin 0.5 MG/DL (0.2-1.0) Aspartate Amino Transf (AST/SGOT) 18 U/L (15-37) Alanine Aminotransferase (ALT/SGPT) 10 U/L (12-78) L Alkaline Phosphatase 95 U/L (46-116) Total Protein 5.6 G/DL (6.4-8.2) L Albumin 1.3 G/DL (3.4-5.0) L Globulin 4.3 g/dL Albumin/Globulin Ratio 0.3 (1.0-2.7) L Intake and Output 5/7/18 5/8/18 19:00 07:00 Intake Total 660 ml 870 ml Output Total 550 ml Balance 660 ml 320 ml Intake Oral 360 ml 320 ml IV Total 300 ml 550 ml Output Urine Total 500 ml Stool Total 50 ml # Voids 2 Objective General Appearance: WD/WN, no apparent distress, alert EENT: PERRL/EOMI, normal ENT inspection Neck: non-tender, normal alignment, supple Cardiovascular: normal peripheral pulses, normal rate, regular rhythm, no gallop/murmur, no JVD Respiratory/Chest: chest wall non-tender, lungs clear, normal breath sounds, no respiratory distress, no accessory muscle use Abdomen: normal bowel sounds, non tender, soft, no organomegaly, no mass Extremities: normal inspection 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 Previously on eliquis. Questionable GI bleed-see heme consult. GI procedures on hold (4) Altered mental status (5) Hypotension (6) Colon cancer Assessment & Plan: Recurrence - see onc note. (7) Anemia Assessment & Plan: S/P transfusion 2 units PRBC on 06/18/17. Hemoglobin stable. GI procedures on hold-see GI note. (8) Hypokalemia Assessment & Plan: replace K+ (9) Hypomagnesemia Assessment & Plan: resolved (10) Severe sepsis Assessment & Plan: Bacteroides fragilis. Continue ceftriaxone and flagyl per ID (11) Decrease in appetite Assessment & Plan: Calorie count. Megace Status: progressing Assessment/Plan Discharge planning HOMER RICO June 26, 2017 16:21
--- NOTE | 2017-06-26 16:35 | Diagnostic Imaging Report ---
Indication: rn long term care venous access Findings: After the indications, procedure, risks, complications, and alternatives of the procedure were explained, written informed consent was obtained. The left upper extremity was prepped with alcohol. All elements of maximal sterile barrier technique were followed including usage of a cap, mask, sterile gown, sterile gloves, hand hygiene and a large sterile sheet. Sonographic evaluation of the upper extremity was performed demonstrating a patent and compressible basilic vein. Access was obtained under real-time ultrasound guidance (with utilization of sterile gel and sterile probe cover) and digital image was saved and archived. An .018 wire was introduced. Needle exchanged for a 5 Tamazight peel-away sheath. Measurements were obtained. A 5 Tamazight dual-lumen Power PICC line catheter was cut to 30 cm and introduced over the wire. Peel-away sheath and wire were removed.Catheter was secured to the skin using 2-0 Prolene suture. Both ports aspirate and flush easily. Fluoroscopic images show distal tip in the left axillary vein. Attempts at passing the catheter beyond this were not successful. Total fluoroscopic time one minute Impression: Successful placement of an upper extremity PICC line catheter. The catheter is cleared for peripheral use
[2017-06-26 20:00] VITALS: BP 147/75
[2017-06-26] MEDS: Dyna-Hex 2% Top Sol 2oz TOPIC SCH (20:00)
[2017-06-26] MEDS ORDERED: Dyna-Hex 2% Top Sol 2oz TOPIC SCH (20:00)
--- NOTE | 2017-06-26 23:51 | General Progress Note ---
Assessment/Plan Assessment/Plan # Recurrent colon carcinoma with extensive bulky tumor and adenopathy within the pelvis and retroperitoneum. --> This results in mild to moderate left hydronephrosis. Localized adjacent lytic destruction of the anterior L5 vertebra and part of the upper sacrum. --> Evidence of more remote metastatic neoplasm with multiple pulmonary nodules. --> given poor performance status, appear patient is bed-bound and recommend hospice care evaluation # DVT of the left leg - given stable h/h and no e/o gi bleed --> continue eliquis x 3 months total #. Leukocytosis. --> Improved slightly. --> Continue to monitor and trend cbc # Anemia of chronic disease, evaluate with GI --> hgb goal is above 7 --> anemia w/u has been reviewed --> appreciate gi recs, does not need gi procedure given ob negative # Anemia of folic acid deficiency --> started on FA 1mg daily # Hypokalemia - repleted with K # Hypomagnesemia - repleted with mag # Weakness and fatigue is likely related to anemia #. Comfort care. #. Tachycardia. Subjective Date patient seen: June 26, 2017 Constitutional: Denies: no symptoms, chills, diaphoresis, fever, malaise, weakness, other HEENT: Denies: no symptoms, eye pain, blurred vision, tearing, double vision, ear pain, ear discharge, nose pain, nose congestion, throat pain, throat swelling, mouth pain, mouth swelling, other Cardiovascular: Denies: no symptoms, chest pain, edema, irregular heart rate, lightheadedness, palpitations, syncope, other Respiratory: Denies: no symptoms, cough, orthopnea, shortness of breath, SOB with excertion, SOB at rest, sputum, stridor, wheezing, other Gastrointestinal/Abdominal: Denies: no symptoms, abdomen distended, abdominal pain, black stools, tarry stools, blood in stool, constipated, diarrhea, difficulty swallowing, nausea, poor appetite, poor fluid intake, rectal bleeding , vomiting, other Genitourinary: Denies: no symptoms, burning, discharge, frequency, flank pain, hematuria, incontinence, pain, urgency, other Neurologic/Psychiatric: Denies: no symptoms, anxiety, depressed, emotional problems, headache, numbness, paresthesia, pre-existing deficit, seizure, tingling, tremors, weakness, other Endocrine: Denies: no symptoms, excessive sweating, flushing, intolerance to cold, intolerance to heat, increased hunger, increased thirst, increased urine, unexplained weight gain, unexplained weight loss, other Hematologic/Lymphatic: Reports: anemia Allergies: Coded Allergies: PENICILLINS (Verified Allergy, Unknown, 06/18/17) Swelling Subjective Wbc count remains elevated. Tachycardia. Poor prognosis. Objective Last 24 Hour Vital Signs Date Time Temp Pulse Resp B/P (MAP) Pulse Ox O2 Delivery O2 Flow Rate FiO2 06/26/17 20:00 98.4 101 20 147/75 98 98.4 06/26/17 16:00 98.0 95 18 142/77 96 98.0 06/26/17 12:00 98.3 98 16 141/78 96 98.3 06/26/17 08:00 97.4 95 16 130/69 100 97.4 06/26/17 04:00 98.0 104 19 143/71 100 98.0 06/26/17 00:00 98.2 104 19 146/78 98 98.2 Intake and Output 06/25/17 06/26/17 19:00 07:00 Intake Total 660 ml 870 ml Output Total 550 ml Balance 660 ml 320 ml Intake Oral 360 ml 320 ml IV Total 300 ml 550 ml Output Urine Total 500 ml Stool Total 50 ml # Voids 2 Laboratory Tests 06/26/17 07:50: White Blood Count 22.5*H, Red Blood Count 3.22L, Hemoglobin 9.2L, Hematocrit 26.6L, Mean Corpuscular Volume 83, Mean Corpuscular Hemoglobin 28.7, Mean Corpuscular Hemoglobin Concent 34.7, Red Cell Distribution Width 16.0H, Platelet Count 239, Mean Platelet Volume 6.9, Neutrophils (%) (Auto) , Lymphocytes (%) (Auto) , Monocytes (%) (Auto) , Eosinophils (%) (Auto) , Basophils (%) (Auto) , Differential Total Cells Counted 100, Neutrophils % ( Manual) 96H, Lymphocytes % (Manual) 2L, Monocytes % (Manual) 1, Eosinophils % ( Manual) 0, Basophils % (Manual) 0, Band Neutrophils 1, Platelet Estimate Adequate, Platelet Morphology Normal, Hypochromasia 1+, Anisocytosis 1+, Prothrombin Time 12.8H, Prothromb Time International Ratio 1.2H, Activated Partial Thromboplast Time 42H, Sodium Level 136, Potassium Level 3.4L, Chloride Level 106, Carbon Dioxide Level 22, Anion Gap 8, Blood Urea Nitrogen 8, Creatinine 0.5L, Estimat Glomerular Filtration Rate , Glucose Level 100, Calcium Level 8.5, Phosphorus Level 2.4L, Magnesium Level 1.6L, Total Bilirubin 0.5, Aspartate Amino Transf (AST/SGOT) 18, Alanine Aminotransferase (ALT/SGPT) 10L, Alkaline Phosphatase 95, Total Protein 5.6L, Albumin 1.3L, Globulin 4.3, Albumin/Globulin Ratio 0.3L Height (Feet): 5 Height (Inches): 4.00 Weight (Pounds): 202 Cardiovascular: tachycardia Respiratory/Chest: lungs clear, normal breath sounds Abdomen: normal bowel sounds, non tender Chay Ross MD June 26, 2017 23:51
[2017-06-27] VITALS: BP 133/74
[2017-06-27 04:00] VITALS: BP 155/77
[2017-06-27 05:52] LABS: HEMATOCRIT 28.5 % (37.0-47.0); HEMOGLOBIN 9.4 G/DL (12.0-16.0); MEAN CORPUSCULAR VOLUME 84 FL (80-99); PLATELET COUNT 348 K/UL (150-450); RED BLOOD COUNT 3.38 M/UL (4.20-5.40); RED CELL DISTRIBUTION WIDTH 16.1 % (11.6-14.8)
[2017-06-27 05:57] LABS: WHITE BLOOD COUNT 22.3 K/UL (4.8-10.8)
[2017-06-27 06:05] LABS: ALBUMIN 1.2 G/DL (3.4-5.0); ALBUMIN/GLOBULIN RATIO 0.3 (1.0-2.7); ALKALINE PHOSPHATASE 90 U/L (46-116); ANION GAP 10 mmol/L (5-15); ASPARTATE AMINO TRANSFERASE 17 U/L (15-37); BILIRUBIN,TOTAL 0.5 MG/DL (0.2-1.0); BLOOD UREA NITROGEN 6 mg/dL (7-18); CALCIUM 8.1 MG/DL (8.5-10.1); CARBON DIOXIDE 20 MMOL/L (21-32); CHLORIDE 105 MMOL/L (98-107); CREATININE 0.5 MG/DL (0.55-1.30); PHOSPHORUS 3.3 MG/DL (2.5-4.9); POTASSIUM 3.6 MMOL/L (3.5-5.1); SODIUM 135 MMOL/L (136-145)
[2017-06-27 06:24] LABS: ALANINE AMINOTRANSFERASE < 6 U/L (12-78)
[2017-06-27 08:00] VITALS: BP 141/74
[2017-06-27] MEDS: Pantoprazole Inj IVP SCH (08:39)
[2017-06-27] MEDS: Eliquis 2.5mg tablet ORAL SCH ×2 (08:39→17:24)
[2017-06-27] MEDS: Megace 400mg/10ml Susp ORAL SCH ×2 (08:39→17:24)
--- NOTE | 2017-06-27 11:02 | Internal Med Progress Note ---
Subjective Date of Service: June 27, 2017 Physician Name Homer Rico Attending Physician Bharat Orozco MD Current Medications Medications (Trade) Dose Ordered Sig/Naman Route PRN Reason Start Time Stop Time Status Last Admin Dose Admin Acetaminophen (Tylenol) 650 mg Q4H PRN ORAL fever 06/19/17 14:45 07/18/17 10:44 Apixaban (Eliquis) 5 mg BID ORAL 06/20/17 14:00 07/20/17 13:59 06/27/17 08:39 Chlorhexidine Gluconate (Tawanna-Hex 2%) 1 applic DAILY@2000 TOPIC 06/26/17 20:00 07/26/17 19:59 Ertapenem 1 gm/ Sodium Chloride 55 ml @ 110 mls/hr Q24H IVPB 06/25/17 14:30 06/30/17 14:29 06/26/17 16:14 Folic Acid (Folate) 1 mg DAILY ORAL 06/20/17 09:00 07/20/17 08:59 06/27/17 08:39 Heparin Sodium/ Sodium Chloride (Heparin 2000 units/Ns 1000ml premix) 2,000 unit ONCE PRN INJ PICC PLACEMENT 06/26/17 13:00 06/27/17 23:59 Lidocaine HCl (Xylocaine 1% 30ml) 30 ml ONCE PRN INJ PICC PLACEMENT 06/26/17 13:00 06/27/17 23:59 Megestrol Acetate (Megace) 400 mg TWICE A DAY ORAL 06/24/17 18:00 07/24/17 17:59 06/27/17 08:39 Morphine Sulfate (Morphine Sulfate) 1 mg Q4H PRN IVP for Pain 3-6 06/24/17 11:00 07/01/17 10:59 Morphine Sulfate (Morphine Sulfate) 2 mg Q4H PRN IVP Severe Pain (Pain Scale 7-10) 06/24/17 11:00 07/01/17 10:59 06/26/17 13:58 Ondansetron HCl (Zofran) 4 mg Q6H PRN IVP Nausea & Vomiting 06/19/17 14:24 07/18/17 14:23 Pantoprazole (Protonix) 40 mg DAILY IVP 06/20/17 09:00 07/19/17 08:59 06/27/17 08:39 Polyethylene Glycol (Miralax) 17 gm DAILYPRN PRN ORAL Constipation 06/19/17 14:24 07/19/17 14:23 Sodium Chloride 1,000 ml @ 50 mls/hr Q20H IVLG 06/19/17 14:30 07/18/17 10:32 06/27/17 04:01 Allergies: Coded Allergies: PENICILLINS (Verified Allergy, Unknown, 06/18/17) Swelling ROS Limited/Unobtainable: No Constitutional: Reports: no symptoms HEENT: Reports: no symptoms Cardiovascular: Reports: no symptoms Respiratory: Reports: no symptoms Gastrointestinal/Abdominal: Reports: no symptoms Neurologic/Psychiatric: Reports: no symptoms Subjective 72 YO F admitted with hypotension and anemia. Now GI bleed and bacteremia. Cover for Int Sourav-Dr Orozco. Decreased appetite. Objective Last Vital Signs Date Time Temp Pulse Resp B/P (MAP) Pulse Ox O2 Delivery O2 Flow Rate FiO2 06/27/17 08:00 97.3 100 16 141/74 100 Room Air 97.3 06/23/17 20:24 21 Laboratory Tests Test 06/27/17 05:20 White Blood Count 22.3 K/UL (4.8-10.8) *H Red Blood Count 3.38 M/UL (4.20-5.40) L Hemoglobin 9.4 G/DL (12.0-16.0) L Hematocrit 28.5 % (37.0-47.0) L Mean Corpuscular Volume 84 FL (80-99) Mean Corpuscular Hemoglobin 27.8 PG (27.0-31.0) Mean Corpuscular Hemoglobin Concent 33.0 G/DL (32.0-36.0) Red Cell Distribution Width 16.1 % (11.6-14.8) H Platelet Count 348 K/UL (150-450) Mean Platelet Volume 6.1 FL (6.5-10.1) L Neutrophils (%) (Auto) % (45.0-75.0) Lymphocytes (%) (Auto) % (20.0-45.0) Monocytes (%) (Auto) % (1.0-10.0) Eosinophils (%) (Auto) % (0.0-3.0) Basophils (%) (Auto) % (0.0-2.0) Differential Total Cells Counted 100 Neutrophils % (Manual) 92 % (45-75) H Lymphocytes % (Manual) 3 % (20-45) L Monocytes % (Manual) 3 % (1-10) Eosinophils % (Manual) 0 % (0-3) Basophils % (Manual) 0 % (0-2) Band Neutrophils 2 % (0-8) Platelet Estimate Adequate Platelet Morphology Normal Hypochromasia 1+ Anisocytosis 1+ Sodium Level 135 MMOL/L (136-145) L Potassium Level 3.6 MMOL/L (3.5-5.1) Chloride Level 105 MMOL/L (98-107) Carbon Dioxide Level 20 MMOL/L (21-32) L Anion Gap 10 mmol/L (5-15) Blood Urea Nitrogen 6 mg/dL (7-18) L Creatinine 0.5 MG/DL (0.55-1.30) L Estimat Glomerular Filtration Rate mL/min (>60) Glucose Level 76 MG/DL (74-106) Calcium Level 8.1 MG/DL (8.5-10.1) L Phosphorus Level 3.3 MG/DL (2.5-4.9) Magnesium Level 2.1 MG/DL (1.8-2.4) Total Bilirubin 0.5 MG/DL (0.2-1.0) Aspartate Amino Transf (AST/SGOT) 17 U/L (15-37) Alanine Aminotransferase (ALT/SGPT) < 6 U/L (12-78) L Alkaline Phosphatase 90 U/L (46-116) Total Protein 5.8 G/DL (6.4-8.2) L Albumin 1.2 G/DL (3.4-5.0) L Globulin 4.6 g/dL Albumin/Globulin Ratio 0.3 (1.0-2.7) L Intake and Output 06/26/17 06/27/17 19:00 07:00 Intake Total 1346.5 ml 550 ml Output Total 500 ml 430 ml Balance 846.5 ml 120 ml Intake Oral 200 ml IV Total 1146.5 ml 550 ml Output Urine Total 500 ml 400 ml Stool Total 30 ml Objective General Appearance: WD/WN, no apparent distress, alert EENT: PERRL/EOMI, normal ENT inspection Neck: non-tender, normal alignment, supple Cardiovascular: normal peripheral pulses, normal rate, regular rhythm, no gallop/murmur, no JVD Respiratory/Chest: chest wall non-tender, lungs clear, normal breath sounds, no respiratory distress, no accessory muscle use Abdomen: normal bowel sounds, non tender, soft, no organomegaly, no mass Extremities: normal inspection 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 Continue eliquis per hematology note. (4) Altered mental status (5) Hypotension (6) Colon cancer Assessment & Plan: Recurrence - see onc note. (7) Anemia Assessment & Plan: S/P transfusion 2 units PRBC on 06/18/17. Hemoglobin stable. GI procedures on hold-see GI note. (8) Hypokalemia Assessment & Plan: replace K+ (9) Hypomagnesemia Assessment & Plan: resolved (10) Severe sepsis Assessment & Plan: Bacteroides fragilis. Continue ceftriaxone and flagyl per ID (11) Decrease in appetite Assessment & Plan: Calorie count. Megace Status: stable Assessment/Plan Discharge planning-discussed with daughter-SNF HOMER RICO June 27, 2017 11:02
--- NOTE | 2017-06-27 11:02 | GI Progress Note ---
Assessment/Plan Problems: (1) Severe sepsis ICD Codes: A41.9 - Sepsis, unspecified organism; R65.20 - Severe sepsis without septic shock SNOMED: 07486305 (2) Electrolyte imbalance ICD Codes: E87.8 - Other disorders of electrolyte and fluid balance, not elsewhere classified SNOMED: 257792410 (3) Dehydration ICD Codes: E86.0 - Dehydration SNOMED: 92038243 (4) Colostomy in place ICD Codes: Z93.3 - Colostomy status SNOMED: 805238714, 908428722 (5) Colon cancer ICD Codes: C18.9 - Malignant neoplasm of colon, unspecified SNOMED: 188856143 Qualifiers: Qualified Codes: C18.9 - Malignant neoplasm of colon, unspecified (6) Anemia ICD Codes: D64.9 - Anemia, unspecified SNOMED: 026111284 Qualifiers: Qualified Codes: D64.89 - Other specified anemias Status: stable Status Narrative Discussed with Dr. Fonseca. Assessment/Plan CEA 39.5 >> will defer colonoscopy for staging anemia work up reviewed >> folate deficiency OB stool r/o GI bleed >> negative cdiff negative CT AP reviewed supportive care fu onc recs monitor H&H, prn transfusions bowel regime ppi electrolyte replacement fu labs patient on Plavix The patient was seen and examined at bedside and all new and available data was reviewed in the patients chart. I agree with the above findings, impression and plan. (Patient seen earlier today. Signature stamp does not reflect patient encounter time.). - Yung Fonseca MD Subjective Subjective denies abdominal pain Objective Last 24 Hour Vital Signs Date Time Temp Pulse Resp B/P (MAP) Pulse Ox O2 Delivery O2 Flow Rate FiO2 06/27/17 08:00 97.3 100 16 141/74 100 Room Air 97.3 06/27/17 04:01 Room Air 06/27/17 04:00 98.4 105 20 155/77 98 98.4 06/27/17 00:00 98.1 106 20 133/74 98 98.1 06/26/17 20:00 98.4 101 20 147/75 98 98.4 06/26/17 16:00 98.0 95 18 142/77 96 98.0 06/26/17 12:00 98.3 98 16 141/78 96 98.3 Intake and Output 06/26/17 06/27/17 19:00 07:00 Intake Total 1346.5 ml 550 ml Output Total 500 ml 430 ml Balance 846.5 ml 120 ml Intake Oral 200 ml IV Total 1146.5 ml 550 ml Output Urine Total 500 ml 400 ml Stool Total 30 ml Laboratory Tests Test 06/27/17 05:20 White Blood Count 22.3 K/UL (4.8-10.8) *H Red Blood Count 3.38 M/UL (4.20-5.40) L Hemoglobin 9.4 G/DL (12.0-16.0) L Hematocrit 28.5 % (37.0-47.0) L Mean Corpuscular Volume 84 FL (80-99) Mean Corpuscular Hemoglobin 27.8 PG (27.0-31.0) Mean Corpuscular Hemoglobin Concent 33.0 G/DL (32.0-36.0) Red Cell Distribution Width 16.1 % (11.6-14.8) H Platelet Count 348 K/UL (150-450) Mean Platelet Volume 6.1 FL (6.5-10.1) L Neutrophils (%) (Auto) % (45.0-75.0) Lymphocytes (%) (Auto) % (20.0-45.0) Monocytes (%) (Auto) % (1.0-10.0) Eosinophils (%) (Auto) % (0.0-3.0) Basophils (%) (Auto) % (0.0-2.0) Differential Total Cells Counted 100 Neutrophils % (Manual) 92 % (45-75) H Lymphocytes % (Manual) 3 % (20-45) L Monocytes % (Manual) 3 % (1-10) Eosinophils % (Manual) 0 % (0-3) Basophils % (Manual) 0 % (0-2) Band Neutrophils 2 % (0-8) Platelet Estimate Adequate Platelet Morphology Normal Hypochromasia 1+ Anisocytosis 1+ Sodium Level 135 MMOL/L (136-145) L Potassium Level 3.6 MMOL/L (3.5-5.1) Chloride Level 105 MMOL/L (98-107) Carbon Dioxide Level 20 MMOL/L (21-32) L Anion Gap 10 mmol/L (5-15) Blood Urea Nitrogen 6 mg/dL (7-18) L Creatinine 0.5 MG/DL (0.55-1.30) L Estimat Glomerular Filtration Rate mL/min (>60) Glucose Level 76 MG/DL (74-106) Calcium Level 8.1 MG/DL (8.5-10.1) L Phosphorus Level 3.3 MG/DL (2.5-4.9) Magnesium Level 2.1 MG/DL (1.8-2.4) Total Bilirubin 0.5 MG/DL (0.2-1.0) Aspartate Amino Transf (AST/SGOT) 17 U/L (15-37) Alanine Aminotransferase (ALT/SGPT) < 6 U/L (12-78) L Alkaline Phosphatase 90 U/L (46-116) Total Protein 5.8 G/DL (6.4-8.2) L Albumin 1.2 G/DL (3.4-5.0) L Globulin 4.6 g/dL Albumin/Globulin Ratio 0.3 (1.0-2.7) L Height (Feet): 5 Height (Inches): 4.00 Weight (Pounds): 198 General Appearance: WD/WN, no apparent distress, alert Cardiovascular: normal rate Respiratory/Chest: normal breath sounds, no respiratory distress Abdominal Exam: normal bowel sounds, non tender, soft Extremities: normal range of motion, non-tender Sharon Montgomery N.P. June 27, 2017 11:02
[2017-06-27 12:00] VITALS: BP 147/77
--- NOTE | 2017-06-27 12:41 | Pulmonology Progress Note ---
Assessment/Plan Problems: (1) Severe sepsis (2) Acute encephalopathy (3) Anemia (4) H/O deep venous thrombosis (5) Colon cancer (6) Colostomy in place Assessment/Plan extensive metastasis no new events oncology note appreciated wbc higher again, ABX were changed to Ertapenem BC showing B. fragilis anemia w/u check electrolytes leukocytosis might be secondary to Mets and never go down. pts daughter will talk to health and safety representative of the hospice. Subjective ROS Limited/Unobtainable: No Interval Events: feeling the same Allergies: Coded Allergies: PENICILLINS (Verified Allergy, Unknown, 06/18/17) Swelling Objective Last 24 Hour Vital Signs Date Time Temp Pulse Resp B/P (MAP) Pulse Ox O2 Delivery O2 Flow Rate FiO2 06/27/17 12:00 98.2 102 19 147/77 97 Room Air 98.2 06/27/17 08:00 97.3 100 16 141/74 100 Room Air 97.3 06/27/17 04:01 Room Air 06/27/17 04:00 98.4 105 20 155/77 98 98.4 06/27/17 00:00 98.1 106 20 133/74 98 98.1 06/26/17 20:00 98.4 101 20 147/75 98 98.4 06/26/17 16:00 98.0 95 18 142/77 96 98.0 Intake and Output 06/26/17 06/27/17 19:00 07:00 Intake Total 1346.5 ml 550 ml Output Total 500 ml 430 ml Balance 846.5 ml 120 ml Intake Oral 200 ml IV Total 1146.5 ml 550 ml Output Urine Total 500 ml 400 ml Stool Total 30 ml General Appearance: WD/WN HEENT: normocephalic, atraumatic Respiratory/Chest: chest wall non-tender, lungs clear Breasts: no masses Cardiovascular: normal peripheral pulses Abdomen: normal bowel sounds, soft, non tender Genitourinary: normal external genitalia Extremities: no cyanosis, no clubbing Skin: no rash Neurologic/Psychiatric: applied exercise physiologist II-XII grossly normal, no motor/sensory deficits Lymphatic: no neck adenopathy Laboratory Tests 06/27/17 05:20: White Blood Count 22.3*H, Red Blood Count 3.38L, Hemoglobin 9.4L, Hematocrit 28.5L, Mean Corpuscular Volume 84, Mean Corpuscular Hemoglobin 27.8, Mean Corpuscular Hemoglobin Concent 33.0, Red Cell Distribution Width 16.1H, Platelet Count 348, Mean Platelet Volume 6.1L, Neutrophils (%) (Auto) , Lymphocytes (%) (Auto) , Monocytes (%) (Auto) , Eosinophils (%) (Auto) , Basophils (%) (Auto) , Differential Total Cells Counted 100, Neutrophils % ( Manual) 92H, Lymphocytes % (Manual) 3L, Monocytes % (Manual) 3, Eosinophils % ( Manual) 0, Basophils % (Manual) 0, Band Neutrophils 2, Platelet Estimate Adequate, Platelet Morphology Normal, Hypochromasia 1+, Anisocytosis 1+, Sodium Level 135L, Potassium Level 3.6, Chloride Level 105, Carbon Dioxide Level 20L, Anion Gap 10, Blood Urea Nitrogen 6L, Creatinine 0.5L, Estimat Glomerular Filtration Rate , Glucose Level 76, Calcium Level 8.1L, Phosphorus Level 3.3, Magnesium Level 2.1, Total Bilirubin 0.5, Aspartate Amino Transf (AST/SGOT) 17, Alanine Aminotransferase (ALT/SGPT) < 6L, Alkaline Phosphatase 90, Total Protein 5.8L, Albumin 1.2L, Globulin 4.6, Albumin/Globulin Ratio 0.3L Current Medications Medications (Trade) Dose Ordered Sig/Naman Route PRN Reason Start Time Stop Time Status Last Admin Dose Admin Acetaminophen (Tylenol) 650 mg Q4H PRN ORAL fever 06/19/17 14:45 07/18/17 10:44 Apixaban (Eliquis) 5 mg BID ORAL 06/20/17 14:00 07/20/17 13:59 06/27/17 08:39 Chlorhexidine Gluconate (Tawanna-Hex 2%) 1 applic DAILY@2000 TOPIC 06/26/17 20:00 07/26/17 19:59 Ertapenem 1 gm/ Sodium Chloride 55 ml @ 110 mls/hr Q24H IVPB 06/25/17 14:30 06/30/17 14:29 06/26/17 16:14 Folic Acid (Folate) 1 mg DAILY ORAL 06/20/17 09:00 07/20/17 08:59 06/27/17 08:39 Megestrol Acetate (Megace) 400 mg TWICE A DAY ORAL 06/24/17 18:00 07/24/17 17:59 06/27/17 08:39 Morphine Sulfate (Morphine Sulfate) 1 mg Q4H PRN IVP for Pain 3-6 06/24/17 11:00 07/01/17 10:59 Morphine Sulfate (Morphine Sulfate) 2 mg Q4H PRN IVP Severe Pain (Pain Scale 7-10) 06/24/17 11:00 07/01/17 10:59 06/26/17 13:58 Ondansetron HCl (Zofran) 4 mg Q6H PRN IVP Nausea & Vomiting 06/19/17 14:24 07/18/17 14:23 Pantoprazole (Protonix) 40 mg DAILY IVP 06/20/17 09:00 07/19/17 08:59 06/27/17 08:39 Polyethylene Glycol (Miralax) 17 gm DAILYPRN PRN ORAL Constipation 06/19/17 14:24 07/19/17 14:23 Sodium Chloride 1,000 ml @ 50 mls/hr Q20H IVLG 06/19/17 14:30 07/18/17 10:32 06/27/17 04:01 Andres Reynolds MD June 27, 2017 12:40
[2017-06-27] MEDS: Ertapenem 1 GM in NS 55 ML IVPB SCH (14:20)
--- NOTE | 2017-06-27 15:44 | Infectious Diseases Prog Note ---
Assessment/Plan Assessment/Plan Assessment: Septic Shock, SP - Possibly multifactorial- originally suspected UTI but Ucx with no significant growth (she did had UTI and pyelo symptoms: +frequency/ urgency, n/v, lower abd pain). Now is bacteremic, likely GI translocation for either bleeding or cancer burden -CXR: Cardiomegaly and pulmonary vascular congestion. Patchy retrocardiac opacity. Pneumonia not excluded. Clinical correlation and follow-up exam recommended; doubt PNA- no cough -u/a wbc tntc, nit neg, leuk +3, sq cells moderate; ucx 20-30k mixed gram positive growth; repeat u/a WBC 40-60,nit neg, leuk +2, sq cells few; ucx Neg -Bcx 06/17 03/25 B. fragilis; 06/18 02/22 B. fragilis; 06/20 Bcx Neg x4; 06/26 Bcx p Fever, leukocytosis- fever resolved, leukocytosis persistent int he 20s- ? due to metastatic diseaase and bacteremia- -s/p RIJ removal 06/26 -CT abd/p w/: Evidence of recurrent colon carcinoma with extensive bulky tumor and adenopathy within the pelvis and retroperitoneum. This results in mild to moderate left hydronephrosis. Localized adjacent lytic destruction of the anterior L5 vertebra and part of the upper sacrum. Evidence of more remote metastatic neoplasm with multiple pulmonary nodules. -06/21 CDiff neg Lactic acidosis, resolved L DVT Anemia CARLOS, resolved Colon CA s/p resection and colostomy w/ recurrent Cancer obstructive uropathy s/p PPM DVT on [facility] resident PNC allergy Plan: -Continue IV Ertapenem abx d #12/02 given increased in WBC to complete course for B. fragilis bacteremic (also assuming possible translocation of other gram negative organisms) -06/25 SP Ceftriaxone and Flagyl #3 -06/23 SP Meropenem #6 -06/19 SP IV Vancomycin #2 -06/17 CEfepime and Flagyl x1 -f/u Repeat 2 sets of Bcx (peripheral and from R IJ) -f/u cx -Monitor CBC/BMP, temperatures -aspiration precautions -heme onc f/u -wound care/prevention per hospital protocol Thank you for this consultation. Will continue to follow along with you. Discussed with RN Subjective Allergies: Coded Allergies: PENICILLINS (Verified Allergy, Unknown, 06/18/17) Swelling Subjective afebrile leukocytosis persistent feeling better f/u repeat Bcx Objective Vital Signs Last 24 Hour Vital Signs Date Time Temp Pulse Resp B/P (MAP) Pulse Ox O2 Delivery O2 Flow Rate FiO2 06/27/17 12:00 98.2 102 19 147/77 97 Room Air 98.2 06/27/17 08:00 97.3 100 16 141/74 100 Room Air 97.3 06/27/17 04:01 Room Air 06/27/17 04:00 98.4 105 20 155/77 98 98.4 06/27/17 00:00 98.1 106 20 133/74 98 98.1 06/26/17 20:00 98.4 101 20 147/75 98 98.4 06/26/17 16:00 98.0 95 18 142/77 96 98.0 Height (Feet): 5 Height (Inches): 4.00 Weight (Pounds): 198 Objective General Appearance: well appearing, no apparent distress, alert Head: normocephalic EENT: PERRL/EOMI, normal ENT inspection Neck: supple Respiratory: normal breath sounds, no respiratory distress Cardiovascular: normal rate Gastrointestinal: normal inspection, non tender, soft, normal bowel sounds, non -distended Genitourinary: no CVA tenderness Musculoskeletal: normal inspection, back normal Skin: normal inspection, normal color, no rash, warm/dry, palpation normal, well hydrated Laboratory Tests Test 06/27/17 05:20 White Blood Count 22.3 K/UL (4.8-10.8) *H Red Blood Count 3.38 M/UL (4.20-5.40) L Hemoglobin 9.4 G/DL (12.0-16.0) L Hematocrit 28.5 % (37.0-47.0) L Mean Corpuscular Volume 84 FL (80-99) Mean Corpuscular Hemoglobin 27.8 PG (27.0-31.0) Mean Corpuscular Hemoglobin Concent 33.0 G/DL (32.0-36.0) Red Cell Distribution Width 16.1 % (11.6-14.8) H Platelet Count 348 K/UL (150-450) Mean Platelet Volume 6.1 FL (6.5-10.1) L Neutrophils (%) (Auto) % (45.0-75.0) Lymphocytes (%) (Auto) % (20.0-45.0) Monocytes (%) (Auto) % (1.0-10.0) Eosinophils (%) (Auto) % (0.0-3.0) Basophils (%) (Auto) % (0.0-2.0) Differential Total Cells Counted 100 Neutrophils % (Manual) 92 % (45-75) H Lymphocytes % (Manual) 3 % (20-45) L Monocytes % (Manual) 3 % (1-10) Eosinophils % (Manual) 0 % (0-3) Basophils % (Manual) 0 % (0-2) Band Neutrophils 2 % (0-8) Platelet Estimate Adequate Platelet Morphology Normal Hypochromasia 1+ Anisocytosis 1+ Sodium Level 135 MMOL/L (136-145) L Potassium Level 3.6 MMOL/L (3.5-5.1) Chloride Level 105 MMOL/L (98-107) Carbon Dioxide Level 20 MMOL/L (21-32) L Anion Gap 10 mmol/L (5-15) Blood Urea Nitrogen 6 mg/dL (7-18) L Creatinine 0.5 MG/DL (0.55-1.30) L Estimat Glomerular Filtration Rate mL/min (>60) Glucose Level 76 MG/DL (74-106) Calcium Level 8.1 MG/DL (8.5-10.1) L Phosphorus Level 3.3 MG/DL (2.5-4.9) Magnesium Level 2.1 MG/DL (1.8-2.4) Total Bilirubin 0.5 MG/DL (0.2-1.0) Aspartate Amino Transf (AST/SGOT) 17 U/L (15-37) Alanine Aminotransferase (ALT/SGPT) < 6 U/L (12-78) L Alkaline Phosphatase 90 U/L (46-116) Total Protein 5.8 G/DL (6.4-8.2) L Albumin 1.2 G/DL (3.4-5.0) L Globulin 4.6 g/dL Albumin/Globulin Ratio 0.3 (1.0-2.7) L Current Medications Medications (Trade) Dose Ordered Sig/Naman Route PRN Reason Start Time Stop Time Status Last Admin Dose Admin Acetaminophen (Tylenol) 650 mg Q4H PRN ORAL fever 5/1/18 14:45 07/18/17 10:44 Apixaban (Eliquis) 5 mg BID ORAL 06/20/17 14:00 07/20/17 13:59 06/27/17 08:39 Chlorhexidine Gluconate (Tawanna-Hex 2%) 1 applic DAILY@2000 TOPIC 06/26/17 20:00 07/26/17 19:59 Ertapenem 1 gm/ Sodium Chloride 55 ml @ 110 mls/hr Q24H IVPB 06/25/17 14:30 06/30/17 14:29 06/27/17 14:20 Folic Acid (Folate) 1 mg DAILY ORAL 06/20/17 09:00 07/20/17 08:59 06/27/17 08:39 Megestrol Acetate (Megace) 400 mg TWICE A DAY ORAL 06/24/17 18:00 07/24/17 17:59 06/27/17 08:39 Morphine Sulfate (Morphine Sulfate) 1 mg Q4H PRN IVP for Pain 3-6 06/24/17 11:00 07/01/17 10:59 Morphine Sulfate (Morphine Sulfate) 2 mg Q4H PRN IVP Severe Pain (Pain Scale 7-10) 06/24/17 11:00 07/01/17 10:59 06/26/17 13:58 Ondansetron HCl (Zofran) 4 mg Q6H PRN IVP Nausea & Vomiting 06/19/17 14:24 07/18/17 14:23 Pantoprazole (Protonix) 40 mg DAILY IVP 06/20/17 09:00 07/19/17 08:59 06/27/17 08:39 Polyethylene Glycol (Miralax) 17 gm DAILYPRN PRN ORAL Constipation 06/19/17 14:24 07/19/17 14:23 Sodium Chloride 1,000 ml @ 50 mls/hr Q20H IVLG 06/19/17 14:30 07/18/17 10:32 06/27/17 04:01 Cheryl Ramos M.D. June 27, 2017 15:44
--- NOTE | 2017-06-27 15:56 | General Progress Note ---
Assessment/Plan Status: stable, progressing Assessment/Plan mdd encephalopathy cont current med cont ativan prn Subjective Date patient seen: June 27, 2017 Neurologic/Psychiatric: Reports: anxiety, depressed, emotional problems Allergies: Coded Allergies: PENICILLINS (Verified Allergy, Unknown, 06/18/17) Swelling Objective Last 24 Hour Vital Signs Date Time Temp Pulse Resp B/P (MAP) Pulse Ox O2 Delivery O2 Flow Rate FiO2 06/27/17 12:00 98.2 102 19 147/77 97 Room Air 98.2 06/27/17 08:00 97.3 100 16 141/74 100 Room Air 97.3 06/27/17 04:01 Room Air 06/27/17 04:00 98.4 105 20 155/77 98 98.4 06/27/17 00:00 98.1 106 20 133/74 98 98.1 06/26/17 20:00 98.4 101 20 147/75 98 98.4 06/26/17 16:00 98.0 95 18 142/77 96 98.0 Intake and Output 06/26/17 06/27/17 19:00 07:00 Intake Total 1346.5 ml 550 ml Output Total 500 ml 430 ml Balance 846.5 ml 120 ml Intake Oral 200 ml IV Total 1146.5 ml 550 ml Output Urine Total 500 ml 400 ml Stool Total 30 ml Laboratory Tests 06/27/17 05:20: White Blood Count 22.3*H, Red Blood Count 3.38L, Hemoglobin 9.4L, Hematocrit 28.5L, Mean Corpuscular Volume 84, Mean Corpuscular Hemoglobin 27.8, Mean Corpuscular Hemoglobin Concent 33.0, Red Cell Distribution Width 16.1H, Platelet Count 348, Mean Platelet Volume 6.1L, Neutrophils (%) (Auto) , Lymphocytes (%) (Auto) , Monocytes (%) (Auto) , Eosinophils (%) (Auto) , Basophils (%) (Auto) , Differential Total Cells Counted 100, Neutrophils % ( Manual) 92H, Lymphocytes % (Manual) 3L, Monocytes % (Manual) 3, Eosinophils % ( Manual) 0, Basophils % (Manual) 0, Band Neutrophils 2, Platelet Estimate Adequate, Platelet Morphology Normal, Hypochromasia 1+, Anisocytosis 1+, Sodium Level 135L, Potassium Level 3.6, Chloride Level 105, Carbon Dioxide Level 20L, Anion Gap 10, Blood Urea Nitrogen 6L, Creatinine 0.5L, Estimat Glomerular Filtration Rate , Glucose Level 76, Calcium Level 8.1L, Phosphorus Level 3.3, Magnesium Level 2.1, Total Bilirubin 0.5, Aspartate Amino Transf (AST/SGOT) 17, Alanine Aminotransferase (ALT/SGPT) < 6L, Alkaline Phosphatase 90, Total Protein 5.8L, Albumin 1.2L, Globulin 4.6, Albumin/Globulin Ratio 0.3L Height (Feet): 5 Height (Inches): 4.00 Weight (Pounds): 198 General Appearance: WD/WN, no apparent distress, alert Neurologic: depressed affect Maximilian Garsia M.D. June 27, 2017 15:56
[2017-06-27 16:01] VITALS: BP 156/80
[2017-06-27 20:00] VITALS: BP 138/89
[2017-06-27] MEDS: Dyna-Hex 2% Top Sol 2oz TOPIC SCH (21:19)
--- NOTE | 2017-06-27 23:36 | General Progress Note ---
Assessment/Plan Assessment/Plan # Recurrent colon carcinoma with extensive bulky tumor and adenopathy within the pelvis and retroperitoneum. --> This results in mild to moderate left hydronephrosis. Localized adjacent lytic destruction of the anterior L5 vertebra and part of the upper sacrum. --> Evidence of more remote metastatic neoplasm with multiple pulmonary nodules. --> given poor performance status, appear patient is bed-bound and recommend hospice care evaluation # DVT of the left leg - given stable h/h and no e/o gi bleed --> continue eliquis x 3 months total #. Leukocytosis. --> Remains elevated. --> Continue to monitor and trend cbc # Anemia of chronic disease, evaluate with GI --> hgb goal is above 7 --> anemia w/u has been reviewed --> appreciate gi recs, does not need gi procedure given ob negative --> blood transfusion not required unless symptomatic # Anemia of folic acid deficiency --> started on FA 1mg daily # Hypokalemia - repleted with K # Hypomagnesemia - repleted with mag # Weakness and fatigue is likely related to anemia #. Comfort care. #. Tachycardia. Subjective Date patient seen: June 27, 2017 Constitutional: Denies: no symptoms, chills, diaphoresis, fever, malaise, weakness, other HEENT: Denies: no symptoms, eye pain, blurred vision, tearing, double vision, ear pain, ear discharge, nose pain, nose congestion, throat pain, throat swelling, mouth pain, mouth swelling, other Cardiovascular: Denies: no symptoms, chest pain, edema, irregular heart rate, lightheadedness, palpitations, syncope, other Respiratory: Denies: no symptoms, cough, orthopnea, shortness of breath, SOB with excertion, SOB at rest, sputum, stridor, wheezing, other Gastrointestinal/Abdominal: Denies: no symptoms, abdomen distended, abdominal pain, black stools, tarry stools, blood in stool, constipated, diarrhea, difficulty swallowing, nausea, poor appetite, poor fluid intake, rectal bleeding , vomiting, other Genitourinary: Denies: no symptoms, burning, discharge, frequency, flank pain, hematuria, incontinence, pain, urgency, other Neurologic/Psychiatric: Denies: no symptoms, anxiety, depressed, emotional problems, headache, numbness, paresthesia, pre-existing deficit, seizure, tingling, tremors, weakness, other Endocrine: Denies: no symptoms, excessive sweating, flushing, intolerance to cold, intolerance to heat, increased hunger, increased thirst, increased urine, unexplained weight gain, unexplained weight loss, other Hematologic/Lymphatic: Reports: anemia Allergies: Coded Allergies: PENICILLINS (Verified Allergy, Unknown, 06/18/17) Swelling Subjective Leukocytosis. Tachycardia. No fever or chills. Objective Last 24 Hour Vital Signs Date Time Temp Pulse Resp B/P (MAP) Pulse Ox O2 Delivery O2 Flow Rate FiO2 06/27/17 20:00 98.2 100 19 138/89 100 98.2 06/27/17 16:01 98.0 100 20 156/80 96 98.0 06/27/17 12:00 98.2 102 19 147/77 97 Room Air 98.2 06/27/17 08:00 97.3 100 16 141/74 100 Room Air 97.3 06/27/17 04:01 Room Air 06/27/17 04:00 98.4 105 20 155/77 98 98.4 06/27/17 00:00 98.1 106 20 133/74 98 98.1 Intake and Output 06/26/17 06/27/17 19:00 07:00 Intake Total 1346.5 ml 550 ml Output Total 500 ml 430 ml Balance 846.5 ml 120 ml Intake Oral 200 ml IV Total 1146.5 ml 550 ml Output Urine Total 500 ml 400 ml Stool Total 30 ml Laboratory Tests 06/27/17 05:20: White Blood Count 22.3*H, Red Blood Count 3.38L, Hemoglobin 9.4L, Hematocrit 28.5L, Mean Corpuscular Volume 84, Mean Corpuscular Hemoglobin 27.8, Mean Corpuscular Hemoglobin Concent 33.0, Red Cell Distribution Width 16.1H, Platelet Count 348, Mean Platelet Volume 6.1L, Neutrophils (%) (Auto) , Lymphocytes (%) (Auto) , Monocytes (%) (Auto) , Eosinophils (%) (Auto) , Basophils (%) (Auto) , Differential Total Cells Counted 100, Neutrophils % ( Manual) 92H, Lymphocytes % (Manual) 3L, Monocytes % (Manual) 3, Eosinophils % ( Manual) 0, Basophils % (Manual) 0, Band Neutrophils 2, Platelet Estimate Adequate, Platelet Morphology Normal, Hypochromasia 1+, Anisocytosis 1+, Sodium Level 135L, Potassium Level 3.6, Chloride Level 105, Carbon Dioxide Level 20L, Anion Gap 10, Blood Urea Nitrogen 6L, Creatinine 0.5L, Estimat Glomerular Filtration Rate , Glucose Level 76, Calcium Level 8.1L, Phosphorus Level 3.3, Magnesium Level 2.1, Total Bilirubin 0.5, Aspartate Amino Transf (AST/SGOT) 17, Alanine Aminotransferase (ALT/SGPT) < 6L, Alkaline Phosphatase 90, Total Protein 5.8L, Albumin 1.2L, Globulin 4.6, Albumin/Globulin Ratio 0.3L Height (Feet): 5 Height (Inches): 4.00 Weight (Pounds): 198 General Appearance: mild distress Cardiovascular: tachycardia Respiratory/Chest: chest wall non-tender, lungs clear Abdomen: normal bowel sounds, non tender Chay Ross MD June 27, 2017 23:36
[2017-06-28] VITALS: BP 150/79
[2017-06-28 04:00] VITALS: BP 160/70
[2017-06-28 07:01] LABS: HEMATOCRIT 27.7 % (37.0-47.0); MEAN CORPUSCULAR VOLUME 83 FL (80-99); PLATELET COUNT 401 K/UL (150-450); RED BLOOD COUNT 3.33 M/UL (4.20-5.40); RED CELL DISTRIBUTION WIDTH 16.3 % (11.6-14.8); WHITE BLOOD COUNT 19.5 K/UL (4.8-10.8)
[2017-06-28 07:15] LABS: ANION GAP 10 mmol/L (5-15); BLOOD UREA NITROGEN 6 mg/dL (7-18); CALCIUM 8.2 MG/DL (8.5-10.1); CARBON DIOXIDE 22 MMOL/L (21-32); CHLORIDE 105 MMOL/L (98-107); CREATININE 0.6 MG/DL (0.55-1.30); PHOSPHORUS 2.8 MG/DL (2.5-4.9); POTASSIUM 3.4 MMOL/L (3.5-5.1); SODIUM 136 MMOL/L (136-145)
[2017-06-28 08:00] VITALS: BP 143/80
[2017-06-28] MEDS: Eliquis 2.5mg tablet ORAL SCH ×2 (08:34→17:44)
[2017-06-28] MEDS: Megace 400mg/10ml Susp ORAL SCH ×2 (08:34→17:44)
[2017-06-28] MEDS: Pantoprazole Inj IVP SCH (08:34)
--- NOTE | 2017-06-28 10:42 | GI Progress Note ---
Assessment/Plan Problems: (1) Severe sepsis ICD Codes: A41.9 - Sepsis, unspecified organism; R65.20 - Severe sepsis without septic shock SNOMED: 36016179 (2) Electrolyte imbalance ICD Codes: E87.8 - Other disorders of electrolyte and fluid balance, not elsewhere classified SNOMED: 124425170 (3) Dehydration ICD Codes: E86.0 - Dehydration SNOMED: 63769177 (4) Colostomy in place ICD Codes: Z93.3 - Colostomy status SNOMED: 640414917, 418879769 (5) Colon cancer ICD Codes: C18.9 - Malignant neoplasm of colon, unspecified SNOMED: 054421547 Qualifiers: Qualified Codes: C18.9 - Malignant neoplasm of colon, unspecified (6) Anemia ICD Codes: D64.9 - Anemia, unspecified SNOMED: 327558285 Qualifiers: Qualified Codes: D64.89 - Other specified anemias Status: stable Status Narrative Discussed with Dr. Fonseca. Assessment/Plan CEA 39.5 >> will defer colonoscopy for staging anemia work up reviewed >> folate deficiency OB stool r/o GI bleed >> negative cdiff negative CT AP reviewed supportive care fu onc recs monitor H&H, prn transfusions bowel regime ppi electrolyte replacement fu labs patient on Plavix The patient was seen and examined at bedside and all new and available data was reviewed in the patients chart. I agree with the above findings, impression and plan. (Patient seen earlier today. Signature stamp does not reflect patient encounter time.). - Yung Fonseca MD Subjective Subjective denies abdominal pain Objective Last 24 Hour Vital Signs Date Time Temp Pulse Resp B/P (MAP) Pulse Ox O2 Delivery O2 Flow Rate FiO2 06/28/17 08:00 97.7 95 19 143/80 99 97.7 06/28/17 04:00 97.3 99 19 160/70 99 97.3 06/28/17 00:00 98.2 98 19 150/79 100 98.2 06/27/17 20:00 98.2 100 19 138/89 100 98.2 06/27/17 16:01 98.0 100 20 156/80 96 98.0 06/27/17 12:00 98.2 102 19 147/77 97 Room Air 98.2 Intake and Output 06/27/17 06/28/17 19:00 07:00 Intake Total 830 ml 550 ml Output Total 1250 ml 750 ml Balance -420 ml -200 ml Intake Oral 120 ml IV Total 710 ml 550 ml Output Urine Total 800 ml 700 ml Stool Total 450 ml 50 ml Laboratory Tests Test 06/28/17 06:25 White Blood Count 19.5 K/UL (4.8-10.8) H Red Blood Count 3.33 M/UL (4.20-5.40) L Hemoglobin 9.0 G/DL (12.0-16.0) L Hematocrit 27.7 % (37.0-47.0) L Mean Corpuscular Volume 83 FL (80-99) Mean Corpuscular Hemoglobin 26.9 PG (27.0-31.0) L Mean Corpuscular Hemoglobin Concent 32.4 G/DL (32.0-36.0) Red Cell Distribution Width 16.3 % (11.6-14.8) H Platelet Count 401 K/UL (150-450) Mean Platelet Volume 6.0 FL (6.5-10.1) L Neutrophils (%) (Auto) % (45.0-75.0) Lymphocytes (%) (Auto) % (20.0-45.0) Monocytes (%) (Auto) % (1.0-10.0) Eosinophils (%) (Auto) % (0.0-3.0) Basophils (%) (Auto) % (0.0-2.0) Neutrophils % (Manual) Pending Lymphocytes % (Manual) Pending Platelet Estimate Pending Platelet Morphology Pending Sodium Level 136 MMOL/L (136-145) Potassium Level 3.4 MMOL/L (3.5-5.1) L Chloride Level 105 MMOL/L (98-107) Carbon Dioxide Level 22 MMOL/L (21-32) Anion Gap 10 mmol/L (5-15) Blood Urea Nitrogen 6 mg/dL (7-18) L Creatinine 0.6 MG/DL (0.55-1.30) Estimat Glomerular Filtration Rate mL/min (>60) Glucose Level 87 MG/DL (74-106) Calcium Level 8.2 MG/DL (8.5-10.1) L Phosphorus Level 2.8 MG/DL (2.5-4.9) Magnesium Level 1.8 MG/DL (1.8-2.4) Height (Feet): 5 Height (Inches): 4.00 Weight (Pounds): 195 General Appearance: WD/WN, no apparent distress, alert Cardiovascular: normal rate Respiratory/Chest: normal breath sounds, no respiratory distress Abdominal Exam: normal bowel sounds, non tender, soft Extremities: normal range of motion, non-tender Clarissa Montgomery NP June 28, 2017 10:42
--- NOTE | 2017-06-28 11:57 | General Progress Note ---
Assessment/Plan Assessment/Plan mdd encephalopathy cont current med cont ativan prn Subjective Date patient seen: June 28, 2017 Neurologic/Psychiatric: Reports: anxiety, depressed, emotional problems Allergies: Coded Allergies: PENICILLINS (Verified Allergy, Unknown, 06/18/17) Swelling Objective Last 24 Hour Vital Signs Date Time Temp Pulse Resp B/P (MAP) Pulse Ox O2 Delivery O2 Flow Rate FiO2 06/28/17 08:00 97.7 95 19 143/80 99 97.7 06/28/17 04:00 97.3 99 19 160/70 99 97.3 06/28/17 00:00 98.2 98 19 150/79 100 98.2 06/27/17 20:00 98.2 100 19 138/89 100 98.2 06/27/17 16:01 98.0 100 20 156/80 96 98.0 06/27/17 12:00 98.2 102 19 147/77 97 Room Air 98.2 Intake and Output 06/27/17 06/28/17 19:00 07:00 Intake Total 830 ml 550 ml Output Total 1250 ml 750 ml Balance -420 ml -200 ml Intake Oral 120 ml IV Total 710 ml 550 ml Output Urine Total 800 ml 700 ml Stool Total 450 ml 50 ml Laboratory Tests 06/28/17 06:25: White Blood Count 19.5H, Red Blood Count 3.33L, Hemoglobin 9.0L, Hematocrit 27.7L, Mean Corpuscular Volume 83, Mean Corpuscular Hemoglobin 26.9L, Mean Corpuscular Hemoglobin Concent 32.4, Red Cell Distribution Width 16.3H, Platelet Count 401, Mean Platelet Volume 6.0L, Neutrophils (%) (Auto) , Lymphocytes (%) (Auto) , Monocytes (%) (Auto) , Eosinophils (%) (Auto) , Basophils (%) (Auto) , Differential Total Cells Counted 100, Neutrophils % ( Manual) 93H, Lymphocytes % (Manual) 5L, Monocytes % (Manual) 2, Eosinophils % ( Manual) 0, Basophils % (Manual) 0, Band Neutrophils 0, Platelet Estimate Adequate, Platelet Morphology Normal, Hypochromasia 1+, Anisocytosis 1+, Sodium Level 136, Potassium Level 3.4L, Chloride Level 105, Carbon Dioxide Level 22, Anion Gap 10, Blood Urea Nitrogen 6L, Creatinine 0.6, Estimat Glomerular Filtration Rate , Glucose Level 87, Calcium Level 8.2L, Phosphorus Level 2.8, Magnesium Level 1.8 Height (Feet): 5 Height (Inches): 4.00 Weight (Pounds): 195 General Appearance: WD/WN, no apparent distress, alert, confused Maximilian Garsia M.D. June 28, 2017 11:57
[2017-06-28 12:00] VITALS: BP 154/80
--- NOTE | 2017-06-28 15:19 | Pulmonology Progress Note ---
Assessment/Plan Problems: (1) Severe sepsis (2) Acute encephalopathy (3) Anemia (4) H/O deep venous thrombosis (5) Colon cancer (6) Colostomy in place Assessment/Plan extensive metastasis wbc decreasing oncology note appreciated wbc higher again, ABX were changed to Ertapenem BC showing B. fragilis anemia w/u check electrolytes social service to find family members. Subjective ROS Limited/Unobtainable: No Constitutional: Reports: no symptoms HEENT: Repors: no symptoms Respiratory: Reports: no symptoms Allergies: Coded Allergies: PENICILLINS (Verified Allergy, Unknown, 06/18/17) Swelling Objective Last 24 Hour Vital Signs Date Time Temp Pulse Resp B/P (MAP) Pulse Ox O2 Delivery O2 Flow Rate FiO2 06/28/17 12:00 97.2 98 19 154/80 99 97.2 06/28/17 08:00 97.7 95 19 143/80 99 97.7 06/28/17 04:00 97.3 99 19 160/70 99 97.3 06/28/17 00:00 98.2 98 19 150/79 100 98.2 06/27/17 20:00 98.2 100 19 138/89 100 98.2 06/27/17 16:01 98.0 100 20 156/80 96 98.0 Intake and Output 06/27/17 06/28/17 19:00 07:00 Intake Total 830 ml 550 ml Output Total 1250 ml 750 ml Balance -420 ml -200 ml Intake Oral 120 ml IV Total 710 ml 550 ml Output Urine Total 800 ml 700 ml Stool Total 450 ml 50 ml General Appearance: WD/WN HEENT: normocephalic, atraumatic Respiratory/Chest: chest wall non-tender, normal breath sounds Breasts: no masses Cardiovascular: normal peripheral pulses Abdomen: normal bowel sounds, soft, non tender Genitourinary: normal external genitalia Skin: no rash Microbiology Date/Time Source Procedure Growth Status 06/26/17 11:15 Blood Blood Culture - Preliminary NO GROWTH AFTER 24 HOURS Resulted 06/26/17 11:00 Blood Blood Culture - Preliminary NO GROWTH AFTER 24 HOURS Resulted Laboratory Tests 06/28/17 06:25: White Blood Count 19.5H, Red Blood Count 3.33L, Hemoglobin 9.0L, Hematocrit 27.7L, Mean Corpuscular Volume 83, Mean Corpuscular Hemoglobin 26.9L, Mean Corpuscular Hemoglobin Concent 32.4, Red Cell Distribution Width 16.3H, Platelet Count 401, Mean Platelet Volume 6.0L, Neutrophils (%) (Auto) , Lymphocytes (%) (Auto) , Monocytes (%) (Auto) , Eosinophils (%) (Auto) , Basophils (%) (Auto) , Differential Total Cells Counted 100, Neutrophils % ( Manual) 93H, Lymphocytes % (Manual) 5L, Monocytes % (Manual) 2, Eosinophils % ( Manual) 0, Basophils % (Manual) 0, Band Neutrophils 0, Platelet Estimate Adequate, Platelet Morphology Normal, Hypochromasia 1+, Anisocytosis 1+, Sodium Level 136, Potassium Level 3.4L, Chloride Level 105, Carbon Dioxide Level 22, Anion Gap 10, Blood Urea Nitrogen 6L, Creatinine 0.6, Estimat Glomerular Filtration Rate , Glucose Level 87, Calcium Level 8.2L, Phosphorus Level 2.8, Magnesium Level 1.8 Current Medications Medications (Trade) Dose Ordered Sig/Naman Route PRN Reason Start Time Stop Time Status Last Admin Dose Admin Acetaminophen (Tylenol) 650 mg Q4H PRN ORAL fever 06/19/17 14:45 07/18/17 10:44 Apixaban (Eliquis) 5 mg BID ORAL 06/20/17 14:00 07/20/17 13:59 06/28/17 08:34 Chlorhexidine Gluconate (Tawanna-Hex 2%) 1 applic DAILY@2000 TOPIC 06/28/17 20:45 07/28/17 20:44 06/27/17 21:19 Ertapenem 1 gm/ Sodium Chloride 55 ml @ 110 mls/hr Q24H IVPB 06/25/17 14:30 06/30/17 14:29 06/27/17 14:20 Folic Acid (Folate) 1 mg DAILY ORAL 06/20/17 09:00 07/20/17 08:59 06/28/17 08:34 Megestrol Acetate (Megace) 400 mg TWICE A DAY ORAL 06/24/17 18:00 07/24/17 17:59 06/28/17 08:34 Morphine Sulfate (Morphine Sulfate) 1 mg Q4H PRN IVP for Pain 3-6 06/24/17 11:00 07/01/17 10:59 Morphine Sulfate (Morphine Sulfate) 2 mg Q4H PRN IVP Severe Pain (Pain Scale 7-10) 06/24/17 11:00 07/01/17 10:59 06/26/17 13:58 Ondansetron HCl (Zofran) 4 mg Q6H PRN IVP Nausea & Vomiting 06/19/17 14:24 07/18/17 14:23 Pantoprazole (Protonix) 40 mg DAILY IVP 06/20/17 09:00 07/19/17 08:59 06/28/17 08:34 Polyethylene Glycol (Miralax) 17 gm DAILYPRN PRN ORAL Constipation 06/19/17 14:24 07/19/17 14:23 Sodium Chloride 1,000 ml @ 50 mls/hr Q20H IVLG 06/19/17 14:30 07/18/17 10:32 06/27/17 22:36 Andres Reynolds MD June 28, 2017 15:19
[2017-06-28] MEDS: Ertapenem 1 GM in NS 55 ML IVPB SCH (15:33)
[2017-06-28 16:00] VITALS: BP 146/77
--- NOTE | 2017-06-28 16:51 | Infectious Diseases Prog Note ---
Assessment/Plan Assessment/Plan Assessment: Septic Shock, SP - Possibly multifactorial- originally suspected UTI but Ucx with no significant growth (she did had UTI and pyelo symptoms: +frequency/ urgency, n/v, lower abd pain). Now is bacteremic, likely GI translocation for either bleeding or cancer burden -CXR: Cardiomegaly and pulmonary vascular congestion. Patchy retrocardiac opacity. Pneumonia not excluded. Clinical correlation and follow-up exam recommended; doubt PNA- no cough -u/a wbc tntc, nit neg, leuk +3, sq cells moderate; ucx 20-30k mixed gram positive growth; repeat u/a WBC 40-60,nit neg, leuk +2, sq cells few; ucx Neg -Bcx 06/17 03/25 B. fragilis; 06/18 02/22 B. fragilis; 06/20 Bcx Neg x4; 06/26 Bcx NTD Fever, leukocytosis- fever resolved, leukocytosis persistent int he 20s- ? due to metastatic diseaase and bacteremia- -s/p RIJ removal 06/26 -CT abd/p w/: Evidence of recurrent colon carcinoma with extensive bulky tumor and adenopathy within the pelvis and retroperitoneum. This results in mild to moderate left hydronephrosis. Localized adjacent lytic destruction of the anterior L5 vertebra and part of the upper sacrum. Evidence of more remote metastatic neoplasm with multiple pulmonary nodules. -06/21 CDiff neg Lactic acidosis, resolved L DVT Anemia CARLOS, resolved Colon CA s/p resection and colostomy w/ recurrent Cancer obstructive uropathy s/p PPM DVT on [facility] resident PNC allergy Plan: -Continue IV Ertapenem abx d #01/02 given increased in WBC to complete course for B. fragilis bacteremic (also assuming possible translocation of other gram negative organisms) -06/25 SP Ceftriaxone and Flagyl #3 -06/23 SP Meropenem #6 -06/19 SP IV Vancomycin #2 -06/17 CEfepime and Flagyl x1 -f/u Repeat 2 sets of Bcx (peripheral and from R IJ) -f/u cx -Monitor CBC/BMP, temperatures -aspiration precautions -heme onc f/u -wound care/prevention per hospital protocol -PICC line care Thank you for this consultation. Will continue to follow along with you. Discussed with RN Subjective Allergies: Coded Allergies: PENICILLINS (Verified Allergy, Unknown, 06/18/17) Swelling Subjective afebrile leukocytosis improving feeling better repeat Bcx NTD Objective Vital Signs Last 24 Hour Vital Signs Date Time Temp Pulse Resp B/P (MAP) Pulse Ox O2 Delivery O2 Flow Rate FiO2 06/28/17 12:00 97.2 98 19 154/80 99 97.2 06/28/17 08:00 97.7 95 19 143/80 99 97.7 06/28/17 04:00 97.3 99 19 160/70 99 97.3 06/28/17 00:00 98.2 98 19 150/79 100 98.2 06/27/17 20:00 98.2 100 19 138/89 100 98.2 Height (Feet): 5 Height (Inches): 4.00 Weight (Pounds): 195 Objective General Appearance: well appearing, no apparent distress, alert Head: normocephalic EENT: PERRL/EOMI, normal ENT inspection Neck: supple Respiratory: normal breath sounds, no respiratory distress Cardiovascular: normal rate Gastrointestinal: normal inspection, non tender, soft, normal bowel sounds, non -distended Genitourinary: no CVA tenderness Musculoskeletal: normal inspection, back normal Skin: normal inspection, normal color, no rash, warm/dry, palpation normal, well hydrated Microbiology Date/Time Source Procedure Growth Status 06/26/17 11:15 Blood Blood Culture - Preliminary NO GROWTH AFTER 24 HOURS Resulted 06/26/17 11:00 Blood Blood Culture - Preliminary NO GROWTH AFTER 24 HOURS Resulted Laboratory Tests Test 06/28/17 06:25 White Blood Count 19.5 K/UL (4.8-10.8) H Red Blood Count 3.33 M/UL (4.20-5.40) L Hemoglobin 9.0 G/DL (12.0-16.0) L Hematocrit 27.7 % (37.0-47.0) L Mean Corpuscular Volume 83 FL (80-99) Mean Corpuscular Hemoglobin 26.9 PG (27.0-31.0) L Mean Corpuscular Hemoglobin Concent 32.4 G/DL (32.0-36.0) Red Cell Distribution Width 16.3 % (11.6-14.8) H Platelet Count 401 K/UL (150-450) Mean Platelet Volume 6.0 FL (6.5-10.1) L Neutrophils (%) (Auto) % (45.0-75.0) Lymphocytes (%) (Auto) % (20.0-45.0) Monocytes (%) (Auto) % (1.0-10.0) Eosinophils (%) (Auto) % (0.0-3.0) Basophils (%) (Auto) % (0.0-2.0) Differential Total Cells Counted 100 Neutrophils % (Manual) 93 % (45-75) H Lymphocytes % (Manual) 5 % (20-45) L Monocytes % (Manual) 2 % (1-10) Eosinophils % (Manual) 0 % (0-3) Basophils % (Manual) 0 % (0-2) Band Neutrophils 0 % (0-8) Platelet Estimate Adequate Platelet Morphology Normal Hypochromasia 1+ Anisocytosis 1+ Sodium Level 136 MMOL/L (136-145) Potassium Level 3.4 MMOL/L (3.5-5.1) L Chloride Level 105 MMOL/L (98-107) Carbon Dioxide Level 22 MMOL/L (21-32) Anion Gap 10 mmol/L (5-15) Blood Urea Nitrogen 6 mg/dL (7-18) L Creatinine 0.6 MG/DL (0.55-1.30) Estimat Glomerular Filtration Rate mL/min (>60) Glucose Level 87 MG/DL (74-106) Calcium Level 8.2 MG/DL (8.5-10.1) L Phosphorus Level 2.8 MG/DL (2.5-4.9) Magnesium Level 1.8 MG/DL (1.8-2.4) Current Medications Medications (Trade) Dose Ordered Sig/Naman Route PRN Reason Start Time Stop Time Status Last Admin Dose Admin Acetaminophen (Tylenol) 650 mg Q4H PRN ORAL fever 06/19/17 14:45 07/18/17 10:44 Apixaban (Eliquis) 5 mg BID ORAL 06/20/17 14:00 07/20/17 13:59 06/28/17 08:34 Chlorhexidine Gluconate (Tawanna-Hex 2%) 1 applic DAILY@2000 TOPIC 06/28/17 20:45 07/28/17 20:44 06/27/17 21:19 Ertapenem 1 gm/ Sodium Chloride 55 ml @ 110 mls/hr Q24H IVPB 06/25/17 14:30 06/30/17 14:29 06/28/17 15:33 Folic Acid (Folate) 1 mg DAILY ORAL 06/20/17 09:00 07/20/17 08:59 06/28/17 08:34 Megestrol Acetate (Megace) 400 mg TWICE A DAY ORAL 06/24/17 18:00 07/24/17 17:59 06/28/17 08:34 Morphine Sulfate (Morphine Sulfate) 1 mg Q4H PRN IVP for Pain 3-6 06/24/17 11:00 07/01/17 10:59 Morphine Sulfate (Morphine Sulfate) 2 mg Q4H PRN IVP Severe Pain (Pain Scale 7-10) 06/24/17 11:00 07/01/17 10:59 06/26/17 13:58 Ondansetron HCl (Zofran) 4 mg Q6H PRN IVP Nausea & Vomiting 06/19/17 14:24 07/18/17 14:23 Pantoprazole (Protonix) 40 mg DAILY IVP 06/20/17 09:00 07/19/17 08:59 06/28/17 08:34 Polyethylene Glycol (Miralax) 17 gm DAILYPRN PRN ORAL Constipation 06/19/17 14:24 07/19/17 14:23 Sodium Chloride 1,000 ml @ 50 mls/hr Q20H IVLG 06/19/17 14:30 07/18/17 10:32 06/27/17 22:36 Cheryl Ramos M.D. June 28, 2017 16:51
--- NOTE | 2017-06-28 18:04 | Internal Med Progress Note ---
Subjective Date of Service: June 28, 2017 Physician Name Jonathan Reza Attending Physician Bharat Orozco MD Current Medications Medications (Trade) Dose Ordered Sig/Naman Route PRN Reason Start Time Stop Time Status Last Admin Dose Admin Acetaminophen (Tylenol) 650 mg Q4H PRN ORAL fever 06/19/17 14:45 07/18/17 10:44 Apixaban (Eliquis) 5 mg BID ORAL 06/20/17 14:00 07/20/17 13:59 06/28/17 17:44 Chlorhexidine Gluconate (Tawanna-Hex 2%) 1 applic DAILY@2000 TOPIC 06/28/17 20:45 07/28/17 20:44 06/27/17 21:19 Ertapenem 1 gm/ Sodium Chloride 55 ml @ 110 mls/hr Q24H IVPB 06/25/17 14:30 06/30/17 14:29 06/28/17 15:33 Folic Acid (Folate) 1 mg DAILY ORAL 06/20/17 09:00 07/20/17 08:59 06/28/17 08:34 Megestrol Acetate (Megace) 400 mg TWICE A DAY ORAL 06/24/17 18:00 07/24/17 17:59 06/28/17 17:44 Morphine Sulfate (Morphine Sulfate) 1 mg Q4H PRN IVP for Pain 3-6 06/24/17 11:00 07/01/17 10:59 Morphine Sulfate (Morphine Sulfate) 2 mg Q4H PRN IVP Severe Pain (Pain Scale 7-10) 06/24/17 11:00 07/01/17 10:59 06/26/17 13:58 Ondansetron HCl (Zofran) 4 mg Q6H PRN IVP Nausea & Vomiting 06/19/17 14:24 07/18/17 14:23 Pantoprazole (Protonix) 40 mg DAILY IVP 06/20/17 09:00 07/19/17 08:59 06/28/17 08:34 Polyethylene Glycol (Miralax) 17 gm DAILYPRN PRN ORAL Constipation 06/19/17 14:24 07/19/17 14:23 Sodium Chloride 1,000 ml @ 50 mls/hr Q20H IVLG 06/19/17 14:30 07/18/17 10:32 5/10/18 17:44 Allergies: Coded Allergies: PENICILLINS (Verified Allergy, Unknown, 06/18/17) Swelling ROS Limited/Unobtainable: No Constitutional: Reports: no symptoms HEENT: Reports: no symptoms Cardiovascular: Reports: no symptoms Respiratory: Reports: no symptoms Gastrointestinal/Abdominal: Reports: no symptoms Genitourinary: Reports: no symptoms Neurologic/Psychiatric: Reports: no symptoms Subjective 72 YO F admitted with hypotension and anemia. Now GI bleed and bacteremia. Cover for Int Sourav-Dr Orozco. Decreased appetite. Objective Last Vital Signs Date Time Temp Pulse Resp B/P (MAP) Pulse Ox O2 Delivery O2 Flow Rate FiO2 06/28/17 16:00 98.1 100 19 146/77 99 98.1 06/27/17 12:00 Room Air 06/23/17 20:24 21 Laboratory Tests Test 06/28/17 06:25 White Blood Count 19.5 K/UL (4.8-10.8) H Red Blood Count 3.33 M/UL (4.20-5.40) L Hemoglobin 9.0 G/DL (12.0-16.0) L Hematocrit 27.7 % (37.0-47.0) L Mean Corpuscular Volume 83 FL (80-99) Mean Corpuscular Hemoglobin 26.9 PG (27.0-31.0) L Mean Corpuscular Hemoglobin Concent 32.4 G/DL (32.0-36.0) Red Cell Distribution Width 16.3 % (11.6-14.8) H Platelet Count 401 K/UL (150-450) Mean Platelet Volume 6.0 FL (6.5-10.1) L Neutrophils (%) (Auto) % (45.0-75.0) Lymphocytes (%) (Auto) % (20.0-45.0) Monocytes (%) (Auto) % (1.0-10.0) Eosinophils (%) (Auto) % (0.0-3.0) Basophils (%) (Auto) % (0.0-2.0) Differential Total Cells Counted 100 Neutrophils % (Manual) 93 % (45-75) H Lymphocytes % (Manual) 5 % (20-45) L Monocytes % (Manual) 2 % (1-10) Eosinophils % (Manual) 0 % (0-3) Basophils % (Manual) 0 % (0-2) Band Neutrophils 0 % (0-8) Platelet Estimate Adequate Platelet Morphology Normal Hypochromasia 1+ Anisocytosis 1+ Sodium Level 136 MMOL/L (136-145) Potassium Level 3.4 MMOL/L (3.5-5.1) L Chloride Level 105 MMOL/L (98-107) Carbon Dioxide Level 22 MMOL/L (21-32) Anion Gap 10 mmol/L (5-15) Blood Urea Nitrogen 6 mg/dL (7-18) L Creatinine 0.6 MG/DL (0.55-1.30) Estimat Glomerular Filtration Rate mL/min (>60) Glucose Level 87 MG/DL (74-106) Calcium Level 8.2 MG/DL (8.5-10.1) L Phosphorus Level 2.8 MG/DL (2.5-4.9) Magnesium Level 1.8 MG/DL (1.8-2.4) Microbiology Date/Time Source Procedure Growth Status 06/26/17 11:15 Blood Blood Culture - Preliminary NO GROWTH AFTER 24 HOURS Resulted 06/26/17 11:00 Blood Blood Culture - Preliminary NO GROWTH AFTER 24 HOURS Resulted Intake and Output 06/27/17 06/28/17 19:00 07:00 Intake Total 830 ml 550 ml Output Total 1250 ml 750 ml Balance -420 ml -200 ml Intake Oral 120 ml IV Total 710 ml 550 ml Output Urine Total 800 ml 700 ml Stool Total 450 ml 50 ml Objective General Appearance: WD/WN, no apparent distress, alert EENT: PERRL/EOMI, normal ENT inspection Neck: non-tender, normal alignment, supple Cardiovascular: normal peripheral pulses, normal rate, regular rhythm, no gallop/murmur, no JVD Respiratory/Chest: chest wall non-tender, lungs clear, normal breath sounds, no respiratory distress, no accessory muscle use Abdomen: normal bowel sounds, non tender, soft, no organomegaly, no mass Extremities: normal inspection Neurologic: application support consultant II-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 Continue eliquis per hematology note. (4) Altered mental status (5) Hypotension (6) Colon cancer Assessment & Plan: Recurrence - see onc note. (7) Anemia Assessment & Plan: S/P transfusion 2 units PRBC on 06/18/17. Hemoglobin stable. GI procedures on hold-see GI note. (8) Hypokalemia Assessment & Plan: replace K+ (9) Hypomagnesemia Assessment & Plan: resolved (10) Severe sepsis Assessment & Plan: Bacteroides fragilis. Continue ceftriaxone and flagyl per ID (11) Decrease in appetite Assessment & Plan: Calorie count. Megace Status: stable Assessment/Plan Discharge planning-discussed with daughter-Michael Becerril conv [facility] Jonathan Reza MD June 28, 2017 18:04
[2017-06-28] MEDS ORDERED: PANTOPRAZOLE SO40 MG ORAL (18:06)
[2017-06-28] MEDS ORDERED: ELIQUIS2.5 MG ORAL (18:06)
--- NOTE | 2017-06-28 18:22 | Cardiology Report ---
APPROVED REPORT EKG Measurement Heart [id number] Sinus tachycardia Cannot rule out Anterior infarct, age undetermined Abnormal ECG
[2017-06-28 20:00] VITALS: BP 127/81
[2017-06-28] MEDS: Dyna-Hex 2% Top Sol 2oz TOPIC SCH (20:57)
--- NOTE | 2017-06-28 23:18 | General Progress Note ---
Assessment/Plan Assessment/Plan # Recurrent colon carcinoma with extensive bulky tumor and adenopathy within the pelvis and retroperitoneum. --> This results in mild to moderate left hydronephrosis. Localized adjacent lytic destruction of the anterior L5 vertebra and part of the upper sacrum. --> Evidence of more remote metastatic neoplasm with multiple pulmonary nodules. --> given poor performance status, appear patient is bed-bound and recommend hospice care evaluation # DVT of the left leg - given stable h/h and no e/o gi bleed --> continue eliquis x 3 months total #. Leukocytosis. --> Remains elevated, but has been improving. --> Continue to monitor and trend cbc # Anemia of chronic disease, evaluate with GI --> hgb goal is above 7 --> anemia w/u has been reviewed --> appreciate gi recs, does not need gi procedure given ob negative --> blood transfusion not required unless symptomatic # Anemia of folic acid deficiency --> started on FA 1mg daily # Hypokalemia - repleted with K # Hypomagnesemia - repleted with mag # Weakness and fatigue is likely related to anemia #. Comfort care. #. Tachycardia. --> Improved. #. Encephalopathy. Subjective Date patient seen: June 28, 2017 Constitutional: Denies: no symptoms, chills, diaphoresis, fever, malaise, weakness, other HEENT: Denies: no symptoms, eye pain, blurred vision, tearing, double vision, ear pain, ear discharge, nose pain, nose congestion, throat pain, throat swelling, mouth pain, mouth swelling, other Cardiovascular: Denies: no symptoms, chest pain, edema, irregular heart rate, lightheadedness, palpitations, syncope, other Respiratory: Denies: no symptoms, cough, orthopnea, shortness of breath, SOB with excertion, SOB at rest, sputum, stridor, wheezing, other Gastrointestinal/Abdominal: Denies: no symptoms, abdomen distended, abdominal pain, black stools, tarry stools, blood in stool, constipated, diarrhea, difficulty swallowing, nausea, poor appetite, poor fluid intake, rectal bleeding , vomiting, other Genitourinary: Denies: no symptoms, burning, discharge, frequency, flank pain, hematuria, incontinence, pain, urgency, other Neurologic/Psychiatric: Denies: no symptoms, anxiety, depressed, emotional problems, headache, numbness, paresthesia, pre-existing deficit, seizure, tingling, tremors, weakness, other Hematologic/Lymphatic: Reports: anemia Allergies: Coded Allergies: PENICILLINS (Verified Allergy, Unknown, 06/18/17) Swelling Subjective Leukocytosis improving. NAD. Confused. Objective Last 24 Hour Vital Signs Date Time Temp Pulse Resp B/P (MAP) Pulse Ox O2 Delivery O2 Flow Rate FiO2 06/28/17 20:00 98.1 106 20 127/81 98 98.1 06/28/17 16:00 98.1 100 19 146/77 99 98.1 06/28/17 12:00 97.2 98 19 154/80 99 97.2 06/28/17 08:00 97.7 95 19 143/80 99 97.7 06/28/17 04:00 97.3 99 19 160/70 99 97.3 06/28/17 00:00 98.2 98 19 150/79 100 98.2 Intake and Output 06/27/17 06/28/17 19:00 07:00 Intake Total 830 ml 550 ml Output Total 1250 ml 750 ml Balance -420 ml -200 ml Intake Oral 120 ml IV Total 710 ml 550 ml Output Urine Total 800 ml 700 ml Stool Total 450 ml 50 ml Laboratory Tests 06/28/17 06:25: White Blood Count 19.5H, Red Blood Count 3.33L, Hemoglobin 9.0L, Hematocrit 27.7L, Mean Corpuscular Volume 83, Mean Corpuscular Hemoglobin 26.9L, Mean Corpuscular Hemoglobin Concent 32.4, Red Cell Distribution Width 16.3H, Platelet Count 401, Mean Platelet Volume 6.0L, Neutrophils (%) (Auto) , Lymphocytes (%) (Auto) , Monocytes (%) (Auto) , Eosinophils (%) (Auto) , Basophils (%) (Auto) , Differential Total Cells Counted 100, Neutrophils % ( Manual) 93H, Lymphocytes % (Manual) 5L, Monocytes % (Manual) 2, Eosinophils % ( Manual) 0, Basophils % (Manual) 0, Band Neutrophils 0, Platelet Estimate Adequate, Platelet Morphology Normal, Hypochromasia 1+, Anisocytosis 1+, Sodium Level 136, Potassium Level 3.4L, Chloride Level 105, Carbon Dioxide Level 22, Anion Gap 10, Blood Urea Nitrogen 6L, Creatinine 0.6, Estimat Glomerular Filtration Rate , Glucose Level 87, Calcium Level 8.2L, Phosphorus Level 2.8, Magnesium Level 1.8 Height (Feet): 5 Height (Inches): 4.00 Weight (Pounds): 195 General Appearance: no apparent distress, confused Cardiovascular: normal rate, regular rhythm Abdomen: normal bowel sounds, non tender Chay Ross MD June 28, 2017 23:17
[2017-06-29] VITALS: BP 148/66
[2017-06-29 04:00] VITALS: BP 152/74
[2017-06-29 07:30] LABS: HEMATOCRIT 25.4 % (37.0-47.0); HEMOGLOBIN 8.2 G/DL (12.0-16.0); MEAN CORPUSCULAR VOLUME 84 FL (80-99); PLATELET COUNT 402 K/UL (150-450); RED BLOOD COUNT 3.02 M/UL (4.20-5.40); RED CELL DISTRIBUTION WIDTH 16.3 % (11.6-14.8); WHITE BLOOD COUNT 17.2 K/UL (4.8-10.8)
[2017-06-29 07:34] LABS: ANION GAP 9 mmol/L (5-15); BLOOD UREA NITROGEN 6 mg/dL (7-18); CALCIUM 8.6 MG/DL (8.5-10.1); CARBON DIOXIDE 23 MMOL/L (21-32); CHLORIDE 107 MMOL/L (98-107); CREATININE 0.5 MG/DL (0.55-1.30); POTASSIUM 3.7 MMOL/L (3.5-5.1); SODIUM 138 MMOL/L (136-145)
[2017-06-29 08:00] VITALS: BP 140/74
[2017-06-29] MEDS: Megace 400mg/10ml Susp ORAL SCH ×2 (08:38→17:07)
[2017-06-29] MEDS: Pantoprazole Inj IVP SCH (08:38)
[2017-06-29] MEDS: Eliquis 2.5mg tablet ORAL SCH ×2 (08:39→17:08)
--- NOTE | 2017-06-29 10:35 | GI Progress Note ---
Assessment/Plan Problems: (1) Severe sepsis ICD Codes: A41.9 - Sepsis, unspecified organism; R65.20 - Severe sepsis without septic shock SNOMED: 54755063 (2) Electrolyte imbalance ICD Codes: E87.8 - Other disorders of electrolyte and fluid balance, not elsewhere classified SNOMED: 228050239 (3) Dehydration ICD Codes: E86.0 - Dehydration SNOMED: 21357227 (4) Colostomy in place ICD Codes: Z93.3 - Colostomy status SNOMED: 116621585, 029816211 (5) Colon cancer ICD Codes: C18.9 - Malignant neoplasm of colon, unspecified SNOMED: 962827433 Qualifiers: Qualified Codes: C18.9 - Malignant neoplasm of colon, unspecified (6) Anemia ICD Codes: D64.9 - Anemia, unspecified SNOMED: 692442142 Qualifiers: Qualified Codes: D64.89 - Other specified anemias Status: unchanged Status Narrative Discussed with Dr. Fonseca. Assessment/Plan CEA 39.5 >> will defer colonoscopy for staging anemia work up reviewed >> folate deficiency OB stool r/o GI bleed >> negative cdiff negative CT AP reviewed supportive care fu onc recs monitor H&H, prn transfusions bowel regime ppi electrolyte replacement fu labs PT/OT patient on Plavix The patient was seen and examined at bedside and all new and available data was reviewed in the patients chart. I agree with the above findings, impression and plan. (Patient seen earlier today. Signature stamp does not reflect patient encounter time.). - Yung Fonseca MD Subjective Subjective denies abdominal pain Objective Last 24 Hour Vital Signs Date Time Temp Pulse Resp B/P (MAP) Pulse Ox O2 Delivery O2 Flow Rate FiO2 06/29/17 04:00 98.2 99 20 152/74 97 98.2 06/29/17 00:00 98.4 100 20 148/66 97 98.4 06/28/17 20:00 98.1 106 20 127/81 98 98.1 06/28/17 16:00 98.1 100 19 146/77 99 98.1 06/28/17 12:00 97.2 98 19 154/80 99 97.2 Intake and Output 06/28/17 06/29/17 19:00 07:00 Intake Total 170 ml 600 ml Output Total 300 ml 450 ml Balance -130 ml 150 ml Intake Oral 120 ml IV Total 50 ml 600 ml Output Urine Total 300 ml 450 ml Laboratory Tests Test 06/29/17 06:15 White Blood Count 17.2 K/UL (4.8-10.8) H Red Blood Count 3.02 M/UL (4.20-5.40) L Hemoglobin 8.2 G/DL (12.0-16.0) L Hematocrit 25.4 % (37.0-47.0) L Mean Corpuscular Volume 84 FL (80-99) Mean Corpuscular Hemoglobin 27.2 PG (27.0-31.0) Mean Corpuscular Hemoglobin Concent 32.4 G/DL (32.0-36.0) Red Cell Distribution Width 16.3 % (11.6-14.8) H Platelet Count 402 K/UL (150-450) Mean Platelet Volume 5.9 FL (6.5-10.1) L Neutrophils (%) (Auto) % (45.0-75.0) Lymphocytes (%) (Auto) % (20.0-45.0) Monocytes (%) (Auto) % (1.0-10.0) Eosinophils (%) (Auto) % (0.0-3.0) Basophils (%) (Auto) % (0.0-2.0) Differential Total Cells Counted 100 Neutrophils % (Manual) 91 % (45-75) H Lymphocytes % (Manual) 5 % (20-45) L Monocytes % (Manual) 4 % (1-10) Eosinophils % (Manual) 0 % (0-3) Basophils % (Manual) 0 % (0-2) Band Neutrophils 0 % (0-8) Platelet Estimate Adequate Platelet Morphology Normal Hypochromasia 1+ Anisocytosis 1+ Sodium Level 138 MMOL/L (136-145) Potassium Level 3.7 MMOL/L (3.5-5.1) Chloride Level 107 MMOL/L (98-107) Carbon Dioxide Level 23 MMOL/L (21-32) Anion Gap 9 mmol/L (5-15) Blood Urea Nitrogen 6 mg/dL (7-18) L Creatinine 0.5 MG/DL (0.55-1.30) L Estimat Glomerular Filtration Rate mL/min (>60) Glucose Level 86 MG/DL (74-106) Calcium Level 8.6 MG/DL (8.5-10.1) Height (Feet): 5 Height (Inches): 4.00 Weight (Pounds): 199 General Appearance: WD/WN, no apparent distress, alert Cardiovascular: normal rate Respiratory/Chest: normal breath sounds, no respiratory distress Abdominal Exam: normal bowel sounds, non tender, soft, other - colostomy Extremities: normal range of motion, non-tender Clarissa Montgomery NP June 29, 2017 10:35
[2017-06-29 12:00] VITALS: BP 138/78
--- NOTE | 2017-06-29 12:54 | Pulmonology Progress Note ---
Assessment/Plan Problems: (1) Severe sepsis (2) Acute encephalopathy (3) Anemia (4) H/O deep venous thrombosis (5) Colon cancer (6) Colostomy in place Assessment/Plan extensive metastasis wbc decreasing oncology note appreciated wbc higher again, ABX were changed to Ertapenem BC showing B. fragilis anemia w/u check electrolytes social service to find family members. dc planning Subjective Constitutional: Reports: no symptoms HEENT: Repors: no symptoms Respiratory: Reports: no symptoms Allergies: Coded Allergies: PENICILLINS (Verified Allergy, Unknown, 06/18/17) Swelling Objective Last 24 Hour Vital Signs Date Time Temp Pulse Resp B/P (MAP) Pulse Ox O2 Delivery O2 Flow Rate FiO2 06/29/17 12:00 98.1 88 20 138/78 97 98.1 06/29/17 08:00 98.1 88 20 140/74 97 98.1 06/29/17 04:00 98.2 99 20 152/74 97 98.2 06/29/17 00:00 98.4 100 20 148/66 97 98.4 06/28/17 20:00 98.1 106 20 127/81 98 98.1 06/28/17 16:00 98.1 100 19 146/77 99 98.1 Intake and Output 06/28/17 06/29/17 19:00 07:00 Intake Total 170 ml 600 ml Output Total 300 ml 450 ml Balance -130 ml 150 ml Intake Oral 120 ml IV Total 50 ml 600 ml Output Urine Total 300 ml 450 ml Objective General Appearance: wn/wd Lines, tubes and drains: peripheral HEENT: normocephalic, atraumatic Neck: non-tender, normal alignment Respiratory/Chest: chest wall non-tender, lungs clear Breasts: no masses Cardiovascular/Chest: normal peripheral pulses Abdomen: normal bowel sounds, soft Genitourinary/Rectal: normal genital exam Skin Exam: normal pigmentation 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 Laboratory Tests 06/29/17 06:15: White Blood Count 17.2H, Red Blood Count 3.02L, Hemoglobin 8.2L, Hematocrit 25.4L, Mean Corpuscular Volume 84, Mean Corpuscular Hemoglobin 27.2, Mean Corpuscular Hemoglobin Concent 32.4, Red Cell Distribution Width 16.3H, Platelet Count 402, Mean Platelet Volume 5.9L, Neutrophils (%) (Auto) , Lymphocytes (%) (Auto) , Monocytes (%) (Auto) , Eosinophils (%) (Auto) , Basophils (%) (Auto) , Differential Total Cells Counted 100, Neutrophils % ( Manual) 91H, Lymphocytes % (Manual) 5L, Monocytes % (Manual) 4, Eosinophils % ( Manual) 0, Basophils % (Manual) 0, Band Neutrophils 0, Platelet Estimate Adequate, Platelet Morphology Normal, Hypochromasia 1+, Anisocytosis 1+, Sodium Level 138, Potassium Level 3.7, Chloride Level 107, Carbon Dioxide Level 23, Anion Gap 9, Blood Urea Nitrogen 6L, Creatinine 0.5L, Estimat Glomerular Filtration Rate , Glucose Level 86, Calcium Level 8.6 Current Medications Medications (Trade) Dose Ordered Sig/Naman Route PRN Reason Start Time Stop Time Status Last Admin Dose Admin Acetaminophen (Tylenol) 650 mg Q4H PRN ORAL fever 06/19/17 14:45 07/18/17 10:44 Apixaban (Eliquis) 5 mg BID ORAL 06/20/17 14:00 07/20/17 13:59 06/29/17 08:39 Chlorhexidine Gluconate (Tawanna-Hex 2%) 1 applic DAILY@2000 TOPIC 06/28/17 20:45 07/28/17 20:44 06/28/17 20:57 Ertapenem 1 gm/ Sodium Chloride 55 ml @ 110 mls/hr Q24H IVPB 06/25/17 14:30 06/30/17 14:29 06/28/17 15:33 Folic Acid (Folate) 1 mg DAILY ORAL 06/20/17 09:00 07/20/17 08:59 06/29/17 08:39 Megestrol Acetate (Megace) 400 mg TWICE A DAY ORAL 06/24/17 18:00 07/24/17 17:59 06/29/17 08:38 Morphine Sulfate (Morphine Sulfate) 1 mg Q4H PRN IVP for Pain 3-6 06/24/17 11:00 07/01/17 10:59 Morphine Sulfate (Morphine Sulfate) 2 mg Q4H PRN IVP Severe Pain (Pain Scale 7-10) 06/24/17 11:00 07/01/17 10:59 06/26/17 13:58 Ondansetron HCl (Zofran) 4 mg Q6H PRN IVP Nausea & Vomiting 06/19/17 14:24 07/18/17 14:23 Pantoprazole (Protonix) 40 mg DAILY IVP 06/20/17 09:00 07/19/17 08:59 06/29/17 08:38 Polyethylene Glycol (Miralax) 17 gm DAILYPRN PRN ORAL Constipation 06/19/17 14:24 07/19/17 14:23 Sodium Chloride 1,000 ml @ 50 mls/hr Q20H IVLG 06/19/17 14:30 07/18/17 10:32 06/28/17 17:44 Andres Reynolds MD June 29, 2017 12:54
[2017-06-29] MEDS: Ertapenem 1 GM in NS 55 ML IVPB SCH (15:22)
[2017-06-29 16:00] VITALS: BP 133/60
--- NOTE | 2017-06-29 17:11 | Internal Med Progress Note ---
Subjective Date of Service: June 29, 2017 Physician Name Jonathan Reza Attending Physician Bharat Orozco MD Current Medications Medications (Trade) Dose Ordered Sig/Naman Route PRN Reason Start Time Stop Time Status Last Admin Dose Admin Acetaminophen (Tylenol) 650 mg Q4H PRN ORAL fever 06/19/17 14:45 07/18/17 10:44 Apixaban (Eliquis) 5 mg BID ORAL 06/20/17 14:00 07/20/17 13:59 06/29/17 08:39 Chlorhexidine Gluconate (Tawanna-Hex 2%) 1 applic DAILY@2000 TOPIC 06/28/17 20:45 07/28/17 20:44 06/28/17 20:57 Ertapenem 1 gm/ Sodium Chloride 55 ml @ 110 mls/hr Q24H IVPB 06/25/17 14:30 06/30/17 14:29 06/29/17 15:22 Folic Acid (Folate) 1 mg DAILY ORAL 06/20/17 09:00 07/20/17 08:59 06/29/17 08:39 Megestrol Acetate (Megace) 400 mg TWICE A DAY ORAL 06/24/17 18:00 07/24/17 17:59 06/29/17 08:38 Morphine Sulfate (Morphine Sulfate) 1 mg Q4H PRN IVP for Pain 3-6 06/24/17 11:00 07/01/17 10:59 Morphine Sulfate (Morphine Sulfate) 2 mg Q4H PRN IVP Severe Pain (Pain Scale 7-10) 06/24/17 11:00 07/01/17 10:59 06/26/17 13:58 Ondansetron HCl (Zofran) 4 mg Q6H PRN IVP Nausea & Vomiting 06/19/17 14:24 07/18/17 14:23 Pantoprazole (Protonix) 40 mg DAILY IVP 06/20/17 09:00 07/19/17 08:59 06/29/17 08:38 Polyethylene Glycol (Miralax) 17 gm DAILYPRN PRN ORAL Constipation 06/19/17 14:24 07/19/17 14:23 Sodium Chloride 1,000 ml @ 50 mls/hr Q20H IVLG 06/19/17 14:30 07/18/17 10:32 5/11/18 15:22 Allergies: Coded Allergies: PENICILLINS (Verified Allergy, Unknown, 06/18/17) Swelling ROS Limited/Unobtainable: No Constitutional: Reports: no symptoms HEENT: Reports: no symptoms Cardiovascular: Reports: no symptoms Respiratory: Reports: no symptoms Gastrointestinal/Abdominal: Reports: no symptoms Genitourinary: Reports: no symptoms Neurologic/Psychiatric: Reports: no symptoms Subjective 72 YO F admitted with hypotension and anemia. Now GI bleed and bacteremia. Cover for Int Sourav-Dr Orozco. Decreased appetite. Objective Last Vital Signs Date Time Temp Pulse Resp B/P (MAP) Pulse Ox O2 Delivery O2 Flow Rate FiO2 06/29/17 16:00 98.0 72 20 133/60 97 98.0 06/27/17 12:00 Room Air 06/23/17 20:24 21 Laboratory Tests Test 06/29/17 06:15 White Blood Count 17.2 K/UL (4.8-10.8) H Red Blood Count 3.02 M/UL (4.20-5.40) L Hemoglobin 8.2 G/DL (12.0-16.0) L Hematocrit 25.4 % (37.0-47.0) L Mean Corpuscular Volume 84 FL (80-99) Mean Corpuscular Hemoglobin 27.2 PG (27.0-31.0) Mean Corpuscular Hemoglobin Concent 32.4 G/DL (32.0-36.0) Red Cell Distribution Width 16.3 % (11.6-14.8) H Platelet Count 402 K/UL (150-450) Mean Platelet Volume 5.9 FL (6.5-10.1) L Neutrophils (%) (Auto) % (45.0-75.0) Lymphocytes (%) (Auto) % (20.0-45.0) Monocytes (%) (Auto) % (1.0-10.0) Eosinophils (%) (Auto) % (0.0-3.0) Basophils (%) (Auto) % (0.0-2.0) Differential Total Cells Counted 100 Neutrophils % (Manual) 91 % (45-75) H Lymphocytes % (Manual) 5 % (20-45) L Monocytes % (Manual) 4 % (1-10) Eosinophils % (Manual) 0 % (0-3) Basophils % (Manual) 0 % (0-2) Band Neutrophils 0 % (0-8) Platelet Estimate Adequate Platelet Morphology Normal Hypochromasia 1+ Anisocytosis 1+ Sodium Level 138 MMOL/L (136-145) Potassium Level 3.7 MMOL/L (3.5-5.1) Chloride Level 107 MMOL/L (98-107) Carbon Dioxide Level 23 MMOL/L (21-32) Anion Gap 9 mmol/L (5-15) Blood Urea Nitrogen 6 mg/dL (7-18) L Creatinine 0.5 MG/DL (0.55-1.30) L Estimat Glomerular Filtration Rate mL/min (>60) Glucose Level 86 MG/DL (74-106) Calcium Level 8.6 MG/DL (8.5-10.1) Intake and Output 06/28/17 06/29/17 19:00 07:00 Intake Total 170 ml 600 ml Output Total 300 ml 450 ml Balance -130 ml 150 ml Intake Oral 120 ml IV Total 50 ml 600 ml Output Urine Total 300 ml 450 ml Objective General Appearance: WD/WN, no apparent distress, alert EENT: PERRL/EOMI, normal ENT inspection Neck: non-tender, normal alignment, supple Cardiovascular: normal peripheral pulses, normal rate, regular rhythm, no gallop/murmur, no JVD Respiratory/Chest: chest wall non-tender, lungs clear, normal breath sounds, no respiratory distress, no accessory muscle use Abdomen: normal bowel sounds, non tender, soft, no organomegaly, no mass Extremities: normal inspection 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 Continue eliquis per hematology note. (4) Altered mental status (5) Hypotension (6) Colon cancer Assessment & Plan: Recurrence - see onc note. (7) Anemia Assessment & Plan: S/P transfusion 2 units PRBC on 06/18/17. Hemoglobin stable. GI procedures on hold-see GI note. (8) Hypokalemia Assessment & Plan: replace K+ (9) Hypomagnesemia Assessment & Plan: resolved (10) Severe sepsis Assessment & Plan: Bacteroides fragilis. Continue Ertapenem day # 01/02 per ID (11) Decrease in appetite Assessment & Plan: Calorie count. Megace (12) Leukocytosis Assessment & Plan: Improving-see ID note. Status: progressing Assessment/Plan Discharge planning-discussed with daughter-Michael Becerril conv SNF ? hospice? Jonathan Reza MD June 29, 2017 17:11
--- NOTE | 2017-06-29 18:54 | Infectious Diseases Prog Note ---
Assessment/Plan Assessment/Plan Assessment: Septic Shock, SP - Possibly multifactorial- originally suspected UTI but Ucx with no significant growth (she did had UTI and pyelo symptoms: +frequency/ urgency, n/v, lower abd pain). Now is bacteremic, likely GI translocation for either bleeding or cancer burden -CXR: Cardiomegaly and pulmonary vascular congestion. Patchy retrocardiac opacity. Pneumonia not excluded. Clinical correlation and follow-up exam recommended; doubt PNA- no cough -u/a wbc tntc, nit neg, leuk +3, sq cells moderate; ucx 20-30k mixed gram positive growth; repeat u/a WBC 40-60,nit neg, leuk +2, sq cells few; ucx Neg -Bcx 06/17 03/25 B. fragilis; 06/18 02/22 B. fragilis; 06/20 Bcx Neg x4; 06/26 Bcx NTD Fever, leukocytosis- fever resolved, leukocytosis persistent int he 20s- ? due to metastatic diseaase and bacteremia- -s/p RIJ removal 06/26 -CT abd/p w/: Evidence of recurrent colon carcinoma with extensive bulky tumor and adenopathy within the pelvis and retroperitoneum. This results in mild to moderate left hydronephrosis. Localized adjacent lytic destruction of the anterior L5 vertebra and part of the upper sacrum. Evidence of more remote metastatic neoplasm with multiple pulmonary nodules. -06/21 CDiff neg Lactic acidosis, resolved L DVT Anemia CARLOS, resolved Colon CA s/p resection and colostomy w/ recurrent Cancer obstructive uropathy s/p PPM DVT on [facility] resident PNC allergy Plan: -Continue IV Ertapenem abx d #02/01 given increased in WBC to complete course for B. fragilis bacteremic (also assuming possible translocation of other gram negative organisms) -06/25 SP Ceftriaxone and Flagyl #3 -06/23 SP Meropenem #6 -06/19 SP IV Vancomycin #2 -06/17 CEfepime and Flagyl x1 -f/u Repeat 2 sets of Bcx (peripheral and from R IJ) -f/u cx -Monitor CBC/BMP, temperatures -aspiration precautions -heme onc f/u -wound care/prevention per hospital protocol -PICC line care Thank you for this consultation. Will continue to follow along with you. Discussed with RN Subjective Allergies: Coded Allergies: PENICILLINS (Verified Allergy, Unknown, 06/18/17) Swelling Subjective afebrile leukocytosis improving feeling better repeat Bcx NTD Objective Vital Signs Last 24 Hour Vital Signs Date Time Temp Pulse Resp B/P (MAP) Pulse Ox O2 Delivery O2 Flow Rate FiO2 06/29/17 16:00 98.0 72 20 133/60 97 98.0 06/29/17 12:00 98.1 88 20 138/78 97 98.1 06/29/17 08:00 98.1 88 20 140/74 97 98.1 06/29/17 04:00 98.2 99 20 152/74 97 98.2 06/29/17 00:00 98.4 100 20 148/66 97 98.4 06/28/17 20:00 98.1 106 20 127/81 98 98.1 Height (Feet): 5 Height (Inches): 4.00 Weight (Pounds): 199 Objective General Appearance: well appearing, no apparent distress, alert Head: normocephalic EENT: PERRL/EOMI, normal ENT inspection Neck: supple Respiratory: normal breath sounds, no respiratory distress Cardiovascular: normal rate Gastrointestinal: normal inspection, non tender, soft, normal bowel sounds, non -distended Genitourinary: no CVA tenderness Musculoskeletal: normal inspection, back normal Skin: normal inspection, normal color, no rash, warm/dry, palpation normal, well hydrated Laboratory Tests Test 06/29/17 06:15 White Blood Count 17.2 K/UL (4.8-10.8) H Red Blood Count 3.02 M/UL (4.20-5.40) L Hemoglobin 8.2 G/DL (12.0-16.0) L Hematocrit 25.4 % (37.0-47.0) L Mean Corpuscular Volume 84 FL (80-99) Mean Corpuscular Hemoglobin 27.2 PG (27.0-31.0) Mean Corpuscular Hemoglobin Concent 32.4 G/DL (32.0-36.0) Red Cell Distribution Width 16.3 % (11.6-14.8) H Platelet Count 402 K/UL (150-450) Mean Platelet Volume 5.9 FL (6.5-10.1) L Neutrophils (%) (Auto) % (45.0-75.0) Lymphocytes (%) (Auto) % (20.0-45.0) Monocytes (%) (Auto) % (1.0-10.0) Eosinophils (%) (Auto) % (0.0-3.0) Basophils (%) (Auto) % (0.0-2.0) Differential Total Cells Counted 100 Neutrophils % (Manual) 91 % (45-75) H Lymphocytes % (Manual) 5 % (20-45) L Monocytes % (Manual) 4 % (1-10) Eosinophils % (Manual) 0 % (0-3) Basophils % (Manual) 0 % (0-2) Band Neutrophils 0 % (0-8) Platelet Estimate Adequate Platelet Morphology Normal Hypochromasia 1+ Anisocytosis 1+ Sodium Level 138 MMOL/L (136-145) Potassium Level 3.7 MMOL/L (3.5-5.1) Chloride Level 107 MMOL/L (98-107) Carbon Dioxide Level 23 MMOL/L (21-32) Anion Gap 9 mmol/L (5-15) Blood Urea Nitrogen 6 mg/dL (7-18) L Creatinine 0.5 MG/DL (0.55-1.30) L Estimat Glomerular Filtration Rate mL/min (>60) Glucose Level 86 MG/DL (74-106) Calcium Level 8.6 MG/DL (8.5-10.1) Current Medications Medications (Trade) Dose Ordered Sig/Naman Route PRN Reason Start Time Stop Time Status Last Admin Dose Admin Acetaminophen (Tylenol) 650 mg Q4H PRN ORAL fever 06/19/17 14:45 07/18/17 10:44 Apixaban (Eliquis) 5 mg BID ORAL 06/20/17 14:00 07/20/17 13:59 06/29/17 17:08 Chlorhexidine Gluconate (Tawanna-Hex 2%) 1 applic DAILY@2000 TOPIC 06/28/17 20:45 07/28/17 20:44 06/28/17 20:57 Ertapenem 1 gm/ Sodium Chloride 55 ml @ 110 mls/hr Q24H IVPB 06/25/17 14:30 06/30/17 14:29 06/29/17 15:22 Folic Acid (Folate) 1 mg DAILY ORAL 06/20/17 09:00 07/20/17 08:59 06/29/17 08:39 Megestrol Acetate (Megace) 400 mg TWICE A DAY ORAL 06/24/17 18:00 07/24/17 17:59 06/29/17 17:07 Morphine Sulfate (Morphine Sulfate) 1 mg Q4H PRN IVP for Pain 3-6 06/24/17 11:00 07/01/17 10:59 Morphine Sulfate (Morphine Sulfate) 2 mg Q4H PRN IVP Severe Pain (Pain Scale 7-10) 06/24/17 11:00 07/01/17 10:59 06/26/17 13:58 Ondansetron HCl (Zofran) 4 mg Q6H PRN IVP Nausea & Vomiting 06/19/17 14:24 07/18/17 14:23 Pantoprazole (Protonix) 40 mg DAILY IVP 06/20/17 09:00 07/19/17 08:59 06/29/17 08:38 Polyethylene Glycol (Miralax) 17 gm DAILYPRN PRN ORAL Constipation 06/19/17 14:24 07/19/17 14:23 Sodium Chloride 1,000 ml @ 50 mls/hr Q20H IVLG 06/19/17 14:30 07/18/17 10:32 06/29/17 15:22 Cheryl Ramos M.D. June 29, 2017 18:53
[2017-06-29 19:54] VITALS: BP 151/79
--- NOTE | 2017-06-29 23:31 | General Progress Note ---
Assessment/Plan Assessment/Plan # Recurrent colon carcinoma with extensive bulky tumor and adenopathy within the pelvis and retroperitoneum. --> This results in mild to moderate left hydronephrosis. Localized adjacent lytic destruction of the anterior L5 vertebra and part of the upper sacrum. --> Evidence of more remote metastatic neoplasm with multiple pulmonary nodules. --> given poor performance status, appear patient is bed-bound and recommend hospice care evaluation # DVT of the left leg - given stable h/h and no e/o gi bleed --> continue eliquis x 3 months total --> Improving. #. Leukocytosis. --> Remains elevated, but continues to improve. --> Continue to monitor and trend cbc # Anemia of chronic disease, evaluate with GI --> hgb goal is above 7 --> anemia w/u has been reviewed --> appreciate gi recs, does not need gi procedure given ob negative --> blood transfusion not required unless symptomatic # Anemia of folic acid deficiency --> started on FA 1mg daily # Hypokalemia - repleted with K # Hypomagnesemia - repleted with mag # Weakness and fatigue is likely related to anemia #. Comfort care. #. Tachycardia. --> Improved. #. Encephalopathy. Subjective Date patient seen: June 29, 2017 Constitutional: Denies: no symptoms, chills, diaphoresis, fever, malaise, weakness, other HEENT: Denies: no symptoms, eye pain, blurred vision, tearing, double vision, ear pain, ear discharge, nose pain, nose congestion, throat pain, throat swelling, mouth pain, mouth swelling, other Cardiovascular: Denies: no symptoms, chest pain, edema, irregular heart rate, lightheadedness, palpitations, syncope, other Respiratory: Denies: no symptoms, cough, orthopnea, shortness of breath, SOB with excertion, SOB at rest, sputum, stridor, wheezing, other Gastrointestinal/Abdominal: Denies: no symptoms, abdomen distended, abdominal pain, black stools, tarry stools, blood in stool, constipated, diarrhea, difficulty swallowing, nausea, poor appetite, poor fluid intake, rectal bleeding , vomiting, other Genitourinary: Denies: no symptoms, burning, discharge, frequency, flank pain, hematuria, incontinence, pain, urgency, other Neurologic/Psychiatric: Denies: no symptoms, anxiety, depressed, emotional problems, headache, numbness, paresthesia, pre-existing deficit, seizure, tingling, tremors, weakness, other Hematologic/Lymphatic: Reports: anemia Allergies: Coded Allergies: PENICILLINS (Verified Allergy, Unknown, 06/18/17) Swelling Subjective Leukocytosis slowly improving. Bedbound. On comfort care. Objective Last 24 Hour Vital Signs Date Time Temp Pulse Resp B/P (MAP) Pulse Ox O2 Delivery O2 Flow Rate FiO2 06/29/17 19:54 97.9 100 20 151/79 100 97.9 06/29/17 16:00 98.0 72 20 133/60 97 98.0 06/29/17 12:00 98.1 88 20 138/78 97 98.1 06/29/17 08:00 98.1 88 20 140/74 97 98.1 06/29/17 04:00 98.2 99 20 152/74 97 98.2 06/29/17 00:00 98.4 100 20 148/66 97 98.4 Intake and Output 06/28/17 06/29/17 19:00 07:00 Intake Total 170 ml 600 ml Output Total 300 ml 450 ml Balance -130 ml 150 ml Intake Oral 120 ml IV Total 50 ml 600 ml Output Urine Total 300 ml 450 ml Laboratory Tests 06/29/17 06:15: White Blood Count 17.2H, Red Blood Count 3.02L, Hemoglobin 8.2L, Hematocrit 25.4L, Mean Corpuscular Volume 84, Mean Corpuscular Hemoglobin 27.2, Mean Corpuscular Hemoglobin Concent 32.4, Red Cell Distribution Width 16.3H, Platelet Count 402, Mean Platelet Volume 5.9L, Neutrophils (%) (Auto) , Lymphocytes (%) (Auto) , Monocytes (%) (Auto) , Eosinophils (%) (Auto) , Basophils (%) (Auto) , Differential Total Cells Counted 100, Neutrophils % ( Manual) 91H, Lymphocytes % (Manual) 5L, Monocytes % (Manual) 4, Eosinophils % ( Manual) 0, Basophils % (Manual) 0, Band Neutrophils 0, Platelet Estimate Adequate, Platelet Morphology Normal, Hypochromasia 1+, Anisocytosis 1+, Sodium Level 138, Potassium Level 3.7, Chloride Level 107, Carbon Dioxide Level 23, Anion Gap 9, Blood Urea Nitrogen 6L, Creatinine 0.5L, Estimat Glomerular Filtration Rate , Glucose Level 86, Calcium Level 8.6 Height (Feet): 5 Height (Inches): 4.00 Weight (Pounds): 199 General Appearance: lethargic Cardiovascular: normal peripheral pulses, normal rate Respiratory/Chest: decreased breath sounds Abdomen: non tender, soft Chay Ross MD June 29, 2017 23:31
[2017-06-30] VITALS: BP 126/76
[2017-06-30 04:00] VITALS: BP 156/74
[2017-06-30 08:00] VITALS: BP 146/75
[2017-06-30] MEDS: Pantoprazole Inj IVP SCH (09:17)
[2017-06-30 09:35] LABS: HEMATOCRIT 25.1 % (37.0-47.0); HEMOGLOBIN 7.8 G/DL (12.0-16.0); MEAN CORPUSCULAR VOLUME 85 FL (80-99); PLATELET COUNT 386 K/UL (150-450); RED BLOOD COUNT 2.94 M/UL (4.20-5.40); RED CELL DISTRIBUTION WIDTH 16.5 % (11.6-14.8); WHITE BLOOD COUNT 15.5 K/UL (4.8-10.8)
[2017-06-30 09:50] LABS: ANION GAP 10 mmol/L (5-15); BLOOD UREA NITROGEN 8 mg/dL (7-18); CALCIUM 7.7 MG/DL (8.5-10.1); CARBON DIOXIDE 22 MMOL/L (21-32); CHLORIDE 109 MMOL/L (98-107); CREATININE 0.7 MG/DL (0.55-1.30); POTASSIUM 3.3 MMOL/L (3.5-5.1); SODIUM 141 MMOL/L (136-145)
[2017-06-30] MEDS: Megace 400mg/10ml Susp ORAL SCH ×2 (10:28→17:14)
[2017-06-30] MEDS: Eliquis 2.5mg tablet ORAL SCH ×2 (10:29→17:15)
--- NOTE | 2017-06-30 11:04 | Infectious Diseases Prog Note ---
Assessment/Plan Assessment/Plan Assessment: Septic Shock, SP - Possibly multifactorial- originally suspected UTI but Ucx with no significant growth (she did had UTI and pyelo symptoms: +frequency/ urgency, n/v, lower abd pain). Now is bacteremic, likely GI translocation for either bleeding or cancer burden -CXR: Cardiomegaly and pulmonary vascular congestion. Patchy retrocardiac opacity. Pneumonia not excluded. Clinical correlation and follow-up exam recommended; doubt PNA- no cough -u/a wbc tntc, nit neg, leuk +3, sq cells moderate; ucx 20-30k mixed gram positive growth; repeat u/a WBC 40-60,nit neg, leuk +2, sq cells few; ucx Neg -Bcx 06/17 03/25 B. fragilis; 06/18 02/22 B. fragilis; 06/20 Bcx Neg x4; 06/26 Bcx NTD Fever, SP leukocytosis- persistent int he 20s- ? due to metastatic disease -s/p RIJ removal 06/26 -CT abd/p w/: Evidence of recurrent colon carcinoma with extensive bulky tumor and adenopathy within the pelvis and retroperitoneum. This results in mild to moderate left hydronephrosis. Localized adjacent lytic destruction of the anterior L5 vertebra and part of the upper sacrum. Evidence of more remote metastatic neoplasm with multiple pulmonary nodules. -06/21 CDiff neg Lactic acidosis, resolved L DVT Anemia CARLOS, resolved Colon CA s/p resection and colostomy w/ recurrent Cancer obstructive uropathy s/p PPM DVT on [facility] senior living resident PNC allergy Plan: -Continue IV Ertapenem abx d #13/ given increased in WBC to complete course for B. fragilis bacteremic (also assuming possible translocation of other gram negative organisms) -06/25 SP Ceftriaxone and Flagyl #3 -06/23 SP Meropenem #6 -06/19 SP IV Vancomycin #2 -06/17 CEfepime and Flagyl x1 -f/u Repeat 2 sets of Bcx (peripheral and from R IJ) -f/u cx -Monitor CBC/BMP, temperatures -aspiration precautions -heme onc f/u -wound care/prevention per hospital protocol -PICC line care Subjective Allergies: Coded Allergies: PENICILLINS (Verified Allergy, Unknown, 06/18/17) Swelling Objective Vital Signs Last 24 Hour Vital Signs Date Time Temp Pulse Resp B/P (MAP) Pulse Ox O2 Delivery O2 Flow Rate FiO2 06/30/17 08:00 97.3 93 18 146/75 95 Room Air 97.3 06/30/17 04:00 97.4 94 20 156/74 100 Room Air 97.4 06/30/17 00:00 97.2 96 20 126/76 99 97.2 06/29/17 19:54 97.9 100 20 151/79 100 97.9 06/29/17 16:00 98.0 72 20 133/60 97 98.0 06/29/17 12:00 98.1 88 20 138/78 97 98.1 Height (Feet): 5 Height (Inches): 4.00 Weight (Pounds): 201 Laboratory Tests Test 06/30/17 06:00 White Blood Count 15.5 K/UL (4.8-10.8) H Red Blood Count 2.94 M/UL (4.20-5.40) L Hemoglobin 7.8 G/DL (12.0-16.0) L Hematocrit 25.1 % (37.0-47.0) L Mean Corpuscular Volume 85 FL (80-99) Mean Corpuscular Hemoglobin 26.5 PG (27.0-31.0) L Mean Corpuscular Hemoglobin Concent 31.0 G/DL (32.0-36.0) L Red Cell Distribution Width 16.5 % (11.6-14.8) H Platelet Count 386 K/UL (150-450) Mean Platelet Volume 5.5 FL (6.5-10.1) L Neutrophils (%) (Auto) % (45.0-75.0) Lymphocytes (%) (Auto) % (20.0-45.0) Monocytes (%) (Auto) % (1.0-10.0) Eosinophils (%) (Auto) % (0.0-3.0) Basophils (%) (Auto) % (0.0-2.0) Differential Total Cells Counted 100 Neutrophils % (Manual) 86 % (45-75) H Lymphocytes % (Manual) 6 % (20-45) L Monocytes % (Manual) 6 % (1-10) Eosinophils % (Manual) 0 % (0-3) Basophils % (Manual) 2 % (0-2) Band Neutrophils 0 % (0-8) Platelet Estimate Adequate Platelet Morphology Normal Hypochromasia 3+ Anisocytosis 1+ Sodium Level 141 MMOL/L (136-145) Potassium Level 3.3 MMOL/L (3.5-5.1) L Chloride Level 109 MMOL/L (98-107) H Carbon Dioxide Level 22 MMOL/L (21-32) Anion Gap 10 mmol/L (5-15) Blood Urea Nitrogen 8 mg/dL (7-18) Creatinine 0.7 MG/DL (0.55-1.30) Estimat Glomerular Filtration Rate mL/min (>60) Glucose Level 89 MG/DL (74-106) Calcium Level 7.7 MG/DL (8.5-10.1) L Current Medications Medications (Trade) Dose Ordered Sig/Naman Route PRN Reason Start Time Stop Time Status Last Admin Dose Admin Acetaminophen (Tylenol) 650 mg Q4H PRN ORAL fever 06/19/17 14:45 07/18/17 10:44 Apixaban (Eliquis) 5 mg BID ORAL 06/20/17 14:00 07/20/17 13:59 06/30/17 10:29 Chlorhexidine Gluconate (Tawanna-Hex 2%) 1 applic DAILY@2000 TOPIC 06/28/17 20:45 07/28/17 20:44 06/28/17 20:57 Ertapenem 1 gm/ Sodium Chloride 55 ml @ 110 mls/hr Q24H IVPB 06/25/17 14:30 06/30/17 14:29 06/29/17 15:22 Folic Acid (Folate) 1 mg DAILY ORAL 06/20/17 09:00 07/20/17 08:59 06/30/17 09:17 Megestrol Acetate (Megace) 400 mg TWICE A DAY ORAL 06/24/17 18:00 07/24/17 17:59 06/30/17 10:28 Morphine Sulfate (Morphine Sulfate) 1 mg Q4H PRN IVP for Pain 3-6 06/24/17 11:00 07/01/17 10:59 Morphine Sulfate (Morphine Sulfate) 2 mg Q4H PRN IVP Severe Pain (Pain Scale 7-10) 06/24/17 11:00 07/01/17 10:59 06/26/17 13:58 Ondansetron HCl (Zofran) 4 mg Q6H PRN IVP Nausea & Vomiting 06/19/17 14:24 07/18/17 14:23 Pantoprazole (Protonix) 40 mg DAILY IVP 06/20/17 09:00 07/19/17 08:59 06/30/17 09:17 Polyethylene Glycol (Miralax) 17 gm DAILYPRN PRN ORAL Constipation 06/19/17 14:24 07/19/17 14:23 Sodium Chloride 1,000 ml @ 50 mls/hr Q20H IVLG 06/19/17 14:30 07/18/17 10:32 06/30/17 10:51 Griffin Lay MD June 30, 2017 11:04
[2017-06-30 12:00] VITALS: BP 156/92
--- NOTE | 2017-06-30 15:07 | Internal Med Progress Note ---
Subjective Date of Service: June 30, 2017 Physician Name LibiaJonathan Attending Physician Bharat Orozco MD Current Medications Medications (Trade) Dose Ordered Sig/Naman Route PRN Reason Start Time Stop Time Status Last Admin Dose Admin Acetaminophen (Tylenol) 650 mg Q4H PRN ORAL fever 06/19/17 14:45 07/18/17 10:44 Apixaban (Eliquis) 5 mg BID ORAL 06/30/17 18:00 07/20/17 17:59 Chlorhexidine Gluconate (Tawanna-Hex 2%) 1 applic DAILY@2000 TOPIC 06/28/17 20:45 07/28/17 20:44 06/28/17 20:57 Folic Acid (Folate) 1 mg DAILY ORAL 07/01/17 09:00 07/20/17 08:59 Megestrol Acetate (Megace) 400 mg TWICE A DAY ORAL 06/30/17 18:00 07/24/17 17:59 Morphine Sulfate (Morphine Sulfate) 1 mg Q4H PRN IVP for Pain 3-6 06/24/17 11:00 07/01/17 10:59 Morphine Sulfate (Morphine Sulfate) 2 mg Q4H PRN IVP Severe Pain (Pain Scale 7-10) 06/24/17 11:00 07/01/17 10:59 06/26/17 13:58 Ondansetron HCl (Zofran) 4 mg Q6H PRN IVP Nausea & Vomiting 06/19/17 14:24 07/18/17 14:23 Pantoprazole (Protonix) 40 mg DAILY IVP 07/01/17 09:00 07/19/17 08:59 Polyethylene Glycol (Miralax) 17 gm DAILYPRN PRN ORAL Constipation 06/19/17 14:24 07/19/17 14:23 Sodium Chloride 1,000 ml @ 50 mls/hr Q20H IVLG 06/19/17 14:30 07/18/17 10:32 06/30/17 10:51 Allergies: Coded Allergies: PENICILLINS (Verified Allergy, Unknown, 06/18/17) Swelling ROS Limited/Unobtainable: No Constitutional: Reports: no symptoms HEENT: Reports: no symptoms Cardiovascular: Reports: no symptoms Respiratory: Reports: no symptoms Gastrointestinal/Abdominal: Reports: no symptoms Genitourinary: Reports: no symptoms Neurologic/Psychiatric: Reports: no symptoms Subjective 72 YO F admitted with hypotension and anemia. Now GI bleed and bacteremia. Cover for Int Sourav-Dr Orozco. Decreased appetite. Objective Last Vital Signs Date Time Temp Pulse Resp B/P (MAP) Pulse Ox O2 Delivery O2 Flow Rate FiO2 06/30/17 12:00 97.1 85 19 156/92 99 Room Air 97.1 06/23/17 20:24 21 Laboratory Tests Test 06/30/17 06:00 White Blood Count 15.5 K/UL (4.8-10.8) H Red Blood Count 2.94 M/UL (4.20-5.40) L Hemoglobin 7.8 G/DL (12.0-16.0) L Hematocrit 25.1 % (37.0-47.0) L Mean Corpuscular Volume 85 FL (80-99) Mean Corpuscular Hemoglobin 26.5 PG (27.0-31.0) L Mean Corpuscular Hemoglobin Concent 31.0 G/DL (32.0-36.0) L Red Cell Distribution Width 16.5 % (11.6-14.8) H Platelet Count 386 K/UL (150-450) Mean Platelet Volume 5.5 FL (6.5-10.1) L Neutrophils (%) (Auto) % (45.0-75.0) Lymphocytes (%) (Auto) % (20.0-45.0) Monocytes (%) (Auto) % (1.0-10.0) Eosinophils (%) (Auto) % (0.0-3.0) Basophils (%) (Auto) % (0.0-2.0) Differential Total Cells Counted 100 Neutrophils % (Manual) 86 % (45-75) H Lymphocytes % (Manual) 6 % (20-45) L Monocytes % (Manual) 6 % (1-10) Eosinophils % (Manual) 0 % (0-3) Basophils % (Manual) 2 % (0-2) Band Neutrophils 0 % (0-8) Platelet Estimate Adequate Platelet Morphology Normal Hypochromasia 3+ Anisocytosis 1+ Sodium Level 141 MMOL/L (136-145) Potassium Level 3.3 MMOL/L (3.5-5.1) L Chloride Level 109 MMOL/L (98-107) H Carbon Dioxide Level 22 MMOL/L (21-32) Anion Gap 10 mmol/L (5-15) Blood Urea Nitrogen 8 mg/dL (7-18) Creatinine 0.7 MG/DL (0.55-1.30) Estimat Glomerular Filtration Rate mL/min (>60) Glucose Level 89 MG/DL (74-106) Calcium Level 7.7 MG/DL (8.5-10.1) L Intake and Output 06/29/17 06/30/17 19:00 07:00 Intake Total 290 ml 600 ml Output Total 450 ml 400 ml Balance -160 ml 200 ml Intake Oral 240 ml 50 ml IV Total 50 ml 550 ml Output Urine Total 450 ml 400 ml Objective General Appearance: WD/WN, no apparent distress, alert EENT: PERRL/EOMI, normal ENT inspection Neck: non-tender, normal alignment, supple Cardiovascular: normal peripheral pulses, normal rate, regular rhythm, no gallop/murmur, no JVD Respiratory/Chest: chest wall non-tender, lungs clear, normal breath sounds, no respiratory distress, no accessory muscle use Abdomen: normal bowel sounds, non tender, soft, no organomegaly, no mass Extremities: normal inspection Neurologic: behavioral analyst II-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 Continue eliquis per hematology note. (4) Altered mental status (5) Hypotension (6) Colon cancer Assessment & Plan: Recurrence - see onc note. (7) Anemia Assessment & Plan: S/P transfusion 2 units PRBC on 06/18/17. Hemoglobin stable. GI procedures on hold-see GI note. (8) Hypokalemia Assessment & Plan: replace K+ (9) Hypomagnesemia Assessment & Plan: resolved (10) Severe sepsis Assessment & Plan: Bacteroides fragilis. Continue Ertapenem day # 01/02 per ID (11) Decrease in appetite Assessment & Plan: Calorie count. Megace (12) Leukocytosis Assessment & Plan: Improving-see ID note. Status: progressing Assessment/Plan Discharge planning-discussed with daughter-Michael Becerril conv SNF ? hospice? Jonathan Reza MD June 30, 2017 15:07
[2017-06-30 16:02] VITALS: BP 145/96
[2017-06-30] MEDS: Ertapenem 1 GM in NS 55 ML IVPB SCH (17:36)
[2017-06-30 20:00] VITALS: BP 144/92
[2017-06-30] MEDS: Dyna-Hex 2% Top Sol 2oz TOPIC SCH (20:33)
--- NOTE | 2017-06-30 22:08 | Pulmonology Progress Note ---
Assessment/Plan Problems: (1) Severe sepsis (2) Acute encephalopathy (3) Anemia (4) H/O deep venous thrombosis (5) Colon cancer (6) Colostomy in place Assessment/Plan extensive metastasis wbc decreasing slowly new Blood cultures are negative oncology note appreciated wbc higher again, ABX were changed to Ertapenem BC showing B. fragilis dc planning Subjective ROS Limited/Unobtainable: No Interval Events: depressed Allergies: Coded Allergies: PENICILLINS (Verified Allergy, Unknown, 06/18/17) Swelling Objective Last 24 Hour Vital Signs Date Time Temp Pulse Resp B/P (MAP) Pulse Ox O2 Delivery O2 Flow Rate FiO2 06/30/17 20:00 98.1 94 20 144/92 95 98.1 06/30/17 16:02 97.3 98 22 145/96 97 Room Air 97.3 06/30/17 12:00 97.1 85 19 156/92 99 Room Air 97.1 06/30/17 08:00 97.3 93 18 146/75 95 Room Air 97.3 06/30/17 04:00 97.4 94 20 156/74 100 Room Air 97.4 06/30/17 00:00 97.2 96 20 126/76 99 97.2 Intake and Output 06/29/17 06/30/17 19:00 07:00 Intake Total 290 ml 600 ml Output Total 450 ml 400 ml Balance -160 ml 200 ml Intake Oral 240 ml 50 ml IV Total 50 ml 550 ml Output Urine Total 450 ml 400 ml Objective General Appearance: wn/wd Lines, tubes and drains: peripheral HEENT: normocephalic, atraumatic Neck: non-tender, normal alignment Respiratory/Chest: chest wall non-tender, lungs clear Breasts: no masses Cardiovascular/Chest: normal peripheral pulses Abdomen: normal bowel sounds, soft Genitourinary/Rectal: normal genital exam Skin Exam: normal pigmentation Neurologic: budget assistant II-XII grossly normal Laboratory Tests 06/30/17 06:00: White Blood Count 15.5H, Red Blood Count 2.94L, Hemoglobin 7.8L, Hematocrit 25.1L, Mean Corpuscular Volume 85, Mean Corpuscular Hemoglobin 26.5L, Mean Corpuscular Hemoglobin Concent 31.0L, Red Cell Distribution Width 16.5H, Platelet Count 386, Mean Platelet Volume 5.5L, Neutrophils (%) (Auto) , Lymphocytes (%) (Auto) , Monocytes (%) (Auto) , Eosinophils (%) (Auto) , Basophils (%) (Auto) , Differential Total Cells Counted 100, Neutrophils % ( Manual) 86H, Lymphocytes % (Manual) 6L, Monocytes % (Manual) 6, Eosinophils % ( Manual) 0, Basophils % (Manual) 2, Band Neutrophils 0, Platelet Estimate Adequate, Platelet Morphology Normal, Hypochromasia 3+, Anisocytosis 1+, Sodium Level 141, Potassium Level 3.3L, Chloride Level 109H, Carbon Dioxide Level 22, Anion Gap 10, Blood Urea Nitrogen 8, Creatinine 0.7, Estimat Glomerular Filtration Rate , Glucose Level 89, Calcium Level 7.7L Current Medications Medications (Trade) Dose Ordered Sig/Naman Route PRN Reason Start Time Stop Time Status Last Admin Dose Admin Acetaminophen (Tylenol) 650 mg Q4H PRN ORAL fever 06/19/17 14:45 07/18/17 10:44 Apixaban (Eliquis) 5 mg BID ORAL 06/30/17 18:00 07/20/17 17:59 06/30/17 17:15 Chlorhexidine Gluconate (Tawanna-Hex 2%) 1 applic DAILY@2000 TOPIC 06/28/17 20:45 07/28/17 20:44 06/30/17 20:33 Ertapenem 1 gm/ Sodium Chloride 55 ml @ 110 mls/hr Q24H IVPB 06/25/17 14:30 07/01/17 23:59 06/30/17 17:36 Folic Acid (Folate) 1 mg DAILY ORAL 07/01/17 09:00 07/20/17 08:59 Megestrol Acetate (Megace) 400 mg TWICE A DAY ORAL 06/30/17 18:00 07/24/17 17:59 06/30/17 17:14 Morphine Sulfate (Morphine Sulfate) 1 mg Q4H PRN IVP for Pain 3-6 06/24/17 11:00 07/01/17 10:59 Morphine Sulfate (Morphine Sulfate) 2 mg Q4H PRN IVP Severe Pain (Pain Scale 7-10) 06/24/17 11:00 07/01/17 10:59 06/26/17 13:58 Ondansetron HCl (Zofran) 4 mg Q6H PRN IVP Nausea & Vomiting 06/19/17 14:24 07/18/17 14:23 Pantoprazole (Protonix) 40 mg DAILY IVP 07/01/17 09:00 07/19/17 08:59 Polyethylene Glycol (Miralax) 17 gm DAILYPRN PRN ORAL Constipation 06/19/17 14:24 07/19/17 14:23 Sodium Chloride 1,000 ml @ 50 mls/hr Q20H IVLG 06/19/17 14:30 07/18/17 10:32 06/30/17 10:51 Andres Reynolds MD June 30, 2017 22:08
[2017-07-01] VITALS: BP 153/87
[2017-07-01 04:00] VITALS: BP 146/91
--- NOTE | 2017-07-01 05:28 | General Progress Note ---
Assessment/Plan Assessment/Plan # Recurrent colon carcinoma with extensive bulky tumor and adenopathy within the pelvis and retroperitoneum. --> This results in mild to moderate left hydronephrosis. Localized adjacent lytic destruction of the anterior L5 vertebra and part of the upper sacrum. --> Evidence of more remote metastatic neoplasm with multiple pulmonary nodules. --> Given poor performance status, appear patient is bed-bound and recommend hospice care evaluation --> have discussed poor prognosis with family # DVT of the left leg - given stable h/h and no e/o gi bleed --> continue eliquis x 3 months total --> Improving. #. Leukocytosis. --> Remains elevated, potentially malignancy related --> Continue to monitor and trend cbc # Anemia of chronic disease, evaluate with GI --> hgb goal is above 7 --> anemia w/u has been reviewed --> appreciate gi recs, does not need gi procedure given ob negative --> blood transfusion not required unless symptomatic # Anemia of folic acid deficiency --> continue on FA 1mg daily # Hypokalemia - repleted with K # Hypomagnesemia - repleted with mag # Weakness and fatigue is likely related to anemia #. Tachycardia. --> Improved. #. Encephalopathy. #. Comfort care. Subjective Date patient seen: June 30, 2017 Constitutional: Denies: no symptoms, chills, diaphoresis, fever, malaise, weakness, other HEENT: Denies: no symptoms, eye pain, blurred vision, tearing, double vision, ear pain, ear discharge, nose pain, nose congestion, throat pain, throat swelling, mouth pain, mouth swelling, other Cardiovascular: Denies: no symptoms, chest pain, edema, irregular heart rate, lightheadedness, palpitations, syncope, other Respiratory: Denies: no symptoms, cough, orthopnea, shortness of breath, SOB with excertion, SOB at rest, sputum, stridor, wheezing, other Gastrointestinal/Abdominal: Denies: no symptoms, abdomen distended, abdominal pain, black stools, tarry stools, blood in stool, constipated, diarrhea, difficulty swallowing, nausea, poor appetite, poor fluid intake, rectal bleeding , vomiting, other Genitourinary: Denies: no symptoms, burning, discharge, frequency, flank pain, hematuria, incontinence, pain, urgency, other Neurologic/Psychiatric: Denies: no symptoms, anxiety, depressed, emotional problems, headache, numbness, paresthesia, pre-existing deficit, seizure, tingling, tremors, weakness, other Endocrine: Denies: no symptoms, excessive sweating, flushing, intolerance to cold, intolerance to heat, increased hunger, increased thirst, increased urine, unexplained weight gain, unexplained weight loss, other Hematologic/Lymphatic: Denies: no symptoms, anemia, easy bleeding, easy bruising, other Allergies: Coded Allergies: PENICILLINS (Verified Allergy, Unknown, 06/18/17) Swelling All Systems: reviewed and negative except above Subjective Lethargic, bedbound. On comfort care. Have discussed care with primary Objective Last 24 Hour Vital Signs Date Time Temp Pulse Resp B/P (MAP) Pulse Ox O2 Delivery O2 Flow Rate FiO2 07/01/17 04:00 97.2 95 20 146/91 99 97.2 07/01/17 00:00 97.4 93 20 153/87 97 97.4 06/30/17 20:00 98.1 94 20 144/92 95 98.1 06/30/17 16:02 97.3 98 22 145/96 97 Room Air 97.3 06/30/17 12:00 97.1 85 19 156/92 99 Room Air 97.1 06/30/17 08:00 97.3 93 18 146/75 95 Room Air 97.3 Intake and Output 06/30/17 07/01/17 19:00 07:00 Intake Total 530 ml 200 ml Output Total 1000 ml Balance -470 ml 200 ml Intake Oral 480 ml IV Total 50 ml 200 ml Output Urine Total 1000 ml Laboratory Tests 06/30/17 06:00: White Blood Count 15.5H, Red Blood Count 2.94L, Hemoglobin 7.8L, Hematocrit 25.1L, Mean Corpuscular Volume 85, Mean Corpuscular Hemoglobin 26.5L, Mean Corpuscular Hemoglobin Concent 31.0L, Red Cell Distribution Width 16.5H, Platelet Count 386, Mean Platelet Volume 5.5L, Neutrophils (%) (Auto) , Lymphocytes (%) (Auto) , Monocytes (%) (Auto) , Eosinophils (%) (Auto) , Basophils (%) (Auto) , Differential Total Cells Counted 100, Neutrophils % ( Manual) 86H, Lymphocytes % (Manual) 6L, Monocytes % (Manual) 6, Eosinophils % ( Manual) 0, Basophils % (Manual) 2, Band Neutrophils 0, Platelet Estimate Adequate, Platelet Morphology Normal, Hypochromasia 3+, Anisocytosis 1+, Sodium Level 141, Potassium Level 3.3L, Chloride Level 109H, Carbon Dioxide Level 22, Anion Gap 10, Blood Urea Nitrogen 8, Creatinine 0.7, Estimat Glomerular Filtration Rate , Glucose Level 89, Calcium Level 7.7L Height (Feet): 5 Height (Inches): 4.00 Weight (Pounds): 201 General Appearance: no apparent distress EENT: TMs normal Neck: supple Cardiovascular: regular rhythm Respiratory/Chest: lungs clear Abdomen: non tender Extremities: normal range of motion Edema: 1+ Leg (L), 1+ Leg (R) Edema: mild edema Neurologic: responsive Skin: warm/dry Chay Ross MD July 01, 2017 05:28
[2017-07-01 08:00] VITALS: BP 134/73
[2017-07-01 08:04] LABS: HEMATOCRIT 24.7 % (37.0-47.0); HEMOGLOBIN 7.7 G/DL (12.0-16.0); MEAN CORPUSCULAR VOLUME 85 FL (80-99); PLATELET COUNT 375 K/UL (150-450); RED BLOOD COUNT 2.91 M/UL (4.20-5.40); RED CELL DISTRIBUTION WIDTH 16.4 % (11.6-14.8)
[2017-07-01 08:30] LABS: ANION GAP 9 mmol/L (5-15); BLOOD UREA NITROGEN 6 mg/dL (7-18); CALCIUM 7.3 MG/DL (8.5-10.1); CARBON DIOXIDE 21 MMOL/L (21-32); CHLORIDE 112 MMOL/L (98-107); CREATININE 0.6 MG/DL (0.55-1.30); POTASSIUM 3.1 MMOL/L (3.5-5.1); SODIUM 142 MMOL/L (136-145)
[2017-07-01] MEDS: Megace 400mg/10ml Susp ORAL SCH ×2 (08:49→17:33)
[2017-07-01] MEDS: Eliquis 2.5mg tablet ORAL SCH ×2 (08:49→17:33)
[2017-07-01] MEDS: Pantoprazole Inj IVP SCH (08:49)
[2017-07-01] MEDS: Morphine Sulfate 4mg/ml Inj IVP PRN (08:53)
[2017-07-01 12:00] VITALS: BP 153/81
--- NOTE | 2017-07-01 13:52 | General Progress Note ---
Assessment/Plan Assessment/Plan # Recurrent colon carcinoma with extensive bulky tumor and adenopathy within the pelvis and retroperitoneum. --> This results in mild to moderate left hydronephrosis. Localized adjacent lytic destruction of the anterior L5 vertebra and part of the upper sacrum. --> Evidence of more remote metastatic neoplasm with multiple pulmonary nodules. --> Given poor performance status, appear patient is bed-bound and recommend hospice care evaluation --> have discussed poor prognosis with family as well as pcp/consultants # DVT of the left leg - given stable h/h and no e/o gi bleed --> continue eliquis x 3 months total --> Improving. #. Leukocytosis. --> Remains elevated, potentially malignancy related --> Continue to monitor and trend cbc # Anemia of chronic disease, evaluate with GI --> hgb goal is above 7 --> anemia w/u has been reviewed --> appreciate gi recs, does not need gi procedure given ob negative --> blood transfusion not required unless symptomatic # Anemia of folic acid deficiency --> continue on FA 1mg daily # Hypokalemia - repleted with K # Hypomagnesemia - repleted with mag # Weakness and fatigue is likely related to anemia #. Tachycardia. --> Improved. #. Encephalopathy. #. Comfort care. Subjective Constitutional: Reports: weakness HEENT: Denies: no symptoms, eye pain, blurred vision, tearing, double vision, ear pain, ear discharge, nose pain, nose congestion, throat pain, throat swelling, mouth pain, mouth swelling, other Cardiovascular: Denies: no symptoms, chest pain, edema, irregular heart rate, lightheadedness, palpitations, syncope, other Respiratory: Denies: no symptoms, cough, orthopnea, shortness of breath, SOB with excertion, SOB at rest, sputum, stridor, wheezing, other Gastrointestinal/Abdominal: Denies: no symptoms, abdomen distended, abdominal pain, black stools, tarry stools, blood in stool, constipated, diarrhea, difficulty swallowing, nausea, poor appetite, poor fluid intake, rectal bleeding , vomiting, other Genitourinary: Denies: no symptoms, burning, discharge, frequency, flank pain, hematuria, incontinence, pain, urgency, other Neurologic/Psychiatric: Denies: no symptoms, anxiety, depressed, emotional problems, headache, numbness, paresthesia, pre-existing deficit, seizure, tingling, tremors, weakness, other Endocrine: Reports: no symptoms Hematologic/Lymphatic: Reports: anemia Allergies: Coded Allergies: PENICILLINS (Verified Allergy, Unknown, 06/18/17) Swelling Subjective Lethargic, bedbound. On comfort care. Have discussed care with primary, somewhat weak again this am Objective Last 24 Hour Vital Signs Date Time Temp Pulse Resp B/P (MAP) Pulse Ox O2 Delivery O2 Flow Rate FiO2 07/01/17 12:00 98.3 93 20 153/81 99 Room Air 98.3 07/01/17 09:23 97.9 07/01/17 08:53 97.9 07/01/17 08:00 97.9 93 21 134/73 97 Room Air 97.9 07/01/17 04:00 97.2 95 20 146/91 99 97.2 07/01/17 00:00 97.4 93 20 153/87 97 97.4 06/30/17 20:00 98.1 94 20 144/92 95 98.1 06/30/17 16:02 97.3 98 22 145/96 97 Room Air 97.3 Intake and Output 06/30/17 07/01/17 19:00 07:00 Intake Total 530 ml 500 ml Output Total 1000 ml 350 ml Balance -470 ml 150 ml Intake Oral 480 ml IV Total 50 ml 500 ml Output Urine Total 1000 ml 350 ml Laboratory Tests 07/01/17 06:00: White Blood Count 14.0H, Red Blood Count 2.91L, Hemoglobin 7.7L, Hematocrit 24.7L, Mean Corpuscular Volume 85, Mean Corpuscular Hemoglobin 26.5L, Mean Corpuscular Hemoglobin Concent 31.2L, Red Cell Distribution Width 16.4H, Platelet Count 375, Mean Platelet Volume 5.5L, Neutrophils (%) (Auto) , Lymphocytes (%) (Auto) , Monocytes (%) (Auto) , Eosinophils (%) (Auto) , Basophils (%) (Auto) , Differential Total Cells Counted 100, Neutrophils % ( Manual) 85H, Lymphocytes % (Manual) 13L, Monocytes % (Manual) 2, Eosinophils % ( Manual) 0, Basophils % (Manual) 0, Band Neutrophils 0, Platelet Estimate Adequate, Platelet Morphology Normal, Hypochromasia 1+, Anisocytosis 1+, Sodium Level 142, Potassium Level 3.1L, Chloride Level 112H, Carbon Dioxide Level 21, Anion Gap 9, Blood Urea Nitrogen 6L, Creatinine 0.6, Estimat Glomerular Filtration Rate , Glucose Level 71L, Calcium Level 7.3L Height (Feet): 5 Height (Inches): 4.00 Weight (Pounds): 200 General Appearance: alert EENT: normal ENT inspection Neck: supple Cardiovascular: regular rhythm Respiratory/Chest: chest wall non-tender Abdomen: no organomegaly Extremities: non-tender Chay Ross MD July 01, 2017 13:52
--- NOTE | 2017-07-01 14:06 | Internal Med Progress Note ---
Subjective Date of Service: July 01, 2017 Physician Name Jonathan Reza Attending Physician Bharat Orozco MD Current Medications Medications (Trade) Dose Ordered Sig/Naman Route PRN Reason Start Time Stop Time Status Last Admin Dose Admin Acetaminophen (Tylenol) 650 mg Q4H PRN ORAL fever 06/19/17 14:45 07/18/17 10:44 Apixaban (Eliquis) 5 mg BID ORAL 06/30/17 18:00 07/20/17 17:59 07/01/17 08:49 Chlorhexidine Gluconate (Tawanna-Hex 2%) 1 applic DAILY@2000 TOPIC 06/28/17 20:45 07/28/17 20:44 06/30/17 20:33 Ertapenem 1 gm/ Sodium Chloride 55 ml @ 110 mls/hr Q24H IVPB 06/25/17 14:30 07/01/17 23:59 06/30/17 17:36 Folic Acid (Folate) 1 mg DAILY ORAL 07/01/17 09:00 07/20/17 08:59 07/01/17 08:49 Megestrol Acetate (Megace) 400 mg TWICE A DAY ORAL 06/30/17 18:00 07/24/17 17:59 07/01/17 08:49 Ondansetron HCl (Zofran) 4 mg Q6H PRN IVP Nausea & Vomiting 06/19/17 14:24 07/18/17 14:23 Pantoprazole (Protonix) 40 mg DAILY IVP 07/01/17 09:00 07/19/17 08:59 07/01/17 08:49 Polyethylene Glycol (Miralax) 17 gm DAILYPRN PRN ORAL Constipation 06/19/17 14:24 07/19/17 14:23 Sodium Chloride 1,000 ml @ 50 mls/hr Q20H IVLG 06/19/17 14:30 07/18/17 10:32 07/01/17 05:52 Allergies: Coded Allergies: PENICILLINS (Verified Allergy, Unknown, 06/18/17) Swelling ROS Limited/Unobtainable: No Constitutional: Reports: no symptoms HEENT: Reports: no symptoms Cardiovascular: Reports: no symptoms Respiratory: Reports: no symptoms Gastrointestinal/Abdominal: Reports: no symptoms Genitourinary: Reports: no symptoms Neurologic/Psychiatric: Reports: no symptoms Subjective 72 YO F admitted with hypotension and anemia. Now GI bleed and bacteremia. Cover for Int Sourav-Dr Orozco. Decreased appetite. Objective Last Vital Signs Date Time Temp Pulse Resp B/P (MAP) Pulse Ox O2 Delivery O2 Flow Rate FiO2 07/01/17 12:00 98.3 93 20 153/81 99 Room Air 98.3 06/23/17 20:24 21 Laboratory Tests Test 07/01/17 06:00 White Blood Count 14.0 K/UL (4.8-10.8) H Red Blood Count 2.91 M/UL (4.20-5.40) L Hemoglobin 7.7 G/DL (12.0-16.0) L Hematocrit 24.7 % (37.0-47.0) L Mean Corpuscular Volume 85 FL (80-99) Mean Corpuscular Hemoglobin 26.5 PG (27.0-31.0) L Mean Corpuscular Hemoglobin Concent 31.2 G/DL (32.0-36.0) L Red Cell Distribution Width 16.4 % (11.6-14.8) H Platelet Count 375 K/UL (150-450) Mean Platelet Volume 5.5 FL (6.5-10.1) L Neutrophils (%) (Auto) % (45.0-75.0) Lymphocytes (%) (Auto) % (20.0-45.0) Monocytes (%) (Auto) % (1.0-10.0) Eosinophils (%) (Auto) % (0.0-3.0) Basophils (%) (Auto) % (0.0-2.0) Differential Total Cells Counted 100 Neutrophils % (Manual) 85 % (45-75) H Lymphocytes % (Manual) 13 % (20-45) L Monocytes % (Manual) 2 % (1-10) Eosinophils % (Manual) 0 % (0-3) Basophils % (Manual) 0 % (0-2) Band Neutrophils 0 % (0-8) Platelet Estimate Adequate Platelet Morphology Normal Hypochromasia 1+ Anisocytosis 1+ Sodium Level 142 MMOL/L (136-145) Potassium Level 3.1 MMOL/L (3.5-5.1) L Chloride Level 112 MMOL/L (98-107) H Carbon Dioxide Level 21 MMOL/L (21-32) Anion Gap 9 mmol/L (5-15) Blood Urea Nitrogen 6 mg/dL (7-18) L Creatinine 0.6 MG/DL (0.55-1.30) Estimat Glomerular Filtration Rate mL/min (>60) Glucose Level 71 MG/DL (74-106) L Calcium Level 7.3 MG/DL (8.5-10.1) L Intake and Output 06/30/17 07/01/17 19:00 07:00 Intake Total 530 ml 500 ml Output Total 1000 ml 350 ml Balance -470 ml 150 ml Intake Oral 480 ml IV Total 50 ml 500 ml Output Urine Total 1000 ml 350 ml Objective General Appearance: WD/WN, no apparent distress, alert EENT: PERRL/EOMI, normal ENT inspection Neck: non-tender, normal alignment, supple Cardiovascular: normal peripheral pulses, normal rate, regular rhythm, no gallop/murmur, no JVD Respiratory/Chest: chest wall non-tender, lungs clear, normal breath sounds, no respiratory distress, no accessory muscle use Abdomen: normal bowel sounds, non tender, soft, no organomegaly, no mass Extremities: normal inspection Neurologic: lead caregiver II-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 Continue eliquis per hematology note. (4) Altered mental status (5) Hypotension (6) Colon cancer Assessment & Plan: Recurrence - see onc note. (7) Anemia Assessment & Plan: S/P transfusion 2 units PRBC on 06/18/17. Hemoglobin stable. GI procedures on hold-see GI note. (8) Hypokalemia Assessment & Plan: replace K+ (9) Hypomagnesemia Assessment & Plan: resolved (10) Severe sepsis Assessment & Plan: Bacteroides fragilis. Continue Ertapenem day # 01/02 per ID (11) Decrease in appetite Assessment & Plan: Calorie count. Megace (12) Leukocytosis Assessment & Plan: Improving-see ID note. Status: not improved Assessment/Plan Discharge planning-discussed with daughter-[facility] ? hospice? Jonathan Reza MD July 01, 2017 14:06
[2017-07-01] MEDS: Ertapenem 1 GM in NS 55 ML IVPB SCH (14:39)
[2017-07-01 15:56] VITALS: BP 104/72
[2017-07-01 20:00] VITALS: BP 147/94
[2017-07-01] MEDS: Dyna-Hex 2% Top Sol 2oz TOPIC SCH (20:00)
[2017-07-02] VITALS: BP 135/63
[2017-07-02 04:00] VITALS: BP 145/93
--- NOTE | 2017-07-02 07:16 | General Progress Note ---
Assessment/Plan Assessment/Plan # Recurrent colon carcinoma with extensive bulky tumor and adenopathy within the pelvis and retroperitoneum. --> This results in mild to moderate left hydronephrosis. Localized adjacent lytic destruction of the anterior L5 vertebra and part of the upper sacrum. --> Evidence of more remote metastatic neoplasm with multiple pulmonary nodules. --> Given poor performance status, appear patient is bed-bound and recommend hospice care evaluation --> have discussed poor prognosis with family as well as pcp/consultants # DVT of the left leg - given stable h/h and no e/o gi bleed --> continue eliquis x 3 months total --> Improving of lower extremity swelling #. Leukocytosis. --> Remains elevated, potentially malignancy related --> Continue to monitor and trend cbc # Anemia of chronic disease, evaluate with GI --> hgb goal is above 7 --> anemia w/u has been reviewed --> appreciate gi recs, does not need gi procedure given ob negative --> blood transfusion not required unless symptomatic # Anemia of folic acid deficiency --> continue on FA 1mg daily # Hypokalemia - repleted with K # Hypomagnesemia - repleted with mag # Weakness and fatigue is likely related to anemia #. Tachycardia. --> Improved. #. Encephalopathy. #. Comfort care. Subjective Constitutional: Denies: no symptoms, chills, diaphoresis, fever, malaise, weakness, other HEENT: Denies: no symptoms, eye pain, blurred vision, tearing, double vision, ear pain, ear discharge, nose pain, nose congestion, throat pain, throat swelling, mouth pain, mouth swelling, other Cardiovascular: Denies: no symptoms, chest pain, edema, irregular heart rate, lightheadedness, palpitations, syncope, other Gastrointestinal/Abdominal: Denies: no symptoms, abdomen distended, abdominal pain, black stools, tarry stools, blood in stool, constipated, diarrhea, difficulty swallowing, nausea, poor appetite, poor fluid intake, rectal bleeding , vomiting, other Genitourinary: Denies: no symptoms, burning, discharge, frequency, flank pain, hematuria, incontinence, pain, urgency, other Neurologic/Psychiatric: Denies: no symptoms, anxiety, depressed, emotional problems, headache, numbness, paresthesia, pre-existing deficit, seizure, tingling, tremors, weakness, other Endocrine: Denies: no symptoms, excessive sweating, flushing, intolerance to cold, intolerance to heat, increased hunger, increased thirst, increased urine, unexplained weight gain, unexplained weight loss, other Hematologic/Lymphatic: Denies: no symptoms, anemia, easy bleeding, easy bruising, other Allergies: Coded Allergies: PENICILLINS (Verified Allergy, Unknown, 06/18/17) Swelling Subjective Lethargic, bedbound, appears weak, in pain of the lower extremity amongst very light touch. Objective Last 24 Hour Vital Signs Date Time Temp Pulse Resp B/P (MAP) Pulse Ox O2 Delivery O2 Flow Rate FiO2 07/02/17 04:00 97.1 92 20 145/93 96 97.1 07/02/17 00:00 98.3 94 20 135/63 100 98.3 07/01/17 20:00 97.3 97 20 147/94 97 97.3 07/01/17 15:56 98.4 93 20 104/72 97 Room Air 98.4 07/01/17 12:00 98.3 93 20 153/81 99 Room Air 98.3 07/01/17 09:23 97.9 07/01/17 08:53 97.9 07/01/17 08:00 97.9 93 21 134/73 97 Room Air 97.9 Intake and Output 07/01/17 07/02/17 19:00 07:00 Intake Total 830 ml 250 ml Output Total 1600 ml 300 ml Balance -770 ml -50 ml Intake Oral 240 ml 250 ml IV Total 590 ml Output Urine Total 1600 ml 300 ml Height (Feet): 5 Height (Inches): 4.00 Weight (Pounds): 200 General Appearance: no apparent distress EENT: normal ENT inspection Neck: normal inspection Cardiovascular: regular rhythm Respiratory/Chest: lungs clear Abdomen: no organomegaly Edema: no edema noted Leg (L), no edema noted Leg (R) Edema: mild edema Neurologic: no motor/sensory deficits Chay Ross MD July 02, 2017 07:16
[2017-07-02 08:00] VITALS: BP 124/69
[2017-07-02 08:18] LABS: HEMATOCRIT 25.7 % (37.0-47.0); MEAN CORPUSCULAR VOLUME 84 FL (80-99); PLATELET COUNT 386 K/UL (150-450); RED BLOOD COUNT 3.05 M/UL (4.20-5.40); RED CELL DISTRIBUTION WIDTH 16.4 % (11.6-14.8); WHITE BLOOD COUNT 13.3 K/UL (4.8-10.8)
[2017-07-02 08:37] LABS: ANION GAP 7 mmol/L (5-15); BLOOD UREA NITROGEN 7 mg/dL (7-18); CALCIUM 8.4 MG/DL (8.5-10.1); CARBON DIOXIDE 24 MMOL/L (21-32); CHLORIDE 108 MMOL/L (98-107); CREATININE 0.7 MG/DL (0.55-1.30); POTASSIUM 3.8 MMOL/L (3.5-5.1); SODIUM 139 MMOL/L (136-145)
[2017-07-02] MEDS: Megace 400mg/10ml Susp ORAL SCH ×2 (08:50→17:08)
[2017-07-02] MEDS: Pantoprazole Inj IVP SCH (08:51)
[2017-07-02] MEDS: Eliquis 2.5mg tablet ORAL SCH ×2 (08:51→17:09)
--- NOTE | 2017-07-02 10:48 | Infectious Diseases Prog Note ---
Assessment/Plan Assessment/Plan Assessment: Septic Shock, SP - Bacteremia -Bcx 06/17 2 B. fragilis; 06/18 02/22 B. fragilis; 06/20 Bcx Neg x4; 06/26 Bcx NTD likely GI translocation for either bleeding or cancer burden ? UTI (she did had UTI and pyelo symptoms: +frequency/urgency, n/v, lower abd pain). ucx 20-30k mixed gram positive growth; repeat u/a WBC 40-60, nit neg, leuk +2, sq cells few; ucx Neg Fever, SP leukocytosis- improving now , but persistent in the 20s- ? due to metastatic disease -s/p RIJ removal 06/26 -CT abd/p w/: Evidence of recurrent colon carcinoma with extensive bulky tumor and adenopathy within the pelvis and retroperitoneum. This results in mild to moderate left hydronephrosis. Localized adjacent lytic destruction of the anterior L5 vertebra and part of the upper sacrum. Evidence of more remote metastatic neoplasm with multiple pulmonary nodules. -06/21 CDiff neg Lactic acidosis, resolved L DVT Anemia CARLOS, resolved Colon CA s/p resection and colostomy w/ recurrent Cancer obstructive uropathy s/p PPM DVT on [facility] resident PNC allergy Plan: - cont IV Ertapenem abx d #15 /14 - 17 ( will cont in view of improvement of WBC ) -06/25 SP Ceftriaxone and Flagyl #3 -06/23 SP Meropenem #6 -06/19 SP IV Vancomycin #2 -06/17 Cefepime and Flagyl x1 -f/u cx -Monitor CBC/BMP, temperatures -aspiration precautions -heme onc f/u -wound care/prevention per hospital protocol -PICC line care Subjective Allergies: Coded Allergies: PENICILLINS (Verified Allergy, Unknown, 06/18/17) Swelling Subjective comfortable Objective Vital Signs Last 24 Hour Vital Signs Date Time Temp Pulse Resp B/P (MAP) Pulse Ox O2 Delivery O2 Flow Rate FiO2 07/02/17 04:00 97.1 92 20 145/93 96 97.1 07/02/17 00:00 98.3 94 20 135/63 100 98.3 07/01/17 20:00 97.3 97 20 147/94 97 97.3 07/01/17 15:56 98.4 93 20 104/72 97 Room Air 98.4 07/01/17 12:00 98.3 93 20 153/81 99 Room Air 98.3 Height (Feet): 5 Height (Inches): 4.00 Weight (Pounds): 200 HEENT: anicteric Respiratory/Chest: normal breath sounds Cardiovascular: normal rate Abdomen: soft, non tender Laboratory Tests Test 07/02/17 07:20 White Blood Count 13.3 K/UL (4.8-10.8) H Red Blood Count 3.05 M/UL (4.20-5.40) L Hemoglobin 8.0 G/DL (12.0-16.0) L Hematocrit 25.7 % (37.0-47.0) L Mean Corpuscular Volume 84 FL (80-99) Mean Corpuscular Hemoglobin 26.3 PG (27.0-31.0) L Mean Corpuscular Hemoglobin Concent 31.1 G/DL (32.0-36.0) L Red Cell Distribution Width 16.4 % (11.6-14.8) H Platelet Count 386 K/UL (150-450) Mean Platelet Volume 5.4 FL (6.5-10.1) L Neutrophils (%) (Auto) % (45.0-75.0) Lymphocytes (%) (Auto) % (20.0-45.0) Monocytes (%) (Auto) % (1.0-10.0) Eosinophils (%) (Auto) % (0.0-3.0) Basophils (%) (Auto) % (0.0-2.0) Differential Total Cells Counted 100 Neutrophils % (Manual) 87 % (45-75) H Lymphocytes % (Manual) 9 % (20-45) L Monocytes % (Manual) 4 % (1-10) Eosinophils % (Manual) 0 % (0-3) Basophils % (Manual) 0 % (0-2) Band Neutrophils 0 % (0-8) Platelet Estimate Adequate Platelet Morphology Normal Hypochromasia 3+ Anisocytosis 1+ Sodium Level 139 MMOL/L (136-145) Potassium Level 3.8 MMOL/L (3.5-5.1) Chloride Level 108 MMOL/L (98-107) H Carbon Dioxide Level 24 MMOL/L (21-32) Anion Gap 7 mmol/L (5-15) Blood Urea Nitrogen 7 mg/dL (7-18) Creatinine 0.7 MG/DL (0.55-1.30) Estimat Glomerular Filtration Rate mL/min (>60) Glucose Level 103 MG/DL (74-106) Calcium Level 8.4 MG/DL (8.5-10.1) L Ferritin > 2000 NG/ML (8-388) H Current Medications Medications (Trade) Dose Ordered Sig/Naman Route PRN Reason Start Time Stop Time Status Last Admin Dose Admin Acetaminophen (Tylenol) 650 mg Q4H PRN ORAL fever 06/19/17 14:45 07/18/17 10:44 Apixaban (Eliquis) 5 mg BID ORAL 06/30/17 18:00 07/20/17 17:59 07/02/17 08:51 Chlorhexidine Gluconate (Tawanna-Hex 2%) 1 applic DAILY@2000 TOPIC 06/28/17 20:45 07/28/17 20:44 06/30/17 20:33 Folic Acid (Folate) 1 mg DAILY ORAL 07/01/17 09:00 07/20/17 08:59 07/02/17 08:50 Megestrol Acetate (Megace) 400 mg TWICE A DAY ORAL 06/30/17 18:00 07/24/17 17:59 07/02/17 08:50 Ondansetron HCl (Zofran) 4 mg Q6H PRN IVP Nausea & Vomiting 06/19/17 14:24 07/18/17 14:23 Pantoprazole (Protonix) 40 mg DAILY IVP 07/01/17 09:00 07/19/17 08:59 07/02/17 08:51 Polyethylene Glycol (Miralax) 17 gm DAILYPRN PRN ORAL Constipation 06/19/17 14:24 07/19/17 14:23 Sodium Chloride 1,000 ml @ 50 mls/hr Q20H IVLG 06/19/17 14:30 07/18/17 10:32 07/02/17 03:06 Griffin Lay MD July 02, 2017 10:48
--- NOTE | 2017-07-02 11:40 | Internal Med Progress Note ---
Subjective Date of Service: July 02, 2017 Physician Name Jonathan Reza Attending Physician Bharat Orozco MD Current Medications Medications (Trade) Dose Ordered Sig/Naman Route PRN Reason Start Time Stop Time Status Last Admin Dose Admin Acetaminophen (Tylenol) 650 mg Q4H PRN ORAL fever 06/19/17 14:45 07/18/17 10:44 Apixaban (Eliquis) 5 mg BID ORAL 06/30/17 18:00 07/20/17 17:59 07/02/17 08:51 Chlorhexidine Gluconate (Tawanna-Hex 2%) 1 applic DAILY@2000 TOPIC 06/28/17 20:45 07/28/17 20:44 06/30/17 20:33 Ertapenem 1 gm/ Sodium Chloride 55 ml @ 110 mls/hr Q24H IVPB 07/02/17 12:00 07/07/17 11:59 Folic Acid (Folate) 1 mg DAILY ORAL 07/01/17 09:00 07/20/17 08:59 07/02/17 08:50 Megestrol Acetate (Megace) 400 mg TWICE A DAY ORAL 06/30/17 18:00 07/24/17 17:59 07/02/17 08:50 Ondansetron HCl (Zofran) 4 mg Q6H PRN IVP Nausea & Vomiting 06/19/17 14:24 07/18/17 14:23 Pantoprazole (Protonix) 40 mg DAILY IVP 07/01/17 09:00 07/19/17 08:59 07/02/17 08:51 Polyethylene Glycol (Miralax) 17 gm DAILYPRN PRN ORAL Constipation 06/19/17 14:24 07/19/17 14:23 Sodium Chloride 1,000 ml @ 50 mls/hr Q20H IVLG 06/19/17 14:30 07/18/17 10:32 07/02/17 03:06 Allergies: Coded Allergies: PENICILLINS (Verified Allergy, Unknown, 06/18/17) Swelling ROS Limited/Unobtainable: No Constitutional: Reports: no symptoms HEENT: Reports: no symptoms Cardiovascular: Reports: no symptoms Respiratory: Reports: no symptoms Gastrointestinal/Abdominal: Reports: no symptoms Genitourinary: Reports: no symptoms Neurologic/Psychiatric: Reports: no symptoms Subjective 72 YO F admitted with hypotension and anemia. Now GI bleed and bacteremia. Cover for Int Med-Dr Orozco. Decreased appetite. Objective Last Vital Signs Date Time Temp Pulse Resp B/P (MAP) Pulse Ox O2 Delivery O2 Flow Rate FiO2 07/02/17 08:00 97.1 85 20 124/69 96 Room Air 21 97.1 Laboratory Tests Test 07/02/17 07:20 White Blood Count 13.3 K/UL (4.8-10.8) H Red Blood Count 3.05 M/UL (4.20-5.40) L Hemoglobin 8.0 G/DL (12.0-16.0) L Hematocrit 25.7 % (37.0-47.0) L Mean Corpuscular Volume 84 FL (80-99) Mean Corpuscular Hemoglobin 26.3 PG (27.0-31.0) L Mean Corpuscular Hemoglobin Concent 31.1 G/DL (32.0-36.0) L Red Cell Distribution Width 16.4 % (11.6-14.8) H Platelet Count 386 K/UL (150-450) Mean Platelet Volume 5.4 FL (6.5-10.1) L Neutrophils (%) (Auto) % (45.0-75.0) Lymphocytes (%) (Auto) % (20.0-45.0) Monocytes (%) (Auto) % (1.0-10.0) Eosinophils (%) (Auto) % (0.0-3.0) Basophils (%) (Auto) % (0.0-2.0) Differential Total Cells Counted 100 Neutrophils % (Manual) 87 % (45-75) H Lymphocytes % (Manual) 9 % (20-45) L Monocytes % (Manual) 4 % (1-10) Eosinophils % (Manual) 0 % (0-3) Basophils % (Manual) 0 % (0-2) Band Neutrophils 0 % (0-8) Platelet Estimate Adequate Platelet Morphology Normal Hypochromasia 3+ Anisocytosis 1+ Sodium Level 139 MMOL/L (136-145) Potassium Level 3.8 MMOL/L (3.5-5.1) Chloride Level 108 MMOL/L (98-107) H Carbon Dioxide Level 24 MMOL/L (21-32) Anion Gap 7 mmol/L (5-15) Blood Urea Nitrogen 7 mg/dL (7-18) Creatinine 0.7 MG/DL (0.55-1.30) Estimat Glomerular Filtration Rate mL/min (>60) Glucose Level 103 MG/DL (74-106) Calcium Level 8.4 MG/DL (8.5-10.1) L Ferritin > 2000 NG/ML (8-388) H Intake and Output 07/01/17 07/02/17 19:00 07:00 Intake Total 830 ml 250 ml Output Total 1600 ml 300 ml Balance -770 ml -50 ml Intake Oral 240 ml 250 ml IV Total 590 ml Output Urine Total 1600 ml 300 ml Objective General Appearance: WD/WN, no apparent distress, alert EENT: PERRL/EOMI, normal ENT inspection Neck: non-tender, normal alignment, supple Cardiovascular: normal peripheral pulses, normal rate, regular rhythm, no gallop/murmur, no JVD Respiratory/Chest: chest wall non-tender, lungs clear, normal breath sounds, no respiratory distress, no accessory muscle use Abdomen: normal bowel sounds, non tender, soft, no organomegaly, no mass Extremities: normal inspection Neurologic: business technology architect II-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 Continue eliquis per hematology note. (4) Altered mental status (5) Hypotension (6) Colon cancer Assessment & Plan: Recurrence - see onc note. (7) Anemia Assessment & Plan: S/P transfusion 2 units PRBC on 06/18/17. Hemoglobin stable. GI procedures on hold-see GI note. (8) Hypokalemia Assessment & Plan: replace K+ (9) Hypomagnesemia Assessment & Plan: resolved (10) Severe sepsis Assessment & Plan: Bacteroides fragilis. Continue Ertapenem day # 01/02 per ID (11) Decrease in appetite Assessment & Plan: Calorie count. Megace (12) Leukocytosis Assessment & Plan: Improving-see ID note. Assessment/Plan Discharge planning-discussed with daughter-[facility] ? hospice? Jonathan Reza MD July 02, 2017 11:40
[2017-07-02 12:00] VITALS: BP 110/69
--- NOTE | 2017-07-02 12:04 | GI Progress Note ---
Assessment/Plan Problems: (1) Severe sepsis ICD Codes: A41.9 - Sepsis, unspecified organism; R65.20 - Severe sepsis without septic shock SNOMED: 80166498 (2) Electrolyte imbalance ICD Codes: E87.8 - Other disorders of electrolyte and fluid balance, not elsewhere classified SNOMED: 325779652 (3) Dehydration ICD Codes: E86.0 - Dehydration SNOMED: 41270278 (4) Colostomy in place ICD Codes: Z93.3 - Colostomy status SNOMED: 652120213, 194470618 (5) Colon cancer ICD Codes: C18.9 - Malignant neoplasm of colon, unspecified SNOMED: 698806423 Qualifiers: Qualified Codes: C18.9 - Malignant neoplasm of colon, unspecified (6) Anemia ICD Codes: D64.9 - Anemia, unspecified SNOMED: 663924489 Qualifiers: Qualified Codes: D64.89 - Other specified anemias Status: unchanged Status Narrative Discussed with Dr. Fonseca. Assessment/Plan CEA 39.5 >> will defer colonoscopy for staging anemia work up reviewed >> folate deficiency OB stool r/o GI bleed >> negative cdiff negative CT AP reviewed supportive care fu onc recs monitor H&H, prn transfusions bowel regime ppi electrolyte replacement fu labs PT/OT patient on Plavix The patient was seen and examined at bedside and all new and available data was reviewed in the patients chart. I agree with the above findings, impression and plan. (Patient seen earlier today. Signature stamp does not reflect patient encounter time.). - Yung Fonseca MD Subjective Subjective denies abdominal pain Objective Last 24 Hour Vital Signs Date Time Temp Pulse Resp B/P (MAP) Pulse Ox O2 Delivery O2 Flow Rate FiO2 07/02/17 08:00 97.1 85 20 124/69 96 Room Air 21 97.1 07/02/17 04:00 97.1 92 20 145/93 96 97.1 07/02/17 00:00 98.3 94 20 135/63 100 98.3 07/01/17 20:00 97.3 97 20 147/94 97 97.3 07/01/17 15:56 98.4 93 20 104/72 97 Room Air 98.4 Intake and Output 07/01/17 07/02/17 19:00 07:00 Intake Total 830 ml 250 ml Output Total 1600 ml 300 ml Balance -770 ml -50 ml Intake Oral 240 ml 250 ml IV Total 590 ml Output Urine Total 1600 ml 300 ml Laboratory Tests Test 07/02/17 07:20 White Blood Count 13.3 K/UL (4.8-10.8) H Red Blood Count 3.05 M/UL (4.20-5.40) L Hemoglobin 8.0 G/DL (12.0-16.0) L Hematocrit 25.7 % (37.0-47.0) L Mean Corpuscular Volume 84 FL (80-99) Mean Corpuscular Hemoglobin 26.3 PG (27.0-31.0) L Mean Corpuscular Hemoglobin Concent 31.1 G/DL (32.0-36.0) L Red Cell Distribution Width 16.4 % (11.6-14.8) H Platelet Count 386 K/UL (150-450) Mean Platelet Volume 5.4 FL (6.5-10.1) L Neutrophils (%) (Auto) % (45.0-75.0) Lymphocytes (%) (Auto) % (20.0-45.0) Monocytes (%) (Auto) % (1.0-10.0) Eosinophils (%) (Auto) % (0.0-3.0) Basophils (%) (Auto) % (0.0-2.0) Differential Total Cells Counted 100 Neutrophils % (Manual) 87 % (45-75) H Lymphocytes % (Manual) 9 % (20-45) L Monocytes % (Manual) 4 % (1-10) Eosinophils % (Manual) 0 % (0-3) Basophils % (Manual) 0 % (0-2) Band Neutrophils 0 % (0-8) Platelet Estimate Adequate Platelet Morphology Normal Hypochromasia 3+ Anisocytosis 1+ Sodium Level 139 MMOL/L (136-145) Potassium Level 3.8 MMOL/L (3.5-5.1) Chloride Level 108 MMOL/L (98-107) H Carbon Dioxide Level 24 MMOL/L (21-32) Anion Gap 7 mmol/L (5-15) Blood Urea Nitrogen 7 mg/dL (7-18) Creatinine 0.7 MG/DL (0.55-1.30) Estimat Glomerular Filtration Rate mL/min (>60) Glucose Level 103 MG/DL (74-106) Calcium Level 8.4 MG/DL (8.5-10.1) L Ferritin > 2000 NG/ML (8-388) H Height (Feet): 5 Height (Inches): 4.00 Weight (Pounds): 200 General Appearance: no apparent distress, alert Cardiovascular: normal rate Respiratory/Chest: no respiratory distress Abdominal Exam: normal bowel sounds, non tender, soft, other - colostomy Clarissa Montgomery NP July 02, 2017 12:03
[2017-07-02] MEDS: Ertapenem 1 GM in NS 55 ML IVPB SCH (12:29)
--- NOTE | 2017-07-02 14:57 | Pulmonology Progress Note ---
Assessment/Plan Problems: (1) Severe sepsis (2) Acute encephalopathy (3) Anemia (4) H/O deep venous thrombosis (5) Colon cancer (6) Colostomy in place Assessment/Plan extensive metastasis wbc decreasing slowly new Blood cultures are negative oncology note appreciated BC showing B. fragilis social service consult appreciated dc planning Subjective ROS Limited/Unobtainable: No Constitutional: Reports: no symptoms Respiratory: Reports: no symptoms Cardiovascular: Reports: no symptoms Allergies: Coded Allergies: PENICILLINS (Verified Allergy, Unknown, 06/18/17) Swelling Objective Last 24 Hour Vital Signs Date Time Temp Pulse Resp B/P (MAP) Pulse Ox O2 Delivery O2 Flow Rate FiO2 07/02/17 12:00 98.1 85 20 110/69 96 Room Air 21 98.1 07/02/17 08:00 97.1 85 20 124/69 96 Room Air 21 97.1 07/02/17 04:00 97.1 92 20 145/93 96 97.1 07/02/17 00:00 98.3 94 20 135/63 100 98.3 07/01/17 20:00 97.3 97 20 147/94 97 97.3 07/01/17 15:56 98.4 93 20 104/72 97 Room Air 98.4 Intake and Output 07/01/17 07/02/17 19:00 07:00 Intake Total 830 ml 250 ml Output Total 1600 ml 300 ml Balance -770 ml -50 ml Intake Oral 240 ml 250 ml IV Total 590 ml Output Urine Total 1600 ml 300 ml Objective General Appearance: wn/wd Lines, tubes and drains: peripheral HEENT: normocephalic, atraumatic Neck: non-tender, normal alignment Respiratory/Chest: chest wall non-tender, lungs clear Breasts: no masses Cardiovascular/Chest: normal peripheral pulses Abdomen: normal bowel sounds, soft Genitourinary/Rectal: normal genital exam Skin Exam: normal pigmentation Neurologic: irrigator sprinkling system II-XII grossly normal Laboratory Tests 07/02/17 07:20: White Blood Count 13.3H, Red Blood Count 3.05L, Hemoglobin 8.0L, Hematocrit 25.7L, Mean Corpuscular Volume 84, Mean Corpuscular Hemoglobin 26.3L, Mean Corpuscular Hemoglobin Concent 31.1L, Red Cell Distribution Width 16.4H, Platelet Count 386, Mean Platelet Volume 5.4L, Neutrophils (%) (Auto) , Lymphocytes (%) (Auto) , Monocytes (%) (Auto) , Eosinophils (%) (Auto) , Basophils (%) (Auto) , Differential Total Cells Counted 100, Neutrophils % ( Manual) 87H, Lymphocytes % (Manual) 9L, Monocytes % (Manual) 4, Eosinophils % ( Manual) 0, Basophils % (Manual) 0, Band Neutrophils 0, Platelet Estimate Adequate, Platelet Morphology Normal, Hypochromasia 3+, Anisocytosis 1+, Sodium Level 139, Potassium Level 3.8, Chloride Level 108H, Carbon Dioxide Level 24, Anion Gap 7, Blood Urea Nitrogen 7, Creatinine 0.7, Estimat Glomerular Filtration Rate , Glucose Level 103, Calcium Level 8.4L, Ferritin > 2000H Current Medications Medications (Trade) Dose Ordered Sig/Naman Route PRN Reason Start Time Stop Time Status Last Admin Dose Admin Acetaminophen (Tylenol) 650 mg Q4H PRN ORAL fever 06/19/17 14:45 07/18/17 10:44 Apixaban (Eliquis) 5 mg BID ORAL 06/30/17 18:00 07/20/17 17:59 07/02/17 08:51 Chlorhexidine Gluconate (Tawanna-Hex 2%) 1 applic DAILY@2000 TOPIC 06/28/17 20:45 07/28/17 20:44 06/30/17 20:33 Ertapenem 1 gm/ Sodium Chloride 55 ml @ 110 mls/hr Q24H IVPB 07/02/17 12:00 07/07/17 11:59 07/02/17 12:29 Folic Acid (Folate) 1 mg DAILY ORAL 07/01/17 09:00 07/20/17 08:59 07/02/17 08:50 Megestrol Acetate (Megace) 400 mg TWICE A DAY ORAL 06/30/17 18:00 07/24/17 17:59 07/02/17 08:50 Ondansetron HCl (Zofran) 4 mg Q6H PRN IVP Nausea & Vomiting 06/19/17 14:24 07/18/17 14:23 Pantoprazole (Protonix) 40 mg DAILY IVP 07/01/17 09:00 07/19/17 08:59 07/02/17 08:51 Polyethylene Glycol (Miralax) 17 gm DAILYPRN PRN ORAL Constipation 06/19/17 14:24 07/19/17 14:23 Sodium Chloride 1,000 ml @ 50 mls/hr Q20H IVLG 06/19/17 14:30 07/18/17 10:32 07/02/17 03:06 Andres Reynolds MD July 02, 2017 14:57
--- NOTE | 2017-07-02 15:03 | General Progress Note ---
Assessment/Plan Assessment/Plan mdd encephalopathy cont current med cont ativan prn Subjective Date patient seen: July 02, 2017 Neurologic/Psychiatric: Reports: anxiety, depressed, emotional problems Allergies: Coded Allergies: PENICILLINS (Verified Allergy, Unknown, 06/18/17) Swelling Objective Last 24 Hour Vital Signs Date Time Temp Pulse Resp B/P (MAP) Pulse Ox O2 Delivery O2 Flow Rate FiO2 07/02/17 12:00 98.1 85 20 110/69 96 Room Air 21 98.1 07/02/17 08:00 97.1 85 20 124/69 96 Room Air 21 97.1 07/02/17 04:00 97.1 92 20 145/93 96 97.1 07/02/17 00:00 98.3 94 20 135/63 100 98.3 07/01/17 20:00 97.3 97 20 147/94 97 97.3 07/01/17 15:56 98.4 93 20 104/72 97 Room Air 98.4 Intake and Output 07/01/17 07/02/17 19:00 07:00 Intake Total 830 ml 250 ml Output Total 1600 ml 300 ml Balance -770 ml -50 ml Intake Oral 240 ml 250 ml IV Total 590 ml Output Urine Total 1600 ml 300 ml Laboratory Tests 07/02/17 07:20: White Blood Count 13.3H, Red Blood Count 3.05L, Hemoglobin 8.0L, Hematocrit 25.7L, Mean Corpuscular Volume 84, Mean Corpuscular Hemoglobin 26.3L, Mean Corpuscular Hemoglobin Concent 31.1L, Red Cell Distribution Width 16.4H, Platelet Count 386, Mean Platelet Volume 5.4L, Neutrophils (%) (Auto) , Lymphocytes (%) (Auto) , Monocytes (%) (Auto) , Eosinophils (%) (Auto) , Basophils (%) (Auto) , Differential Total Cells Counted 100, Neutrophils % ( Manual) 87H, Lymphocytes % (Manual) 9L, Monocytes % (Manual) 4, Eosinophils % ( Manual) 0, Basophils % (Manual) 0, Band Neutrophils 0, Platelet Estimate Adequate, Platelet Morphology Normal, Hypochromasia 3+, Anisocytosis 1+, Sodium Level 139, Potassium Level 3.8, Chloride Level 108H, Carbon Dioxide Level 24, Anion Gap 7, Blood Urea Nitrogen 7, Creatinine 0.7, Estimat Glomerular Filtration Rate , Glucose Level 103, Calcium Level 8.4L, Ferritin > 2000H Height (Feet): 5 Height (Inches): 4.00 Weight (Pounds): 200 General Appearance: no apparent distress, alert Maximilian Garsia M.D. July 02, 2017 15:03
[2017-07-02 16:00] VITALS: BP 117/70
[2017-07-02 20:00] VITALS: BP 159/77
[2017-07-02] MEDS: Dyna-Hex 2% Top Sol 2oz TOPIC SCH (20:00)
[2017-07-03] VITALS: BP 131/73
[2017-07-03 04:00] VITALS: BP 158/90
[2017-07-03 07:14] LABS: HEMATOCRIT 25.7 % (37.0-47.0); HEMOGLOBIN 8.1 G/DL (12.0-16.0); MEAN CORPUSCULAR VOLUME 84 FL (80-99); PLATELET COUNT 377 K/UL (150-450); RED BLOOD COUNT 3.06 M/UL (4.20-5.40); WHITE BLOOD COUNT 14.7 K/UL (4.8-10.8)
[2017-07-03 07:25] LABS: ANION GAP 6 mmol/L (5-15); BLOOD UREA NITROGEN 8 mg/dL (7-18); CALCIUM 8.8 MG/DL (8.5-10.1); CARBON DIOXIDE 25 MMOL/L (21-32); CHLORIDE 108 MMOL/L (98-107); CREATININE 0.7 MG/DL (0.55-1.30); PHOSPHORUS 3.8 MG/DL (2.5-4.9); POTASSIUM 3.7 MMOL/L (3.5-5.1); SODIUM 139 MMOL/L (136-145)
[2017-07-03 08:00] VITALS: BP 131/85
--- NOTE | 2017-07-03 08:52 | General Progress Note ---
Assessment/Plan Assessment/Plan # Recurrent colon carcinoma with extensive bulky tumor and adenopathy within the pelvis and retroperitoneum. --> This results in mild to moderate left hydronephrosis. Localized adjacent lytic destruction of the anterior L5 vertebra and part of the upper sacrum. --> Evidence of more remote metastatic neoplasm with multiple pulmonary nodules. --> Given poor performance status, appear patient is bed-bound and recommend hospice care evaluation --> have discussed poor prognosis with family as well as pcp/consultants # DVT of the left leg - given stable h/h and no e/o gi bleed --> continue eliquis x 3 months total --> Improving of lower extremity swelling #. Leukocytosis. --> Remains elevated, potentially malignancy related --> Continue to monitor and trend cbc # Anemia of chronic disease, evaluate with GI --> hgb goal is above 7 --> anemia w/u has been reviewed --> appreciate gi recs, does not need gi procedure given ob negative --> blood transfusion not required unless symptomatic # Anemia of folic acid deficiency --> continue on FA 1mg daily # Hypokalemia - repleted with K # Hypomagnesemia - repleted with mag # Weakness and fatigue is likely related to anemia #. Tachycardia. --> Improved. #. Encephalopathy. #. Comfort care. Subjective Constitutional: Denies: no symptoms, chills, diaphoresis, fever, malaise, weakness, other HEENT: Denies: no symptoms, eye pain, blurred vision, tearing, double vision, ear pain, ear discharge, nose pain, nose congestion, throat pain, throat swelling, mouth pain, mouth swelling, other Cardiovascular: Denies: no symptoms, chest pain, edema, irregular heart rate, lightheadedness, palpitations, syncope, other Respiratory: Denies: no symptoms, cough, orthopnea, shortness of breath, SOB with excertion, SOB at rest, sputum, stridor, wheezing, other Gastrointestinal/Abdominal: Denies: no symptoms, abdomen distended, abdominal pain, black stools, tarry stools, blood in stool, constipated, diarrhea, difficulty swallowing, nausea, poor appetite, poor fluid intake, rectal bleeding , vomiting, other Genitourinary: Denies: no symptoms, burning, discharge, frequency, flank pain, hematuria, incontinence, pain, urgency, other Neurologic/Psychiatric: Denies: no symptoms, anxiety, depressed, emotional problems, headache, numbness, paresthesia, pre-existing deficit, seizure, tingling, tremors, weakness, other Endocrine: Denies: no symptoms, excessive sweating, flushing, intolerance to cold, intolerance to heat, increased hunger, increased thirst, increased urine, unexplained weight gain, unexplained weight loss, other Hematologic/Lymphatic: Reports: no symptoms Allergies: Coded Allergies: PENICILLINS (Verified Allergy, Unknown, 06/18/17) Swelling Subjective Lethargic, bedbound, appears weak Objective Last 24 Hour Vital Signs Date Time Temp Pulse Resp B/P (MAP) Pulse Ox O2 Delivery O2 Flow Rate FiO2 07/03/17 04:00 97.3 97 18 158/90 98 97.3 07/03/17 00:00 97.3 89 19 131/73 95 97.3 07/02/17 20:00 97.2 98 19 159/77 100 97.2 07/02/17 16:00 97.2 86 20 117/70 96 Room Air 21 97.2 07/02/17 12:00 98.1 85 20 110/69 96 Room Air 21 98.1 Intake and Output 07/02/17 07/03/17 19:00 07:00 Intake Total 170 ml 550 ml Output Total 400 ml 800 ml Balance -230 ml -250 ml Intake Oral 120 ml IV Total 50 ml 550 ml Output Urine Total 400 ml 800 ml Laboratory Tests 07/03/17 06:00: White Blood Count 14.7H, Red Blood Count 3.06L, Hemoglobin 8.1L, Hematocrit 25.7L, Mean Corpuscular Volume 84, Mean Corpuscular Hemoglobin 26.4L, Mean Corpuscular Hemoglobin Concent 31.5L, Red Cell Distribution Width 16.0H, Platelet Count 377, Mean Platelet Volume 5.6L, Neutrophils (%) (Auto) , Lymphocytes (%) (Auto) , Monocytes (%) (Auto) , Eosinophils (%) (Auto) , Basophils (%) (Auto) , Neutrophils % (Manual) [Pending], Lymphocytes % (Manual) [Pending], Platelet Estimate [Pending], Platelet Morphology [Pending], Sodium Level 139, Potassium Level 3.7, Chloride Level 108H, Carbon Dioxide Level 25, Anion Gap 6, Blood Urea Nitrogen 8, Creatinine 0.7, Estimat Glomerular Filtration Rate , Glucose Level 83, Calcium Level 8.8, Phosphorus Level 3.8, Magnesium Level 1.6L Height (Feet): 5 Height (Inches): 4.00 Weight (Pounds): 207 General Appearance: alert EENT: PERRL/EOMI Neck: supple Cardiovascular: regular rhythm Respiratory/Chest: no respiratory distress Abdomen: no mass Extremities: normal inspection Edema: 1+ Leg (L), 1+ Pedal (L) Neurologic: no motor/sensory deficits Skin: warm/dry Chay Ross MD July 03, 2017 08:52
[2017-07-03] MEDS: Pantoprazole Inj IVP SCH (08:53)
[2017-07-03] MEDS: Eliquis 2.5mg tablet ORAL SCH ×2 (08:58→18:04)
[2017-07-03] MEDS: Megace 400mg/10ml Susp ORAL SCH ×2 (08:58→18:04)
--- NOTE | 2017-07-03 09:43 | GI Progress Note ---
Assessment/Plan Problems: (1) Severe sepsis ICD Codes: A41.9 - Sepsis, unspecified organism; R65.20 - Severe sepsis without septic shock SNOMED: 44860142 (2) Electrolyte imbalance ICD Codes: E87.8 - Other disorders of electrolyte and fluid balance, not elsewhere classified SNOMED: 388245526 (3) Dehydration ICD Codes: E86.0 - Dehydration SNOMED: 59781395 (4) Colostomy in place ICD Codes: Z93.3 - Colostomy status SNOMED: 608582173, 348734878 (5) Colon cancer ICD Codes: C18.9 - Malignant neoplasm of colon, unspecified SNOMED: 873829760 Qualifiers: Qualified Codes: C18.9 - Malignant neoplasm of colon, unspecified (6) Anemia ICD Codes: D64.9 - Anemia, unspecified SNOMED: 425405324 Qualifiers: Qualified Codes: D64.89 - Other specified anemias Status: unchanged Status Narrative Discussed with Dr. Fonseca. Assessment/Plan given CEA 39.5, will defer colonoscopy for staging anemia work up reviewed >> folate deficiency OB stool r/o GI bleed >> negative cdiff negative CT AP reviewed supportive care fu onc recs monitor H&H, prn transfusions bowel regime ppi electrolyte replacement fu labs PT/OT patient on Plavix The patient was seen and examined at bedside and all new and available data was reviewed in the patients chart. I agree with the above findings, impression and plan. (Patient seen earlier today. Signature stamp does not reflect patient encounter time.). - Yung Fonseca MD Subjective Subjective denies abdominal pain Objective Last 24 Hour Vital Signs Date Time Temp Pulse Resp B/P (MAP) Pulse Ox O2 Delivery O2 Flow Rate FiO2 07/03/17 04:00 97.3 97 18 158/90 98 97.3 07/03/17 00:00 97.3 89 19 131/73 95 97.3 07/02/17 20:00 97.2 98 19 159/77 100 97.2 07/02/17 16:00 97.2 86 20 117/70 96 Room Air 21 97.2 07/02/17 12:00 98.1 85 20 110/69 96 Room Air 21 98.1 Intake and Output 07/02/17 07/03/17 19:00 07:00 Intake Total 170 ml 550 ml Output Total 400 ml 800 ml Balance -230 ml -250 ml Intake Oral 120 ml IV Total 50 ml 550 ml Output Urine Total 400 ml 800 ml Laboratory Tests Test 07/03/17 06:00 White Blood Count 14.7 K/UL (4.8-10.8) H Red Blood Count 3.06 M/UL (4.20-5.40) L Hemoglobin 8.1 G/DL (12.0-16.0) L Hematocrit 25.7 % (37.0-47.0) L Mean Corpuscular Volume 84 FL (80-99) Mean Corpuscular Hemoglobin 26.4 PG (27.0-31.0) L Mean Corpuscular Hemoglobin Concent 31.5 G/DL (32.0-36.0) L Red Cell Distribution Width 16.0 % (11.6-14.8) H Platelet Count 377 K/UL (150-450) Mean Platelet Volume 5.6 FL (6.5-10.1) L Neutrophils (%) (Auto) % (45.0-75.0) Lymphocytes (%) (Auto) % (20.0-45.0) Monocytes (%) (Auto) % (1.0-10.0) Eosinophils (%) (Auto) % (0.0-3.0) Basophils (%) (Auto) % (0.0-2.0) Differential Total Cells Counted 100 Neutrophils % (Manual) 89 % (45-75) H Lymphocytes % (Manual) 2 % (20-45) L Monocytes % (Manual) 4 % (1-10) Eosinophils % (Manual) 0 % (0-3) Basophils % (Manual) 1 % (0-2) Band Neutrophils 4 % (0-8) Platelet Estimate Adequate Platelet Morphology Normal Hypochromasia 1+ Anisocytosis 1+ Sodium Level 139 MMOL/L (136-145) Potassium Level 3.7 MMOL/L (3.5-5.1) Chloride Level 108 MMOL/L (98-107) H Carbon Dioxide Level 25 MMOL/L (21-32) Anion Gap 6 mmol/L (5-15) Blood Urea Nitrogen 8 mg/dL (7-18) Creatinine 0.7 MG/DL (0.55-1.30) Estimat Glomerular Filtration Rate mL/min (>60) Glucose Level 83 MG/DL (74-106) Calcium Level 8.8 MG/DL (8.5-10.1) Phosphorus Level 3.8 MG/DL (2.5-4.9) Magnesium Level 1.6 MG/DL (1.8-2.4) L Height (Feet): 5 Height (Inches): 4.00 Weight (Pounds): 207 General Appearance: WD/WN, no apparent distress, alert Cardiovascular: normal rate Respiratory/Chest: normal breath sounds, no respiratory distress Abdominal Exam: normal bowel sounds, non tender, soft, other - colostomy Extremities: non-tender Clarissa Montgomery NP July 03, 2017 09:43
--- NOTE | 2017-07-03 10:19 | Infectious Diseases Prog Note ---
Assessment/Plan Assessment/Plan Assessment: Septic Shock, SP - Bacteremia -Bcx 06/17 2 B. fragilis; 06/18 02/22 B. fragilis; 06/20 Bcx Neg x4; 06/26 Bcx NTD likely GI translocation for either bleeding or cancer burden ? UTI (she did had UTI and pyelo symptoms: +frequency/urgency, n/v, lower abd pain). ucx 20-30k mixed gram positive growth; repeat u/a WBC 40-60, nit neg, leuk +2, sq cells few; ucx Neg Fever, SP leukocytosis- improving overall ( due to metastatic disease and sepsis ) -s/p RIJ removal 06/26 -CT abd/p w/: Evidence of recurrent colon carcinoma with extensive bulky tumor and adenopathy within the pelvis and retroperitoneum. This results in mild to moderate left hydronephrosis. Localized adjacent lytic destruction of the anterior L5 vertebra and part of the upper sacrum. Evidence of more remote metastatic neoplasm with multiple pulmonary nodules. -06/21 CDiff neg Lactic acidosis, resolved L DVT Anemia CARLOS, resolved Colon CA s/p resection and colostomy w/ recurrent Cancer obstructive uropathy s/p PPM DVT on [facility] senior living resident PNC allergy Plan: - cont IV Ertapenem abx d #16 /14 - 17 ( in view of improvement of WBC ) -06/25 SP Ceftriaxone and Flagyl #3 -06/23 SP Meropenem #6 -06/19 SP IV Vancomycin #2 -06/17 Cefepime and Flagyl x1 -Monitor CBC/BMP, temperatures -aspiration precautions -heme onc f/u -wound care/prevention per hospital protocol -PICC line care Subjective Allergies: Coded Allergies: PENICILLINS (Verified Allergy, Unknown, 06/18/17) Swelling Subjective Afebrile comfortable Objective Vital Signs Last 24 Hour Vital Signs Date Time Temp Pulse Resp B/P (MAP) Pulse Ox O2 Delivery O2 Flow Rate FiO2 07/03/17 04:00 97.3 97 18 158/90 98 97.3 07/03/17 00:00 97.3 89 19 131/73 95 97.3 07/02/17 20:00 97.2 98 19 159/77 100 97.2 07/02/17 16:00 97.2 86 20 117/70 96 Room Air 21 97.2 07/02/17 12:00 98.1 85 20 110/69 96 Room Air 21 98.1 Height (Feet): 5 Height (Inches): 4.00 Weight (Pounds): 207 HEENT: anicteric Respiratory/Chest: normal breath sounds Cardiovascular: regular rhythm Abdomen: soft, non tender Laboratory Tests Test 07/03/17 06:00 White Blood Count 14.7 K/UL (4.8-10.8) H Red Blood Count 3.06 M/UL (4.20-5.40) L Hemoglobin 8.1 G/DL (12.0-16.0) L Hematocrit 25.7 % (37.0-47.0) L Mean Corpuscular Volume 84 FL (80-99) Mean Corpuscular Hemoglobin 26.4 PG (27.0-31.0) L Mean Corpuscular Hemoglobin Concent 31.5 G/DL (32.0-36.0) L Red Cell Distribution Width 16.0 % (11.6-14.8) H Platelet Count 377 K/UL (150-450) Mean Platelet Volume 5.6 FL (6.5-10.1) L Neutrophils (%) (Auto) % (45.0-75.0) Lymphocytes (%) (Auto) % (20.0-45.0) Monocytes (%) (Auto) % (1.0-10.0) Eosinophils (%) (Auto) % (0.0-3.0) Basophils (%) (Auto) % (0.0-2.0) Differential Total Cells Counted 100 Neutrophils % (Manual) 89 % (45-75) H Lymphocytes % (Manual) 2 % (20-45) L Monocytes % (Manual) 4 % (1-10) Eosinophils % (Manual) 0 % (0-3) Basophils % (Manual) 1 % (0-2) Band Neutrophils 4 % (0-8) Platelet Estimate Adequate Platelet Morphology Normal Hypochromasia 1+ Anisocytosis 1+ Sodium Level 139 MMOL/L (136-145) Potassium Level 3.7 MMOL/L (3.5-5.1) Chloride Level 108 MMOL/L (98-107) H Carbon Dioxide Level 25 MMOL/L (21-32) Anion Gap 6 mmol/L (5-15) Blood Urea Nitrogen 8 mg/dL (7-18) Creatinine 0.7 MG/DL (0.55-1.30) Estimat Glomerular Filtration Rate mL/min (>60) Glucose Level 83 MG/DL (74-106) Calcium Level 8.8 MG/DL (8.5-10.1) Phosphorus Level 3.8 MG/DL (2.5-4.9) Magnesium Level 1.6 MG/DL (1.8-2.4) L Current Medications Medications (Trade) Dose Ordered Sig/Naman Route PRN Reason Start Time Stop Time Status Last Admin Dose Admin Acetaminophen (Tylenol) 650 mg Q4H PRN ORAL fever 06/19/17 14:45 07/18/17 10:44 Apixaban (Eliquis) 5 mg BID ORAL 06/30/17 18:00 07/20/17 17:59 07/03/17 08:58 Chlorhexidine Gluconate (Tawanna-Hex 2%) 1 applic DAILY@2000 TOPIC 06/28/17 20:45 07/28/17 20:44 06/30/17 20:33 Ertapenem 1 gm/ Sodium Chloride 55 ml @ 110 mls/hr Q24H IVPB 07/02/17 12:00 07/07/17 11:59 07/02/17 12:29 Folic Acid (Folate) 1 mg DAILY ORAL 07/01/17 09:00 07/20/17 08:59 07/03/17 08:57 Magnesium Sulfate 100 ml @ 100 mls/hr Q1H IVPB 07/03/17 09:45 07/03/17 11:44 UNV Megestrol Acetate (Megace) 400 mg TWICE A DAY ORAL 06/30/17 18:00 07/24/17 17:59 07/03/17 08:58 Ondansetron HCl (Zofran) 4 mg Q6H PRN IVP Nausea & Vomiting 06/19/17 14:24 07/18/17 14:23 Pantoprazole (Protonix) 40 mg DAILY IVP 07/01/17 09:00 07/19/17 08:59 07/03/17 08:53 Polyethylene Glycol (Miralax) 17 gm DAILYPRN PRN ORAL Constipation 06/19/17 14:24 07/19/17 14:23 Sodium Chloride 1,000 ml @ 50 mls/hr Q20H IVLG 06/19/17 14:30 5/30/18 10:32 07/03/17 01:08 Griffin Lay MD July 03, 2017 10:19
[2017-07-03 12:00] VITALS: BP 164/81
--- NOTE | 2017-07-03 12:38 | Pulmonology Progress Note ---
Assessment/Plan Problems: (1) Severe sepsis (2) Acute encephalopathy (3) Anemia (4) H/O deep venous thrombosis (5) Colon cancer (6) Colostomy in place Assessment/Plan extensive metastasis wbc up again, could be secondary to cancer new Blood cultures are negative oncology note appreciated BC showing B. fragilis social service consult appreciated daughter thinking about Hospice dc planning Subjective ROS Limited/Unobtainable: No Constitutional: Reports: no symptoms HEENT: Repors: no symptoms Respiratory: Reports: no symptoms Allergies: Coded Allergies: PENICILLINS (Verified Allergy, Unknown, 06/18/17) Swelling Objective Last 24 Hour Vital Signs Date Time Temp Pulse Resp B/P (MAP) Pulse Ox O2 Delivery O2 Flow Rate FiO2 07/03/17 08:00 97.1 94 14 131/85 100 Room Air 97.1 07/03/17 04:00 97.3 97 18 158/90 98 97.3 07/03/17 00:00 97.3 89 19 131/73 95 97.3 07/02/17 20:00 97.2 98 19 159/77 100 97.2 07/02/17 16:00 97.2 86 20 117/70 96 Room Air 21 97.2 Intake and Output 07/02/17 07/03/17 19:00 07:00 Intake Total 170 ml 550 ml Output Total 400 ml 800 ml Balance -230 ml -250 ml Intake Oral 120 ml IV Total 50 ml 550 ml Output Urine Total 400 ml 800 ml Objective General Appearance: wn/wd Lines, tubes and drains: peripheral HEENT: normocephalic, atraumatic Neck: non-tender, normal alignment Respiratory/Chest: chest wall non-tender, lungs clear Breasts: no masses Cardiovascular/Chest: normal peripheral pulses Abdomen: normal bowel sounds, soft Genitourinary/Rectal: normal genital exam Skin Exam: normal pigmentation 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 Laboratory Tests 07/03/17 06:00: White Blood Count 14.7H, Red Blood Count 3.06L, Hemoglobin 8.1L, Hematocrit 25.7L, Mean Corpuscular Volume 84, Mean Corpuscular Hemoglobin 26.4L, Mean Corpuscular Hemoglobin Concent 31.5L, Red Cell Distribution Width 16.0H, Platelet Count 377, Mean Platelet Volume 5.6L, Neutrophils (%) (Auto) , Lymphocytes (%) (Auto) , Monocytes (%) (Auto) , Eosinophils (%) (Auto) , Basophils (%) (Auto) , Differential Total Cells Counted 100, Neutrophils % ( Manual) 89H, Lymphocytes % (Manual) 2L, Monocytes % (Manual) 4, Eosinophils % ( Manual) 0, Basophils % (Manual) 1, Band Neutrophils 4, Platelet Estimate Adequate, Platelet Morphology Normal, Hypochromasia 1+, Anisocytosis 1+, Sodium Level 139, Potassium Level 3.7, Chloride Level 108H, Carbon Dioxide Level 25, Anion Gap 6, Blood Urea Nitrogen 8, Creatinine 0.7, Estimat Glomerular Filtration Rate , Glucose Level 83, Calcium Level 8.8, Phosphorus Level 3.8, Magnesium Level 1.6L Current Medications Medications (Trade) Dose Ordered Sig/Naman Route PRN Reason Start Time Stop Time Status Last Admin Dose Admin Acetaminophen (Tylenol) 650 mg Q4H PRN ORAL fever 06/19/17 14:45 07/18/17 10:44 Apixaban (Eliquis) 5 mg BID ORAL 06/30/17 18:00 07/20/17 17:59 07/03/17 08:58 Chlorhexidine Gluconate (Tawanna-Hex 2%) 1 applic DAILY@2000 TOPIC 06/28/17 20:45 07/28/17 20:44 06/30/17 20:33 Ertapenem 1 gm/ Sodium Chloride 55 ml @ 110 mls/hr Q24H IVPB 07/02/17 12:00 07/07/17 11:59 07/02/17 12:29 Folic Acid (Folate) 1 mg DAILY ORAL 07/01/17 09:00 07/20/17 08:59 07/03/17 08:57 Megestrol Acetate (Megace) 400 mg TWICE A DAY ORAL 06/30/17 18:00 07/24/17 17:59 07/03/17 08:58 Ondansetron HCl (Zofran) 4 mg Q6H PRN IVP Nausea & Vomiting 06/19/17 14:24 07/18/17 14:23 Pantoprazole (Protonix) 40 mg DAILY IVP 07/01/17 09:00 07/19/17 08:59 07/03/17 08:53 Polyethylene Glycol (Miralax) 17 gm DAILYPRN PRN ORAL Constipation 06/19/17 14:24 07/19/17 14:23 Sodium Chloride 1,000 ml @ 50 mls/hr Q20H IVLG 06/19/17 14:30 07/18/17 10:32 07/03/17 01:08 Andres Reynolds MD July 03, 2017 12:38
[2017-07-03] MEDS: Ertapenem 1 GM in NS 55 ML IVPB SCH (13:03)
--- NOTE | 2017-07-03 14:10 | General Progress Note ---
Assessment/Plan Status: stable, progressing Assessment/Plan mdd encephalopathy cont current med cont ativan prn Subjective Date patient seen: July 03, 2017 Neurologic/Psychiatric: Reports: anxiety, depressed, emotional problems Allergies: Coded Allergies: PENICILLINS (Verified Allergy, Unknown, 06/18/17) Swelling Objective Last 24 Hour Vital Signs Date Time Temp Pulse Resp B/P (MAP) Pulse Ox O2 Delivery O2 Flow Rate FiO2 07/03/17 12:00 97.1 82 16 164/81 100 Room Air 97.1 07/03/17 08:00 97.1 94 14 131/85 100 Room Air 97.1 07/03/17 04:00 97.3 97 18 158/90 98 97.3 07/03/17 00:00 97.3 89 19 131/73 95 97.3 07/02/17 20:00 97.2 98 19 159/77 100 97.2 07/02/17 16:00 97.2 86 20 117/70 96 Room Air 21 97.2 Intake and Output 07/02/17 07/03/17 19:00 07:00 Intake Total 170 ml 550 ml Output Total 400 ml 800 ml Balance -230 ml -250 ml Intake Oral 120 ml IV Total 50 ml 550 ml Output Urine Total 400 ml 800 ml Laboratory Tests 07/03/17 06:00: White Blood Count 14.7H, Red Blood Count 3.06L, Hemoglobin 8.1L, Hematocrit 25.7L, Mean Corpuscular Volume 84, Mean Corpuscular Hemoglobin 26.4L, Mean Corpuscular Hemoglobin Concent 31.5L, Red Cell Distribution Width 16.0H, Platelet Count 377, Mean Platelet Volume 5.6L, Neutrophils (%) (Auto) , Lymphocytes (%) (Auto) , Monocytes (%) (Auto) , Eosinophils (%) (Auto) , Basophils (%) (Auto) , Differential Total Cells Counted 100, Neutrophils % ( Manual) 89H, Lymphocytes % (Manual) 2L, Monocytes % (Manual) 4, Eosinophils % ( Manual) 0, Basophils % (Manual) 1, Band Neutrophils 4, Platelet Estimate Adequate, Platelet Morphology Normal, Hypochromasia 1+, Anisocytosis 1+, Sodium Level 139, Potassium Level 3.7, Chloride Level 108H, Carbon Dioxide Level 25, Anion Gap 6, Blood Urea Nitrogen 8, Creatinine 0.7, Estimat Glomerular Filtration Rate , Glucose Level 83, Calcium Level 8.8, Phosphorus Level 3.8, Magnesium Level 1.6L Height (Feet): 5 Height (Inches): 4.00 Weight (Pounds): 207 General Appearance: WD/WN, no apparent distress, alert, confused Maximilian Garsia M.D. July 03, 2017 14:10
--- NOTE | 2017-07-03 14:11 | Psych Consult Progress Note ---
Psych Consult Progress Note Consult 07/01/17 mdd encephalopathy cont current med cont ativan prn Vital Signs Last 24 Hour Vital Signs Date Time Temp Pulse Resp B/P (MAP) Pulse Ox O2 Delivery O2 Flow Rate FiO2 07/03/17 12:00 97.1 82 16 164/81 100 Room Air 97.1 07/03/17 08:00 97.1 94 14 131/85 100 Room Air 97.1 07/03/17 04:00 97.3 97 18 158/90 98 97.3 07/03/17 00:00 97.3 89 19 131/73 95 97.3 07/02/17 20:00 97.2 98 19 159/77 100 97.2 07/02/17 16:00 97.2 86 20 117/70 96 Room Air 21 97.2 Labs Laboratory Tests Test 07/03/17 06:00 White Blood Count 14.7 K/UL (4.8-10.8) H Red Blood Count 3.06 M/UL (4.20-5.40) L Hemoglobin 8.1 G/DL (12.0-16.0) L Hematocrit 25.7 % (37.0-47.0) L Mean Corpuscular Volume 84 FL (80-99) Mean Corpuscular Hemoglobin 26.4 PG (27.0-31.0) L Mean Corpuscular Hemoglobin Concent 31.5 G/DL (32.0-36.0) L Red Cell Distribution Width 16.0 % (11.6-14.8) H Platelet Count 377 K/UL (150-450) Mean Platelet Volume 5.6 FL (6.5-10.1) L Neutrophils (%) (Auto) % (45.0-75.0) Lymphocytes (%) (Auto) % (20.0-45.0) Monocytes (%) (Auto) % (1.0-10.0) Eosinophils (%) (Auto) % (0.0-3.0) Basophils (%) (Auto) % (0.0-2.0) Differential Total Cells Counted 100 Neutrophils % (Manual) 89 % (45-75) H Lymphocytes % (Manual) 2 % (20-45) L Monocytes % (Manual) 4 % (1-10) Eosinophils % (Manual) 0 % (0-3) Basophils % (Manual) 1 % (0-2) Band Neutrophils 4 % (0-8) Platelet Estimate Adequate Platelet Morphology Normal Hypochromasia 1+ Anisocytosis 1+ Sodium Level 139 MMOL/L (136-145) Potassium Level 3.7 MMOL/L (3.5-5.1) Chloride Level 108 MMOL/L (98-107) H Carbon Dioxide Level 25 MMOL/L (21-32) Anion Gap 6 mmol/L (5-15) Blood Urea Nitrogen 8 mg/dL (7-18) Creatinine 0.7 MG/DL (0.55-1.30) Estimat Glomerular Filtration Rate mL/min (>60) Glucose Level 83 MG/DL (74-106) Calcium Level 8.8 MG/DL (8.5-10.1) Phosphorus Level 3.8 MG/DL (2.5-4.9) Magnesium Level 1.6 MG/DL (1.8-2.4) L Medications Current Medications Medications (Trade) Dose Ordered Sig/Naman Route PRN Reason Start Time Stop Time Status Last Admin Dose Admin Acetaminophen (Tylenol) 650 mg Q4H PRN ORAL fever 06/19/17 14:45 07/18/17 10:44 Apixaban (Eliquis) 5 mg BID ORAL 06/30/17 18:00 07/20/17 17:59 07/03/17 08:58 Chlorhexidine Gluconate (Tawanna-Hex 2%) 1 applic DAILY@2000 TOPIC 06/28/17 20:45 07/28/17 20:44 06/30/17 20:33 Ertapenem 1 gm/ Sodium Chloride 55 ml @ 110 mls/hr Q24H IVPB 07/02/17 12:00 07/07/17 11:59 07/03/17 13:03 Folic Acid (Folate) 1 mg DAILY ORAL 07/01/17 09:00 07/20/17 08:59 07/03/17 08:57 Megestrol Acetate (Megace) 400 mg TWICE A DAY ORAL 06/30/17 18:00 07/24/17 17:59 07/03/17 08:58 Ondansetron HCl (Zofran) 4 mg Q6H PRN IVP Nausea & Vomiting 06/19/17 14:24 07/18/17 14:23 Pantoprazole (Protonix) 40 mg DAILY IVP 07/01/17 09:00 07/19/17 08:59 07/03/17 08:53 Polyethylene Glycol (Miralax) 17 gm DAILYPRN PRN ORAL Constipation 06/19/17 14:24 07/19/17 14:23 Sodium Chloride 1,000 ml @ 50 mls/hr Q20H IVLG 06/19/17 14:30 07/18/17 10:32 07/03/17 01:08 Problems: (1) Acute encephalopathy Status: Chronic (2) Altered mental status Status: Acute Maximilian Garsia M.D. July 03, 2017 14:11
[2017-07-03 16:10] VITALS: BP 136/75
[2017-07-03] MEDS ORDERED: HEPARIN SO5000 UNIT2 SUBQ (16:24)
[2017-07-03] MEDS ORDERED: METHADONE10 MG/5 ML PO (16:25)
[2017-07-03] MEDS ORDERED: Docusate 100mg cap ORAL SCH (18:00)
[2017-07-03] MEDS ORDERED: Miralax 17gm pkt ORAL SCH (21:00)
--- NOTE | 2017-07-03 22:33 | Discharge Summary ---
Discharge Summary Hospital Course Date of Admission Jun 17, 2017 at 16:01 Date of Discharge July 03, 2017 at 21:30 Admitting Diagnosis sepsis BOOGIE Fitzgerald is a 72 year old female who was admitted on Jun 17, 2017 at 16: 01 for Sepsis Hospital Course Last 24 Hour Vital Signs Date Time Temp Pulse Resp B/P (MAP) Pulse Ox O2 Delivery O2 Flow Rate FiO2 07/03/17 16:10 97.0 84 15 136/75 100 Room Air 97.0 07/03/17 12:00 97.1 82 16 164/81 100 Room Air 97.1 07/03/17 08:00 97.1 94 14 131/85 100 Room Air 97.1 07/03/17 04:00 97.3 97 18 158/90 98 97.3 07/03/17 00:00 97.3 89 19 131/73 95 97.3 Discharge [facility] dictated with Discharge Discharge Disposition Patient was discharged to Home with Home Health(06) Bharat Orozco MD July 03, 2017 22:33
--- NOTE | 2017-07-04 02:15 | Discharge Summary ---
DATE OF ADMISSION: 06/17/2017 DATE OF DISCHARGE: 07/03/2017 HISTORY AND HOSPITAL COURSE: This is a 72-year-old female with past medical history significant for colon cancer, status post resection in January 2014, history of anemia, who was transferred from the detention. Afterwards found to have altered mental status as well as hypotension shortly after initial evaluation, the patient was noted to have a blood pressure of systolic of 66. IV hydration was started, and subsequently, the patient was admitted to the hospital with sepsis and hypotension possible due to septic shock. Throughout the hospital course, the patient was consulted with Dr. Fonseca from Gastroenterology, Dr. Garsia from Psychiatry, Dr. Ross from Oncology, Dr. Ramos from Infectious Disease, and Dr. Reynolds from Pulmonary Critical Care. The patient started on broad-spectrum antibiotics. Her status gradually improved and subsequently was discharged to the nursing facility to be followed up as an outpatient. FINAL DIAGNOSES: 1. Leukocytosis most likely secondary to the metastatic disease as well as sepsis. 2. Lactic acidosis. 3. Left lower extremity deep venous thrombosis. 4. Anemia. 5. Acute kidney injury. 6. Coronary artery disease. 7. Colon cancer, status post resection and colostomy . 8. Obstructive uropathy. 9. Status post pacemaker. 10. Deep venous thrombosis. MEDICATION ON DISCHARGE: Continue discharge medication list. ACTIVITY: As tolerated. DIET: Regular diet as tolerated. DISPOSITION: The patient will be transferred back to the nursing facility via ambulance. Bharat Orozco M.D. DR: Dc JOB#: [id number] CC:
== END 2017-07-03 21:30 | DRG 871 ==
LOC: EDBD 14:48 → EMR 15:00 → ICU 16:01 → EDBEDREQ 06-18 05:32 → EDBEDREQSVC 06-18 05:44 → 4E 06-19 13:00
PROC: 05H833Z Insertion of Infusion Device into Left Axillary Vein, Percutaneous Approach (ICD-10-PCS; principal; 2017-06-26)
PROC: B51NZZA Fluoroscopy of Left Upper Extremity Veins, Guidance (ICD-10-PCS; principal; 2017-06-26)
DX: A41.9 Sepsis, unspecified organism (principal); R65.21 Severe sepsis with septic shock; G93.40 Encephalopathy, unspecified; E43 Unspecified severe protein-calorie malnutrition; N39.0 Urinary tract infection, site not specified; C18.9 Malignant neoplasm of colon, unspecified; E87.2 Acidosis; I82.412 Acute embolism and thrombosis of left femoral vein; N17.9 Acute kidney failure, unspecified; D68.9 Coagulation defect, unspecified; N13.30 Unspecified hydronephrosis; C79.9 Secondary malignant neoplasm of unspecified site; D52.9 Folate deficiency anemia, unspecified; Z93.3 Colostomy status; N13.9 Obstructive and reflux uropathy, unspecified; E86.0 Dehydration; F32.9 Major depressive disorder, single episode, unspecified; D69.6 Thrombocytopenia, unspecified; I25.10 Atherosclerotic heart disease of native coronary artery without angina pectoris; E87.8 Other disorders of electrolyte and fluid balance, not elsewhere classified; Z95.0 Presence of cardiac pacemaker; Z79.01 Long term (current) use of anticoagulants; E87.6 Hypokalemia; E83.42 Hypomagnesemia; Z51.5 Encounter for palliative care; Z68.35 Body mass index [BMI] 35.0-35.9, adult
CPT/HCPCS: 36415; 36569; 71045; 74018; 74177; 76937; 80048; 80053; 80076; 80202; 81003; 82248; 82270; 82378; 82550; 82607; 82728; 82746; 83540; 83550; 83605; 83690; 83735; 83880; 84100; 84439; 84443; 84484; 85007; 85025; 85044; 85610; 85651; 85730; 86140; 86850; 86870; 86900; 86901; 86904; 86920; 87040; 87081; 87086; 87181; 87324; 93005; 93306; 93970; 94664; 99285; 99291; J2405; J8499